=== PATIENT | male | born 1945 | race Caucasian/White ===

== ENCOUNTER 2019-04-13 18:26 | Outpatient (CLI) | payer MEDICARE, SELFPAY ==
[2019-04-13 19:25] LABS: ALT 75 U/L (16-63); AST 32 U/L (15-37); Alkaline Phosphatase 59 U/L (46-116); Anion Gap 12.1 mmol/L (3-11); BUN 17 mg/dL (7-18); Bilirubin, Total 0.7 mg/dL (0.2-1.0); CO2 23.9 mmol/L (21.0-32.0); CREATININE 1.17 mg/dL (0.70-1.30); Calcium 9.2 mg/dL (8.5-10.1); Calculated LDL 160 mg/dL; Chloride 103 mmol/L (98-107); Cholesterol 250 mg/dL (<200); Glucose 91 mg/dL (74-106); HDL Cholesterol 35 mg/dL (40-60); Potassium 4.8 mmol/L (3.5-5.1); Sodium 139 mmol/L (136-145); Total Protein 7.8 g/dL (6.4-8.2); Triglyceride 277 mg/dL (<150)
== END 2019-04-13 18:46 ==
PROVIDERS: PCP Family Medicine; Visit Provider Family Medicine
DX: I10 Essential (primary) hypertension (principal)
CPT/HCPCS: 80053; 80061

== ENCOUNTER 2020-05-25 03:31 | Outpatient (CLI) | payer MEDICARE, SELFPAY ==
[2020-05-26 15:29] LABS: COVID-19 RT-PCR UVMMC Result Negative (Negative)
== END 2020-05-25 03:51 ==
PROVIDERS: PCP Family Medicine; Visit Provider Internal Medicine Cardiovascular Disease
DX: Z11.59 Encounter for screening for other viral diseases (principal); Z01.810 Encounter for preprocedural cardiovascular examination
CPT/HCPCS: U0003

== ENCOUNTER 2020-05-31 00:46 | Outpatient (CLI) | payer MEDICARE, SELFPAY ==
--- NOTE | 2020-05-31 07:00 | DI.NM_ITS ---
APPROVED REPORT Exam: Pharmacologic Patient Location: Out-Patient Room/Bed: Stress Nurse: Nena Lee RN, Dm Smith RN Ordering Provider:LISANDRA ESTRADA, Contact Number: [phone] BMI: 32.99 Baseline Rhythm: Sinus Bradycardia Comment: RBBB, PACs, prolonged OH interval Indications: MAE and agina on exertion, HLD Medical History Medical History: Hypertension, hyperlipidemia, heart murmur Cardiac Medications: aspirin, lisinopril, garlic Allergies: amlodipine, simvastatin, NSAIDs, atorvastatin, rosuvastatin, berlazepril Cardiac Risk Factors: HTN, HLD, family hx, former smoker, obesity Previous Cardiac Procedures: None. Pretest Chest Pain Characteristics: None. Exercise History: sedentary Physical Disabilities: None. Lung Sounds: Clear to auscultation Heart Sounds: Regular Stress Test Details Test: Exercise stress converted to pharmacologic stress due to failure to obtain a diagnostic stress test. Reason for pharmacologic stress test: changed from exercise stress test due to inability to reach t arget heart rate. Nuclear Acquisition: Rest Tc-99m/Stress Tc-99m 1 day Rest Isotope: Tc-99m Sestamibi. Dose: 11.5 Date: 05/31/20 Injection Time: 0930 Stress Isotope: Tc-99m Sestamibi. Dose: 37 Date: 05/31/20 Injection Time: 1130 HR Resting HR Supine: 59 bpm Max Heart Rate (APMHR): 148 bpm Resting HR Standin bpm Target HR (85% APMHR): 125 bpm Max HR Achieved: 125 bpm % of APMHR: 84 Recovery HR: 83 bpm HR response to stress: Accelerated HR response to stress BP Resting BP Supine: 142/80 mmHg Resting BP Standin/82 mmHg Max BP: 152/86 mmHg Recovery BP: 140/86 mmHg BP response to stress: Normal blood pressure response to stress. ECG Resting ECG: Sinus Rhythm, RBBB, borderline prolonged OH interval Ectopy: PACs, frequent PVCs Stress ECG: Sinus Tachycardia, RBBB ST Change: Horizontal ST depression Lead(s): II, aVF, V3, V4, V5, V6 Stage: [address] Deviation: 2 mm Arrhythmia: PVCs, couplet Recovery ECG: Sinus Rhythm, RBBB Recovery ST Change: Horizontal ST depression, Downsloping ST depression Lead(s): II, III, avF, V3, V4, V5, V6 Recovery ST Deviation: 2.5 mm Recovery Arrhythmia: PVCs Clinical Reason for Termination: Chest pain/Anginal equivalent Stress Symptoms: Chest pain, Dyspnea Exercise duration: 5 min43 sec Highest Stage Reached: Stage 2: 2.5 mph at 12% grade. Exercise capacity: 5.46 METs Rubio Treadmill Score: -3.2 Rate Pressure Product: [id number] Stress ECG Conclusion 1. The resting electrocardiogram showed first-degree AV block, right bundle branch block 2. The patient exercised on the Clint protocol for 5 minutes 43 seconds, 5.46 METS. The test was sto pped because of shortness of breath and chest discomfort 3. Normal heart rate and blood pressure response to exercise. The patient achieved 84% of predicted heart rate for age 4. Electrocardiographically there was 2.[address] depression noted in the inferior and anterolateral leads at peak exercise, consistent with myocardial ischemia 5. Sporadic ventricular ectopic beats were noted Rubio Treadmill Score is -3.2 which is Moderate risk. Stress Test Summary STAGE Time (mins) Speed (mph) Grade (%) HR BP SYMPTOMS METS Supine 59 142/80 Standing 68 138/82 1 3 1.7 10 120 146/80 4.6 2 6 2.5 12 sternal tightness, SOB, pain 6/10 7 1 min post Lexiscan injection 101 152/86 3 min post Lexiscan injection 86 144/90 pain 4/10 6 min post Lexiscan injection 84 144/86 pain 4/10 9 min post Lexiscan injection 79 140/86 pain 2/10 12 min post Lexiscan injection 83 pain resolved 0/10 MPI Conclusion Myocardial perfusion is abnormal. There is an anteroapical area of predominant infarction, with some degree of reperfusion of the anterior wall Radiologist Interpretation Radiologist Interpretation by: Lizandro Badillo MD Interpretation Date/Time: 05/31/2020 15:04:22
[2020-05-31] MEDS: Regadenoson 0.4 MG/5 ML SYR IVP (12:02)
== END 2020-05-31 01:06 ==
PROVIDERS: PCP Family Medicine; Visit Provider Family Medicine
DX: I20.8 Other forms of angina pectoris (principal); R06.09 Other forms of dyspnea; E78.5 Hyperlipidemia, unspecified; I10 Essential (primary) hypertension; Z82.49 Family history of ischemic heart disease and other diseases of the circulatory system; Z87.891 Personal history of nicotine dependence; E66.9 Obesity, unspecified
CPT/HCPCS: 78452; 93016; 93018; 93017; J2785

== ENCOUNTER → 2020-06-13 10:39 | Outpatient (BNVA) | payer MEDICARE, SELFPAY | PROVIDERS: PCP Family Medicine; Referring Provider Family Medicine; Visit Provider Internal Medicine Cardiovascular Disease | DX: I25.10 Atherosclerotic heart disease of native coronary artery without angina pectoris (principal); R01.1 Cardiac murmur, unspecified; I10 Essential (primary) hypertension; E78.5 Hyperlipidemia, unspecified | CPT/HCPCS: 99204 ==

== ENCOUNTER 2020-06-28 01:28 | Outpatient (CLI) | payer MEDICARE, SELFPAY ==
--- NOTE | 2020-06-28 07:30 | DI.US_ITS ---
APPROVED REPORT EXAM: Comprehensive 2D, Doppler, and color-flow Echocardiogram Patient Location: Out-Patient Behavioral Psychologist: Emily Rodas RDCS (AE) Indications: CAD, Heart Murmur Other Information Study Quality: Adequate Conclusion Left Ventricle : The left ventricle is normal size. The left ventricular systolic function is normal. The left ventricular ejection fraction is within the normal range. There is normal left ventricular wall thickness. There is normal LV segmental wall motion. The left ventricular diastolic function is normal. LVEF is 50%. Right Ventricle : The right ventricle is normal size. The right ventricular systolic function is norm al. The RVSP is 23.6 mmHg. Atria : The left atrium size is normal. The right atrium size is normal. Aortic Valve : Aortic valve is calcified. Aortic valve is trileaflet. No aortic regurgitation is pres ent. There is mild aortic stenosis. Peak aortic valve gradient is 29.2mmHg. Highest mean aortic valv e gradient is 18.0mmHg. Calculated CUCA by the continuity equation is 1.47cm2. Great Vessels : The aortic root is normal in size. The ascending aorta is moderately dilated. Aortic arch is normal in caliber. IVC is normal in size and collapses >50% with inspiration. Please see remainder of study for further details. Wall motion Left Ventricle The left ventricle is normal size. The left ventricular systolic function is normal. The left ventric ular ejection fraction is within the normal range. There is normal left ventricular wall thickness. T here is normal LV segmental wall motion. The left ventricular diastolic function is normal. There is no ventricular septal defect visualized. LVEF is 50%. Right Ventricle The right ventricle is normal size. The right ventricular systolic function is normal. The RVSP is 23 .6 mmHg. Atria The left atrium size is normal. The right atrium size is normal. The interatrial septum is intact wit h no evidence for an atrial septal defect. Aortic Valve Aortic valve is calcified. Aortic valve is trileaflet. There is mild aortic stenosis. Peak aortic becky ve gradient is 29.2mmHg. Highest mean aortic valve gradient is 18.0mmHg. Calculated CUCA by the contin uity equation is 1.47cm2. No aortic regurgitation is present. Mitral Valve The mitral valve is normal in structure. No evidence of mitral valve stenosis. Trace mitral regurgita tion. Tricuspid Valve The tricuspid valve is normal in structure. There is no tricuspid valve stenosis. Trace tricuspid reg urgitation. Pulmonic Valve The pulmonary valve is normal in structure. There is no pulmonic valvular stenosis. Trace pulmonic re gurgitation. Great Vessels The aortic root is normal in size. The ascending aorta is moderately dilated. Aortic arch is normal i n caliber. IVC is normal in size and collapses >50% with inspiration. Pericardium There is no pericardial effusion. 2D Dimensions IVSD d PLAX 1.09 cm M: 0.6-1.2 LV Vol A2C d MOD 117.8 mL LVPW d PLAX 1.08 cm M: 0.6 - 1.2 LV Vol A4C d MOD 122.8 mL LVID d PLAX 4.78 cm M: 4.2 - 5.8 LA vol/ BSA A2C s A-L 24.9 mL/m2 LVDs 3.55 cm M: 2.5 - 4.0 LA vol/ BSA A4C s A-L 22.6 mL/m2 Ao Root d 2.94 cm M: 3.1 - 3.7 LA Vol/ BSA Biplane s A-L 24.7 mL/m2 RA Area A4C 14.77 cm2 LA Area A4C s MOD 18.81 cm2 RA Vol/ BSA A4C s A-L 15.4 mL/m2 LA Area A2C s MOD 18.98 cm2 Ao Asc Diam d 3.91 cm M: 2.6 - 3.4 LV EF A4C MOD 50.6 % LV EF Teichholz 49.3 % LV EF A2C MOD 51.5 % LVEF (El's) 52.88 % M: 52 - 72 LV EF Biplane MOD 52.9 % LV Volume 90.00 mL M: 62 - 150 SV 66.32 mL LV Volume Index 39.30 mL/m2 M: 34 - 74 SV Index 28.86 mL/m2 LV Vol Biplane MOD 125.4 mL FS 24.95 % M-Mode TAPSE 1.62 cm (M/F) >1.7 LV Diastology MV E' medial 0.055 (>0.07 m/s) E/A Ratio 0.9 LV E/e MED 11.25 (<14) MV E Vmax 0.62 (0.4-1.3 m/s) MV E' lateral 0.105 (>0.1 m/s) MV A Vmax 0.70 (0.4-1.3 m/s) LV E/e LAT 5.90 (<14) MV E/A Ratio 0.86 MV E/E' medial 11.26 MV E/E' lateral 5.94 Aortic Valve LVOT Area 3.76 cm2 AoV Area Vmax 1.47 cm2 LVOT Vmax 1.06 m/s AoV Area/ BSA (Vmax) 0.64 cm2/m2 LVOT Mean Casey. 0.65 m/s CUCA Mean Casey. 1.18 cm2 LVOT Peak Grad 4.5 mmHg CUCA Mean Casey. Index 0.51 cm2/m2 LVOT Mean Grad 2.0 mmHg LVOT VTI 0.235 m LVOT Diam s 2.15 cm AoV Vmax 2.70 m/s Velocity Ratio 0.39 AoV Mean Casey. 2.05 m/s AoV Peak Grad 29.2 mmHg LVOT SV 88.28 mL AoV Mean Grad 18.0 mmHg AoV VTI 0.596 m AoV Area VTI 1.48 cm2 AoV Area/ BSA (VTI) 0.64 cm/m2 Mitral Valve MV DT 249 (160-240 msec) MV PHT 72 msec MV Area PHT 3.05 cm2 MV VTI 0.266 m MV Area VTI 3.32 (4.0-6.0 cm2) Pulmonary Valve PV Vmax 0.86 (0.5-1.5 m/s) RVOT Peak Gr. 1.12 mmHg PV Peak Grad 3.0 mmHg RVOT Mean Gr. 0.55 mmHg PV Mean Grad 1.5 mmHg RVOT VTI 0.112 m PV VTI 0.181 m RVOT Vmax 0.53 m/s Tricuspid Valve TR Peak Grad 20.5 mmHg TR Vmax 2.27 m/s RA Pressure 3.00 mmHg RVSP (TR) 23.6 mmHg
== END 2020-06-28 01:29 ==
LOC: DI 01:28
PROVIDERS: PCP Family Medicine; Visit Provider Internal Medicine Cardiovascular Disease
DX: R01.1 Cardiac murmur, unspecified (principal); I77.810 Thoracic aortic ectasia
CPT/HCPCS: 93306

== ENCOUNTER → 2020-08-03 12:18 | Outpatient (BNVA) | payer MEDICARE, SELFPAY | PROVIDERS: PCP Family Medicine; Referring Provider Family Medicine; Visit Provider Internal Medicine Cardiovascular Disease | DX: Z95.1 Presence of aortocoronary bypass graft (principal); I25.10 Atherosclerotic heart disease of native coronary artery without angina pectoris; I10 Essential (primary) hypertension; E78.5 Hyperlipidemia, unspecified | CPT/HCPCS: 99214; 99215 ==

== ENCOUNTER → 2020-09-14 12:32 | Outpatient (BNVA) | payer MEDICARE, SELFPAY | PROVIDERS: PCP Family Medicine; Referring Provider Family Medicine; Visit Provider Internal Medicine Cardiovascular Disease | DX: I25.10 Atherosclerotic heart disease of native coronary artery without angina pectoris (principal); I10 Essential (primary) hypertension; E78.5 Hyperlipidemia, unspecified; I35.0 Nonrheumatic aortic (valve) stenosis; Z98.890 Other specified postprocedural states | CPT/HCPCS: 99213 ==

== ENCOUNTER 2020-10-12 09:00 | Outpatient (RCR) | payer MEDICARE, SELFPAY | END 2020-10-15 23:59 | disposition home or self-care (01) | LOC: CR 09:00 | PROVIDERS: PCP Family Medicine; Visit Provider Family Medicine | DX: Z51.89 Encounter for other specified aftercare (principal); I25.10 Atherosclerotic heart disease of native coronary artery without angina pectoris; Z95.1 Presence of aortocoronary bypass graft | CPT/HCPCS: S9472 ==

== ENCOUNTER 2020-11-14 09:00 | Outpatient (RCR) | payer MEDICARE, SELFPAY | END 2020-11-14 23:59 | disposition home or self-care (01) | LOC: CR 09:00 | PROVIDERS: PCP Family Medicine; Visit Provider Family Medicine | DX: Z51.89 Encounter for other specified aftercare (principal); I25.10 Atherosclerotic heart disease of native coronary artery without angina pectoris; Z95.1 Presence of aortocoronary bypass graft | CPT/HCPCS: S9472 ==

== ENCOUNTER 2020-11-16 09:00 | Outpatient (RCR) | payer MEDICARE, SELFPAY | END 2020-12-15 23:59 | disposition home or self-care (01) | LOC: CR 09:00 | PROVIDERS: PCP Family Medicine; Visit Provider Family Medicine | DX: I25.10 Atherosclerotic heart disease of native coronary artery without angina pectoris (principal); Z95.1 Presence of aortocoronary bypass graft; Z51.89 Encounter for other specified aftercare | CPT/HCPCS: S9472 ==

== ENCOUNTER → 2020-12-28 09:51 | Outpatient (BNVA) | payer MEDICARE, SELFPAY | PROVIDERS: PCP Family Medicine; Referring Provider Family Medicine; Visit Provider Internal Medicine Cardiovascular Disease | DX: I35.0 Nonrheumatic aortic (valve) stenosis (principal); I25.10 Atherosclerotic heart disease of native coronary artery without angina pectoris; I10 Essential (primary) hypertension; Z95.1 Presence of aortocoronary bypass graft | CPT/HCPCS: 99213 ==

== ENCOUNTER → 2021-06-25 10:22 | Outpatient (BNVA) | payer MEDICARE, SELFPAY | PROVIDERS: PCP Family Medicine; Referring Provider Family Medicine; Visit Provider Internal Medicine Cardiovascular Disease | DX: I35.0 Nonrheumatic aortic (valve) stenosis (principal); I25.10 Atherosclerotic heart disease of native coronary artery without angina pectoris; I10 Essential (primary) hypertension | CPT/HCPCS: 99214; 99213 ==

== ENCOUNTER 2021-07-29 13:07 | Outpatient (CLI) | payer MEDICARE, SELFPAY ==
[2021-07-29 10:43] LABS: ALT 34 U/L (16-63); AST 24 U/L (15-37); Albumin 3.6 g/dL (3.4-5.0); Alkaline Phosphatase 68 U/L (46-116); BUN 19 mg/dL (7-18); Bilirubin, Total 0.5 mg/dL (0.2-1.0); CREATININE 1.1 mg/dL (0.70-1.30); Calculated LDL 110 mg/dL (<100); Chloride 105 mmol/L (98-107); Cholesterol 197 mg/dL (<200); Glucose 98 mg/dL (74-106); HDL Cholesterol 35 mg/dL (40-60); Potassium 5.1 mmol/L (3.5-5.1); Sodium 138 mmol/L (136-145); Total Protein 7.2 g/dL (6.4-8.2); Triglyceride 264 mg/dL (<150)
== END 2021-07-29 13:08 | disposition home or self-care (01) ==
LOC: LBO 13:17
PROVIDERS: PCP Family Medicine; Visit Provider Family Medicine
DX: I25.10 Atherosclerotic heart disease of native coronary artery without angina pectoris (principal)
CPT/HCPCS: 36415; 80053; 80061

== ENCOUNTER 2021-08-05 10:58 | Day surgery (SDC) | payer MEDICARE, SELFPAY ==
[2021-08-05] MEDS: Tropicam./Phenyleph. (1/2.5%) 5 ML BTL OD ×3 (11:56→12:06)
[2021-08-05 11:57] VITALS: BP 135/86; PULSE 82; RESP 16; TEMP 36.9; O2SAT 97
--- NOTE | 2021-08-05 12:33 | W.ANESPRE ---
General Info Date of Service Date Performed: 08/05/21 Height: 6 ft Weight: 109.6 kg Body Mass Index (BMI): 32.8 Surgical Procedure: Operation Date: 08/05/21 14:40 Proposed Procedure Side Surgeon p Cataract Extraction with IOL Implant Right Sage Mcgregor MD Meds Allergies and Home Medications Allergies Allergy/AdvReac Type Severity Reaction Status Date / Time ibuprofen Allergy Intermediate SKIN RASH Verified 08/05/21 11:43 NSAIDS (Non-Steroidal Allergy Unknown unknown Verified 08/05/21 11:43 Anti-Inflamma atorvastatin AdvReac Intermediate MUSCLE Verified 08/05/21 11:43 ACHES rosuvastatin calcium AdvReac Intermediate MUSCLE Verified 08/05/21 11:43 [From Crestor] ACHING amlodipine AdvReac Mild dry mouth, Verified 08/05/21 11:43 cramps on combo benazepril AdvReac Mild dry mouth, Verified 08/05/21 11:43 cramps simvastatin AdvReac Unknown ARM/MUSCLE Verified 08/05/21 11:43 PAIN Home Medication Medication Instructions Recorded Vitamin B Complex 1 ea PO DAILY 08/16/12 aspirin 81 mg tablet,delayed 81 mg PO DAILY tab 08/16/12 release acetaminophen 500 mg tablet 1,000 mg PO DAILY 04/30/16 (Acetaminophen Extra Strength) nitroglycerin 0.4 mg sublingual 0.4 mg SUBLINGUAL Q5M PRN #30 tab 06/01/20 tablet multivitamin-ferrous 1 tab PO DAILY tab-cap 08/06/20 fumarate-folic acid 18 mg-400 mcg tablet (Centrum Complete) ezetimibe 10 mg tablet 10 mg PO DAILY #90 tab 07/11/21 hydroxyzine HCl 25 mg tablet 25 mg PO TID PRN #100 tab-cap 07/11/21 metoprolol succinate 50 mg 50 mg PO DAILY #90 tab 07/30/21 tablet,extended release 24 hr triamcinolone acetonide 0.5 % 1 applic TOPICAL BID PRN #15 g 07/30/21 topical cream Current Visit Medications: Current Medications Generic Name Dose Route Start Last Admin Trade Name Freq PRN Reason Stop Dose Admin Acetaminophen 1,000 mg 08/05/21 06:00 Acetaminophen 500 Mg Tab PO Q4H PRN PRN Miscellaneous Medication 0 ml 08/05/21 06:00 Prednisolone 1%, Moxifloxacin 0.5%, Nepafenac 0.1% 5ml Btl OD DIRECTED MARINA Miscellaneous Medication 0 ml 08/05/21 06:00 08/05/21 12:06 Tropicam./Phenyleph. (1/2.5%) 5 Ml Btl OD 1 drp DIRECTED MARINA Administration Tetracaine HCl 0 ml 08/05/21 06:00 Tetracaine 0.5% 4 Ml Btl OD DIRECTED MARINA PFSH Active Problems Active Problems: Problem Status Onset Code BMI 34.0-34.9,adult 07/22/11 Z68.34 Heart murmur 07/22/11 R01.1 Hyperlipidemia 07/22/11 E78.5 Hypertension 01/23/14 I10 Joint pain of lower limb 06/03/16 M25.50 Obesity, unspecified 07/22/11 E66.9 Peripheral vascular disease 07/22/11 I73.9 Urticaria 07/22/11 L50.9 Skin sensation disturbance 07/22/11 R20.9 History of tobacco use disorder 07/22/11 Z87.891 Coronary artery disease I25.10 Aortic stenosis I35.0 Epiretinal membrane (ERM) of both eyes H35.373 Aortic dilatation I77.819 Medical History Medical History Heart murmur HLD (hyperlipidemia) HTN (hypertension) Surgical History Surgical History H/O eye surgery (~03/2019) LASER FOR L RETINAL TEAR H/O vitrectomy (~05/2019) Hernia of scrotum (09/17/09) repair 09/17/09 LEFT History of surgery on upper extremity (06/22/1954) R index finger surgery S/P CABG x 4 (~2011) 07/23/20-Dr. Ledesma,[facility] [place] F/U up with Dr. Magana q6 months, last visit 06/25/21 S/P right inguinal hernia repair (06/23/04) S/P vasectomy (05/17/89) Tobacco Smoking/Tobacco Use Status: Former Tobacco Use Alcohol Alcohol Intake: current Alcohol intake frequency: a few times a week Alcohol type: beer Details: Not drinking until after f/u with doctor. Substance Use Substance use: Never Substance use type: does not use Vital Signs and Lab Results Vital Signs Most Recent Vital Signs in EMR: Most Recent Vital Signs Temp Pulse Resp BP Pulse Ox 36.9 C 82 16 135/86 97 08/05/21 11:57 08/05/21 11:57 08/05/21 11:57 08/05/21 11:57 08/05/21 11:57 Lab Results Blood Type / Crossmatch: No Data to Display Complete Blood Count: No Data to Display Complete Metabolic Panel: Sodium Level 138 mmol/L (136-145) 07/29/21 09:13 07/29/21 Potassium Level 5.1 mmol/L (3.5-5.1) 07/29/21 09:13 07/29/21 Chloride Level 105 mmol/L (98-107) 07/29/21 09:13 07/29/21 Carbon Dioxide Level 26.0 mmol/L (21.0-32.0) 07/29/21 09:13 07/29/21 Blood Urea Nitrogen 19 mg/dL (7-18) H 07/29/21 09:13 07/29/21 Creatinine 1.1 mg/dL (0.70-1.30) 07/29/21 09:13 07/29/21 Estimated GFR/1.73 m2 >= 60.00 (mL/min/1.73m2) 07/29/21 09:13 07/29/21 Calcium Level 9.0 mg/dL (8.5-10.1) 07/29/21 09:13 07/29/21 Albumin 3.6 g/dL (3.4-5.0) 07/29/21 09:13 07/29/21 Glucose Level 98 mg/dL (74-106) 07/29/21 09:13 07/29/21 Liver Function Panel: Alanine Aminotransferase (ALT/SGPT) 34 U/L (16-63) 07/29/21 09:13 07/29/21 Aspartate Amino Transf (AST/SGOT) 24 U/L (15-37) 07/29/21 09:13 07/29/21 Coagulation Panel: No Data to Display Cardiac Panel: No Data to Display Arterial Blood Gas: No Data to Display Venous Blood Gas: No Data to Display Pancreas Panel: No Data to Display Thyroid Panel: No Data to Display Infectious Disease: No Data to Display Blood Cultures: No Data to Display Toxicology Panel: No Data to Display Anesthesia Assessment and Plan Anesthesia History Personal History: No History of Anesthesia Complications Family History: No Family History of Anesthesia Complications Exercise Tolerance Exercise Tolerance: Metabolic Equivalents>4 Pertinent Negatives Pertinent Negatives: No Symptoms of GERD, No Major Cardiovascular Symptoms or Complaints (CABG x 4 07/23/20), No Major Pulmonary Symptoms or Complaints and No History of CVA/TIA Cardiac & Pulmonary Exam Cardiac Exam: Normal S1/S2 Heart Sounds Pulmonary Exam: Clear Bilateral Breath Sounds Implantable Cardiac Device Does patient have a Pacemaker or an ICD?: No Airway Exam Known Difficult Airway: No Mallampati Class: 2 Mouth Opening: Normal (> 3cm) Thyromental Distance: Greater than 3 cm Neck Range of Motion: Full ROM Neck Circumference: Normal Teeth Condition: Normal Dentition ASA Classification ASA Score: ASA 2 Emergency Case?: No NPO Status NPO Status: NPO Clears >2 hours, Solids >8 hours Anesthesia Plan Resuscitation Status: Full Code Anesthesia Technique: MAC Anesthesia Airway Planned: Natural Airway Monitors Used: Standard Monitors
[2021-08-05 12:34] VITALS: BMI 32.8
[2021-08-05] MEDS: Povidone-Iodine Ophth 30 ML BTL (12:46)
[2021-08-05] MEDS: Tetracaine 0.5% 4 ML BTL OD (12:46)
[2021-08-05] MEDS: Lidocaine 2% Jelly 6 ML SYR (12:46)
[2021-08-05] MEDS: Balanced Salt Soln.-PLUS 500 ML BAG (12:55)
[2021-08-05] MEDS: Duovisc Viscoelastic System EACH 1 EACH (12:57)
[2021-08-05 13:15] VITALS: BP 124/83; PULSE 70; RESP 16; TEMP 37; O2SAT 95
--- NOTE | 2021-08-05 13:16 | W.ANESPOSTOP ---
Postoperative Evaluation Date, Time and Location Date Performed: 08/05/21 Time Performed: 13:17 Patient Location: Day Surgery Unit Vital Signs Most Recent Imported Vital Signs: Most Recent Vital Signs Temp Pulse Resp BP Pulse Ox 36.9 C 82 16 135/86 97 08/05/21 11:57 08/05/21 11:57 08/05/21 11:57 08/05/21 11:57 08/05/21 11:57 Most Recent Manually Entered Vital Signs: Adult Blood Pressure: 124/83 Heart Rate: 67 Respirations: 11 Oxygen Saturation (%): 97 Temperature (C): 36.3 C Pain Score (0-10 Scale): 0 Pain Score Most Recent Pain Score: Most Recent Pain Score Pain Level 0 08/05/21 11:57 Assessment Mental Status: Awake (Alert & Oriented to Patient Baseline) Airway and Respiratory Function: Patent airway with normal (patient baseline) respiratory exam Cardiovascular Function: Hemodynamically Stable Hydration Status: Adequately Hydrated Nausea & Vomiting: No Nausea or Vomiting Pain: Pt. Denies Any Pain Peripheral Nerve Block: Patient did not receive a nerve block
[2021-08-05 13:18] VITALS: BP 124/83; PULSE 67; RESP 11; TEMPC 36.3; O2SAT 97
--- NOTE | 2021-08-05 13:18 | W.PM.DSUDISC ---
Discharge Plan Disposition Patient Disposition: HOME Condition: Good Discharge Details Attending Provider: Sage Mcgregor Primary Care Provider: Mayank Mohamud Home Meds and New Rx's Prescriptions: No Action triamcinolone acetonide 0.5 % cream 1 applic topical BID PRN (Reason: pruritis) Qty: 15 0RF metoprolol succinate 50 mg tablet extended release 24 hr 50 mg PO DAILY Qty: 90 3RF Rx Instructions: Increased s/p [facility] [place] d/c following CABGx4, decreased 08/14/20 [facility] [place] note cgc aspirin 81 MG tablet,delayed release (DR/EC) 81 mg PO DAILY 0RF Rx Instructions: PREVENTION VITAMIN B COMPLEX 1 EACH tablet 1 ea PO DAILY 0RF acetaminophen [Acetaminophen Extra Strength] 500 MG tablet 1,000 mg PO DAILY 0RF nitroglycerin 0.4 mg tablet, sublingual 0.4 mg sublingual Q5M PRN (Reason: chest pain) Qty: 30 6RF Rx Instructions: do not exceed 3 doses per episode Centrum Complete 18-400 mg-mcg tablet 1 tab PO DAILY 0RF Rx Instructions: with Vitamin A - per pt and [facility] [place] record vitamin A dose of 10,000IU ezetimibe 10 mg tablet 10 mg PO DAILY Qty: 90 3RF Rx Instructions: 07/30/20 per [facility] [place] d/c s/p CABGX4 hydroxyzine HCl 25 mg tablet 25 mg PO TID PRN (Reason: itching) Qty: 100 3RF Rx Instructions: as needed for itching Discharge Instructions Stand Alone Forms: Post-op Topical Cataract, Tanmay Gaona (DSU) Discharge Orders Discharge Orders: Discharge Order (Routine); Ordered 08/05/21 Ordered By: Sage Mcgregor DS: Diagnosis Discharge Diagnosis (1) Cortical cataract of right eye: Status: Resolved (2) Nuclear sclerotic cataract of right eye: Status: Resolved (3) Posterior subcapsular age-related cataract, right eye: Status: Resolved
--- NOTE | 2021-08-05 13:20 | ROE_ITS ---
Date of service: 08/05/21 Time of Service: 13:20 Operative Note Operative Note DATE OF PROCEDURE: 08/05/21 PRE-OP DIAGNOSIS: Nuclear/cortical/posterior subcapsular cataract, right eye Status post pars plana vitrectomy, right eye POST-OP DIAGNOSIS: same PROCEDURE: Cataract extraction using phacoemulsification with intraocular lens implant, right eye SURGEON: Sage Mcgregor ANESTHESIA TYPE: Local By Surgeon and MAC Refer to Anesthesia Record ESTIMATED BLOOD LOSS: 0 PATHOLOGY: none sent COMPLICATIONS: None Patient was transported to: same day Patient's condition: stable Implants: [employer]ed/ROLA Tecnis [id number] Indications: Progressive visual loss due to cataract, right eye Procedure Description: CATARACT SURGERY OPERATIVE REPORT PREOPERATIVE DIAGNOSIS: 1. Nuclear/cortical/posterior subcapsular cataract, right eye 2. Status post pars plana vitrectomy, right eye POSTOPERATIVE DIAGNOSIS: Same OPERATION: 1. Cataract extraction using phacoemulsification with posterior chamber intraocular lens implant, right eye. IOL: IOL Bilingual Student Tutor/Model: [employer]are[employer] / ROLA Tecnis [id number] IOL Power: + 22.5 diopters IOL Serial Number: [id number] Optic Diameter: 6.0mm Haptic/Overall Diameter: 13.0mm PHACO INFO: Mathew [employer]ion Vision System with OZil and Active Fluidics Cumulative Dispersed Energy (CDE): 16.19 seconds SURGEON: Sage Mcgregor MD, TOY ANESTHESIA: Monitored Anesthesia Care (MAC), with local sub-tenon's anesthetic infiltration COMPLICATIONS: None SPECIMENS: None INDICATIONS FOR PROCEDURE: The patient is a 76-year-old gentleman who is previously undergone pars plana vitrectomy and membrane peeling of the right eye he has now developed a significant nuclear/cortical/posterior subcapsular cataract of the right eye. The option of cataract surgery was offered to the patient and he wished to proceed. PROCEDURE: The correct surgical eye was identified and marked as the right eye and the pupil was dilated in the preoperative area using mydriatics and cycloplegics. The dilated pupil size was 8.0 mm. He elected to proceed without oral sedation. The patient was brought to the operating room where cardiopulmonary monitoring was instituted and surgical time-out was performed, confirming the correct operative eye and IOL power. Topical anesthesia was administered and ophthalmic povidone-iodine 5% was instilled into the conjunctival fornices. Lidocaine gel was applied to the cornea and the kitty-ocular area was prepped with Betadine 10% solution and draped in the usual sterile fashion for intraocular surgery, including an aperture drape. A Tegaderm transparent film dressing was cut in half and used to cover the lashes and lid margins. Care was taken to sequester the lashes and lid margins under the Tegaderm dressing. A lid speculum was placed between the lids of the operative eye and the Mathew LuxOR Revalia operating microscope was maneuvered into position. Ayan scissors were then used to make a conjunctival buttonhole approximately 6mm posterior to the limbus in the inferonasal quadrant. Blunt dissection was carried out to expose bare sclera, and a blunt-tipped sub-tenon?s anesthesia cannula was introduced and passed posteriorly along the globe where non- preserved plain lidocaine was injected into posterior sub-Tenon?s space. A sideport knife was used to make a paracentesis port inferotemporally. Intraocular phenylephrine/lidocaine was injected into the anterior chamber. The anterior chamber was filled with viscoelastic. A 2.4mm keratome knife was used to create a half-thickness groove at the limbus and then to construct a three- plane near-clear corneal tunnel extending 2.0mm into clear cornea superiortemporally. A flap was raised on the anterior capsule and capsulorhexis forceps were used to complete a continuous curvilinear capsulorhexis of 5.5 mm. Only mild zonular laxity was noted. Balanced salt solution was then used to perform cortical cleaving hydrodissection and nuclear hydrodelineation until the lens could be freely rotated within the capsular bag. The lens nucleus was then disassembled and removed within the capsular bag and iris plane using phacoemulsification. Residual cortical material was removed using the I/A handpiece. The posterior capsule was carefully polished to remove as much residual lens epithelial cells as safely possible. The capsular bag was then inflated and the anterior chamber deepened with viscoelastic. The lens implant described above was inserted into the capsular bag using the RLOA [place] Injector. A Kuglen hook was used to dial the IOL into position. Residual viscoelastic was then removed first from posterior to the IOL, then from the anterior chamber using the I/A handpiece. The lens implant was noted to center nicely within the capsular bag. The incisions were stromally hydrated, and the anterior chamber was reformed using BSS. Then 0.5cc of moxifloxacin 1.0mg/ml were injected into the capsular bag and anterior chamber. The incisions were checked with a Weck spear and found to be secure. Several drops of ophthalmic povidone-iodine 5% were then applied to the eye followed by two drops of Imprimis combination prednisolone/moxifloxacin/nepafenac solution. The drapes were removed and a clear plastic protective eye shield was placed over the eye. The patient was then returned to Same Day Surgery in stable condition.
== END 2021-08-05 13:35 | disposition home or self-care (01) ==
PROVIDERS: PCP Family Medicine; Visit Provider Ophthalmology
PROC: (CPT 66984; principal; 2021-08-05 14:30)
DX: H25.041 Posterior subcapsular polar age-related cataract, right eye (principal); I25.10 Atherosclerotic heart disease of native coronary artery without angina pectoris; I10 Essential (primary) hypertension; E78.5 Hyperlipidemia, unspecified; I73.9 Peripheral vascular disease, unspecified
CPT/HCPCS: 66984; V2632

== ENCOUNTER 2021-08-19 11:00 | Day surgery (SDC) | payer MEDICARE, SELFPAY ==
--- NOTE | 2021-08-19 11:43 | ANES.PREOP_ITS ---
General Info Date of Service Date Performed: 08/19/21 Height: 6 ft Weight: 109.6 kg Body Mass Index (BMI): 32.8 Surgical Procedure: Operation Date: 08/19/21 12:55 Proposed Procedure Side Surgeon p Cataract Extraction with IOL Implant Left Sage Mcgregor MD Meds Allergies and Home Medications Allergies Allergy/AdvReac Type Severity Reaction Status Date / Time ibuprofen Allergy Intermediate SKIN RASH Verified 08/19/21 11:44 NSAIDS (Non-Steroidal Allergy Unknown unknown Verified 08/19/21 11:44 Anti-Inflamma atorvastatin AdvReac Intermediate MUSCLE Verified 08/19/21 11:44 ACHES rosuvastatin calcium AdvReac Intermediate MUSCLE Verified 08/19/21 11:44 [From Crestor] ACHING amlodipine AdvReac Mild dry mouth, Verified 08/19/21 11:44 cramps on combo benazepril AdvReac Mild dry mouth, Verified 08/19/21 11:44 cramps simvastatin AdvReac Unknown ARM/MUSCLE Verified 08/19/21 11:44 PAIN Home Medication Medication Instructions Recorded Vitamin B Complex 1 ea PO DAILY 08/16/12 aspirin 81 mg tablet,delayed 81 mg PO DAILY tab 08/16/12 release acetaminophen 500 mg tablet 1,000 mg PO DAILY 04/30/16 (Acetaminophen Extra Strength) nitroglycerin 0.4 mg sublingual 0.4 mg SUBLINGUAL Q5M PRN #30 tab 06/01/20 tablet multivitamin-ferrous 1 tab PO DAILY tab-cap 08/06/20 fumarate-folic acid 18 mg-400 mcg tablet (Centrum Complete) ezetimibe 10 mg tablet 10 mg PO DAILY #90 tab 07/11/21 hydroxyzine HCl 25 mg tablet 25 mg PO TID PRN #100 tab-cap 07/11/21 metoprolol succinate 50 mg 50 mg PO DAILY #90 tab 07/30/21 tablet,extended release 24 hr triamcinolone acetonide 0.5 % 1 applic TOPICAL BID PRN #15 g 07/30/21 topical cream Current Visit Medications: Current Medications Generic Name Dose Route Start Last Admin Trade Name Freq PRN Reason Stop Dose Admin Acetaminophen 1,000 mg 08/19/21 06:00 Acetaminophen 500 Mg Tab PO Q4H PRN PRN Miscellaneous Medication 0 ml 08/19/21 06:00 Prednisolone 1%, Moxifloxacin 0.5%, Nepafenac 0.1% 5ml Btl OS DIRECTED MARINA Miscellaneous Medication 0 ml 08/19/21 06:00 Tropicam./Phenyleph. (1/2.5%) 5 Ml Btl OS DIRECTED MARINA Tetracaine HCl 0 ml 08/19/21 06:00 Tetracaine 0.5% 4 Ml Btl OS DIRECTED [facility] PFSH Active Problems Active Problems: Problem Status Onset Code Cortical cataract of left eye H26.9 Nuclear sclerotic cataract of left eye H25.12 Posterior subcapsular age-related cataract, right eye H25.041 Nuclear sclerotic cataract of right eye H25.11 Cortical cataract of right eye H26.9 BMI 34.0-34.9,adult 07/22/11 Z68.34 Heart murmur 07/22/11 R01.1 Hyperlipidemia 07/22/11 E78.5 Hypertension 01/23/14 I10 Joint pain of lower limb 06/03/16 M25.50 Obesity, unspecified 07/22/11 E66.9 Peripheral vascular disease 07/22/11 I73.9 Urticaria 07/22/11 L50.9 Skin sensation disturbance 07/22/11 R20.9 History of tobacco use disorder 07/22/11 Z87.891 Coronary artery disease I25.10 Aortic stenosis I35.0 Epiretinal membrane (ERM) of both eyes H35.373 Aortic dilatation I77.819 Medical History Medical History (Updated 08/18/21 @ 10:31 by Sage Mcgregor MD) Heart murmur HLD (hyperlipidemia) HTN (hypertension) Surgical History Surgical History H/O eye surgery (~03/2019) LASER FOR L RETINAL TEAR H/O vitrectomy (~05/2019) Hernia of scrotum (09/17/09) repair 09/17/09 LEFT History of surgery on upper extremity (06/22/1954) R index finger surgery S/P CABG x 4 (~2011) 07/23/20[place] [place] with Dr. Magana q6 months, last visit 06/25/21 S/P right inguinal hernia repair (06/23/04) S/P vasectomy (05/17/89) Tobacco Smoking/Tobacco Use Status: Former Tobacco Use Alcohol Alcohol Intake: current Alcohol intake frequency: a few times a week Alcohol type: beer Details: Not drinking until after f/u with doctor. Substance Use Substance use: Never Substance use type: does not use Vital Signs and Lab Results Lab Results Blood Type / Crossmatch: No Data to Display Complete Blood Count: No Data to Display Complete Metabolic Panel: Sodium Level 138 mmol/L (136-145) 07/29/21 09:13 07/29/21 Potassium Level 5.1 mmol/L (3.5-5.1) 07/29/21 09:13 07/29/21 Chloride Level 105 mmol/L (98-107) 07/29/21 09:13 07/29/21 Carbon Dioxide Level 26.0 mmol/L (21.0-32.0) 07/29/21 09:13 07/29/21 Blood Urea Nitrogen 19 mg/dL (7-18) H 07/29/21 09:13 07/29/21 Creatinine 1.1 mg/dL (0.70-1.30) 07/29/21 09:13 07/29/21 Estimated GFR/1.73 m2 >= 60.00 (mL/min/1.73m2) 07/29/21 09:13 07/29/21 Calcium Level 9.0 mg/dL (8.5-10.1) 07/29/21 09:13 07/29/21 Albumin 3.6 g/dL (3.4-5.0) 07/29/21 09:13 07/29/21 Glucose Level 98 mg/dL (74-106) 07/29/21 09:13 07/29/21 Liver Function Panel: Alanine Aminotransferase (ALT/SGPT) 34 U/L (16-63) 07/29/21 09:13 07/29/21 Aspartate Amino Transf (AST/SGOT) 24 U/L (15-37) 07/29/21 09:13 07/29/21 Coagulation Panel: No Data to Display Cardiac Panel: No Data to Display Arterial Blood Gas: No Data to Display Venous Blood Gas: No Data to Display Pancreas Panel: No Data to Display Thyroid Panel: No Data to Display Infectious Disease: No Data to Display Blood Cultures: No Data to Display Toxicology Panel: No Data to Display Anesthesia Assessment and Plan Anesthesia History Personal History: No History of Anesthesia Complications Family History: No Family History of Anesthesia Complications Exercise Tolerance Exercise Tolerance: Metabolic Equivalents>4 Pertinent Negatives Pertinent Negatives: No Symptoms of GERD, No Major Pulmonary Symptoms or Complaints and No History of CVA/TIA Cardiac & Pulmonary Exam Cardiac Exam: Normal S1/S2 Heart Sounds Pulmonary Exam: Clear Bilateral Breath Sounds Implantable Cardiac Device Does patient have a Pacemaker or an ICD?: No Airway Exam Known Difficult Airway: No Mallampati Class: 2 Mouth Opening: Normal (> 3cm) Thyromental Distance: Greater than 3 cm Neck Range of Motion: Full ROM Neck Circumference: Normal Teeth Condition: Normal Dentition ASA Classification ASA Score: ASA 3 Emergency Case?: No NPO Status NPO Status: NPO Clears >2 hours, Solids >8 hours Anesthesia Plan Resuscitation Status: Full Code Anesthesia Technique: MAC Anesthesia Airway Planned: Natural Airway Monitors Used: Standard Monitors
[2021-08-19 11:44] VITALS: BMI 32.8
[2021-08-19] MEDS: Tropicam./Phenyleph. (1/2.5%) 5 ML BTL OS ×3 (11:59→12:10)
[2021-08-19 12:00] VITALS: BP 126/75; PULSE 78; RESP 16; TEMP 36.4; O2SAT 96
[2021-08-19] MEDS: Tetracaine 0.5% 4 ML BTL OS (13:00)
[2021-08-19] MEDS: Duovisc Viscoelastic System EACH 1 EACH (13:02)
[2021-08-19] MEDS: Balanced Salt Soln.-PLUS 500 ML BAG (13:02)
[2021-08-19] MEDS: Lidocaine 2% Jelly 6 ML SYR (13:03)
[2021-08-19] MEDS: Povidone-Iodine Ophth 30 ML BTL (13:03)
[2021-08-19 13:18] VITALS: BP 130/74; PULSE 69; RESP 16; TEMP 36.1; O2SAT 97
--- NOTE | 2021-08-19 13:18 | W.PM.DSUDISC ---
Discharge Plan Disposition Patient Disposition: HOME Condition: Good Discharge Details Attending Provider: Sage Mcgregor Primary Care Provider: Mayank Mohamud Home Meds and New Rx's Prescriptions: No Action triamcinolone acetonide 0.5 % cream 1 applic topical BID PRN (Reason: pruritis) Qty: 15 0RF metoprolol succinate 50 mg tablet extended release 24 hr 50 mg PO DAILY Qty: 90 3RF Rx Instructions: [place] [facility] CABG[place], decreased 08/14/[place] [facility] [place] [facility] aspirin 81 MG tablet,delayed release (DR/EC) 81 mg PO DAILY 0RF Rx Instructions: PREVENTION VITAMIN B COMPLEX 1 EACH tablet 1 ea PO DAILY 0RF acetaminophen [Acetaminophen Extra Strength] 500 MG tablet 1,000 mg PO DAILY 0RF nitroglycerin 0.4 mg tablet, sublingual 0.4 mg sublingual Q5M PRN (Reason: chest pain) Qty: 30 6RF Rx Instructions: do not exceed 3 doses per episode Centrum Complete 18-400 mg-mcg tablet 1 tab PO DAILY 0RF Rx Instructions: with Vitamin A - per pt and [facility] [place] vitamin A dose of 10,000IU ezetimibe 10 mg tablet 10 mg PO DAILY Qty: 90 3RF Rx Instructions: 07/30/20 [place] [facility] [place] CABGX4 hydroxyzine HCl 25 mg tablet 25 mg PO TID PRN (Reason: itching) Qty: 100 3RF Rx Instructions: as needed for itching Discharge Instructions Stand Alone Forms: Post-op Topical Cataract, Tanmay Gaona (DSU) Discharge Orders Discharge Orders: Discharge Order (Routine); Ordered 08/19/21 Ordered By: Sage Mcgregor DS: Diagnosis Discharge Diagnosis (1) Nuclear sclerotic cataract of left eye: Status: Resolved (2) Cortical cataract of left eye: Status: Resolved
--- NOTE | 2021-08-19 13:24 | ROE_ITS ---
Date of service: 08/19/21 Time of Service: 13:24 Operative Note Operative Note DATE OF PROCEDURE: 08/19/21 PRE-OP DIAGNOSIS: Nuclear/cortical cataract, left eye POST-OP DIAGNOSIS: same PROCEDURE: Cataract extraction using phacoemulsification with intraocular lens implant, left eye SURGEON: Sage Mcgregor ANESTHESIA TYPE: Local By Surgeon and MAC Refer to Anesthesia Record PATHOLOGY: none sent COMPLICATIONS: None Patient was transported to: same day Patient's condition: stable Implants: [employer] / [employer] Tecnis [id number] Indications: Progressive decreased vision due to cataract, left eye Procedure Description: CATARACT SURGERY OPERATIVE REPORT PREOPERATIVE DIAGNOSIS: 1. Nuclear/cortical cataract, left eye POSTOPERATIVE DIAGNOSIS: Same OPERATION: 1. Cataract extraction using phacoemulsification with posterior chamber intraocular lens implant, left eye. IOL: IOL Director Of Land/Model: [employer] / [employer]LA Tecnis [id number] IOL Power: + 21.5 diopters IOL Serial Number: [id number] Optic Diameter: 6.0 mm Haptic/Overall Diameter: 13.0 mm PHACO INFO: [employer] Vision System with OZil and Active Fluidics Cumulative Dispersed Energy (CDE): 11.03 seconds SURGEON: Sage Mcgregor MD, TOY ANESTHESIA: Monitored A [facility] (MAC), with local sub-tenon's anesthetic infiltration COMPLICATIONS: None SPECIMENS: None INDICATIONS FOR PROCEDURE: The patient is a 76-year-old gentleman with history of diminished visual acuity in both eyes. He has previously undergone vitrectomy and membrane peeling in the right eye and subsequent cataract surgery. He now presents for cataract vianney sam in the left eye to improve a symptomatic nuclear and cortical cataract there. PROCEDURE: The correct surgical eye was identified and marked as the left eye and the pupil was dilated in the preoperative area using mydriatics and cycloplegics. The dilated pupil size was 7.0 mm. He elected to proceed without oral sedation.. The patient was brought to the operating room where cardiopulmonary monitoring was instituted and surgical time-out was performed, confirming the correct operative eye and IOL power. Topical anesthesia was administered and ophthalmic povidone-iodine 5% was instilled into the conjunctival fornices. Lidocaine gel was applied to the cornea and the kitty-ocular area was prepped with Betadine 10% solution and draped in the usual sterile fashion for intraocular surgery, including an aperture drape. A Tegaderm transparent film dressing was cut in half and used to cover the lashes and lid margins. Care was taken to sequester the lashes and lid margins under the Tegaderm dressing. A lid speculum was placed between the lids of the operative eye and the Mathew LuxOR Revalia operating microscope was maneuvered into position. Ayan scissors were then used to make a conjunctival buttonhole approximately 6mm posterior to the limbus in the inferonasal quadrant. Blunt dissection was carried out to expose bare sclera, and a blunt-tipped sub-tenon?s anesthesia cannula was introduced and passed posteriorly along the globe where non- preserved plain lidocaine was injected into posterior sub-Tenon?s space. A sideport knife was used to make a paracentesis port superiorly/superiortemporally. Intraocular phenylephrine/lidocaine was injected int the anterior chamber.. The anterior chamber was filled with viscoelastic. A 2.4mm keratome knife was used to create a half-thickness groove at the limbus and then to construct a three-plane near-clear corneal tunnel extending 2.0mm into clear cornea at the 3:00 position. A flap was raised on the anterior capsule and capsulorhexis forceps were used to complete a continuous curvilinear capsulorhexis of 5.0 mm. Balanced salt solution was then used to perform cortical cleaving hydrodissection and nuclear hydrodelineation until the lens could be freely rotated within the capsular bag. The lens nucleus was then disassembled and removed within the capsular bag and iris plane using phacoemulsification. Residual cortical material was removed using the 45-degree angled silicone I/A tip with 0.3mm port. The posterior capsule was carefully polished to remove as much residual lens epithelial cells as safely possible. The capsular bag was then inflated and the anterior chamber deepened with viscoelastic. The lens implant described above was inserted into the capsular bag using the ROLA Alexandru tinum Injector. A Kuglen hook was used to dial the IOL into position. Residual viscoelastic was then removed first from posterior to the IOL, then from the anterior chamber using the I/A handpiece. The lens implant was noted to center nicely within the capsular bag. The incisions were stromally hydrated, and the anterior chamber was reformed using BSS. Then 0.5cc of moxifloxacin 1.0mg/ml were injected into the capsular bag and anterior chamber. The incisions were checked with a Weck spear and found to be secure. Several drops of ophthalmic povidone-iodine 5% were then applied to the eye followed by two drops of Imprimis combination prednisolone/moxifloxacin/nepafenac solution. The drapes were removed and a clear plastic protective eye shield was placed over the eye. The patient was then returned to Same Day Surgery in stable condition.
--- NOTE | 2021-08-19 13:56 | W.ANESPOSTOP ---
Postoperative Evaluation Date, Time and Location Date Performed: 08/19/21 Time Performed: 13:18 Patient Location: Day Surgery Unit Vital Signs Most Recent Imported Vital Signs: Most Recent Vital Signs Temp Pulse Resp BP Pulse Ox 36.1 C L 69 16 130/74 97 08/19/21 13:18 08/19/21 13:18 08/19/21 13:18 08/19/21 13:18 08/19/21 13:18 Pain Score Most Recent Pain Score: Most Recent Pain Score Pain Level 0 08/19/21 13:18 Assessment Mental Status: Awake (Alert & Oriented to Patient Baseline) Airway and Respiratory Function: Patent airway with normal (patient baseline) respiratory exam Cardiovascular Function: Hemodynamically Stable Hydration Status: Adequately Hydrated Nausea & Vomiting: No Nausea or Vomiting Pain: Pt. Denies Any Pain Peripheral Nerve Block: Other (Local by Dr. Mcgregor)
== END 2021-08-19 13:45 | disposition home or self-care (01) ==
PROVIDERS: PCP Family Medicine; Visit Provider Ophthalmology
PROC: (CPT 66984; principal; 2021-08-19 12:45)
DX: H25.12 Age-related nuclear cataract, left eye (principal); I10 Essential (primary) hypertension; E78.5 Hyperlipidemia, unspecified
CPT/HCPCS: 66984; V2632

== ENCOUNTER 2021-09-20 01:27 | Outpatient (CLI) | payer MEDICARE, SELFPAY ==
--- NOTE | 2021-09-20 06:31 | DI.US_ITS ---
Exam(s) US AAA SCREENING EXAM: US AAA SCREENING CLINICAL HISTORY: Slight dilation in 2013, checking for progression,f/u aaa,i77.819 COMPARISON: US US ECHOCARDIOGRAM from 06/28/2020 FINDINGS: A fusiform infrarenal abdominal aortic aneurysm which exhibits maximum external diameter of 3.9 cm. Mural thrombus noted the level the aneurysm. Partially visualized right common iliac artery is slightly dilated with diameter 1.4 cm. Left common iliac artery is 1.2 cm. IMPRESSION: There is a fusiform infrarenal abdominal aortic aneurysm with maximum external diameter 3.9 cm. Ther e is mural thrombus present with in aneurysm. DATA REPOSITORY:
== END 2021-09-20 01:47 ==
PROVIDERS: PCP Family Medicine; Visit Provider Family Medicine
DX: I71.4 Abdominal aortic aneurysm, without rupture; I74.19 Embolism and thrombosis of other parts of aorta
CPT/HCPCS: 76706

== ENCOUNTER → 2021-12-24 10:34 | Outpatient (BNVA) | payer MEDICARE, SELFPAY | PROVIDERS: PCP Family Medicine; Visit Provider Internal Medicine Cardiovascular Disease | DX: I35.0 Nonrheumatic aortic (valve) stenosis (principal); I10 Essential (primary) hypertension; Z95.1 Presence of aortocoronary bypass graft; I25.10 Atherosclerotic heart disease of native coronary artery without angina pectoris | CPT/HCPCS: 99214; 99213 ==

== ENCOUNTER → 2022-07-04 09:07 | Outpatient (BNVA) | payer MEDICARE, SELFPAY | PROVIDERS: PCP Family Medicine; Referring Provider Family Medicine; Visit Provider Internal Medicine Cardiovascular Disease | DX: I25.810 Atherosclerosis of coronary artery bypass graft(s) without angina pectoris (principal); I35.0 Nonrheumatic aortic (valve) stenosis; I10 Essential (primary) hypertension; Z95.1 Presence of aortocoronary bypass graft | CPT/HCPCS: 99214 ==

== ENCOUNTER 2022-09-24 00:55 | Outpatient (CLI) | payer MEDICARE, SELFPAY ==
--- NOTE | 2022-09-24 06:30 | DI.US_ITS ---
Exam(s) US AAA DIAGNOSTIC EXAM: US AAA DIAGNOSTIC CLINICAL HISTORY: Annual surveillance of aaa,i71.4 COMPARISON: US US AAA SCREENING from 09/20/2021 FINDINGS: Abdominal Aorta: Proximal: 2.7 cm Mid: 2.9 cm Distal: Fusiform distal abdominal aortic aneurysm again noted with mural thrombus. 4.0 c m diameter, not significantly changed from prior. Iliacs: Right: 1.4 cm Left: 1.6 cm IMPRESSION: Stable 4 cm distal abdominal aortic aneurysm with mural thrombus. DATA REPOSITORY:
== END 2022-09-24 01:15 ==
LOC: DI 00:55
PROVIDERS: PCP Family Medicine; Visit Provider Family Medicine
DX: I71.9 Aortic aneurysm of unspecified site, without rupture (principal)
CPT/HCPCS: 76775

== ENCOUNTER → 2022-12-23 02:20 | Outpatient (CLI) | payer MEDICARE, SELFPAY ==
--- NOTE | 2022-12-23 07:30 | DI.US_ITS ---
APPROVED REPORT EXAM: Comprehensive 2D, Doppler, and color-flow Echocardiogram Patient Location: Out-Patient [place] [employer] Tester: Emily Rodas RDCS (AE) Indications: Aortic stenosis, CAD, CABG Other Information Study Quality: Adequate Conclusion Normal left ventricular wall thickness and chamber size. Ejection fraction is 58%. Wall motion is n ormal Normal right ventricular size and systolic function Left atrium is mildly dilated. Right atrial size is normal Aortic valve is calcified and probably trileaflet. There is mild aortic stenosis. Peak gradient is 34, mean 17 mmHg. Calculated aortic valve area is 1.4 cm??. There is no aortic regurgitation. Mild mitral annular calcification. Trace to mild mitral regurgitation Normal tricuspid valve with mild to moderate regurgitation. Estimated right ventricular systolic pre ssure is 31 mmHg Dilated ascending aorta measuring 3.85 cm Wall motion Left Ventricle The left ventricle is normal size. The left ventricular systolic function is normal. The left ventric ular ejection fraction is within the normal range. There is normal left ventricular wall thickness. T here is normal LV segmental wall motion. There is no ventricular septal defect visualized. LVEF is 58 %. Right Ventricle The right ventricle is normal size. The right ventricular systolic function is normal. Atria The left atrium size is mildly dilated The right atrium size is normal. The interatrial septum is int act with no evidence for an atrial septal defect. Aortic Valve Aortic valve is calcified. Aortic valve is probably trileaflet Mild aortic stenosis. Peak aortic becky ve gradient is 34.67_mmHg. Highest mean aortic valve gradient is 17.48mmHg. Calculated CUCA by the con tinuity equation is 1.4cm2. No aortic regurgitation is present. Mitral Valve Mild mitral annular calcification. No evidence of mitral valve stenosis. Trace to mild mitral regurgi tation. Tricuspid Valve The tricuspid valve is normal in structure. There is no tricuspid valve stenosis. Mild to moderate tr icuspid regurgitation. The RVSP is 31.2 mmHg. Pulmonic Valve The pulmonary valve is normal in structure. There is no pulmonic valvular stenosis. Trace to mild pul tyra regurgitation. Great Vessels The aortic root is normal in size. The ascending aorta is mildly dilated. IVC is normal in size and c ollapses >50% with inspiration. Pericardium There is no pericardial effusion. 2D Dimensions IVSD d PLAX 0.90 cm M: 0.6-1.2 LVPW d PLAX 0.89 cm M: 0.6 - 1.2 LVID d PLAX 4.86 cm M: 4.2 - 5.8 LVDs 3.25 cm M: 2.5 - 4.0 Ao Root d 3.18 cm M: 3.1 - 3.7 Ao Asc Diam d 3.85 cm M: 2.6 - 3.4 LV EF Teichholz 61.3 % FS 32.90 % LV Diastology MV E' medial 0.080 (>0.07 m/s) MV E Vmax 0.75 (0.4-1.3 m/s) MV E' lateral 0.080 (>0.1 m/s) Aortic Valve LVOT Vmax 1.03 m/s LVOT Peak Grad 4.2 mmHg LVOT Mean Grad 2.5 mmHg LVOT Diam s 2.05 cm AoV Vmax 2.81 m/s Velocity Ratio 0.37 AoV Peak Grad 31.7 mmHg LVOT SV 95.36 mL AoV Mean Grad 17.5 mmHg AoV Area VTI 1.39 cm2 Mitral Valve MV Vmax TIPS 0.68 m/s MV Mean Grad 0.7 (<2mmHg) MV Area PHT 3.39 cm2 MV VTI 0.245 m Pulmonary Valve PV Mean Grad 2.0 mmHg RVOT Peak Gr. 1.80 mmHg RVOT Mean Gr. 0.90 mmHg RVOT VTI 0.166 m RVOT Vmax 0.67 m/s Tricuspid Valve TR Peak Grad 28.2 mmHg TR Vmax 2.66 m/s RA Pressure 3.00 mmHg RVSP (TR) 31.2 mmHg
== END ==
PROVIDERS: PCP Family Medicine; Visit Provider Internal Medicine Cardiovascular Disease
DX: I25.10 Atherosclerotic heart disease of native coronary artery without angina pectoris (principal); I35.0 Nonrheumatic aortic (valve) stenosis
CPT/HCPCS: 93306

== ENCOUNTER → 2023-01-02 09:40 | Outpatient (BNVA) | payer MEDICARE, SELFPAY | PROVIDERS: PCP Family Medicine; Visit Provider Internal Medicine Cardiovascular Disease | DX: I35.0 Nonrheumatic aortic (valve) stenosis (principal); I25.10 Atherosclerotic heart disease of native coronary artery without angina pectoris; Z95.1 Presence of aortocoronary bypass graft | CPT/HCPCS: 99214 ==

== ENCOUNTER 2024-01-01 09:03 | Outpatient (CLI) | payer MEDICARE, SELFPAY ==
--- NOTE | 2024-01-01 09:00 | RT.EKG_ITS ---
APPROVED REPORT Exam: Resting ECG Reason for Exam: cardiac evaluation Patient Location: O HR:62 bpm ECG Measurements Heart Rate 62 AXIS ID 228 P 62 QRSd 167 QRS -51 QT 456 T 33 QTc 463 Conclusion Sinus rhythm...normal P axis, V-rate 50- 99 Prolonged ID interval...ID >220, V-rate 50- 90 Right bundle branch block...QRSd>120, terminal axis(90,270)
== END 2024-01-01 09:04 | disposition home or self-care (01) ==
LOC: DI.CARD 09:03
PROVIDERS: PCP Family Medicine; Visit Provider Internal Medicine Cardiovascular Disease
DX: I35.0 Nonrheumatic aortic (valve) stenosis; I25.10 Atherosclerotic heart disease of native coronary artery without angina pectoris; E78.5 Hyperlipidemia, unspecified
CPT/HCPCS: 93010

== ENCOUNTER → 2024-01-01 10:30 | Outpatient (BNVA) | payer MEDICARE, SELFPAY | PROVIDERS: PCP Family Medicine; Referring Provider Family Medicine; Visit Provider Internal Medicine Cardiovascular Disease | DX: I45.10 Unspecified right bundle-branch block (principal); I35.0 Nonrheumatic aortic (valve) stenosis; Z95.1 Presence of aortocoronary bypass graft | CPT/HCPCS: 93005; 99213 ==

== ENCOUNTER 2024-02-03 21:14 | Outpatient (CLI) | payer MEDICARE, SELFPAY ==
--- OUTSIDE RECORDS SUMMARY | 2024-02-03 21:15 | XMS_ITS | Clinical Summary ---
Author Organization [facility] [place] [address] Care Team Providers Care Hospital Plan Administrator Name Role Phone Mayank Mohamud DO Primary Care Provider [phone] Allergies Active Allergy Reactions Criticality Noted Date Comments Ibuprofen Other (See Comments) High 04/01/2019 Trouble swallowing and rash Xwqfhst-Fyo-Qyv Reductase Inhibitors 2020 Transparent Dressings 07/11/2020 Skin irritation Medications Medication Sig Dispensed Refills Start Date End Date Status vitamin A (AQUASOL) 10,000 unit Capsule Take 10,000 Units by mouth daily. Active B Complex-Vitamin C-Folic Acid (NEPHROCAP) 1 mg Capsule Take 1 capsule by mouth daily. Active hydrOXYzine (ATARAX) 25 mg Tablet Take 25 mg by mouth 2 times daily as needed for Itching. Active aspirin EC 81 mg Tablet, Delayed Release (E.C.) Take 81 mg by mouth daily. Active acetaminophen (Tylenol) 500 mg Tablet Take 2 tablets by mouth every 6 hours as needed for Pain. 30 tablet 1 07/28/2020 Active metoprolol succinate XL (Toprol-XL) 50 mg Tablet Sustained Release 24 hr Take 1 tablet by mouth 2 times daily. 60 tablet 12 07/28/2020 Active Additional Information Patient not taking.Reported on 12/21/2020 AMIOdarone (Cordarone; Pacerone) 200 mg Tablet Take 1 tablet by mouth 2 times daily. 60 tablet 07/28/2020 Active Additional Information Patient not taking.Reported on 10/24/2020 ezetimibe (Zetia) 10 mg Tablet Take 1 tablet by mouth daily. 30 tablet 12 07/29/2020 Active isosorbide mononitrate CR (Imdur) 30 mg Tablet Sustained Release 24 hr Take 1 tablet by mouth every morning. 30 tablet 12 07/29/2020 Active Active Problems Problem Noted Date Diagnosed Date CAD (coronary artery disease) 07/15/2020 Combined forms of age-related cataract of both e yes 06/25/2020 Overview (06/25/2020): Added automatically from request for surgery [id number] Screening for cardiovascular condition Overview (06/15/2020): Added automatically from request for surgery [id number] Coronary artery disease 06/15/2020 Overview (06/15/2020): Added automatically from request for surgery [id number] Family History Medical History Relation Comments Cataracts Brother Diabetes Brother Hypertension Brother Heart Disease Father Cancer Mother Cataracts Mother Heart Disease Mother Hypertension Mother Glaucoma Neg Hx Macular Degeneration Neg Hx Retinal Detachment Neg Hx Relation Status Comments Brother Father Mother Social History Tobacco Use Types Packs/Day Years Used Date Smoking Tobacco: Former Cigarettes 1989 Smokeless Tobacco: Never Alcohol Use Standard Drinks/Week Comments Yes 6 (1 standard drink = 0.6 oz pur e alcohol) social Sex and Gender Information Value Date Recorded Sex Assigned at Not on file Gender Identity Not on file Sexual Orientation Not on file Last Filed Vital Signs Vital Sign Reading Time Taken Comments Blood Pressure 116/69 08/21/2020 10:51 AM EDT Pulse 55 08/21/2020 10:51 AM EDT Temperature 36.5 ??C (97.7 ??F) 07/28/2020 12:[address] Respiratory Rate 18 07/28/2020 12:00 PM EST Oxygen Saturation 98% 08/21/2020 10:51 AM EDT Inhaled Oxygen Concentration - - Weight 102.5 kg (226 lb) 08/21/2020 10:51 AM EDT Height 182.9 cm (6') 08/21/2020 10:51 AM EDT Body Mass Index 30.65 08/21/2020 10:51 AM EDT Plan of Treatment Health Maintenance Due Date Last Done Comments Hepatitis C Screening 07/22/1965 Tdap adult 07/22/1966 Tetanus vaccine 07/22/1966 Zoster vaccine (1 of 2) 07/22/1997 Advance Directive 07/22/2002 Pneumoccocal Vaccine: 65+ (1 of 1 - PCV) 07/22/2012 Covid-19 Vaccine (1 - 2022- season) 2024 Influenza (Flu) vaccine (1 o f 1 - Influenza standard series) 01/17/2024 Medical Devices Implanted Type Area Sales [employer] Associate Device Identifier Shelf Expiration Date Model / Serial / Lot Cable Sternal Tapered Blunt Needle Cutting Edge Ss [place] ([id number]) - [id number] Implanted:Qty : 1 on 2020 by Joshua Ledesma MD at [facility] IMPLANTS Midline: Sternum [employer] - [employer] 03/30/2025 [id number] / N/A / [id number] Advance Directives * Attempt Cardiopulmonary Resuscitation - Inpatient (Latest Code Status on File) Date Activated Date Inactivated Comments 2020 11:50 AM 07/28/2020 3:17 PM Question Answer Comments Code Status decision made by: Patient * Full Code Date Activated Date Inactivated Comments 2020 7:10 AM 2020 11:50 AM Question Answer Comments Does patient have capacity to make decision: Yes * Attempt Cardiopulmonary Resuscitation - Inpatient Date Activated Date Inactivated Comments 07/09/2020 12:44 PM 07/09/2020 7:09 PM Question Answer Comments Code Status decision made by: Patient Care Teams Hospital Plan Administrator Relationship Specialty Start Date End Date Mayank Mohamud DO [address] [place] [address] PCP - General Family Medicine 07/23/20
--- OUTSIDE RECORDS SUMMARY | 2024-02-03 21:15 | XMS_ITS | Encounter Summary ---
Author Organization [facility] Address [facility] [place] [address] Care Team Providers Care Felt Machine Mechanic Name Role Phone Mayank Mohamud DO Primary Care Provider [phone] Reason for Visit * Reason Comments Epiretinal Membrane 1 year f/u for Hx of ERM with PPV-MP 06/13/2019 Encounter Details Date Type Department Care Team (Late st Contact Info) Description 12/21/2020 8:30 AM EDT Office Visit Ophthalmology at [facility] [place] [address] Yinka Rosales MD [facility] [place] [address] Epiretinal membrane, right (s/p PPV-MP 06/13/19); Epiretinal membrane, right Social History Tobacco Use Types Packs/Day Years Used Date Smoking Tobacco: Former Cigarettes 965 - 1989 Smokeless Tobacco: Never Alcohol Use Standard Drinks/Week Comments Yes 6 (1 standard drink = 0.6 oz pur e alcohol) social Sex and Gender Information Value Date Recorded Sex Assigned at Not on file Gender Identity Not on file Sexual Orientation Not on file documented as of this encounter Progress Notes * Yinka Rosales MD - 12/21/2020 8:30 AM EDT ASSESSMENT/PLAN: 1. Epiretinal membrane, right (s/p PPV-MP 06/13/19) 2. Epiretinal membrane, right Visual Acuity Visual Acuity (Snellen - Linear) Right Left Dist sc 20/80 +2 20/50 +2 Dist ph sc NI 20/25 +1 Near cc 20/60-2 20/25+2 1. 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 2. Retinal Tear OS Today 12/21/2020 No new tears upon exam. 3. Cataracts, both eyes -will have cataract surgery in [place] in the future Follow up Retina PRN I, Cierra Bhakta, have performed the documentation for this encounter in the presence of, and acting as a scribe for Yinka Rosales MD. I performed the services which were documented by the scribe, and I agree with the accuracy of the documentation in this encounter. Yinka Rosales MD, PhD Extended Ophthalmoscopy Indication: 1. Epiretinal membrane, right (s/p PPV-MP 06/13/19) 2. Epiretinal membrane, right Technique: A) Indirect ophthalmoscopy with scleral depression B) Slit lamp exam with 90D/78D lens Findings: Main Ophthalmology Exam External Exam Right Left External Normal Normal Slit Lamp Exam Right Left Lids/Lashes Normal Normal Conjunctiva/Sclera White and quiet White and quiet Cornea Clear Clear Anterior Chamber Deep and quiet Deep and quiet Iris dilated dilated Lens 3 NS 2+ NS Fundus Exam Right Left Vitreous avitric PVD Disc Normal Normal C/D Ratio 0.5 0.4 Macula mild contour irregularity, no ERM, minimal scar Normal Vessels Normal Normal Periphery Normal inf scars documented in this encounter Plan of Treatment Not on file documented as of this encounter Procedures Procedure Name Priority Date/Time Associated Diagnosis Comments OCT RETINA - OU - BOTH EYES Routine 12/21/2020 9:37 AM EDT Epiretinal membrane, right documented in this encounter Results * OCT Retina - OU - Both Eyes (12/21/2020 9:37 AM EDT) Anatomical Region Laterality Modality Other Narrative 12/21/2020 9:37 AM EDT Right Eye Quality was good. Scan locations included subfoveal. Progression has improved. Findings include abnormal foveal contour, lamellar hole. Left Eye Quality was good. Scan locations included subfoveal. Progression has no prior data. Findings include normal observations. Yinka Rosales MD OPHTHALMOLOGY SERVICES ORDERABLES documented in this encounter Visit Diagnoses Diagnosis Epiretinal membrane, right (s/p PPV-MP 06/13/19) documented in this encounter Care Teams Felt Machine Mechanic Relationship Specialty Start Date End Date Mayank Mohamud DO [address] [place] [address] [place] [address] PCP - General Family Medicine 07/23/20 documented as of this encounter
--- OUTSIDE RECORDS SUMMARY | 2024-02-03 21:15 | XMS_ITS | Encounter Summary ---
Author Organization Formerly [facility] Address [facility] [place] [address] Care Team Providers Care Pediatric Dietician Name Role Phone Mayank Mohamud DO Primary Care Provider [phone] Reason for Referral * Consultation (Routine) - Specialty Diagnoses / Procedures Referred By Contact Referred To Contact Cardiac Rehabilitation Diagnoses S/P CABG x [address] [facility] CARDIOTHORAC[place] [address] Cardiac Rehab, [address] [place] [address] Referral ID Status Reason Start Date Expiration Date V isits Requested Visits Authorized [id number] Consult, Test & Treat 07/28/2020 01/24/2021 36 36 Reason for Visit * Auth/Cert Specialty Diagnoses / Procedures Referred By Contac t Referred To Contact Diagnoses CAD (coronary artery disease) cad . Procedures PRO CABG, ARTERIAL, SINGLE PRO ENDOSCOPY W/VIDEO-ASST VEIN HARVEST, CABG PRO CABG, ARTERY-VEIN, FOUR @CABG, USING ARTERIAL GRAFT;SINGLE ARTERIAL GRAFT (WRVU 33.75) ENDOSCOPIC HARVEST VEIN(S) FOR CABG (WRVU 0.31) @CABG; 4 VENOUS GRAFTS & ARTERIAL GRAFT (WRVU 12.59) Referral ID Status Reason Start Date Expiration Date Visits Re quested Visits Authorized [id number] 1 1 Encounter Details Date Type Department Care Team (Latest Contact Info) Description 2020 6:00 AM EST - 07/28/2020 1:17 PM EST Hospital Encounter Intermediate [place] [address] Joshua Ledesma MD S/P CABG x 4 Discharge Disposition: Home Social History Tobacco Use Types Packs/Day Years Used Date Smoking Tobacco: Former Cigarettes 1989 Smokeless Tobacco: Never Alcohol Use Standard Drinks/Week Comments Yes 6 (1 standard drink = 0.6 oz pur e alcohol) social Sex and Gender Information Value Date Recorded Sex Assigned at Not on file Gender Identity Not on file Sexual Orientation Not on file documented as of this encounter Last Filed Vital Signs Vital Sign Reading Time Taken Comments Blood Pressure 96/67 07/28/2020 12:00 PM EST Pulse 61 07/28/2020 12:00 PM EST Temperature 36.5 ??C (97.7 ??F) 07/28/2020 1 2:00 PM EST Respiratory Rate 18 07/28/2020 12:0 0 PM EST Oxygen Saturation 96% 07/28/2020 12: 00 PM EST Inhaled Oxygen Concentration - - Weight 100.4 kg (221 lb 5.5 oz) 07/28/2020 4:56 AM EST Height 182.9 cm (6') 2020 6:48 AM EST Body Mass Index 30.02 2020 6:48 AM EST documented in this encounter Discharge Summaries * Azra Montgomery APRN - 07/28/2020 10:02 AM EST Inpatient - Discharge Summary Patient Name: Lizandro Heath Patient Age: 75 y.o. Birthdate: 1945 Language: Japanese Race: White Ethnicity: Not nor Admit Date: 2020 Discharge Date: 07/28/2020 Attending Physician: Joshua Ledesma MD Follow-up Recommendations for Providers: ??? Please continue routine management of cardiovascular risk factors including blood pressure, lipids, glucose, etc. ??? Please note any changes to medications. ??? Patient to follow up with PCP, Mayank Mohamud DO, in 1-2 weeks - please call to confirm and/or schedule your appointment. ??? You have an appointment with your Cardiac Surgeon, Dr. Joshua Ledesma, in ~4 weeks (on 08/21/2020) with chest x-ray, and EKG before your appointment. ??? Patient to follow up with Dr Ledesma in 2 wks with EKG. Inpatient Provider Contact Information: [facility] Section of Cardiac Surgery [facility] [place] [address] FAX [phone] Discharge Diagnoses (Hospital Problems) Primary Diagnoses: CAD S/P CABGx4 (07/23/20) Secondary Diagnoses: Active Hospital Problems Diagnosis ??? CAD (coronary artery disease) Resolved Hospital Problems No resolved problems to display. Other Diagnoses (Chronic Problems): Active Non-Hospital Problems Diagnosis ??? Combined forms of age-related cataract of both eyes ??? Screening for cardiovascular condition ??? Coronary artery disease Discharged to: Patient discharged to home Functional and Cognitive Status: Deconditioned, baseline Discharge Conditions/Prognosis: Stable Past Medical History: Diagnosis Date ??? Cataract ??? Claudication bilat leg aching after walking about 1/2 mile, has sensation of not knowing where his feet are ??? Coronary artery disease 06/15/2020 ??? Heart valve disease murmur since age 14had echo done in [facility], 06/2020 ??? High blood pressure controlled with medication ??? Hypertension ??? Vertigo Past Surgical History: Procedure Laterality Date ??? PRO CABG, ARTERIAL, SINGLE N/A 2020 @CABG, USING ARTERIAL GRAFT;SINGLE ARTERIAL GRAFT (WRVU 33.75) performed by Joshua Ledesma MD at [facility] MAIN OR ??? PRO CABG, ARTERY-VEIN, THREE N/A 2020 @CABG; 3 VENOUS GRAFTS & ARTERIAL GRAFT (WRVU 10.49) performed by Joshua Ledesma MD at [facility] MAIN OR ??? PRO ENDOSCOPY W/VIDEO-ASST VEIN HARVEST, CABG Right 2020 ENDOSCOPIC HARVEST VEIN(S) FOR CABG (WRVU 0.31) performed by Joshua Ledesma MD at [facility] MAIN OR ??? PRO VITRECTOMY PARS PLANA REMOVE PRERETINAL MEMBRANE Right 06/13/2019 VITRECTOMY, W/ MEMBRANE STRIPPING (WRVU 16.33) performed by Yinka Rosales MD at [facility] MAIN OR ??? RETINOPATHY SURGERY Left 04/01/2019 Laser for retinal tear - DM ??? VITRECTOMY, W/ MEMBRANE STRIPPING Right 06/13/2019 PPV MP per DM Prior To Admission Medications Medications Prior to Admission Medication Sig Dispense Refill Last Dose ??? docosahexaenoic acid/epa (FISH OIL ORAL) Take 1,000 mg by mouth daily. 07/20/2020 at Unknown time ??? UNKNOWN TO PATIENT noe has 6-8 oz in his coffee daily 07/20/2020 at Unknown time ??? xx-wq-vwzdyl #[id number] (Urinozinc Prostate Formula Pls) 100 mg Tablet Take by mouth. 07/20/2020 at Unknown time ??? metoprolol succinate XL (Toprol-XL) 25 mg Tablet Sustained Release 24 hr 07/20/2020 at Unknown time ??? nitroGLYcerin (Nitrostat) 0.4 mg Tablet, Sublingual Past Week at Unknown time ??? aspirin EC 81 mg Tablet, Delayed Release (E.C.) Take 81 mg by mouth daily. 2020 at Unknown time ??? acetaminophen (Tylenol) 325 mg Tablet Take 650 mg by mouth daily. 07/20/2020 at Unknown time ??? vitamin A (AQUASOL) 10,000 unit Capsule Take 10,000 Units by mouth daily. 07/20/2020 at Unknown time ??? B Complex-Vitamin C-Folic Acid (NEPHROCAP) 1 mg Capsule Take 1 capsule by mouth daily. 07/20/2020t Unknown time ??? hydrOXYzine (ATARAX) 25 mg Tablet Take 25 mg by mouth 2 times daily as needed for Itching. 07/20/2020 at Unknown time ??? lisinopril (PRINIVIL;ZESTRIL) 10 mg Tablet Take 10 mg by mouth daily. 07/20/2020 at Unknown time ??? chlorhexidine (HIBICLENS) 4 % Liquid Apply topically daily as needed. Shower from head to toe with Chlorhexidine the night before surgery . 120 mL 0 Updated Allergies/ADRs: Allergies Allergen Reactions ??? Ibuprofen Other (See Comments) Trouble swallowing and rash ??? Hfoelmq-Qhn-Jok Reductase Inhibitors ??? Tegaderm [Transparent Dressings] Skin irritation History of Presentation: Lizandro Heath is a 75 y.o. year old male with symptoms of villatoro and angina that have been progressive. Major Procedures/Operations: 07/23/20: CABGx4 (REDDING to LAD, SVG to diag and om, svg to rca.) Hospital Course: CAD s/p CABGx4 Lizandro Heath was admitted to [facility] on 2020 via the Same Day Program. He was brought to the operating room where Dr. Joshua Ledesma performed coronary arterybypass graftingx4. He tolerated the procedure and was brought to the Cardiovascular Intensive Care Unit for recovery. He initially required the pharmacologic support of intravenous nitroglycerin and levophed. He was extubated from the ventilator on the day of surgery. All drips were weaned to off. Routine postoperative and home medications were started and a diet was advanced. Aspirin 81mg daily was started. Statin therapy was contraindicated due to intolerance and he was started on zetia instead. He was started on beta blockade and this was optimized. Diureticswere started and he responded appropriately. Imdur was started and should be continued for 3 months. He was transferred to the Intermediate Cardiac Care Unit for continued rehabilitation. All tubes, lines, and epicardial pacing wires were removed without incident. He voided normally after his Crockett was removed. Post-operative atrial fibrillation He developed post-operative atrial fibrillation and was loaded with amiodarone for rhythm control. He will continue on amiodarone for 1 month until follow up with cardiac surgery. He was enrolled in the PACeS trial for anticoagulation for new-onset post-op atrial fibrillation after surgery and was randomized to ASA only, see below for details. He was in sr at the time of discharge. He was seen by Physical Therapy and Cardiac Rehabilitation. Sternal precaution education was provided. His discharge plan at this time is to home. The remainder of the his hospital course was uneventful and by postoperative day #5 he had met all criteria for discharge. Pain was controlled on oral medications. He had walked 5 minutes and gone up and down stairs. He was tolerating a regular diet and had a bowel movement. Anticoagulation for New-Onset Post-Operative Atrial Fibrillation After CABG (PACES) PI: Aleks Dunbar MD Lizandro Heath has consented to participate in the NIH-sponsored PACeS study. This study randomizes patients 1:1 to receive oral anticoagulation with background antiplatelet therapy or antiplatelet therapy alone following new- onset post-op A-fib. Lizandro Heath has been randomized to NO ORAL ANTICOAGULATION. It is important that patients remain on their assigned anticoagulation/antiplatelet strategy for 90 days. Please contact the Heart and Vascular Research team at [phone] if you have any questions about the trial or wish to discuss the anticoagulation/antiplatelet management. Please visit www.clinicaltrials.gov and use the identifier [id number] to learn more about this study. Vital Signs at Discharge: Last set of vitals: BP 117/72 (BP Location (NBP): Left arm, Patient Position: Lying) Pulse 61 Temp 36.9 ??C (98.4 ??F) (Oral) Resp 20 Ht 182.9 cm (6') Wt 100.4 kg (221 lb 5.5 oz) SpO2 95% BMI 30.02 kg/m?? Patient Vitals for the past 168 hrs: Weight 07/28/20 0456 100.4 kg (221 lb 5.5 oz) 07/27/20 0345 101.1 kg (222 lb 14.2 oz) 07/26/20 0500 102.4 kg (225 lb 12 oz) 07/25/20 0100 104 kg (229 lb 4.5 oz) 07/24/20 0554 103 kg (227 lb 1.2 oz) 07/23/20 0648 98.7 kg (217 lb 9.6 oz) Current weight: 101.1 Admit/Preop weight: 98.7kg Pertinent physical exam findings prior to discharge: General: Sitting in chair. NAD. Pleasant. Neuro: Awake and alert. CN II-XII grossly intact. Moves all extremities without focal deficit. Lungs: CTA, no wheezes, crackles, rhonchi. Heart: RRR, S1S2, 3/6 murmur, SR Abdomen: Soft, NTND, +bowel sounds. Ext: warm, trace edema. Incisions: CDI Important Studies and Lab Data: Lab Results Component Value Date WBC 8.0 07/26/2020 RBC 3.14 (L) 07/26/2020 HGB 10.0 (L) 07/26/2020 HCT 29.7 (L) 07/26/2020 PLATELET 169 07/26/2020 Recent Labs 07/23/20 1054 INR 1.2 Lab Results Component Value Date NA 136 07/26/2020 K 3.7 07/28/2020 CL 102 07/26/2020 CO2 26 07/26/2020 BUN 18 07/26/2020 CREATININE 0.89 07/26/2020 Pending Studies and Lab Data: none Immunizations Given this Hospitalization: There is no immunization history on file for this patient. Smoking Status at Discharge: Social History Tobacco Use Smoking Status Former Smoker ??? Packs/day: 1.00 ??? Years: 25.00 ??? Pack years: 25.00 ??? Types: Cigarettes ??? Quit date: 1989 ??? Years since quittin.2 Smokeless Tobacco Never Used STS Data Medications: Pre-operative beta tree? Given Discharge beta tree? Given Discharge lipid therapy? Given (Statin intolerant; discharged on Zetia) Discharge anti-platelet therapy? Given Discharge Medications: Your Medications New Medications Dose Details AMIOdarone 200 mg Tab Commonly known as: Cordarone; Pacerone Take 1 tablet by mouth 2 times daily. 200 mg Quantity: 60 tablet Refills: 0 ezetimibe 10 mg Tab Commonly known as: Zetia Take 1 tablet by mouth daily. Start taking on: July 29, 2020 10 mg Quantity: 30 tablet Refills: 12 isosorbide mononitrate CR 30 mg Tablet sr Commonly known as: Imdur Take 1 tablet by mouth every morning. Start taking on: July 29, 2020 30 mg Quantity: 30 tablet Refills: 12 Continued medications with new dosing Dose Details acetaminophen 500 mg Tab Commonly known as: Tylenol Take 2 tablets by mouth every 6 hours as needed for Pain. What changed: ?? medication strength ?? how much to take ?? when to take this ?? reasons to take this 1,000 mg Quantity: 30 tablet Refills: 1 metoprolol succinate XL 50 mg Tablet sr Commonly known as: Toprol-XL Take 1 tablet by mouth 2 times daily. What changed: ?? medication strength ?? how much to take ?? how to take this ?? when to take this 50 mg Quantity: 60 tablet Refills: 12 Continued medications, unchanged Dose Details aspirin EC 81 mg Tbec Take 81 mg by mouth daily. 81 mg Refills: 0 hydrOXYzine 25 mg Tab Commonly known as: Atarax Take 25 mg by mouth 2 times daily as needed for Itching. 25 mg Refills: 0 vitamin A 10,000 unit Cap Commonly known as: Aquasol Take 10,000 Units by mouth daily. 10,000 Units Refills: 0 Vitamin B Complex-Vitamin C-Folic Acid 1 mg Cap Commonly known as: Nephrocap Take 1 capsule by mouth daily. 1 capsule Refills: 0 STOPPED Medications chlorhexidine 4 % Liqd Commonly known as: HIBICLENS FISH OIL ORAL lisinopriL 10 mg Tab Commonly known as: Prinivil;Zestril nitroGLYcerin 0.4 mg Subl Commonly known as: Nitrostat UNKNOWN TO PATIENT Urinozinc Prostate Formula Pls 100 mg Tab Generic drug: ra-na-fecdsm #[id number] Instructions Given to Patient at Discharge: General Instructions None Cardiac Surgery Discharge Instructions: Call your doctor if: You have a fever of greater than 101 degrees, shaking chills, if you develop redness or drainage from your incision sites, or if you have questions. Please call your surgeon's office if you have any discharge or drainage from your chest incision. Your surgeon, Dr. Joshua Ledesma and/or the Cardiac Surgery Physician Cash Applications Specialist Team may be reached at . Weight: Weigh yourself daily. Please call the office if you notice increasing weight, increasing fluid retention (edema), and/or SOB. Sternal (breast bone) precautions: No lifting greater than 7-10 pounds; no pushing or pulling with upper extremities; no excessive chest stretching for the first 4 weeks. Further instructions will begiven to you at your follow-up appointment. Activity level: Walk three times a day. You should continue to increase your walks by 1-2 minutes each day. It is expected that you will be walking 20-30 minutes twice a day within 3-4 weeks after discharge to home. Rest between activities and after meals. Use common sense, don't exhaust yourself. Biking: You may use a stationary bicycle whenever you are comfortable enough to permit this. Tighten the resistance slightly. Increase the amount of time on the bicycle as you would do for your walks, a minute or two each day. No biking outside until after your return appointment with Dr. Joshua Sanchez. You may use a [place] or treadmill but avoid any pulling motion with the arms. Home activities: You may do light housework, e.g. dusting, setting the table, washing dishes, preparing a meal. Light carpentry and gardening are allowed. Avoid trying to open tight jars and stuck windows. No vacuuming, mopping, raking, shoveling, digging or hoeing until after your return visit with the surgeon. Sexual activity: You may engage in sexual activity when you feel ready. Use a position that protects your sternum (breastbone). Do not have your partner lie on your chest. Stairs: There are no restrictions on stair climbing. Use common sense. Don't exhaust yourself. Activities outside the home: After the first week home you may go out to dinner, visit friends, go to a movie, go to lutheran, etc. Heavy activities: No hunting, skiing, jogging, snow shoveling, snowmobiling, lawn mowing, swimming,golf or tennis until after your return appointment with the surgeon. Do not ride motorcycles, ATV'stractors or horses. Avoid the use of a rifle with kickback against the shoulder for six months. Sleep: Try to establish normal sleep patterns. Long naps during the day may make it hard for you tosleep at night. Use the pain medication at bedtime for the first week at home. If you have nightmares, contact us. Some medications make this worse and these can be changed. Smoking: It is very important that you not smoke after surgery. Smoking cessation education was provided as appropriate. If you need further assistance with this please call and you will be referred to a smoking cessation specialist. Medications: Take only those medications listed on your discharge information. Keep your pain undercontrol so you can be active, do your coughing and breathing exercises and sleep. Contact us if thepain medication isn't working for you. Do not take any herbal preparations until after you return to see the surgeon. Special Physician Instructions: DO NOT USE ANY IBUPROFEN (ADVIL, MOTRIN, ETC) OR OTHER NSAIDS (NONSTEROIDAL ANTI-INFLAMMATORY DRUGS) FOR A TOTAL OF 10 DAYS AFTER SURGERY. PLEASE CONTACT THE CARDIOTHORACIC SURGERY OFFICE IF YOU HAVE QUESTIONS ABOUT WHICH DRUGS YOU SHOULD NOT USE. . Diet: You should follow a regular diet until your appetite returns to normal. At that point in timeyou should resume a low fat, low cholesterol, [place] Heart [employer] Diet. Driving: No driving until cleared by your surgeon. Avoid long trips if possible. If you must go on a long trip, stop the car and walk every hour. Shower/Bath: You may shower daily. No baths, soaking, or swimming until cleared by your surgeon. Wound care: Wash your incisions daily with soap and rinse well, pat dry. Assess for any signs of infection such as increased redness, pain, warmth or drainage. Please call your surgeon's office if you have any discharge or drainage from your chest incision. If there is a lot of swelling, apply cortney wraps during the day and remove at bedtime. Elevate your legs when you are sitting. REMOVE CHEST TUBE SUTURES ON OR AFTER 08/02/2020 Home oxygen therapy: N/A Follow up appointments: ??? Patient to follow up with PCP, Mayank Mohamud DO, in 1-2 weeks - please call to confirm and/or schedule your appointment. ??? You have an appointment with your Cardiac Surgeon, Dr. Joshua Ledesma, in ~4 weeks (on 08/21/2020) with chest x-ray, and EKG before your appointment. Cardiac Rehabilitation: Lizandro Heath was seen regarding participation in the outpatient Phase [address] [facility]. The patient agrees to a referral to this program. 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 A referral will be sent at discharge and the patient should be contacted by the Program within 1- 2 weeks from discharge. Future Appointments and Orders Future Appointments and Orders Future Appointments Provider Department Dept Phone 08/21/2020 10:30 AM [facility] ROOM 2 XRay at [facility] [place] Arrive at: [facility] [phone] [facility] ([facility]). 08/21/2020 11:20 AM Joshua Ledesma MD Cardiac Surgery at [facility] [place] Arrive at: [facility] 4A [phone] 12/18/2020 8:15 AM Yinka Rosales MD; [facility]; [facility] Ophthalmology at [facility] [place] Arrive at: [facility] 4B [phone] Future Orders Complete By Expires EKG 12 Lead [77883 CPT(R)] 08/24/2020 10/24/2020 Process Instructions: Scheduling Instructions: POST OP VISIT EKG Questions: Which location will this be performed?: [place] Is a rhythm strip needed?: No XR Chest PA & Lateral (Generic) [[id number] Custom] 08/24/2020 10/24/2020 Process Instructions: Scheduling Instructions: Comments: Questions: Where will study be performed?: [facility] Radiology Portable exam?: No Reason for exam and clinical history: 1 month f/u s/p CABG Clinical information / minor questions: Stat read required?: Date of injury if applicable: Requested Time: Referral to Cardiac Rehab [[id number] Custom] As directed Process Instructions: If no progress note charted, please enter Clinical details in comments. Scheduling Instructions: Questions: My question or request is: s/p CABG. Cardiac rehab at [facility]. Referral to Home Health - at DISCHARGE [[id number] CPT(R)] As directed Process Instructions: Scheduling Instructions: Comments: DOCUMENTATION FOR VNA SERVICES (INCLUDING THOSE PATIENTS WITH MEDICARE COVERAGE REQUIRING HOME VNA SERVICES AND/OR HOSPICE SERVICES) PATIENT'S LOCATION: Lizandro Heath [address] [facility] [address] (home) No relevant phone numbers on file. [employer]'s Name: patient and MICHAEL Feliciano In discussion with the attending physician, it is certified that this patient is under their care and that they, or a Nurse Practitioner, or Physician Cash Applications Specialist who is working directly with them, hada face to face encounter that meets the physician face to face encounter requirements with this patient on 07/28/2020 The encounter with the patient was in whole, or in part, for the following medical condition, whichis the primary reason for home health care services: post op CABG In discussion with the provider, it is certified that, based on their findings, the following services are medically necessary for home health services. To provide the following care/treatments with the clinical findings supporting the need for services as follows: HOME HEALTH AGENCY: [facility] PHONE: [phone] FAX: [phone] RN orders: Cardiopulmonary assessment, incisional assessment, assess vital signs, assessment of rehab progress, medication management and effectiveness, home safety evaluation. PT ORDERS: Continue rehab for endurance, gait stability and strength with mobility and transfers. Home safety evaluation. Home exercise program if appropriate. Start of Care Date:24 to 48 hours after discharge SPECIAL INSTRUCTIONS: For any follow up questions, needs, or issues please call the Cardiac SurgeryOffice at [phone] FOR MEDICARE ONLY: (please delete this section if not Medicare) In discussion with the attending physician, it is certified that the clinical findings support thatthis patient is homebound i.e. absences from home require considerable and taxing effort due to: Restricted mobility and poor activity tolerance due to recent cardiac surgery. Patient requires assistance of another person to leave the home. Home Health agencies which cover the area of patient's residence have been reviewed, either verbally or in writing, and patient/family have chosen the agency as noted. Questions: Agency name and contact information: [facility] Patient location post discharge: home What services are requested: Registered Nurse Physical Therapy Start date: Responsible MD post discharge contact info: PCP Walker standard [[id number] Custom] As directed Process Instructions: Scheduling Instructions: Comments: Lizandro Heath [address] [facility] [phone] (home) No relevant phone numbers on file. Diagnosis:post op CABG with Unsteady gait Significant weakness, ataxia or gait abnormality Patient's: Hgt: 6 Wgt: 222 lbs VENDOR: [facility] Located @ [facility] [place] Ordering: Front wheel walker Deliver to pt's hospital room #: 457A Questions: Vendor Name/Contact information: [facility] Arrangements for VNA/home care: As above. VN RN OR PCP TO PLEASE REMOVE CHEST TUBE SUTURES ON OR AFTER 08/02/2020 Signed: AZRA MONTGOMERY APRN [facility] Section of Cardiac Surgery [facility] [place] [address] FAX [phone] Date: 07/28/2020 CC: DO Jerri Barone John E, MD [facility] [place] [address] documented in this encounter Discharge Instructions * Patient Instructions* Azra Montgomery, SALVAGE DIVER - 07/28/2020 10:05 AM EST Cardiac Surgery Discharge Instructions: ?? Call your doctor if: You have a fever of greater than 101 degrees, shaking chills, if you develop redness or drainage from your incision sites, or if you have questions. Please call your surgeon's office if you have any discharge or drainage from your chest incision. Your surgeon, Dr. Joshua Ledesma and/or the Cardiac Surgery Physician Cash Applications Specialist Team may be reached at . ?? Weight: Weigh yourself daily. Please call the office if you notice increasing weight, increasing fluid retention (edema), and/or SOB. ?? Sternal (breast bone) precautions: No lifting greater than 7-10 pounds; no pushing or pulling with upper extremities; no excessive chest stretching for the first 4 weeks. Further instructions will begiven to you at your follow-up appointment. ?? Activity level: Walk three times a day. You should continue to increase your walks by 1-2 minutes each day. It is expected that you will be walking 20-30 minutes twice a day within 3-4 weeks after discharge to home. Rest between activities and after meals. Use common sense, don't exhaust yourself. ?? Biking: You may use a stationary bicycle whenever you are comfortable enough to permit this. Tighten the resistance slightly. Increase the amount of time on the bicycle as you would do for your walks, a minute or two each day. No biking outside until after your return appointment with Dr. Joshua Sanchez. You may use a [place] or treadmill but avoid any pulling motion with the arms. ?? Home activities: You may do light housework, e.g. dusting, setting the table, washing dishes, preparing a meal. Light carpentry and gardening are allowed. Avoid trying to open tight jars and stuck windows. No vacuuming, mopping, raking, shoveling, digging or hoeing until after your return visit with the surgeon. ?? Sexual activity: You may engage in sexual activity when you feel ready. Use a position that protects your sternum (breastbone). Do not have your partner lie on your chest. ?? Stairs: There are no restrictions on stair climbing. Use common sense. Don't exhaust yourself. ?? Activities outside the home: After the first week home you may go out to dinner, visit friends, go to a movie, go to lutheran, etc. ?? Heavy activities: No hunting, skiing, jogging, snow shoveling, snowmobiling, lawn mowing, swimming,golf or tennis until after your return appointment with the surgeon. Do not ride motorcycles, [employer]tractors or horses. Avoid the use of a rifle with kickback against the shoulder for six months. ?? Sleep: Try to establish normal sleep patterns. Long naps during the day may make it hard for you tosleep at night. Use the pain medication at bedtime for the first week at home. If you have nightmares, contact us. Some medications make this worse and these can be changed. ?? Smoking: It is very important that you not smoke after surgery. Smoking cessation education was provided as appropriate. If you need further assistance with this please call and you will be referred to a smoking cessation specialist. ?? Medications: Take only those medications listed on your discharge information. Keep your pain undercontrol so you can be active, do your coughing and breathing exercises and sleep. Contact us if thepain medication isn't working for you. Do not take any herbal preparations until after you return to see the surgeon. ?? Special Physician Instructions: DO NOT USE ANY IBUPROFEN (ADVIL, MOTRIN, ETC) OR OTHER NSAIDS (NONSTEROIDAL ANTI-INFLAMMATORY DRUGS) FOR A TOTAL OF 10 DAYS AFTER SURGERY. PLEASE CONTACT THE CARDIOTHORACIC SURGERY OFFICE IF YOU HAVE QUESTIONS ABOUT WHICH DRUGS YOU SHOULD NOT USE. . Diet: You should follow a regular diet until your appetite returns to normal. At that point in timeyou should resume a low fat, low cholesterol, [place] Heart [employer] Diet. ?? Driving: No driving until cleared by your surgeon. Avoid long trips if possible. If you must go on a long trip, stop the car and walk every hour. ?? Shower/Bath: You may shower daily. No baths, soaking, or swimming until cleared by your surgeon. ?? Wound care: Wash your incisions daily with soap and rinse well, pat dry. Assess for any signs of infection such as increased redness, pain, warmth or drainage. Please call your surgeon's office if you have any discharge or drainage from your chest incision. If there is a lot of swelling, apply cortney wraps during the day and remove at bedtime. Elevate your legs when you are sitting. ?? REMOVE CHEST TUBE SUTURES ON OR AFTER 08/02/2020 ?? Home oxygen therapy: N/A ?? Follow up appointments: ?? Patient to follow up with PCP, Mayank Mohamud DO, in 1-2 weeks - please call to confirm and/orschedule your appointment. ?? You have an appointment with your Cardiac Surgeon, Dr. Joshua Ledesma, in ~4 weeks (on 08/21/2020) with chest x-ray, and EKG before your appointment. ?? Cardiac Rehabilitation: Lizandro Heath??was seen regarding participation in the outpatient Phase [address]iac [address] [facility]. The patient agrees to a referral to this program.? 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 ?? A??referral will be sent at discharge and the patient should be contacted by the Program within 1- 2 weeks from discharge. ?? documented in this encounter Medications at Time of Discharge Medication Sig Dispensed Refills Start Date End Date acetaminophen (Tylenol) 500 mg Tablet Take 2 tablets by mouth every 6 hours as needed for Pain. 30 tablet 1 07/28/2020 metoprolol succinate XL (Toprol-XL) 50 mg Tablet Sustained Release 24 hr Take 1 tablet by mouth 2 times daily. 60 tablet 12 07/28/2020 AMIOdarone (Cordarone; Pacerone) 200 mg Tablet Take 1 tablet by mouth 2 times daily. 60 tablet 07/28/2020 ezetimibe (Zetia) 10 mg Tablet Take 1 tablet by mouth daily. 30 tablet 12 07/29/2020 isosorbide mononitrate CR (Imdur) 30 mg Tablet Sustained Release 24 hr Take 1 tablet by mouth every morning. 30 tablet 12 07/29/2020 aspirin EC 81 mg Tablet, Delayed Release (E.C.) Take 81 mg by mouth daily. vitamin A (AQUASOL) 10,000 unit Capsule Take 10,000 Units by mouth daily. B Complex-Vitamin C-Folic Acid (NEPHROCAP) 1 mg Capsule Take 1 capsule by mouth daily. hydrOXYzine (ATARAX) 25 mg Tablet Take 25 mg by mouth 2 times daily as needed for Itching. documented as of this encounter Progress Notes * Katrin Gutierrez RD - 07/28/2020 10:46 AM EST Nutrition Note Visited pt to disc heart healthy diet. Pt demonstrated a high readiness to change and was engaged in the discussion. Pt has baseline diet high in red meat and sodium, so a large portion of the education revolved around exploring acceptable alternatives and reading food labels. Disc hidden sources of sodium and alternative seasoning options. Encouraged plenty of fresh fruit and veg and urged him to avoid processed and pre-packaged foods as best as possible. Pt asked great questions and brainstormed ways to make these diet changes actionable. All questions answered appropriately. Provided patient with the following education materials: Recipes from the Heart Guidelines for a Heart Healthy Lifestyle 2 Gram Na Diet Thank you, Katrin Gutierrez MS RD Pager [phone] * Denisha Carias RN - 07/28/2020 10:06 AM EST IV and tele d/c. AVS printed and reviewed with pt. Pt brought to main entrance to meet ride. * Osmin Rodríguez RN - 07/28/2020 2:54 AM EST OUTCOME EVALUATION NOTE: OUTCOME SUMMARY: Pt A&Ox4. See flowsheet for VS and I/O. Patient denies pain or SOB. See tele report. Call thao within reach. Will continue to monitor. PLAN MOVING FORWARD: Discharge to home INDIVIDUALIZED FALL PREVENTION INTERVENTIONS: Patient-specific fall risk factors per assessment: [current deficits]: Tele, IV Assistance [level of assistance required for transfers and ambulation]: SBA Supervision [direct monitoring required during toileting and ADLs]: Ind Surveillance [continuous indirect monitoring]: Tele, hourly rounding Patient-specific fall prevention interventions for sensory deficits provided, if applicable: [X] N/A CPG GOAL OUTCOME EVALUATION: Ongoing assessment * Azra MontgomeryANA LILIA - 07/27/2020 12:20 PM EST Cardiac Surgery Progress Note Lizandor Heath is a 75 y.o. male with CAD who is 4 Days Post-Op CABGx4. PMH of HTN, HLD, former smoker, cataracts, RBBB, anxiety. 24h Events: In and out of afib S: no complaints. kristofer diet. No nausea/vomiting. Denies shortness of breath, abdominal pain, numbness/tingling, weakness. +flatus, + bm O: Temp: [36.3 ??C (97.3 ??F)-37 ??C (98.6 ??F)] Heart Rate: [66-125] Resp: [16-18] BP: (97-131)/(57-86) SpO2: [94 %-100 %] Heart Rate from SpO2: [73 bpm-98 bpm] 07/26 0701 - 07/27 0700 In: 700 [P.O.:700] Out: 1000 [Urine:1000] Admit weight: 98.7 kg Current weight: Weight: 101.1 kg (222 lb 14.2 oz) Physical Exam: General: Sitting in chair. NAD. Pleasant. Neuro: Awake and alert. CN II-XII grossly intact. Moves all extremities without focal deficit. Lungs: CTA, no wheezes, crackles, rhonchi. Heart: RRR, S1S2, 3/6 murmur, SR Abdomen: Soft, NTND, +bowel sounds. Ext: warm, trace edema. Incisions: CDI Tubes/Lines/Drains: PIV Assessment/Plan: 75 y.o. male 4 Days Post-Op CABGx4. Pathway. Post op afib Continues to have bouts of afib, lasting about 2 hours. Will change metoprolol to xl 50 bid Continue po amio Continue lasix PT Likely home tomorrow ASA only per PACeS trial zetia for statin intolerance Neuro: Tylenol, Oxy prn CV: imdur 30, toprol-xl 50 bid, amio 200 po bid, statin intolerance, zetia Pulm: wean NC as tolerated, pulm toilet GI: reg diet, protonix, RBOs : voiding Maria Del Carmen: k prn, lasix 20 iv bid Heme: ASA 81 ID: periop abx complete, HOWARD Endo: nondiabetic Dispo: ICCU Full code Discussed with attending surgeon on rounds this morning. AZRA MONTGOMERY, ANA LILIA 07/27/2020 Between the hours of 1800 - 0600 and on the weekends please page [phone]. * Marilou Bates RN - 07/27/2020 10:55 AM EST CARE MANAGEMENT FINAL DISCHARGE NOTE Chart reviewed, care reviewed with primary team and at interdisciplinary rounds. Patient is medically ready for discharge 07/28/20. Needs for Transition of Care Plan for discharge is: Patient/Family Anticipated Services at Transition: home health care Agency Referrals: [facility] 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 Living Arrangements: house. Home Environment: split level home, 7 stairs up, 7 stairs down. Bed/bath, living room all on the upper level.. Current Functional Ability: Current Functional Status: Assistive Equipment(stand by assist with FWW) Current DME: Equipment Currently Used at Home: raised toilet seat, other (see comments)(Lift chair) DME Needed at DC: Equipment Needed After Discharge: walker, standard Patient is insured through: Primary Insurance: MEDICARE Payor: MEDICARE / Plan: MEDICARE PART A & B / Product Type: *No Product type* / Secondary Insurance: AET[employer] MEDICARE SUPPLEMENT Prescription Coverage: yes Preferred Pharmacy: [facility] [address] [facility] [address] This plan was formulated with input from patient, daughter Lou and team. All are in agreement with plan. Due to current public health concerns, I have verbally reviewed Medicare Discharge Rights with patient. Patient verbalizes understanding of right to appeal this discharge if feeling not medically ready. Offered a copy of this letter. Marilou Bates RN, MSN, rehabilitation services manager Office of Care Management Pager: [phone] Work * Dionne Cerrato PTA - 07/27/2020 9:18 AM EST Physical Therapy Note Treatment Number PT: 2 Patient profile: Lizandro Heath??is a 75 y.o.??male??with CAD??who is 1 Day Post-Op??CABGx4. PMH of??HTN, HLD, former smoker, cataracts, RBBB, anxiety. Interval History: Per last cardiac surgery note on 07/26/2020 afib to SR yesterday afternoon DELORES overnight Social History: Pt lives with his s.o. in a split level home with 10 stairs to enter with rail. Pt was indep AUDIT INTERN. 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 Pt reports his dtr and son are coming to stay upon d/c for a few days. Precautions/Special Considerations: STERNAL PRECAUTIONS (No pushing, pulling or lifting >8-10lbs); at risk to fall; Mobility and Positioning Recommendations: ?? Ambulate 3-4x/daily with nursing with rolling walker and 1 assist ?? OOB in chair for all meals Subjective: I won't be sleeping in a bed, I'll be sleeping in my recliner chair at home Objective: Patient seen for physical therapy and demonstrated the following: Pain: Pt had no c/o pain throughout session Vital Signs: At Rest With Activity SpO2 (RA) 97% 96% BP (MAP) mmHg mmHg HR 118bpm 140bpm Pt went to afib right before session, asymptomatic Cognition/Vision: Pt was alert and cooperative w/ therapy Bed Mobility: Supine to Sit: N/A, pt deferred bed mobility this sessionn, states he will be sleeping in recliner chair at home Sit to Supine: N/A Transfers: Sit to Stand: supervised, pt did not require VCs for sternal precautions, anticipate no problems athome using rolling walker Stand to Sit: supervised, good eccentric control, no use of hands, compliant w/ sternal precautionsusing rolling walker Gait: Distance: 150 ft, stair training after 100 ft Device used: rolling walker Level of assist: supervised Gait mechanics: min trunk sway, decreased gait speed, good foot clearance and step length, pt slightly SOB after ambulation, required standing rest break prior to stair training Stairs: FOS performed w/ step-to gait pattern ascending and descending w/ close supervision and 1 railing. Pt compliant w/ sternal precautions, required rest break after ascending, no LOB noted Balance: Sitting Static: Good Sitting Dynamic: Good Standing Static: Good w/ FWW Standing Dynamic / Gait: Good w/ FWW Education: Pt educated on importance of continued mobilization OOB, sternal precautions, transfer training, gait training, stair training Pt left in bedside recliner chair, with all needs met and with call thao in reach RN aware following visit. Assessment: Lizandro Cruz Ivana was seen today for physical therapy treatment session for continuation of POC. Pt has cleared PT for the remainder of his hospital stay. Pt able to verbalize all sternal precautions and was compliant through all tasks during session. Pt transitioned into Afib prior tosession, experienced no symptoms. No LOB noted when ambulating or performing stairs. Pt has recliner chair at home to sleep in, and will be attending cardiac rehab, had no concerns for mobility at home. Anticipate pt will be safe to d/c w/ assist from family. Discharge Recommendations: Based on the current findings, Anticipated Discharge Disposition (PT): home with assist when medically ready for hospital discharge. Consult Recommendations: No other consults recommended at this time. Equipment needs: Rolling walker Physical Therapy Goals: Goals to be achieved by 07/28/20 ?? 1. Pt will perform supine to sit transfers with supervision to/from flat bed, log roll technique with assist of family. MET w/ FWW 2. Pt will perform sit><stand transfers with supervision with least restrictive device MET w/FWW 3. Pt will perform bed to chair transfers with supervision with least restrictive device MET w/ FWW 4. Pt will ambulate at least 160' with supervision with least restrictive device. 150 ft, anticipate no problems w/ FWW 5. Pt will perform 10 stairs with rail, LRAD and supervision?? Met w/ FWW Plan: Therapy Frequency (PT): Monitor for therapy interventions as outlined in initial evaluation. Patient agrees with plan as stated. Time IN / OUT: 8505-0615 Total Minutes, Physical Therapy: 19(TEF 1) Dionne Cerrato AUDIT INTERN Pager: [phone] Physical Therapy Inpatient Rehabilitation Department * Aide Doherty - 07/27/2020 3:54 AM EST OUTCOME EVALUATION NOTE: OUTCOME SUMMARY: Pt A+Ox4. Pt converted to Afib @ 0320, pt asymptomatic, PA notified. Pt converted back to SR @0500.No reports of pain or SOB. See flowsheet for VS and I/O. Call thao within reach. PLAN MOVING FORWARD: monitor telemetry, monitor I/O, discharge planning as appropriate INDIVIDUALIZED FALL PREVENTION INTERVENTIONS: Patient-specific fall risk factors per assessment: [current deficits]: telemetry, IV Assistance [level of assistance required for transfers and ambulation]: SBA Supervision [direct monitoring required during toileting and ADLs]: SBA Surveillance [continuous indirect monitoring]: telemetry, call thao in reach, hourly rounding Patient-specific fall prevention interventions for sensory deficits provided, if applicable: N/A CPG GOAL OUTCOME EVALUATION: ongoing assessment * Azra Montgomery APRN - 07/26/2020 10:17 AM EST Cardiac Surgery Progress Note Lizandro Heath is a 75 y.o. male with CAD who is 3 Days Post-Op CABGx4. PMH of HTN, HLD, former smoker, cataracts, RBBB, anxiety. 24h Events: afib to SR yesterday afternoon DELORES overnight S: no complaints. kristofer diet. No nausea/vomiting. Denies shortness of breath, abdominal pain, numbness/tingling, weakness. +flatus, no bm yet O: Temp: [36.5 ??C (97.7 ??F)-37 ??C (98.6 ??F)] Heart Rate: -- Resp: [14-20] BP: (95-120)/(55-69) SpO2: [93 %-98 %] Heart Rate from SpO2: [71 bpm-102 bpm] 07/25 0701 - 07/26 0700 In: 475 [P.O.:475] Out: 3155 [Urine:3155] Admit weight: 98.7 kg Current weight: Weight: 102.4 kg (225 lb 12 oz) Physical Exam: General: Sitting in chair. NAD. Pleasant. Neuro: Awake and alert. CN II-XII grossly intact. Moves all extremities without focal deficit. Lungs: CTA, no wheezes, crackles, rhonchi. Heart: RRR, S1S2, 3/6 murmur, SR Abdomen: Soft, NTND, +bowel sounds. Ext: warm, trace edema. Incisions: CDI Tubes/Lines/Drains: TPW, PIV Assessment/Plan: 75 y.o. male 3 Days Post-Op CABGx4. Pathway. Post op afib Amio gtt to po Metop tid ASA only per PACeS trial D/c pw zetia for statin intolerance Lasix 20 iv bid Neuro: Tylenol, Oxy prn CV: imdur 30, lopressor 12.5 tid, amio 200 po bid, statin intolerance, zetia Pulm: wean NC as tolerated, pulm toilet GI: reg diet, protonix, RBOs : d/c Crockett Maria Del Carmen: k prn, lasix 20 iv bid Heme: ASA 81 ID: periop abx complete, HOWARD Endo: nondiabetic Dispo: ICCU Full code Discussed with attending surgeon on rounds this morning. AZRA MONTGOMERY, ANA LILIA 07/26/2020 Between the hours of 1800 - 0600 and on the weekends please page [phone]. * Azra Montgomery, SALVAGE DIVER - 07/25/2020 9:20 AM EST Cardiac Surgery Progress Note Lizandro Heath is a 75 y.o. male with CAD who is 2 Days Post-Op CABGx4. PMH of HTN, HLD, former smoker, cataracts, RBBB, anxiety. 24h Events: tx to floor afib 0300, amio gtt started S: Chest is sore but not too bad. Tolerating sips and chips. No nausea/vomiting. Denies shortness of breath, abdominal pain, numbness/tingling, weakness. +flatus O: Temp: [36.4 ??C (97.5 ??F)-37.4 ??C (99.3 ??F)] Heart Rate: [74-127] Resp: [16-22] BP: (90-145)/(60-93) SpO2: [95 %-98 %] Heart Rate from SpO2: [74 bpm-127 bpm] 07/24 0701 - 07/25 0700 In: 1451 [P.O.:1330; I.V.:121] Out: 855 [Urine:775] Admit weight: 98.7 kg Current weight: Weight: 104 kg (229 lb 4.5 oz) Physical Exam: General: Sitting in chair. NAD. Pleasant. Neuro: Awake and alert. CN II-XII grossly intact. Moves all extremities without focal deficit. Lungs: CTA, no wheezes, crackles, rhonchi. Heart: RRR, S1S2, 3+rub afib Abdomen: Soft, NTND, +bowel sounds. Ext: warm, trace edema. Incisions: sternotomy dressing CDI, saphenectomy site CORTNEY wrapped Tubes/Lines/Drains: TPW, Crockett, PIV Assessment/Plan: 75 y.o. male 2 Days Post-Op CABGx4. Pathway. Post op afib Amio gtt Increase metop as able Stop plavix. Will assess for afib study D/c hermilo gresham for statin intolerance Lasix 20 iv bid Neuro: Tylenol, Oxy prn CV: imdur 30, lopressor 12.5 tid, amio gtt statin intolerance, zetia Pulm: wean NC as tolerated, pulm toilet GI: reg diet, protonix, RBOs : d/c Crockett Maria Del Carmen: k prn, lasix 20 iv bid Heme: ASA 81, Plavix 75 ID: periop abx complete, HOWARD Endo: nondiabetic Dispo: ICCU Full code Discussed with attending surgeon on rounds this morning. AZRA MONTGOMERY, SALVAGE DIVER 07/25/2020 Between the hours of 1800 - 0600 and on the weekends please page [phone]. * Lorrie Shook, PT - 07/24/2020 12:45 PM EST Physical Therapy Evaluation Patient profile: Lizandro Heath is a 75 y.o. male with CAD who is 1 Day Post-Op CABGx4. PMH of HTN, HLD, former smoker, cataracts, RBBB, anxiety. ?? 24h Events: From OR on levo and nitro Extubated 1530 Levo weaned off, nitro remained on at 30 Ventress removed, last CI 2.4 PAP 20/8 CVP 4 Patient with the following active problems: Past Medical History: Diagnosis Date ??? Cataract ??? Claudication bilat leg aching after walking about 1/2 mile, has sensation of not knowing where his feet are ??? Coronary artery disease 06/15/2020 ??? Heart valve disease murmur since age 14had echo done [facility], 06/2020 ??? High blood pressure controlled with medication ??? Hypertension ??? Vertigo Past Surgical History: Procedure Laterality Date ??? PRO CABG, ARTERIAL, SINGLE N/A 2020 @CABG, USING ARTERIAL GRAFT;SINGLE ARTERIAL GRAFT (WRVU 33.75) performed by Joshua Ledesma MD at [facility] MAIN OR ??? PRO CABG, ARTERY-VEIN, THREE N/A 2020 @CABG; 3 VENOUS GRAFTS & ARTERIAL GRAFT (WRVU 10.49) performed by Joshua Ledesma MD at [facility] MAIN OR ??? PRO ENDOSCOPY W/VIDEO-ASST VEIN HARVEST, CABG Right 2020 ENDOSCOPIC HARVEST VEIN(S) FOR CABG (WRVU 0.31) performed by Joshua Ledesma MD at [facility] MAIN OR ??? PRO VITRECTOMY PARS PLANA REMOVE PRERETINAL MEMBRANE Right 06/13/2019 VITRECTOMY, W/ MEMBRANE STRIPPING (WRVU 16.33) performed by Yinka Rosales MD at [facility] MAIN OR ??? RETINOPATHY SURGERY Left 04/01/2019 Laser for retinal tear - DM ??? VITRECTOMY, W/ MEMBRANE STRIPPING Right 06/13/2019 PPV MP per DM Social History: Pt lives with his s.o. in a split level home with 10 stairs to enter with rail. Pt was indep AUDIT INTERN. 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 Pt reports his dtr and son are coming to stay upon d/c for a few days. Precautions/Special Considerations: STERNAL PRECAUTIONS (No pushing, pulling or lifting >8-10lbs); at risk to fall; Pacing wires; 2L O2 Mobility and Positioning Recommendations: ?? Ambulate 3-4x/daily with nursing with rolling walker and 1 assist ?? OOB in chair for all meals Subjective: ???I could not walk this far without stopping before surgery.?? Objective: Pt seen in the CV[facility] for initial evaluation, post operative protocol exs and precaution teaching w/ transfers and gait. Pt in chair at start of session; in chair on [address] at end of sessionwith call thao in reach. Walked out of unit to new room in ICCU. Vital Signs: At Rest With Activity SpO2 (2L) 94 % 90's but poor read at times as gripping walker BP (MAP) 98/56 mmHg stable 90's/50's HR 100 bpm 110 bpm Incentive Spirometer: 1000 mL with cues Pain: 2/10 reported by patient at rest; 2/10 with mobility Mental Status: A & O x 4 Skin: Sternal incision CDI. Musculoskeletal: ROM: WFL Strength: B LE's 4/5 Bed Mobility: Supine ->Sit: not assessed Sit-> Supine: not assessed Transfers: Sit to Stand: min assist x 1 to rolling walker; cues for hand placement and sternal precautions. Stand to Sit: cg assist x 1; cues Gait: Ambulated 350+ feet from [facility] to room 457 with rolling walker; 1 CG assist and w/c follow. 2LO2. Standing rest breaks x 3. Decreased step height. Balance: Cg assist with rolling walker; fair balance Stairs: not assessed Education/Exercise Instruction: Pt issued an exercise list and instructed in the ex's for home including: ankle pumps, shoulder ff to prevent shoulder contractures, IS with deep breathing and cough technique. Pt was instructed in precautions and will require reinforcement with sternal precautions Assessment: Pt is now POD # 1 s/p above CT surgery with sternotomy presenting with expected post operative pain, impaired skin integrity, impaired breathing mechanics, impaired cough, impaired activity tolerance resulting in decreased functional balance, impaired transfers and gait. Pt requires cues for sternal precautions, pacing and breathing techniques with all mobility at this time. Pt ambulated 350+ feet today with rolling walker. Increased WOB but with standing rest breaks and cues for PLB pt able to ambulate to new room on . Anticipate pt will make gains with mobility and be safefor home d/c with assist once medically ready. Plan: 1-3 more sessions for continued transfer training, gait, stairs and pt education. Discharge Recommendations: Home with s.o. and children Equipment needs for home at d/c: TBD; pt owns lift recliner and raised toilet seat; do not anticipate needs. Goals to be achieved by 07/28/20 1. Pt will perform supine to sit transfers with supervision to/from flat bed, log roll technique with assist of family. 2. Pt will perform sit><stand transfers with supervision with least restrictive device 3. Pt will perform bed to chair transfers with supervision with least restrictive device 4. Pt will ambulate at least 160' with supervision with least restrictive device. 5. Pt will perform 10 stairs with rail, LRAD and supervision. Patient status, treatment, and mobility recommendations have been discussed with nursing, Care management and Medical team. Thank you for this consult. 2017 PT Evaluation Code Rationale: ?? Diagnosis & Pertinent Co-Morbidities, personal factors, and present illness affecting Plan of Care: (see above); Additional personal factors or co- morbidities that impact plan: ?? Total # of Factors: 0 1-2 3+ x ?? Examination of body system impairments, functional limitations and behaviors, and/or participation restrictions. Addressing 1-2 elements Addressing 3 + elements Addressing 4 + elements x ?? Clinical presentation: See assessment above. Stable/Uncomplicated Evolving/Fluctuating Symptoms Unstable/Unpredictable x ?? Clinical decision making of moderate complexity based on pt's functional performance as outlinedin this evaluation. LORRIE SHOOK, PT Pager: [phone] Physical Therapy Inpatient Rehabilitation Department Time IN / OUT: 3881-4744 Total time: 24 mins (eval) Y * Marilou Bates RN - 07/24/2020 12:27 PM EST The patient has been provided a list of Home Health Agencies/DME vendors which serve their preferred geographic area. A letter describing our affiliations was reviewed with them and they were educated about their right to choose where referrals are placed. Provided patient with [facility] Star Quality Rating for Home care hand out. Patient requests referral to [facility]. PHONE: [phone] FAX: [phone] Expected date of discharge: 07/27/20. Referral routed to the Director Shopper Marketing for matching with agency/vendor and to provide any required information. Marilou Bates RN, MSN Cylinder Machine Operator - Cardiology Office of Care Management Pager: [phone] Work Y * Jorje Mcintosh PA - 07/24/2020 9:28 AM EST Cardiac Surgery Progress Note Lizandro Heath is a 75 y.o. male with CAD who is 1 Day Post-Op CABGx4. PMH of HTN, HLD, former smoker, cataracts, RBBB, anxiety. 24h Events: From OR on levo and nitro Extubated 1530 Levo weaned off, nitro remained on at 30 Ventress removed, last CI 2.4 PAP 20/8 CVP 4 S: Chest is sore but not too bad. Tolerating sips and chips. No nausea/vomiting. Denies shortness of breath, abdominal pain, numbness/tingling, weakness. O: Temp: [35.2 ??C (95.4 ??F)-36.7 ??C (98.1 ??F)] Heart Rate: [68-91] Resp: [12-27] BP: (129)/(87) SpO2: [91 %-100 %] Heart Rate from SpO2: [70 bpm-92 bpm] Drips: Nitro at 30 / 0701 - 07/24 0700 In: 5797.5 [I.V.:4513.5] Out: 3959 [Urine:2265] Med CTs 400cc / 90cc last 4h, SS, no air leak Net pos 1.8L Admit weight: 98.7 kg Current weight: Weight: 103 kg (227 lb 1.2 oz) Physical Exam: General: Sitting in chair. NAD. Pleasant. Neuro: Awake and alert. CN II-XII grossly intact. Moves all extremities without focal deficit. Lungs: CTA, no wheezes, crackles, rhonchi. Heart: RRR, S1S2, 3/6 systolic murmur. SR w/ chronic RBBB on tele. Abdomen: Soft, NTND, +bowel sounds. Ext: warm, trace edema. Incisions: sternotomy dressing CDI, saphenectomy site CORTNEY wrapped Tubes/Lines/Drains: RIJ, A-line, Mediastinal CTs, TPW, Crockett, PIV Assessment/Plan: 75 y.o. male 1 Day Post-Op CABGx4. Pathway. Start imdur and shut off nitro. Imdur for 3 months Start plavix D/C CTs Start lopressor 12.5 bid No lasix given last CVP of 4 Start zetia for statin intolerance Transfer Neuro: Tylenol, Oxy prn CV: imdur 30, lopressor 12.5 bid, statin intolerance, zetia Pulm: wean NC as tolerated, pulm toilet GI: Sips and chips until passing gas, protonix, RBOs : maintain Crockett Maria Del Carmen: k prn, no lasix Heme: ASA 81, Plavix 75 ID: periop abx complete, HOWARD Endo: nondiabetic, SSI, goal BS 140-180 Dispo: CVCC, Full code, Transfer Discussed with attending surgeon on rounds this morning. LATRICIA BARBOZA 07/24/2020 Between the hours of 1800 - 0600 and on the weekends please page [phone]. * Jose Davison RT - 2020 11:55 AM EST AMV Protocol: No ARDS Protocol: No CTICU Protocol: Yes Vent Settings: Ventilator Mode: VC Pressure Control above PEEP: PEEP Set: 5 Resp Rate Set: 15 FiO2: 100 % Ventilator Measurements: Resp: 14 Vt Exhaled: 483 PIP: 23 MAP: 7.8 Plateau Press: 19 Ve: 6 PEEP: SpO2: 99 % EtCO2: 46 mmHg Airway: 8.0 @ 22 cm at the Teeth. Skin Integrity: WDL Breath Sounds: Diminished Secretions: Scant, Thin, White Assessment / Events: Received patient from OR, placed in SIMV at 8cc/kg Patient followed CT protocol pathway, passed an SBT with an ABG WDL. See chart for vitals. 1540: Extubated to NC, tolerating well. Patient remained stable on NC/RA throughout the end of the day. Plan: Continue to support patient with supplemental O2 as needed. RT Carmen documented in this encounter H&P Notes * Joshua Ledesma MD - 2020 7:09 AM EST No interval change, pt ready for surgery. Source Note - Joshua Ledesma MD - 2020 7:07 AM EST Cardiothoracic Surgery Consultation Lizandro Heath is seen at the request of Dr. Guthrie for the evaluation of CAD. HPI: Lizandro Heath is a 75 y.o. year old male with symptoms of villatoro and angina that have been progressive. Problem List: Patient Active Problem List Diagnosis ??? CAD (coronary artery disease) ??? Combined forms of age-related cataract of both eyes Added automatically from request for surgery [id number] ??? Screening for cardiovascular condition Added automatically from request for surgery [id number] ??? Coronary artery disease Added automatically from request for surgery [id number] Past Medical History: Past Medical History: Diagnosis Date ??? Cataract ??? Claudication bilat leg aching after walking about 1/2 mile, has sensation of not knowing where his feet are ??? Coronary artery disease 06/15/2020 ??? Heart valve disease murmur since age 14had echo done in [facility], 06/2020 ??? High blood pressure controlled with medication ??? Hypertension ??? Vertigo Past Surgical History: Past Surgical History: Procedure Laterality Date ??? PRO VITRECTOMY PARS PLANA REMOVE PRERETINAL MEMBRANE Right 06/13/2019 VITRECTOMY, W/ MEMBRANE STRIPPING (WRVU 16.33) performed by Yinka Rosales MD at [facility] MAIN OR ??? RETINOPATHY SURGERY Left 04/01/2019 Laser for retinal tear - DM ??? VITRECTOMY, W/ MEMBRANE STRIPPING Right 06/13/2019 PPV MP per DM Family History: Family History Problem Relation Age of Onset ??? Heart Disease Mother ??? Hypertension Mother ??? Cancer Mother ??? Cataracts Mother ??? Heart Disease Father ??? Diabetes Brother ??? Hypertension Brother ??? Cataracts Brother ??? Glaucoma Neg Hx ??? Macular Degeneration Neg Hx ??? Retinal Detachment Neg Hx Social History: Social History Socioeconomic History ??? Marital status: Spouse name: Not on file ??? Number of children: Not on file ??? Years of education: Not on file ??? Highest education level: Not on file Occupational History ??? Not on file Tobacco Use ??? Smoking status: Former Smoker Packs/day: 1.00 Years: 25.00 Pack years: 25.00 Types: Cigarettes Quit date: 1989 Years since quittin.2 ??? Smokeless tobacco: Never Used Substance and Sexual Activity ??? Alcohol use: Yes Alcohol/week: 6.0 standard drinks Types: 4 Cans of beer, 2 Standard drinks or equivalent per week Comment: social ??? Drug use: Never ??? Sexual activity: Not on file Other Topics Concern ??? Not on file Social History Narrative ??? Not on file Social Determinants of Health Financial Resource Strain: ??? Difficulty of Paying Living Expenses: Not on file Food Insecurity: ??? Worried About Running Out of Food in the Last Year: Not on file ??? Ran Out of Food in the Last Year: Not on file Transportation Needs: ??? Lack of Transportation (Medical): Not on file ??? Lack of Transportation (Non-Medical): Not on file Physical Activity: ??? Days of Exercise per Week: Not on file ??? Minutes of Exercise per Session: Not on file Review of Systems: Constitutional - no weakness, fatigue, fevers HEENT - no visual changes; no hearing changes; no recent URI sx Neck - no new pain, limitation of motion Cardiovascular - angina Pulmonary - yes dyspnea, no cough, bronchitis, pneumonias GI - no abdominal pain, constipation, diarrhea - no frequency, nocturia, dysuria Musculoskeletal - no muscle pain, new limitation of motion Extremities - no edema Neuro - no confusion, weakness, syncope, paresthesias Hematologic - no bruising, excessive bleeding Allergies: Allergies Allergen Reactions ??? Ibuprofen Other (See Comments) Trouble swallowing and rash ??? Tegaderm [Transparent Dressings] Skin irritation Meds: Outpatient Medications Marked as Taking for the 07/23/20 encounter (Hospital Encounter) Medication Sig Dispense Refill ??? docosahexaenoic acid/epa (FISH OIL ORAL) Take 1,000 mg by mouth daily. ??? UNKNOWN TO PATIENT noe has 6-8 oz in his coffee daily ??? go-ya-yourwz #[id number] (Urinozinc Prostate Formula Pls) 100 mg Tablet Take by mouth. ??? metoprolol succinate XL (Toprol-XL) 25 mg Tablet Sustained Release 24 hr ??? nitroGLYcerin (Nitrostat) 0.4 mg Tablet, Sublingual ??? aspirin EC 81 mg Tablet, Delayed Release (E.C.) Take 81 mg by mouth daily. ??? acetaminophen (Tylenol) 325 mg Tablet Take 650 mg by mouth daily. ??? vitamin A (AQUASOL) 10,000 unit Capsule Take 10,000 Units by mouth daily. ??? B Complex-Vitamin C-Folic Acid (NEPHROCAP) 1 mg Capsule Take 1 capsule by mouth daily. ??? hydrOXYzine (ATARAX) 25 mg Tablet Take 25 mg by mouth 2 times daily as needed for Itching. ??? lisinopril (PRINIVIL;ZESTRIL) 10 mg Tablet Take 10 mg by mouth daily. Physical Exam: Patient Vitals for the past 24 hrs: Temp Pulse Resp BP SpO2 O2 Device 07/23/20 0647 37 ??C (98.6 ??F) 71 16 128/77 97 % RA 07/23/20 0648 -- -- -- 130/83 -- -- @LASTENCWT@ Constitutional:Well appearing in no acute distress. Skin: Warm, well perfused. HEENT: within normal limits. NC/AT EOMI Neck: supple, no JVD, no bruit. Heart: regular rate and rhythm, without murmurs. Lungs: clear bilaterally. Abdomen: soft, nontender, active bowel sounds, no masses noted. Extremities: full range of motion; no clubbing, cyanosis, or edema. Neuro exam: Alert and oriented x 3. Strength grossly normal. Diagnositcs: No results for input(s): WBC, NA, K, CL, CO2, GLUCOSE in the last 72 hours. Invalid input(s): HBG, HCT, PLATELETS, , BUN, CREATININE, TROP CATH: severe 3vd I have seen the images myself Assessment and Plan: Lizandro Heath is a 75 yo male who is a reasonable candidate for cabg surgery. We had a long discussion regarding the risks and benefits of surgery. The risks include but are notlimited to stroke, damage to any organ (heart, lung, liver, kidneys, brain, etc.), infection, need for blood transfusion with the concomitant risks of AIDS and hepatitis, renal failure resulting in dialysis, prolonged respiratory failure requiring mechanical ventilation, graft failure, and the possibility of . He seems to understand and wishes to proceed. * Joshua Ledesma MD - 2020 7:07 AM EST Cardiothoracic Surgery Consultation Lizandro Heath is seen at the request of Dr. Guthrie for the evaluation of CAD. HPI: Lizandro Heath is a 75 y.o. year old male with symptoms of villatoro and angina that have been progressive. Problem List: Patient Active Problem List Diagnosis ??? CAD (coronary artery disease) ??? Combined forms of age-related cataract of both eyes Added automatically from request for surgery [id number] ??? Screening for cardiovascular condition Added automatically from request for surgery [id number] ??? Coronary artery disease Added automatically from request for surgery [id number] Past Medical History: Past Medical History: Diagnosis Date ??? Cataract ??? Claudication bilat leg aching after walking about 1/2 mile, has sensation of not knowing where his feet are ??? Coronary artery disease 06/15/2020 ??? Heart valve disease murmur since age 14had echo done in [facility], 06/2020 ??? High blood pressure controlled with medication ??? Hypertension ??? Vertigo Past Surgical History: Past Surgical History: Procedure Laterality Date ??? PRO VITRECTOMY PARS PLANA REMOVE PRERETINAL MEMBRANE Right 06/13/2019 VITRECTOMY, W/ MEMBRANE STRIPPING (WRVU 16.33) performed by Yinka Rosales MD at [facility] MAIN OR ??? RETINOPATHY SURGERY Left 04/01/2019 Laser for retinal tear - DM ??? VITRECTOMY, W/ MEMBRANE STRIPPING Right 06/13/2019 PPV MP per DM Family History: Family History Problem Relation Age of Onset ??? Heart Disease Mother ??? Hypertension Mother ??? Cancer Mother ??? Cataracts Mother ??? Heart Disease Father ??? Diabetes Brother ??? Hypertension Brother ??? Cataracts Brother ??? Glaucoma Neg Hx ??? Macular Degeneration Neg Hx ??? Retinal Detachment Neg Hx Social History: Social History Socioeconomic History ??? Marital status: Spouse name: Not on file ??? Number of children: Not on file ??? Years of education: Not on file ??? Highest education level: Not on file Occupational History ??? Not on file Tobacco Use ??? Smoking status: Former Smoker Packs/day: 1.00 Years: 25.00 Pack years: 25.00 Types: Cigarettes Quit date: 1989 Years since quittin.2 ??? Smokeless tobacco: Never Used Substance and Sexual Activity ??? Alcohol use: Yes Alcohol/week: 6.0 standard drinks Types: 4 Cans of beer, 2 Standard drinks or equivalent per week Comment: social ??? Drug use: Never ??? Sexual activity: Not on file Other Topics Concern ??? Not on file Social History Narrative ??? Not on file Social Determinants of Health Financial Resource Strain: ??? Difficulty of Paying Living Expenses: Not on file Food Insecurity: ??? Worried About Running Out of Food in the Last Year: Not on file ??? Ran Out of Food in the Last Year: Not on file Transportation Needs: ??? Lack of Transportation (Medical): Not on file ??? Lack of Transportation (Non-Medical): Not on file Physical Activity: ??? Days of Exercise per Week: Not on file ??? Minutes of Exercise per Session: Not on file Review of Systems: Constitutional - no weakness, fatigue, fevers HEENT - no visual changes; no hearing changes; no recent URI sx Neck - no new pain, limitation of motion Cardiovascular - angina Pulmonary - yes dyspnea, no cough, bronchitis, pneumonias GI - no abdominal pain, constipation, diarrhea - no frequency, nocturia, dysuria Musculoskeletal - no muscle pain, new limitation of motion Extremities - no edema Neuro - no confusion, weakness, syncope, paresthesias Hematologic - no bruising, excessive bleeding Allergies: Allergies Allergen Reactions ??? Ibuprofen Other (See Comments) Trouble swallowing and rash ??? Tegaderm [Transparent Dressings] Skin irritation Meds: Outpatient Medications Marked as Taking for the 07/23/20 encounter (Hospital Encounter) Medication Sig Dispense Refill ??? docosahexaenoic acid/epa (FISH OIL ORAL) Take 1,000 mg by mouth daily. ??? UNKNOWN TO PATIENT noe has 6-8 oz in his coffee daily ??? ts-as-[id number] #[id number] (Urinozinc Prostate Formula Pls) 100 mg Tablet Take by mouth. ??? metoprolol succinate XL (Toprol-XL) 25 mg Tablet Sustained Release 24 hr ??? nitroGLYcerin (Nitrostat) 0.4 mg Tablet, Sublingual ??? aspirin EC 81 mg Tablet, Delayed Release (E.C.) Take 81 mg by mouth daily. ??? acetaminophen (Tylenol) 325 mg Tablet Take 650 mg by mouth daily. ??? vitamin A (AQUASOL) 10,000 unit Capsule Take 10,000 Units by mouth daily. ??? B Complex-Vitamin C-Folic Acid (NEPHROCAP) 1 mg Capsule Take 1 capsule by mouth daily. ??? hydrOXYzine (ATARAX) 25 mg Tablet Take 25 mg by mouth 2 times daily as needed for Itching. ??? lisinopril (PRINIVIL;ZESTRIL) 10 mg Tablet Take 10 mg by mouth daily. Physical Exam: Patient Vitals for the past 24 hrs: Temp Pulse Resp BP SpO2 O2 Device 07/23/20 0647 37 ??C (98.6 ??F) 71 16 128/77 97 % RA 07/23/20 0648 -- -- -- 130/83 -- -- @LASTENCWT@ Constitutional:Well appearing in no acute distress. Skin: Warm, well perfused. HEENT: within normal limits. NC/AT EOMI Neck: supple, no JVD, no bruit. Heart: regular rate and rhythm, without murmurs. Lungs: clear bilaterally. Abdomen: soft, nontender, active bowel sounds, no masses noted. Extremities: full range of motion; no clubbing, cyanosis, or edema. Neuro exam: Alert and oriented x 3. Strength grossly normal. Diagnositcs: No results for input(s): WBC, NA, K, CL, CO2, GLUCOSE in the last 72 hours. Invalid input(s): HBG, HCT, PLATELETS, , BUN, CREATININE, TROP CATH: severe 3vd I have seen the images myself Assessment and Plan: Lizandro Heath is a 75 yo male who is a reasonable candidate for cabg surgery. We had a long discussion regarding the risks and benefits of surgery. The risks include but are notlimited to stroke, damage to any organ (heart, lung, liver, kidneys, brain, etc.), infection, need for blood transfusion with the concomitant risks of AIDS and hepatitis, renal failure resulting in dialysis, prolonged respiratory failure requiring mechanical ventilation, graft failure, and the possibility of . He seems to understand and wishes to proceed. documented in this encounter Nursing Notes * Natalee Sagastume RN - 2020 7:18 AM EST Safety strap applied to patient on transfer to OR. Defibrillator pads applied to patient prior to induction. 4mg Nitroglycerin diluted in 20ml NS and delivered to surgical field to be used PRN by MD aCllie. 1mg Epinephrine diluted in 100ml NS delivered to surgical field to be used on surgical site in RLE. Patient gave permission for Charito to be updated throughout the procedure. documented in this encounter Miscellaneous Notes * Plan of Care - Denisha Carias RN - 07/27/2020 5:13 PM EST OUTCOME EVALUATION NOTE: OUTCOME SUMMARY: Pt had an uneventful shift. A&Ox4. No reports of CP or SOB. Denies pain. Ambulated independently in hallway. Pt converted to afib at 0840 but self converted to SR at 1200. Team aware - see scanned docs. Midsternal CDI. Call thao within reach PLAN MOVING FORWARD: Continue to actively monitor. Discharge planning as appropriate INDIVIDUALIZED FALL PREVENTION INTERVENTIONS: Patient-specific fall risk factors per assessment: [current deficits]: Tele wires, unfamiliar environment Assistance [level of assistance required for transfers and ambulation]: SBA Supervision [direct monitoring required during toileting and ADLs]: Eyes on Surveillance [continuous indirect monitoring]: Tele, purposeful hourly rounding, call thao within reach Patient-specific fall prevention interventions for sensory deficits provided, if applicable: Lighting adjusted for specific tasks/activities, non-skid socks, bed in lowest/locked position CPG GOAL OUTCOME EVALUATION: Ongoing * Plan of Care - Denisha Carias RN - 07/26/2020 4:56 PM EST OUTCOME EVALUATION NOTE: OUTCOME SUMMARY: Pt had an uneventful shift. A&Ox4. No reports of CP or SOB. Denies pain. Ambulated in hallway with RN. SR on tele until he converted to afib at 1300. Team aware. Amiodarone bolus given, pt back in SR rates in the 70s - see scanned docs. Midsternal CDI. Call thao within reach PLAN MOVING FORWARD: Continue to actively monitor. CT pathway INDIVIDUALIZED FALL PREVENTION INTERVENTIONS: Patient-specific fall risk factors per assessment: [current deficits]: Tele wires, unfamiliar environment Assistance [level of assistance required for transfers and ambulation]: SBA Supervision [direct monitoring required during toileting and ADLs]: Eyes on Surveillance [continuous indirect monitoring]: Tele, purposeful hourly rounding, call thao within reach Patient-specific fall prevention interventions for sensory deficits provided, if applicable: Lighting adjusted for specific tasks/activities, non-skid socks, bed in lowest/locked position CPG GOAL OUTCOME EVALUATION: Ongoing * Consult Note - Danelle Verma RN - 07/26/2020 10:18 AM EST [facility] [place] [facility] Lizandro Nancy Santos Ivana was seen today regarding participation in the outpatient Phase [address] [facility]. The patient agrees to a referral to this program. 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 A referral will be sent at discharge and the patient should be contacted by the Program within 1- 2 weeks from discharge. * Initial Assessments - Marilou Bates RN - 2020 12:53 PM EST Office of Care Management Initial Assessment Marilou Bates RN reviewed record and discussed patient with Care Team. Source of Information: Team, bedside nurse, medical record, and Source: (Chart review: patient intubated, left message for patient's daughter) -CM received callback from daughter Charito at 1:10PM Reason for Hospitalization: Stated Reason for Admission: heart surgery Last COVID test date and time: SARS-CoV-2 RNA Date Value Ref Range Status 07/20/2020 Not Detected Not Detected Final Past medical History: Past Medical History: Diagnosis Date ??? Cataract ??? Claudication bilat leg aching after walking about 1/2 mile, has sensation of not knowing where his feet are ??? Coronary artery disease 06/15/2020 ??? Heart valve disease murmur since age 14had echo done in [facility], 06/2020 ??? High blood pressure controlled with medication ??? Hypertension ??? Vertigo Hospitalizations Within the Past 30 Days: Hospitalizations in past 30 days: 1 Anticipated Length Of Stay (If known): 4-5 days Current Decision-Making Capacity: Decision Maker: Self Advance Care Planning: Attempt Cardiopulmonary Resuscitation - Inpatient <no information> -Advanced Directive: No, need to discuss If AD's have not been completed daughter/son would be surrogate decision maker per [place] surrogate decision making law. (Only good for 90 days) Any patient receiving care at [facility] must abide by [place] law. The hierarchy for surrogate decision making is: (a) Patient???s spouse, or civil union partner or common law spouse unless there is a divorce proceeding, separation agreement, or restraining order limiting that person???s relationship with the patient. (b) Any adult son or daughter of the patient. (c) Either parent of the patient. (d) Any adult brother or sister of the patient. (e) Any adult grandchild of the patient. (f) Any grandparent of the patient. (g) Any adult aunt, uncle, niece, or nephew of the patient. (h) A close friend of the patient. (i) The agent with financial power of insurance defense attorney or a conservator appointed in accordance with RSA 464-A. (j) The guardian of the patient???s estate. 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 Living Arrangements: house. Home Environment: Unable to assess at this time. Current DME: daughter states they have made sure he has a lift chair, raised toilet seat and showerchair for post surgery. DME Needed at DC: None Home Address Listed as: [facility] [address] [address] Social & Family Supports: Extended Emergency Contact Information Primary Emergency Contact: charito heath Mobile Relation: Child Secondary Emergency Contact: Michael Heath Relation: Child Community Resources being provided currently: Outpatient/Agency/Support Group Needs: (none) Behavioral Health History: None noted Substance Use/Abuse: chart review Social History Tobacco Use Smoking Status Former Smoker ??? Packs/day: 1.00 ??? Years: 25.00 ??? Pack years: 25.00 ??? Types: Cigarettes ??? Quit date: 1989 ??? Years since quittin.2 Social History Substance and Sexual Activity Alcohol Use Yes ??? Alcohol/week: 6.0 standard drinks ??? Types: 4 Cans of beer, 2 Standard drinks or equivalent per week Comment: social Social History Substance and Sexual Activity Drug Use Never Other Pertinent/Service Specific Information: No Health/Prescription Coverage: Primary Insurance: MEDICARE Payor: MEDICARE / Plan: MEDICARE PART A & B / Product Type: *No Product type* / Secondary Insurance: [employer] MEDICARE SUPPLEMENT Prescription Coverage: yes Preferred Pharmacy: No Pharmacies Listed Primary Care Provider: Mayank Mohamud DO [phone] Patient/Caregiver Goals of Treatment: Discharge home Potential Needs for Transition of Care: Patient/Family Anticipated Services at Transition: home health care Agency Referrals: None. Will need to provide Choice to patient Transportation: Transportation Anticipated: family or friend will provide Anticipated Barriers to Discharge/Special Considerations: None noted or presented to CM at this time. Assessment: Patient is admitted to cardiac surgery service for a CABG. Plan: No housing, transportation, insurance, resources concerns identified at this time. Supports in place to achieve a safe post-hospital transition. No identified barriers to accessing necessary care and/or follow-up after discharge. A member of the Care Management team will continue to monitor progress, follow for continuity of care and assist with transition of care planning. Marilou Bates RN, MSN, rehabilitation services manager Office of Care Management Pager: [phone] Work * Op Note - Joshua Ledesma MD - 2020 8:14 AM EST 07/24/2020 Lizandro Heath 1945 [id number] Preoperative Diagnosis: Coronary artery disease Stable Angina Postoperative Diagnosis: Coronary artery diseaseStable Angina Procedure: CABG times 4: REDDING to LAD, SVG to diag and om, svg to rca. Endoscopic vein harvest Surgeon: Joshua Ledesma M.D. Cash Applications Specialist: phil gray Anesthesia: General endotracheal anesthesia Drains: Two mediastinal tubes Pacing Wires: Two A-wires, two V-wires. EBL: 200 mL Findings: distal small om intramyocardial Procedure: The patient was taken to the Operating Room and had a radial A-line placed. All the proper lines and monitors were placed by Anesthesia. The patient was then prepped and draped in the normal sterile fashion. The right leg was used to harvest the greater saphenous vein using an endoscopic technique. A vertical incision was made on the medial aspect of the knee. The Hemopro2 system was used to dissect out the vein anterior and posteriorly. All the side branches were cauterized. The vein was ligated distally and proximally. It was removed through the incision at the knee. The vein was flushed with heparinized saline in a reverse direction. All the side branches were clipped. The vein was untwisted andstriped with a sterile pen. The leg had a TIMA drain placed in it. It was irrigated out with antibiotic solution and closed immediately. The chest was opened along the midline. Cautery was used on the sternal edges and bone wax was lightly applied to the divided marrow of the sternum. The left juanjo-sternum was elevated. The pleura were taken down, and the mammary artery was dissected free clipping all side branches. Heparin was given. Several minutes later the distal end of the mammary was clipped and tied on the chest wall, and the bleeding end had a bulldog placed across it. It was prepared for bypass by spatulating it open, injecting it with verapamil, and rolling it up into a nitroglycerin-soaked sponge. The ADRIANNE had excellent flow. The Rultract was removed. Two antibiotic-soaked towels were used to bumper the sternum. The sternal retractor was used to open the sternum. The overlying pericardium was opened in an inverse-T fashion and hung to the edge of the sternal retractor. Full-dose heparin was given. The aorta was cannulated. The right atrium had the venous cannula placed through the IVC. A retrograde was placed through the right atrium into the coronary sinus. The antegrade was place mid ascending aorta which also doubled as the root vent. With the ACT above 450, we went on bypass. The targets were inspected. The aorta was crossclamped and the heart was arrested with cold blood cardioplegia antegrade and retrograde. We drifted to 32 degrees Celsius. The bypasses were as follows: The pda target was identified and opened and in an end to side fashion the SVG was anastomosed witha running 7.0 prolene. Cardiopelegia was given down the graft and there were no leaks. The heart was filled and the graft was measured for length and trimmed. A punch was made in the aorta and a proximal anastomosis was created with a 6-0. A washer was used to identify the proximal. The same procedures was completed for om and diag and cardioplegia was given between all bypasses. The adrianne was taken out of the left chest and a slit was created in the L side of the pericardium making sure to identify the L phrenic nerve. The adrianne was anastomosed to the LAD with a running 8-0 prolene. The bulldog was removed to test the graft then replaced. At this point, hotshots were given. The heart began beating in a sinus rhythm. The crossclamp was removed. The grafts were inspected. The heart was allowed to re-perfuse. The retrograde was removed and oversewn; so was the antegrade. An angled chest tube was placed behind the heart. Both chests were suctioned out, and the lungs were re-inflated. After a period of rewarming and allowing the heart to re-perfuse, we from bypass. The venous cannula was removed and the pursestring was tieddown and oversewn. Protamine was given. The aortic cannula was removed. Both pursestrings were tieddown and oversewn. We had no further bleeding. A straight chest tube was placed in front of the heart. Vanco paste was applied to the sternum. Interrupted steel cables were used to close the chest, several layers of Vicryl, and a 4-0 Monocryl were used to close the overlying soft tissue. Glue and clean dry sterile dressings were applied. The patient was transported to the [facility] on [place]. All counts were correct. * OR Attestation - Johsua Ledesma MD - 2020 4:13 AM EST Attestation: Case Date: 2020 I performed this procedure without the involvement of a resident. Joshua Ledesma MD 07/24/2020 * Brief Op Note - Joshua Ledesma MD - 2020 4:12 AM EST Brief Operative Note Patient Name: Lizandro Heath : [id number] MR#: [id number] Case Date: 2020 Surgeon: Surgeon(s) and Role: * Joshua Ledesma MD - Primary * Belle Elise PA - Physician Cash Applications Specialist * Cyndi Corona PA - Physician Cash Applications Specialist Preoperative diagnosis: cad Postoperative diagnosis: CAD Procedure(s) (LRB): @CABG, USING ARTERIAL GRAFT;SINGLE ARTERIAL GRAFT (WRVU 33.75) (N/A) ENDOSCOPIC HARVEST VEIN(S) FOR CABG (WRVU 0.31) (Right) @CABG; 3 VENOUS GRAFTS & ARTERIAL GRAFT (WRVU 10.49) (N/A) Anesthesia: General Findings: small distal om target intramyocardial, good conduit, nl function Complications: none Estimated Blood Loss: 1284 mL Specimens removed during surgery: None Fluids: Intraprocedure Crystalloid Total Intake Lactated Ringers 400.00 mL Sodium Chloride 0.9% 1600.00 mL Cell Saver Volume 1284 mL Total Intake 3284 mL Output Urine Output 625 mL Blood Loss 1284 mL Total Output 1909 mL Net Net Volume 1375 mL PRBCs: none (See Anesthesia Record/Report for Other Blood Products) Urine Output: 625 mL Drains: 2 med tubes Disposition: taken directly to the ICU, intubated and in a critical condition. Condition: doing well without problems (Please see the Surgical Encounter Summary for any Implant and Specimen details pertinent to this patient.) Infection Bundle used? No documented in this encounter Plan of Treatment Scheduled Orders Name Type Priority Associated Diagnoses Orde r Schedule EKG 12 Lead ECG Routine S/P CABG x 4 One Time for 1 Occurrences starting 07/26/2020 until 07/26/2020 Scheduled Referrals Name Type Priority Associated Diagnoses Orde r Schedule Referral to Cardiac Rehab Outpatient Referral Routine S/P CABG x 4 Ordered: 07/28/2020 documented as of this encounter Procedures Procedure Name Priority Date/Time Associated Diagnosis Comments HC VENIPUNCTURE Routine 07/28/2020 6:06 AM EST HC VENIPUNCTURE Routine 07/27/2020 3:31 AM EST XR CHEST PA AND LATERAL Routine 07/27/19 6:26 AM EST HEMOGRAM Routine 07/26/2020 3:54 AM EST DIFFERENTIAL, AUTOMATED Routine 07/27/19 3:54 AM EST HC CBC,PLT & AUTO DIFF Routine 3:54 AM EST HC VENIPUNCTURE Routine 07/26/2020 3:54 AM EST HC POTASSIUM Routine 07/25/2020 3:56 AM EST POCT GLUCOSE Routine 07/24/2020 5:06 PM EST POCT GLUCOSE Routine 07/24/2020 8:31 AM EST HEMOGRAM Routine 07/24/2020 4:27 AM EST DIFFERENTIAL, AUTOMATED Routine 07/25/19 4:27 AM EST HC CBC,PLT & AUTO DIFF Routine 4:27 AM EST HC TROPONIN T Routine 07/24/2020 4:27 AM EST BASIC METABOLIC PANEL Routine 07/24/2020 4:27 AM EST POCT GLUCOSE Routine 07/24/2020 4:08 AM EST POCT GLUCOSE Routine 2020 11:59 PM EST POCT GLUCOSE Routine 2020 7:57 PM EST POCT GLUCOSE Routine 2020 4:53 PM EST EXTUBATE Routine 2020 3:32 PM EST BLOOD GAS ARTERIAL POC Routine 3:26 PM EST HC HEMOGLOBIN, BLOOD Routine 2020 3:26 PM EST HC POTASSIUM Routine 2020 3:26 PM EST POCT GLUCOSE Routine 2020 3:25 PM EST COOX, POC Routine 2020 2:17 PM EST POCT GLUCOSE Routine 2020 12:51 PM EST BLOOD GAS ARTERIAL POC Routine 12:20 PM EST XR CHEST ONE VIEW STAT 2020 12: 17 PM EST EKG 12-LEAD STAT 2020 12:01 PM EST S/P CABG x 4 BLOOD GAS ARTERIAL POC Routine 10:56 AM EST HC HEMOGRAM STAT 2020 10:54 AM EST HC PARTIAL THROMBOPLASTIN TIME STAT 2020 10:54 AM EST HC THROMBIN TIME STAT 2020 10:5 4 AM EST HC PROTHROMBIN TIME STAT 2020 1 0:54 AM EST HC FIBRINOGEN TITER STAT 2020 1 0:54 AM EST @CABG;3 VENOUS GRAFTS & ARTERIAL GRAFT Routine 2020 10:15 AM EST BLOOD GAS ARTERIAL POC Routine 10:04 AM EST HC FIBRINOGEN TITER STAT 2020 1 0:00 AM EST HC PLATELET COUNT STAT 2020 10: 00 AM EST HC HEMOGLOBIN, BLOOD STAT 2020 10:00 AM EST HC HEMATOCRIT, BLOOD STAT 2020 10:00 AM EST BLOOD GAS ARTERIAL POC Routine 9:30 AM EST BLOOD GAS VENOUS POC Routine 2020 9:10 AM EST BLOOD GAS ARTERIAL POC Routine 9:08 AM EST BLOOD GAS ARTERIAL POC Routine 8:05 AM EST Cabg, Artery-Vein, Three ([id number]) 2020 7:18 AM EST CAD Endoscopy W/Video-Asst Vein [place], Cabg ([id number]) 2020 7:18 AM EST CAD Cabg, Arterial, Single ([id number]) 2020 7:18 AM EST CAD PREPARE RBC STAT 2020 6:10 AM EST ENDOSCOPIC HARVEST VEIN(S) FOR CABG Routine 2020 6:02 AM EST @CABG,USING ARTERIAL GRAFT;SINGLE ARTERIAL GRAFT Routine 2020 6:02 AM EST documented in this encounter Results * XR Chest PA & Lateral (Generic) (08/21/2020 11:23 AM EDT) Anatomical Region Laterality Modality Chest N/A Digital Radiogra phy Impressions 08/21/2020 11:44 AM EDT Retained postsurgical change. Better aeration in the left lung base on the current examination. No acute cardiopulmonary abnormality. Thank you for letting us participate in the care of this patient. ??If you are a health care provider and have any questions regarding this report, please contact the number below. ??For patients who have questions please contact the health neurocritical care physician that requested your imaging first. ? Electronically signed by: Leonides Barlow MD, [facility] ([phone]), at 08/21/2020 11:44 AM Narrative 08/21/2020 11:44 AM EDT EXAMINATION: XR CHEST PA AND LATERAL (GENERIC) CLINICAL HISTORY: 1 month f/u s/p CABG TECHNIQUE: PA and lateral views of the chest COMPARISON: Chest x-ray 07/26/2020 FINDINGS: Status post median sternotomy with intact cerclage wires. Multiple mediastinal clips noted. No interval change in the cardiomediastinal silhouette, siobhan, or central pulmonary vascular markings. Better aeration in the left lung base with improved visualization of the left hemidiaphragm. The right lung remains clear. No pleural effusion. No pneumothorax. No interval osseous finding. Procedure Note Leonides Barlow MD - 08/21/2020 EXAMINATION: XR CHEST PA AND LATERAL (GENERIC) CLINICAL HISTORY: 1 month f/u s/p CABG TECHNIQUE: PA and lateral views of the chest COMPARISON: Chest x-ray 07/26/2020 FINDINGS: Status post median sternotomy with intact cerclage wires. Multiplemediastinal clips noted. No interval change in the cardiomediastinal silhouette, siobhan, or central pulmonary vascular markings. Better aeration in the left lung base withimproved visualization of the left hemidiaphragm. The right lung remains clear.No pleural effusion. No pneumothorax. No interval osseous finding. IMPRESSION Retained postsurgical change. Better aeration in the left lung base onthe current examination. No acute cardiopulmonary abnormality. Thank you for letting us participate in the care of this patient. If youare a health care provider and have any questions regarding this report,please contact the number below. For patients who have questions please contactthe health neurocritical care physician that requested your imaging first. Electronically signed by: Leonides Barlow MD, [facility]([phone]), at 08/21/2020 11:44 AM Joshua Ledesma MD IMG DX ORDERABLES * EKG 12 Lead (08/14/2020 11:38 AM EDT) Ventricular rate 57 BPM MUSE SYSTEM Atrial Rate 57 BPM MUSE SYSTEM P-R Interval 228 ms MUSE SYSTEM QRS Duration 156 ms MUSE SYSTEM Q-T Interval 454 ms MUSE SYSTEM QTC Calculated (Bezet) 441 ms MUSE SYSTEM Calculated P [place] 45 degrees MUSE SYSTEM Calculated R [place] -44 degrees MUSE SYSTEM Calculated T [place] 25 degrees MUSE SYSTEM INTERPRETATION Sinus bradycardia with 1st degree A-V block Left axis deviation Right bundle branch block Abnormal ECG When compared with ECG of 23-JUL-2020 12:01, No significant change was found Confirmed by MD Waldo, Wellington Vergara ([id number]) on 08/14/2020 3:28:14 PM MUSE SYSTEM 08/14/2020 11:3 8 AM EDT 08/14/2020 3:28 PM EDT Joshua Ledesma MD ECG ORDERABLES MUSE SYSTEM * Potassium (07/28/2020 6:06 AM EST) Potassium 3.7 3.5 - 5.0 mmol/L [facility] Comment: Please note: ??Patients with WBC >100,000 may have falsely elevated Potassium levels. ??For accurate Potassium quantification in these patients send serum separator tube (gold top) for subsequent determinations. ??Contact the Clinical Chemistry Laboratory if there are any questions. Blood specimen (specimen) 07/28/2020 6:06 AM EST 07/28/2020 6:28 AM EST Narrative Resulting Agency Comment Spec In Lab Joshua Ledesma MD CHEMISTRY ORDERABLE S Performing Organization Address [facility] de Phone Number [facility] [place] [address] * Potassium (07/27/2020 3:31 AM EST) Potassium 3.5 3.5 - 5.0 mmol/L [facility] Comment: Please note: ??Patients with WBC >100,000 may have falsely elevated Potassium levels. ??For accurate Potassium quantification in these patients send serum separator tube (gold top) for subsequent determinations. ??Contact the Clinical Chemistry Laboratory if there are any questions. Blood specimen (specimen) 07/27/2020 3:31 AM EST 07/27/2020 4:06 AM EST Narrative Resulting Agency Comment Spec In Lab Joshua Ledesma MD CHEMISTRY ORDERABLE S Performing Organization Address [facility] de Phone Number [facility] [place] [address] * XR Chest PA & Lateral (Generic) (07/26/2020 6:26 AM EST) Anatomical Region Laterality Modality Chest N/A Digital Radiogra phy Impressions 07/26/2020 8:38 AM EST Expected postoperative findings Thank you for letting us participate in the care of this patient. For questions regarding this report, please contact the number below. ? Narrative 07/26/2020 8:38 AM EST EXAMINATION: XR CHEST PA AND LATERAL (GENERIC) CLINICAL HISTORY: pod3 cabgx4 TECHNIQUE: PA and lateral views of the chest COMPARISON: 2020 FINDINGS: With the exception of external pacing wires, all lines and tubes been removed. The lungs are better aerated although mild bibasilar atelectasis, LEFT worse than RIGHT remains. Small bilateral pleural effusions. Postsurgical changes within the mediastinum. No pneumothorax or pulmonary edema. Trace anterior pneumomediastinum remains Procedure Note Blanche Chin MD - 07/26/2020 EXAMINATION: XR CHEST PA AND LATERAL (GENERIC) CLINICAL HISTORY: pod3 cabgx4 TECHNIQUE: PA and lateral views of the chest COMPARISON: 2020 FINDINGS: With the exception of external pacing wires, all lines and tubes beenremoved. The lungs are better aerated although mild bibasilar atelectasis, LEFTworse than RIGHT remains. Small bilateral pleural effusions. Postsurgicalchanges within the mediastinum. No pneumothorax or pulmonary edema. Traceanterior pneumomediastinum remains IMPRESSION Expected postoperative findings Thank you for letting us participate in the care of this patient. Forquestions regarding this report, please contact the number below. Electronically signed by: Blanche Chin MD, [facility]([phone]), at 07/26/2020 8:38 AM Joshua Ledesma MD IMG DX ORDERABLES * (ABNORMAL) Differential, Automated (07/26/2020 3:54 AM EST) Neutrophil % 73.0 % [facility] Neutrophil Absolute 5.85 1.70 - 6.10 x10(3)/mc L [facility] Lymph % 12.1 % [facility] Lymphocytes Abs 1.0 0.9 - 3.2 x10(3)/mc L [facility] Monocyte % 12.5 % [facility] Monocyte Abs 1.0(H) 0.3 - 0.9 x10(3)/mc L [facility] Eos % 1.5 % [facility] Eosinophils Abs 0.1 0.0 - 0.4 x10(3)/[facility] Basophil % 0.2 % [facility] Baso Absolute 0.0 0.0 - 0.1 x10(3)/[facility] Immature Gran % 0.70 % [facility] Comment: Immature granulocytes(IG's)percentage and absolute count will include metamyelocytes, myelocytes, and promyelocytes. Blood smears from CBCs yielding IG's will be scanned manually for concordance. If this scan disagrees with the automated IG or if promyelocytes are noted, a manual differential will be performed. Immature Gran Absolute 0.06(H) 0.00 - 0.04 x10(3)/[facility] Blood specimen (specimen) 07/26/2020 3:54 AM EST 07/26/2020 4:04 AM EST Narrative Resulting Agency Comment Spec In Lab J[facility] ORDERABLE S Performing Organization Address City/State/[facility] Co de Phone Number [facility] [place] [address] * (ABNORMAL) Hemogram (07/26/2020 3:54 AM EST) White Blood Cell 8.0 4.0 - 9.5 x10(3)/[facility] Red Blood Cell 3.14(L) 4.58 - 5.54 x10(6)/[facility] Hemoglobin 10.0(L) 13.7 - 16.5 gm/dL [facility] Hematocrit 29.7(L) 40.5 - 48.5 % [facility] Mean Cell Volume 94.6(H) 82.9 - 93.1 fL [facility] Mean Cell Hemoglobin 31.8 27.5 - 32.1 pg [facility] Mean Cell Hemoglobin Concentration 33.7 32.0 - 35.7 gm/dL [facility] Platelet 169 145 - 357 x10(3)/mc L [facility] RDW Standard Deviation 47.3(H) 36.0 - 45.0 fL [facility] RDW coefficient of variation 13.7 11.4 - 13.8 % [facility] Mean Platelet Volume 9.3 7.6 - 12.9 fL [facility] NRBC% auto 0.0 % [facility] NRBC Absolute 0.000 0.000 - 0.000 x10(3)/mc L [facility] Blood specimen (specimen) 07/26/2020 3:54 AM EST 07/26/2020 4:04 AM EST Narrative Resulting Agency Comment Spec In Lab Jorje [facility]EMATOLOG[facility] ORDERABLE S Performing Organization Address City/State/[facility] Co de Phone Number [facility] [place] [address] * (ABNORMAL) Basic Metabolic Panel (non-fasting) (07/26/2020 3:54 AM EST) Glucose 103 65 - 199 mg/dL [facility] Comment:Diabetes: >=200 mg/d L plus symptoms Blood Urea Nitrogen 18 10 - 20 mg/dL [facility] Creatinine 0.89 0.80 - 1.50 mg/dL [facility] Sodium 136 135 - 145 mmol/L [facility] Potassium 3.3(L) 3.5 - 5.0 mmol/L [facility] Comment: Please note: ??Patients with WBC >100,000 may have falsely elevated Potassium levels. ??For accurate Potassium quantification in these patients send serum separator tube (gold top) for subsequent determinations. ??Contact the Clinical Chemistry Laboratory if there are any questions. Chloride 102 98 - 107 mmol/L [facility] Carbon Dioxide 26 22 - 31 mmol/L [facility] Anion Gap 8 5 - 15 mmol/L [facility] Calcium 8.5 8.5 - 10.5 mg/dL [facility] Comment:result rechecked-KS Est Glomerular Filtration Rate 85 >=60 mL/min/1. 73 m?? [facility] Comment: This patient? s estimated glomerular filtration rate (eGFR) is between 85 mL/min/1.73 m2 (patients with less muscle mass per kg body weight) and 98 mL/min/1.73 m2 (patients with more muscle mass per kg body weight) as determined by the CKD-EPI equation. Assessment of eGFR is not appropriate when creatinine concentrations are rapidly changing. For clinical decisions where creatinine clearance will affect therapy, a 24-hour urine creatinine clearance may be advised. Assignment of CKD stage 1 - 5 for patients with an eGFR near the transition point between stages may be based on clinical assessment of muscle mass and symptoms in addition to eGFR. Blood specimen (specimen) 07/26/2020 3:54 AM EST 07/26/2020 4:04 AM EST Narrative Resulting Agency Comment Spec In Lab Joshua Ledesma MD CHEMISTRY ORDERABLE S [facility] [place] [address] * Potassium (07/25/2020 3:56 AM EST) [facility] Potassium 4.3 3.5 - 5.0 mmol/L [facility] Comment: Please note: ??Patients with WBC >100,000 may have falsely elevated Potassium levels. ??For accurate Potassium quantification in these patients send serum separator tube (gold top) for subsequent determinations. ??Contact the Clinical Chemistry Laboratory if there are any questions. Blood specimen (specimen) 07/25/2020 3:56 AM EST 07/25/2020 4:03 AM EST Narrative Resulting Agency Comment Spec In Lab Joshua Ledesma MD CHEMISTRY ORDERABLE S [facility] [place] [address] * POCT Glucose (07/24/2020 5:06 PM EST) Glucose, POC 96 65 - 199 mg/dL [facility] [facility] Comment: Supplemental ranges: <140 mg/dL before meals <180 mg/dL all other times of the day Blood specimen (specimen) 07/24/2020 5:06 PM EST 07/24/2020 5:06 PM EST Joshua Ledesma MD POINT OF CARE TEST ORDERABLES Performing Organization Address [place]/[facility] Co de Phone Number [facility] [place] [address] * POCT Glucose (07/24/2020 8:31 AM EST) Pathologist [facility] Glucose, POC 121 65 - 199 mg/dL [facility] Comment: Supplemental ranges: <140 mg/dL before meals <180 mg/dL all other times of the day Blood specimen (specimen) 07/24/2020 8:31 AM EST 07/24/2020 8:31 AM EST Joshua Ledesma MD POINT OF CARE TEST ORDERABLES Performing Organization Address [facility] Co de Phone Number [facility] [place] [address] * (ABNORMAL) Differential, Automated (07/24/2020 4:27 AM EST) [facility] Neutrophil % 76.0 % [facility] Neutrophil Absolute 7.00(H) 1.70 - 6.10 x10(3)/mc L [facility] Lymph % 8.8 % [facility] Lymphocytes Abs 0.8(L) 0.9 - 3.2 x10(3)/mc L [facility] Monocyte % 14.6 % [facility] Monocyte Abs 1.4(H) 0.3 - 0.9 x10(3)/mc L [facility] Eos % 0.0 % [facility] Eosinophils Abs 0.0 0.0 - 0.4 x10(3)/ L [facility] Basophil % 0.1 % [facility] Baso Absolute 0.0 0.0 - 0.1 x10(3)/[facility] Immature Gran % 0.50 % [facility] Comment: Immature granulocytes(IG's)percentage and absolute count will include metamyelocytes, myelocytes, and promyelocytes. Blood smears from CBCs yielding IG's will be scanned manually for concordance. If this scan disagrees with the automated IG or if promyelocytes are noted, a manual differential will be performed. Immature Gran Absolute 0.05(H) 0.00 - 0.04 x10(3)/[facility] Blood specimen (specimen) 07/24/2020 4:27 AM EST 07/24/2020 4:37 AM EST Narrative Resulting Agency Comment Spec In Lab Cyndi ROME HEMATOLOGY RAÚL BUSCH [facility] [place] [address] * (ABNORMAL) Hemogram (07/24/2020 4:27 AM EST) White Blood Cell 9.2 4.0 - 9.5 x10(3)/[facility] Red Blood Cell 3.33(L) 4.58 - 5.54 x10(6)/[facility] Hemoglobin 10.5(L) 13.7 - 16.5 gm/dL [facility] Hematocrit 30.8(L) 40.5 - 48.5 % [facility] Mean Cell Volume 92.5 82.9 - 93.1 fL [facility] Mean Cell Hemoglobin 31.5 27.5 - 32.1 pg [facility] Mean Cell Hemoglobin Concentration 34.1 32.0 - 35.7 gm/dL [facility] Platelet 173 145 - 357 x10(3)/mc L [facility] RDW Standard Deviation 45.6(H) 36.0 - 45.0 fL [facility] RDW coefficient of variation 13.4 11.4 - 13.8 % [facility] Mean Platelet Volume 9.4 7.6 - 12.9 fL [facility] NRBC% auto 0.0 % [facility] NRBC Absolute 0.000 0.000 - 0.000 x10(3)/mc L [facility] Blood specimen (specimen) 07/24/2020 4:27 AM EST 07/24/2020 4:37 AM EST Narrative Resulting Agency Comment Spec In Lab Cyndi ROME HEMATOLOGY RAÚL BUSCH [facility] [place] [address] * (ABNORMAL) Basic Metabolic Panel (non-fasting) (07/24/2020 4:27 AM EST) Glucose 130 65 - 199 mg/dL [facility] Comment:Diabetes: >=200 mg/d L plus symptoms Blood Urea Nitrogen 15 10 - 20 mg/dL [facility] Creatinine 0.74(L) 0.80 - 1.50 mg/dL [facility] Sodium 136 135 - 145 mmol/L [facility] Potassium 4.5 3.5 - 5.0 mmol/L [facility] Comment: Please note: ??Patients with WBC >100,000 may have falsely elevated Potassium levels. ??For accurate Potassium quantification in these patients send serum separator tube (gold top) for subsequent determinations. ??Contact the Clinical Chemistry Laboratory if there are any questions. Chloride 108(H) 98 - 107 mmol/L [facility] Carbon Dioxide 20(L) 22 - 31 mmol/L [facility] Anion Gap 8 5 - 15 mmol/L [facility] Calcium 7.7(L) 8.5 - 10.5 mg/dL [facility] Est Glomerular Filtration Rate 92 >=60 mL/min/1. 73 m?? [facility] Comment: This patient? s estimated glomerular filtration rate (eGFR) is between 92 mL/min/1.73 m2 (patients with less muscle mass per kg body weight) and 106 mL/min/1.73 m2 (patients with more muscle mass per kg body weight) as determined by the CKD-EPI equation. Assessment of eGFR is not appropriate when creatinine concentrations are rapidly changing. For clinical decisions where creatinine clearance will affect therapy, a 24-hour urine creatinine clearance may be advised. Assignment of CKD stage 1 - 5 for patients with an eGFR near the transition point between stages may be based on clinical assessment of muscle mass and symptoms in addition to eGFR. Blood specimen (specimen) 07/24/2020 4:27 AM EST 07/24/2020 4:37 AM EST Narrative Resulting Agency Comment Spec In Lab Joshua Ledesma MD CHEMISTRY ORDERABLE S [facility] [place] [address] * (ABNORMAL) Troponin (07/24/2020 4:27 AM EST) Troponin-T 0.50(H) 0.00 - 0.00 ng/mL [facility] Comment: The 99th percentile for Troponin T is less than 0.01 ng/mL, any detectable cTnT concentration using this assay should be considered elevated. According to the third universal definition of myocardial infarction the following criteria with a clinical presentation consistent with acute myocardial ischemia meets the diagnosis for a myocardial infarction (AL). Detection of a rise and/or fall of cTnT, with at least one value greater than the 99th percentile (> or = 0.01) and with at least one of the following ?? Symptoms of ischemia ?? New or presumed new significant KT-uhxwcki-A wave (ST-T) changes or new left bundle branch block (LBBB) ?? Development of pathologic Q waves in the ECG ?? Imaging evidence of new loss of viable myocardium or new regional wall motion abnormality ?? Identification of an intracoronary thrombus by angiography or autopsy Samples for cTnT testing should be obtained serially upon first assessment and again 3 to 6 hours later. If the clinical suspicion is high and previous samples have been negative an additional sample may be indicated. Reference: Third [place] Definition of Myocardial Infarction. Journal of the [employer] 2012;60:1581-98 Blood specimen (specimen) 07/24/2020 4:27 AM EST 07/24/2020 4:37 AM EST Narrative Resulting Agency Comment Spec In Lab Joshua Ledesma MD CHEMISTRY ORDERABLE S Performing Organization Address [facility]/ZIP Co de Phone Number [facility] [place] [address] * POCT Glucose (07/24/2020 4:08 AM EST) Glucose, POC 127 65 - 199 mg/dL [facility] Comment: Supplemental ranges: <140 mg/dL before meals <180 mg/dL all other times of the day Blood specimen (specimen) 07/24/2020 4:08 AM EST 07/24/2020 4:08 AM EST Joshua Ledesma MD POINT OF CARE TEST ORDERABLES Performing Organization Address [facility] Co de Phone Number [facility] [place] [address] * POCT Glucose (2020 11:59 PM EST) Glucose, POC 121 65 - 199 mg/dL [facility] Comment: Supplemental ranges: <140 mg/dL before meals <180 mg/dL all other times of the day Blood specimen (specimen) 2020 11:59 PM EST 2020 11:59 PM EST Joshua Ledesma MD POINT OF CARE TEST ORDERABLES Performing Organization Address [facility] Co de Phone Number [facility] [place] [address] * POCT Glucose (2020 7:57 PM EST) Glucose, POC 171 65 - 199 mg/dL [facility] Comment: Supplemental ranges: <140 mg/dL before meals <180 mg/dL all other times of the day Blood specimen (specimen) 2020 7:57 PM EST 2020 7:57 PM EST Joshua Ledesma MD POINT OF CARE TEST ORDERABLES Performing Organization Address [facility] Co de Phone Number [facility] [place] [address] * POCT Glucose (2020 4:53 PM EST) Glucose, POC 128 65 - 199 mg/dL [facility] Comment: Supplemental ranges: <140 mg/dL before meals <180 mg/dL all other times of the day Blood specimen (specimen) 2020 4:53 PM EST 2020 4:53 PM EST Joshua Ledesma MD POINT OF CARE TEST ORDERABLES Performing Organization Address [facility] de Phone Number [facility] [place] [address] * (ABNORMAL) BLOOD GAS 2 ARTERIAL (2020 3:26 PM EST) pH, Arterial 7.36 7.35 - 7.45 [facility] PCO2, Arterial 35 35 - 45 mmHg [facility] PO2, Arterial 111(H) 85 - 104 mmHg [facility] Bicarbonate, Arterial 19.4(L) 20.0 - 26.0 mmol/L [facility] Base Excess, Arterial -6.1(L) -3.0 - 3.0 mmol/L [facility] Hgb Blood Gas 12.6(L) 13.7 - 16.5 gm/dL [facility] Oxyhemoglobin, Arterial 96.4 94.0 - 97.0 % [facility] Carboxyhemoglob in, Arterial 0.3 % [facility] Comment: Nonsmokers: 0.5-1.5% COHB Smokers: Variable, but usually less than 10% Toxic: 20-30% COHB Lethal: Greater than 60% COHB Methemoglobin, Arterial 0.7 <=1.5 % [facility] Na Whole Blood 132(L) 135 - 145 mmol/L [facility] K Whole Blood 4.8 3.5 - 5.0 mmol/L [facility] Comment: Please note: Patients with WBC >100,000 may have falsely elevated Potassium levels. Contact the Clinical Chemistry Laboratory if there are any questions. ICa Whole Blood 1.10(L) 1.15 - 1.33 mmol/L [facility] Comment: Note: ??Total bilirubin higher than 20 mg/dL may lead to falsely low ionized calcium. CL Whole Blood 108(H) 98 - 107 mmol/L [facility] Gluc Whole Bld 156 65 - 199 mg/dL [facility] Comment:Diabetes: >=200 mg/d L plus symptoms. Lactate WB 1.9 0.5 - 2.2 mmol/L [facility] FIO2 Art 40 % [facility] PF Ratio Art [address] [facility] Blood specimen (specimen) 2020 3:26 PM EST 2020 3:26 PM EST Joshua Ledesma MD POINT OF CARE TEST ORDERABLES [facility] [place] [address] * (ABNORMAL) Hemoglobin (2020 3:26 PM EST) Hemoglobin 11.4(L) 13.7 - 16.5 gm/dL [facility] Blood specimen (specimen) 2020 3:26 PM EST 2020 3:47 PM EST Narrative Resulting Agency Comment Spec In Lab Joshua Ledesma MD HEMATOLOGY ORDERABL ES Performing Organization Address [facility] Co de Phone Number [facility] [place] [address] * (ABNORMAL) Potassium (2020 3:26 PM EST) Potassium 5.1(H) 3.5 - 5.0 mmol/L [facility] Comment: Please note: ??Patients with WBC >100,000 may have falsely elevated Potassium levels. ??For accurate Potassium quantification in these patients send serum separator tube (gold top) for subsequent determinations. ??Contact the Clinical Chemistry Laboratory if there are any questions. Blood specimen (specimen) 2020 3:26 PM EST 2020 3:47 PM EST Narrative Resulting Agency Comment Spec In Lab Joshua Ledesma MD CHEMISTRY ORDERABLE S Performing Organization Address [facility] Co de Phone Number [facility] [place] [address] * POCT Glucose (2020 3:25 PM EST) [facility] Glucose, POC 154 65 - 199 mg/dL [facility] Comment: Supplemental ranges: <140 mg/dL before meals <180 mg/dL all other times of the day Blood specimen (specimen) 2020 3:25 PM EST 2020 3:25 PM EST Joshua Ledesma MD POINT OF CARE TEST ORDERABLES Performing Organization Address [facility] Co de Phone Number [facility] [place] [address] * (ABNORMAL) Coox2 (2020 2:17 PM EST) pO2, Coox 33 mmHg [facility] Hgb Blood Gas 11.7(L) 13.7 - 16.5 gm/dL [facility] Oxyhemoglobin, Coox 63.5 % [facility] Carboxyhemoglo bin, Coox 0.3 % [facility] Comment: Nonsmokers: 0.5-1.5% COHB Smokers: Variable, but usually less than 10% Toxic: 20-30% COHB Lethal: Greater than 60% COHB Methemoglobin, Coox 0.8 <=1.5 % [facility] Source Coox Mixed Venous [facility] Blood specimen (specimen) 2020 2:17 PM EST 2020 2:17 PM EST Joshua Ledesma MD POINT OF CARE TEST ORDERABLES [facility] [place] [address] * POCT Glucose (2020 12:51 PM EST) Glucose, POC 138 65 - 199 mg/dL [facility] Comment: Supplemental ranges: <140 mg/dL before meals <180 mg/dL all other times of the day Blood specimen (specimen) 2020 12:51 PM EST 2020 12:51 PM EST Joshua Ledesma MD POINT OF CARE TEST ORDERABLES Performing Organization Address [place]/[facility] Co de Phone Number [facility] [place] [address] * (ABNORMAL) BLOOD GAS 2 ARTERIAL (2020 12:20 PM EST) pH, Arterial 7.35 7.35 - 7.45 [facility] PCO2, Arterial 36 35 - 45 mmHg [facility] PO2, Arterial 464(H) 85 - 104 mmHg [facility] Bicarbonate, Arterial 19.3(L) 20.0 - 26.0 mmol/L [facility] Base Excess, Arterial -6.4(L) -3.0 - 3.0 mmol/L [facility] Hgb Blood Gas 12.2(L) 13.7 - 16.5 gm/dL [facility] Oxyhemoglobin, Arterial 97.7(H) 94.0 - 97.0 % [facility] Carboxyhemoglob in, Arterial 0.3 % [facility] Comment: Nonsmokers: 0.5-1.5% COHB Smokers: Variable, but usually less than 10% Toxic: 20-30% COHB Lethal: Greater than 60% COHB Methemoglobin, Arterial 0.6 <=1.5 % [facility] Na Whole Blood 134(L) 135 - 145 mmol/L [facility] K Whole Blood 4.2 3.5 - 5.0 mmol/L [facility] Comment: Please note: Patients with WBC >100,000 may have falsely elevated Potassium levels. Contact the Clinical Chemistry Laboratory if there are any questions. ICa Whole Blood 1.06(L) 1.15 - 1.33 mmol/L [facility] Comment: Note: ??Total bilirubin higher than 20 mg/dL may lead to falsely low ionized calcium. CL Whole Blood 110(H) 98 - 107 mmol/L [facility] Gluc Whole Bld 146 65 - 199 mg/dL [facility] Comment:Diabetes: >=200 mg/d L plus symptoms. Lactate WB 2.1 0.5 - 2.2 mmol/L [facility] FIO2 Art 100 % [facility] PF Ratio Art [address] [facility] Blood specimen (specimen) 2020 12:20 PM EST 2020 12:20 PM EST Joshua Ledesma MD POINT OF CARE TEST ORDERABLES [facility] [place] [address] * XR Chest One View (2020 12:17 PM EST) Anatomical Region Laterality Modality Chest N/A Digital Radiogra phy Impressions 2020 12:41 PM EST 1. ??Expected postsurgical changes including mild left basilar atelectasis and trace effusion. 2. ??Support devices appropriately positioned, as above. Thank you for letting us participate in the care of this patient. For questions regarding this report, please contact the number below. ? Electronically signed by: MESSI MCGOWAN MD, [facility] ([phone]), at 2020 12:41 PM Narrative 2020 12:41 PM EST EXAMINATION: XR CHEST ONE VIEW CLINICAL HISTORY: S/P CABGx4 TECHNIQUE: 1 view of the chest , portable AP semiupright COMPARISON: Chest radiograph 07/11/2020 FINDINGS: An endotracheal tube is present with tip 6 cm above the kelle. An enteric tube terminates in the left upper quadrant, likely within the gastric fundus. A right IJ PA catheter is present with tip in the right pulmonary artery at the level of the siobhan. Mediastinal drains, median sternotomy wires, and mediastinal surgical clips are present. Low lung volumes bilaterally with resultant bronchovascular crowding. Mild left basilar atelectasis and possible trace effusion. No pneumothorax. The cardiomediastinal silhouette and siobhan are within normal limits. Procedure Note Messi Mcgowan MD - 2020 EXAMINATION: XR CHEST ONE VIEW CLINICAL HISTORY: S/P CABGx4 TECHNIQUE: 1 view of the chest , portable AP semiupright COMPARISON: Chest radiograph 07/11/2020 FINDINGS: An endotracheal tube is present with tip 6 cm above the kelle. An enterictube terminates in the left upper quadrant, likely within the gastric fundus. Aright IJ PA catheter is present with tip in the right pulmonary artery at thelevel of the siobhan. Mediastinal drains, median sternotomy wires, and mediastinalsurgical clips are present. Low lung volumes bilaterally with resultant bronchovascular crowding. Mildleft basilar atelectasis and possible trace effusion. No pneumothorax. The cardiomediastinal silhouette and siobhan are within normal limits. IMPRESSION 1. Expected postsurgical changes including mild left basilar atelectasisand trace effusion. 2. Support devices appropriately positioned, as above. Thank you for letting us participate in the care of this patient. Forquestions regarding this report, please contact the number below. Electronically signed by: MESSI MCGOWAN MD, [facility]([phone]), at 2020 12:41 PM Joshua Ledesma MD IMG DX ORDERABLES * EKG 12 Lead (2020 12:01 PM EST) Ventricular rate 77 BPM MUSE SYSTEM Atrial Rate 77 BPM MUSE SYSTEM P-R Interval 204 ms MUSE SYSTEM QRS Duration 150 ms MUSE SYSTEM Q-T Interval 442 ms MUSE SYSTEM QTC Calculated (Bezet) 500 ms MUSE SYSTEM Calculated P [place] 47 degrees MUSE SYSTEM Calculated R [place] -35 degrees MUSE SYSTEM Calculated T [place] 83 degrees MUSE SYSTEM INTERPRETATION Normal sinus rhythm Left axis deviation Right bundle branch block isolated Q wave in III Abnormal ECG When compared with ECG of 09-JUL-2020 10:45, T wave inversion now evident in Lateral leads Confirmed by Chayo Clement ([id number]) on 2020 2:12:19 PM MUSE SYSTEM 2020 12:0 1 PM EST 2020 2:12 PM EST Joshua Ledesma MD ECG ORDERABLES MUSE SYSTEM * (ABNORMAL) BLOOD GAS 2 ARTERIAL (2020 10:56 AM EST) pH, Arterial 7.28(Criti mag) 7.35 - 7.45 [facility] PCO2, Arterial 40 35 - 45 mmHg [facility] PO2, Arterial 121(H) 85 - 104 mmHg [facility] Bicarbonate, Arterial 18.5(L) 20.0 - 26.0 mmol/L [facility] Base Excess, Arterial -8.2(L) -3.0 - 3.0 mmol/L [facility] Hgb Blood Gas 9.5(L) 13.7 - 16.5 gm/dL [facility] Oxyhemoglobin, Arterial 97.0 94.0 - 97.0 % [facility] Carboxyhemoglob in, Arterial 0.3 % [facility] Comment: Nonsmokers: 0.5-1.5% COHB Smokers: Variable, but usually less than 10% Toxic: 20-30% COHB Lethal: Greater than 60% COHB Methemoglobin, Arterial 0.3 <=1.5 % [facility] Na Whole Blood 132(L) 135 - 145 mmol/L [facility] K Whole Blood 4.0 3.5 - 5.0 mmol/L [facility] Comment: Please note: Patients with WBC >100,000 may have falsely elevated Potassium levels. Contact the Clinical Chemistry Laboratory if there are any questions. ICa Whole Blood 1.01(L) 1.15 - 1.33 mmol/L [facility] Comment: Note: ??Total bilirubin higher than 20 mg/dL may lead to falsely low ionized calcium. CL Whole Blood 111(H) 98 - 107 mmol/L [facility] Gluc Whole Bld 168 65 - 199 mg/dL [facility] Comment:Diabetes: >=200 mg/d L plus symptoms. Lactate WB 2.1 0.5 - 2.2 mmol/L [facility] Blood specimen (specimen) 2020 10:56 AM EST 2020 10:56 AM EST Joshua Ledesma MD POINT OF CARE TEST ORDERABLES [facility] [place] [address] * (ABNORMAL) Thrombin time (2020 10:54 AM EST) Thrombin Time 21(H) 10 - 17 sec [facility] Comment: OR Result called by ?? BROWLJ OR Results read back by: ? Leonides Janes at 2020 11:24:11 A prolongation in the thrombin time (>20 seconds) may be indicative of hypofibrinogenemia or dysfibrinogenemia. The thrombin time will be prolonged, often markedly so, by the presence of heparin or direct thrombin inhibitors (argatroban, bivalirudin, dabigatran) in the specimen. Blood specimen (specimen) 2020 10:54 AM EST 2020 11:05 AM EST Narrative Resulting Agency Comment Spec In Lab Joshua Ledesma MD HEMATOLOGY ORDERABL ES Performing Organization Address [facility] de Phone Number [facility] [place] [address] * (ABNORMAL) Fibrinogen (2020 10:54 AM EST) Fibrinogen 190(L) 200 - 393 mg/dL [facility] Comment: OR Result called by ?? BROWLJ OR Results read back by: ? Leonides Herediajodi at 2020 11:24:11 A fibrinogen level >100 mg/dL is adequate for hemostasis in most patients without underlying bleeding disorders. Blood specimen (specimen) 2020 10:54 AM EST 2020 11:05 AM EST Narrative Resulting Agency Comment Spec In Lab Joshua Ledesma MD HEMATOLOGY ORDERABL ES Performing Organization Address [facility] Co de Phone Number [facility] [place] [address] * APTT (2020 10:54 AM EST) Partial Thromboplastin Time 28 25 - 37 sec [facility] Comment: OR Result called by ?? BROWLJ OR Results read back by: ? Leonides Herediajodi at 2020 11:24:11 The PTT is NOT appropriate for heparin monitoring. Use the Anti-Xa level for heparin monitoring (HEP UFH) or LMWH monitoring (HEP LMW). A PTT less than 37 seconds generally indicates adequate hemostasis. Blood specimen (specimen) 2020 10:54 AM EST 2020 11:05 AM EST Narrative Resulting Agency Comment Spec In Lab Joshua Ledesma MD HEMATOLOGY ORDERABL ES Performing Organization Address [facility] de Phone Number [facility] [place] [address] * (ABNORMAL) Prothrombin Time (2020 10:54 AM EST) Pathologist [facility] Prothrombin Time 14.2(H) 9.4 - 12.5 sec [facility] Comment: OR Result called by ?? BROWLJ OR Results read back by: ? Leonides Marrero at 2020 11:24:11 International Normalization Ratio 1.2 [facility] Comment: OR Result called by ?? BROWLJ OR Results read back by: ? Leonides Marrero at 2020 11:24:11 An INR <2.0 indicates adequate procoagulant activity for hemostasis in most patients without underlying bleeding disorders, though the INR may not adequately reflect hemostatic capacity in patients with liver disease and synthetic impairment. The recommended target INR range for therapeutic anticoagulation is 2.0 ? 3.0 for most applications, though lower and higher ranges may be appropriate depending on clinical circumstances. Blood specimen (specimen) 2020 10:54 AM EST 2020 11:05 AM EST Narrative Resulting Agency Comment Spec In Lab Joshua Ledesma MD HEMATOLOGY ORDERABL ES Performing Organization Address [facility] Co de Phone Number [facility] [place] [address] * (ABNORMAL) Hemogram (2020 10:54 AM EST) White Blood Cell 14.4(H) 4.0 - 9.5 x10(3)/mc L [facility] Red Blood Cell 3.10(L) 4.58 - 5.54 x10(6)/mc L [facility] Hemoglobin 9.8(L) 13.7 - 16.5 gm/dL [facility] Hematocrit 29.8(L) 40.5 - 48.5 % [facility] Comment: This result has been called to TERE CHAIDEZ by DELFINA STEPHEN on 07 23 2020 at 1114, and has been read back. Mean Cell Volume 96.1(H) 82.9 - 93.1 fL [facility] Mean Cell Hemoglobin 31.6 27.5 - 32.1 pg [facility] Mean Cell Hemoglobin Concentration 32.9 32.0 - 35.7 gm/dL [facility] Platelet 207 145 - 357 x10(3)/mc L [facility] RDW Standard Deviation 46.5(H) 36.0 - 45.0 fL [facility] RDW coefficient of variation 13.2 11.4 - 13.8 % [facility] Mean Platelet Volume 9.2 7.6 - 12.9 fL [facility] NRBC% auto 0.0 % [facility] NRBC Absolute 0.000 0.000 - 0.000 x10(3)/mc L [facility] Blood specimen (specimen) 2020 10:54 AM EST 2020 11:05 AM EST Narrative Resulting Agency Comment Spec In Lab Johsua Ledesma MD HEMATOLOGY ORDERABL ES [facility] [place] [address] * (ABNORMAL) BLOOD GAS 2 ARTERIAL (2020 10:04 AM EST) Pathologist [facility] pH, Arterial 7.36 7.35 - 7.45 [facility] PCO2, Arterial 41 35 - 45 mmHg [facility] PO2, Arterial 478(H) 85 - 104 mmHg [facility] Bicarbonate, Arterial 22.9 20.0 - 26.0 mmol/L [facility] Base Excess, Arterial -2.6 -3.0 - 3.0 mmol/L [facility] Hgb Blood Gas 10.1(L) 13.7 - 16.5 gm/dL [facility] Oxyhemoglobin, Arterial 99.0(H) 94.0 - 97.0 % [facility] Carboxyhemoglob in, Arterial 0.3 % [facility] Comment: Nonsmokers: 0.5-1.5% COHB Smokers: Variable, but usually less than 10% Toxic: 20-30% COHB Lethal: Greater than 60% COHB Methemoglobin, Arterial 0.3 <=1.5 % [facility] Na Whole Blood 127(L) 135 - 145 mmol/L [facility] K Whole Blood 6.3(Critic al) 3.5 - 5.0 mmol/L [facility] Comment: Please note: Patients with WBC >100,000 may have falsely elevated Potassium levels. Contact the Clinical Chemistry Laboratory if there are any questions. ICa Whole Blood 0.93(L) 1.15 - 1.33 mmol/L [facility] Comment: Note: ??Total bilirubin higher than 20 mg/dL may lead to falsely low ionized calcium. CL Whole Blood 102 98 - 107 mmol/L [facility] Gluc Whole Bld 226(H) 65 - 199 mg/dL [facility] Comment:Diabetes: >=200 mg/d L plus symptoms. Lactate WB 2.3(H) 0.5 - 2.2 mmol/L [facility] Blood specimen (specimen) 2020 10:04 AM EST 2020 10:04 AM EST Joshua Ledesma MD POINT OF CARE TEST ORDERABLES [facility] [place] [address] * Platelet count (2020 10:00 AM EST) Platelet 243 145 - 357 x10(3)/mc L [facility] Immature Plt % 1.5 0.0 - 7.4 % [facility] Comment: Limitation of the Immature Platelet Fraction (IPF)-May be less reliable when the platelet count is less than 99f343/uL due to statistical imprecision. The IPF value provides an assessment of the Bone Marrow production status. ??It is useful in differentiating Thrombocytopenia caused by platelet destruction/consumption versus decreased production. It also helps to determine the imminent release of platelets and can be therefore a helpful parameter in Chemotherapy and Bone marrow transplant patients. ELEVATED IPF value: ?? When the bone marrow is in a state of over production such as when increased destruction and consumption are the underlying issue. ?? When the marrow is recovering post chemotherapy or bone marrow transplant. LOW to NORMAL IPF value: ?? When the bone marrow in not responding and is in a decreased state of production. References: [facility] [employer] [employer] The Clinical Value of the Immature Platelet Fraction (IPF) in Cell Recovery Document Number 10-1143 10/2010 [facility] [employer] The Role of the Immature Platelet Fraction (IPF) in the Differential Diagnosis of Thrombocytopenia, Document [id number] V05 P014 Blood specimen (specimen) 2020 10:00 AM EST 2020 10:07 AM EST Narrative Resulting Agency Comment Spec In Lab Joshua Ledesma MD HEMATOLOGY ORDERABL ES [facility] [place] [address] * (ABNORMAL) Hemoglobin (2020 10:00 AM EST) Hemoglobin 9.5(L) 13.7 - 16.5 gm/dL [facility] Blood specimen (specimen) 2020 10:00 AM EST 2020 10:07 AM EST Narrative Resulting Agency Comment Spec In Lab Joshua Ledesma MD HEMATOLOGY ORDERABL ES Performing Organization Address [facility] Co de Phone Number [facility] [place] [address] * (ABNORMAL) Fibrinogen (2020 10:00 AM EST) Fibrinogen 184(L) 200 - 393 mg/dL [facility] Comment: OR Result called by ?? BROWLJ OR Results read back by: ? Natalee Sagastume at 2020 10:26:38 A fibrinogen level >100 mg/dL is adequate for hemostasis in most patients without underlying bleeding disorders. Blood specimen (specimen) 2020 10:00 AM EST 2020 10:07 AM EST Narrative Resulting Agency Comment Spec In Lab Joshua Ledesma MD HEMATOLOGY ORDERABL ES Performing Organization Address [facility] de Phone Number [facility] [place] [address] * (ABNORMAL) Hematocrit (2020 10:00 AM EST) Hematocrit 28.7(L) 40.5 - 48.5 % [facility] Comment: This result has been called to NATALEE SAGASTUME by DELFINA STEPHEN on 07 23 2020 at 1012, and has been read back. Blood specimen (specimen) 2020 10:00 AM EST 2020 10:07 AM EST Narrative Resulting Agency Comment Spec In Lab Joshua Ledesma MD HEMATOLOGY ORDERABL ES Performing Organization Address [facility] Co de Phone Number [facility] [place] [address] * (ABNORMAL) BLOOD GAS 2 ARTERIAL (2020 9:30 AM EST) pH, Arterial 7.32(L) 7.35 - 7.45 [facility] PCO2, Arterial 46(H) 35 - 45 mmHg [facility] PO2, Arterial 472(H) 85 - 104 mmHg [facility] Bicarbonate, Arterial 23.3 20.0 - 26.0 mmol/L [facility] Base Excess, Arterial -2.7 -3.0 - 3.0 mmol/L [facility] Hgb Blood Gas 9.9(L) 13.7 - 16.5 gm/dL [facility] Oxyhemoglobin, Arterial 98.9(H) 94.0 - 97.0 % [facility] Carboxyhemoglob in, Arterial 0.3 % [facility] Comment: Nonsmokers: 0.5-1.5% COHB Smokers: Variable, but usually less than 10% Toxic: 20-30% COHB Lethal: Greater than 60% COHB Methemoglobin, Arterial 0.3 <=1.5 % [facility] Na Whole Blood 128(L) 135 - 145 mmol/L [facility] K Whole Blood 6.2(Critic al) 3.5 - 5.0 mmol/L [facility] Comment: Please note: Patients with WBC >100,000 may have falsely elevated Potassium levels. Contact the Clinical Chemistry Laboratory if there are any questions. ICa Whole Blood 0.97(L) 1.15 - 1.33 mmol/L [facility] Comment: Note: ??Total bilirubin higher than 20 mg/dL may lead to falsely low ionized calcium. CL Whole Blood 101 98 - 107 mmol/L [facility] Gluc Whole Bld 173 65 - 199 mg/dL [facility] Comment:Diabetes: >=200 mg/d L plus symptoms. Lactate WB 2.1 0.5 - 2.2 mmol/L [facility] Blood specimen (specimen) 2020 9:30 AM EST 2020 9:30 AM EST Joshua Ledesma MD POINT OF CARE TEST ORDERABLES [facility] [place] [address] * (ABNORMAL) BLOOD GAS 2 VENOUS (2020 9:10 AM EST) pH, Venous 7.22(Criti mag) 7.32 - 7.42 [facility] PCO2, Venous 53(H) 41 - 51 mmHg [facility] PO2, Venous 62(H) 25 - 40 mmHg [facility] Bicarbonate, Venous 21.1 mmol/L [facility] Base Excess, Venous -6.5 mmol/L [facility] Hgb Blood Gas 10.1(L) 13.7 - 16.5 gm/dL [facility] Oxyhemoglobin, Venous 87.3 % [facility] Carboxyhemoglob in, Venous 0.3 % [facility] Comment: Nonsmokers: 0.5-1.5% COHB Smokers: Variable, but usually less than 10% Toxic: 20-30% COHB Lethal: Greater than 60% COHB Methemoglobin, Venous 0.3 <=1.5 % [facility] Na Whole Blood 130(L) 135 - 145 mmol/L [facility] K Whole Blood 5.6(H) 3.5 - 5.0 mmol/L [facility] Comment: Please note: Patients with WBC >100,000 may have falsely elevated Potassium levels. Contact the Clinical Chemistry Laboratory if there are any questions. ICa Whole Blood 0.91(Criti mag) 1.15 - 1.33 mmol/L [facility] Comment: Note: ??Total bilirubin higher than 20 mg/dL may lead to falsely low ionized calcium. CL Whole Blood 102 98 - 107 mmol/L [facility] Gluc Whole Bld 163 65 - 199 mg/dL [facility] Comment:Diabetes: >=200 mg/d L plus symptoms Lactate WB 1.6 0.5 - 2.2 mmol/L [facility] Blood Gas Source Venous [facility] Blood specimen (specimen) 2020 9:10 AM EST 2020 9:10 AM EST Joshua Ledesma MD POINT OF CARE TEST ORDERABLES [facility] [place] [address] * (ABNORMAL) BLOOD GAS 2 ARTERIAL (2020 9:08 AM EST) pH, Arterial 7.27(Criti mag) 7.35 - 7.45 [facility] PCO2, Arterial 44 35 - 45 mmHg [facility] PO2, Arterial 431(H) 85 - 104 mmHg [facility] Bicarbonate, Arterial 19.6(L) 20.0 - 26.0 mmol/L [facility] Base Excess, Arterial -7.3(L) -3.0 - 3.0 mmol/L [facility] Hgb Blood Gas 10.3(L) 13.7 - 16.5 gm/dL [facility] Oxyhemoglobin, Arterial 98.9(H) 94.0 - 97.0 % [facility] Carboxyhemoglob in, Arterial 0.3 % [facility] Comment: Nonsmokers: 0.5-1.5% COHB Smokers: Variable, but usually less than 10% Toxic: 20-30% COHB Lethal: Greater than 60% COHB Methemoglobin, Arterial 0.3 <=1.5 % [facility] Na Whole Blood 130(L) 135 - 145 mmol/L [facility] K Whole Blood 5.6(H) 3.5 - 5.0 mmol/L [facility] Comment: Please note: Patients with WBC >100,000 may have falsely elevated Potassium levels. Contact the Clinical Chemistry Laboratory if there are any questions. ICa Whole Blood 0.90(Criti mag) 1.15 - 1.33 mmol/L [facility] Comment: Note: ??Total bilirubin higher than 20 mg/dL may lead to falsely low ionized calcium. CL Whole Blood 102 98 - 107 mmol/L [facility] Gluc Whole Bld 170 65 - 199 mg/dL [facility] Comment:Diabetes: >=200 mg/d L plus symptoms. Lactate WB 1.6 0.5 - 2.2 mmol/L [facility] Blood specimen (specimen) 2020 9:08 AM EST 2020 9:08 AM EST Joshua Ledesma MD POINT OF CARE TEST ORDERABLES Performing Organization Address City/State/[facility] Co de Phone Number [facility] [place] [address] * (ABNORMAL) BLOOD GAS 2 ARTERIAL (2020 8:05 AM EST) pH, Arterial 7.38 7.35 - 7.45 [facility] PCO2, Arterial 31(L) 35 - 45 mmHg [facility] PO2, Arterial 264(H) 85 - 104 mmHg [facility] Bicarbonate, Arterial 17.9(L) 20.0 - 26.0 mmol/L [facility] Base Excess, Arterial -7.2(L) -3.0 - 3.0 mmol/L [facility] Hgb Blood Gas 13.5(L) 13.7 - 16.5 gm/dL [facility] Oxyhemoglobin, Arterial 98.8(H) 94.0 - 97.0 % [facility] Carboxyhemoglob in, Arterial 0.4 % [facility] Comment: Nonsmokers: 0.5-1.5% COHB Smokers: Variable, but usually less than 10% Toxic: 20-30% COHB Lethal: Greater than 60% COHB Methemoglobin, Arterial 0.3 <=1.5 % [facility] Na Whole Blood 135 135 - 145 mmol/L [facility] K Whole Blood 4.1 3.5 - 5.0 mmol/L [facility] Comment: Please note: Patients with WBC >100,000 may have falsely elevated Potassium levels. Contact the Clinical Chemistry Laboratory if there are any questions. ICa Whole Blood 1.16 1.15 - 1.33 mmol/L [facility] Comment: Note: ??Total bilirubin higher than 20 mg/dL may lead to falsely low ionized calcium. CL Whole Blood 106 98 - 107 mmol/L [facility] Gluc Whole Bld 89 65 - 199 mg/dL [facility] Comment:Diabetes: >=200 mg/d L plus symptoms. Lactate WB 1.8 0.5 - 2.2 mmol/L [facility] Blood specimen (specimen) 2020 8:05 AM EST 2020 8:05 AM EST Joshua Ledesma MD POINT OF CARE TEST ORDERABLES Performing Organization Address [facility] Co de Phone Number [facility] [place] [address] * Prepare RBC (2020 6:10 AM EST) Dispensed? Yes [facility] Blood specimen (specimen) 2020 6:10 AM EST 2020 6:09 AM EST Joshua Ledesma MD BLOOD BANK PRODUCT ORDERABLES Performing Organization Address [facility]/ZIP Co de Phone Number [facility] [place] [address] documented in this encounter Visit Diagnoses Diagnosis S/P CABG x 4 Postsurgical aortocoronary bypass status CAD (coronary artery disease) Coronary atherosclerosis of unspecified type of vessel, [place] or graft S/P CABG x 4 Postsurgical aortocoronary bypass status documented in this encounter Admitting Diagnoses Diagnosis CAD (coronary artery disease) Coronary atherosclerosis of unspecified type of vessel, [place] or graft documented in this encounter Administered Medications Inactive Administered Medications - up to 3 most recent administrations Medication Order MAR Action Action Date Dose Rate Site acetaminophen (Ofirmev) (1000 mg/100 mL) infusion 1,000 mg 1,000 mg, Intravenous, at 400 mL/hr, Administer over 15 Minutes, EVERY 6 HOURS SCHEDULED, 4 doses, First dose on Thu07/23/20 at 1245, Last dose on Thu07/24/20 at 0600, Maximum dose of acetaminophen is 4000 mg from all sources in 24 hours. When ordered for pain, acetaminophen should be given even when other ordered pain medications are indicated., Routine, Is ketorolac (Toradol) IV contraindicated? Yes, Can this patient tolerate oral medications or suppositories? No Given 07/24/2020 5:54 AM EST 1,000 mg 400 mL/hr Given 2020 11:41 PM EST 1,000 mg 400 mL/hr Given 2020 5:03 PM EST 1,000 mg 400 mL/hr acetaminophen (Tylenol) tablet 1,000 mg 1,000 mg, Oral, ONCE, 1 dose, On Thu07/23/20 at 0715, Administer with SIP of H2O only., Day of Surgery (Day of Procedure), Routine Given 2020 6:58 AM EST 1,000 mg acetaminophen (Tylenol) tablet 1,000 mg 1,000 mg, Oral, EVERY 6 HOURS SCHEDULED, First dose on Thu07/24/20 at 1200, Until Discontinued, For pain when taking by mouth. Maximum dose of acetaminophen is 4000 mg from all sources in 24 hours. When ordered for pain, acetaminophen should be given even when other ordered pain medications are indicated., Routine Given 07/28/2020 11:41 AM EST 1,000 m g Given 07/28/2020 5:03 AM EST 1,000 mg Given 07/27/2020 11:32 PM EST 1,000 mg albumin (human) 5% 250 mL intravenous solution 12.5 g, Intravenous, EVERY 15 MIN PRN, 2 doses, Starting on Thu07/23/20 at 1153, Until Thu07/23/20 at 1255, see adiministration instuctions, PRN as needed for volume replacement to maintain cardiac index greater than or equal to 2.0 L/min/M2, Recovery (Recovery-Hospital Unit), STAT New Bag 2020 12:55 PM EST 12.5 g New Bag 2020 12:16 PM EST 12.5 g AMIOdarone (Cordarone) (1.8 mg/mL) in dextrose 5% 200 mL infusion 1 mg/min (33.3333 mL/hr, rounded to 33.3 mL/hr), Intravenous, CONTINUOUS, Starting on Thu07/25/20 at 0345, Until Gali 07/26/20 at 0900, 1 mg/min for 6 hrs, then 0.5 mg/min for 18 hrs. After first 24 hours, order maintenance dose 0.5 mg/min. Use in-line filter. Warning Vesicant/Irritant Medication New Bag 07/25/2020 4:20 PM EST 0.5 mg/mi n 16.7 mL/hr Rate/Dose Change 07/25/2020 9:00 AM EST 0.5 mg/min 16.7 mL /hr New Bag 07/25/2020 7:02 AM EST 1 mg/min 33.3 mL/hr AMIOdarone (Cordarone) 360 mg/200 mL (1.8 mg/mL) infusion 1 dose, Starting on Thu07/25/20 at 0300, Until Thu07/25/20 at 0308, Jett Joseph: cabinet override AMIOdarone (CORDARONE) bolus from bag 150 mg 150 mg, Intravenous, Administer over 10 Minutes, ONCE, 1 dose, On Thu07/25/20 at 0345, Warning Vesicant/Irritant Medication , Routine Bolus from Bag 07/25/2020 3:08 AM EST 150 mg AMIOdarone (Cordarone; Pacerone) tablet 200 mg 200 mg, Oral, 2 TIMES DAILY, First dose on Gali 07/26/20 at 0900, Until Discontinued, Routine Given 07/27/2020 8:27 AM EST 200 mg Given 07/26/2020 9:09 PM EST 200 mg Given 07/26/2020 8:14 AM EST 200 mg AMIOdarone (Cordarone; Pacerone) tablet 200 mg 200 mg, Oral, 2 TIMES DAILY, First dose (after last modification) on 07/28/20 at 0900, Until Discontinued, Routine Given 07/28/2020 9:09 AM EST 200 mg AMIOdarone (Cordarone; Pacerone) tablet 400 mg 400 mg, Oral, ONCE, 1 dose, On Thu07/27/20 at 1630, Routine Given 07/27/2020 4:39 PM EST 400 mg AMIOdarone (Cordarone; Pacerone) tablet 400 mg 400 mg, Oral, ONCE, 1 dose, On Thu07/27/20 at 2100, Routine Given 07/27/2020 8:13 PM EST 400 mg AMIOdarone (NEXTERONE) bolus infusion 150 mg 150 mg, Intravenous, at 600 mL/hr, Administer over 10 Minutes, ONCE, 1 dose, On Gali 07/26/20 at 1400, Warning Vesicant/Irritant Medication , Routine Bolus from Bag 07/26/2020 1:59 PM EST 150 mg 600 mL/hr aspirin chewable tablet 81 mg 81 mg, Oral, DAILY, First dose on Thu07/23/20 at 1245, Until Discontinued, Routine Given 07/28/2020 9:09 AM EST 81 mg Given 07/27/2020 8:27 AM EST 81 mg Given 07/26/2020 8:13 AM EST 81 mg chlorhexidine (PERIDEX) 0.12 % oral solution 15 mL 15 mL, Oral, EVERY 12 HOURS SCHEDULED (2 times per day), First dose on Thu07/23/20 at 1245, Until Discontinued, [place] teeth, Routine Given 07/24/2020 8:28 AM EST 15 mLs Given 2020 9:00 PM EST 15 mLs Given 2020 12:34 PM EST 15 mLs clopidogreL (Plavix) tablet 75 mg 75 mg, Oral, DAILY, First dose on Thu07/24/20 at 0945, Until Discontinued, Routine Given 07/25/2020 8:35 AM EST 75 mg Given 07/24/2020 9:13 AM EST 75 mg ezetimibe (Zetia) tablet 10 mg 10 mg, Oral, DAILY, First dose on Thu07/25/20 at 0900, Until Discontinued, Routine Given 07/28/2020 9:09 AM EST 10 mg Given 07/27/2020 8:27 AM EST 10 mg Given 07/26/2020 8:14 AM EST 10 mg fentaNYL (PF) (50 mcg/mL) infusion syringe 50 mL 0-100 mcg/hr (0-2 mL/hr), Intravenous, CONTINUOUS, Starting on Thu07/23/20 at 1245, Until Thu07/24/20 at 0908, Titrate to patient comfort, pain scale 1-3. Start at 25 mcg/hr, adjust by 25 mcg/hr every 15 minutes. Dose not to exceed 100 mcg/hour., Routine Rate/Dose Verify 07/24/2020 2:00 AM EST 50 mcg/hr 1 mL/hr Rate/Dose Verify 2020 11:58 PM EST 50 mcg/hr 1 mL/h r Rate/Dose Verify 2020 10:00 PM EST 50 mcg/hr 1 mL/h r furosemide (Lasix) (10 mg/mL) injection 20 mg 20 mg, Intravenous, 2 TIMES DAILY, First dose on Thu07/25/20 at 0945, Until Discontinued Given 07/28/2020 9:11 AM EST 2 0 mg Given 07/27/2020 4:39 PM EST 20 mg Given 07/27/2020 8:26 AM EST 20 mg hydrOXYzine (Atarax) tablet 25 mg 25 mg, Oral, 3 TIMES DAILY PRN, Starting on Thu07/25/20 at 1757, Until Thu07/28/20 at 1517, Itching, Routine Given 07/25/2020 6:21 PM EST 25 mg isosorbide mononitrate CR (Imdur) tablet 30 mg 30 mg, Oral, EVERY MORNING, First dose on Thu07/24/20 at 0945, Until Discontinued, DO NOT CRUSH OR OPEN, Routine Given 07/28/2020 5:03 AM EST 30 mg Given 07/27/2020 5:28 AM EST 30 mg Given 07/26/2020 5:23 AM EST 30 mg lactated ringers infusion 1,000 mL, at 100 mL/hr, Intravenous, CONTINUOUS, Starting on Thu07/23/20 at 0715, Until Thu07/23/20 at 1152, Day of Surgery (Day of Procedure) New Bag 2020 6:59 AM EST 1,000 mLs 100 mL/hr magnesium hydroxide (Milk of Magnesia) (240 mg/mL) oral liquid 10 mL 10 mL, Oral, DAILY, First dose on Thu07/25/20 at 0900, Until Discontinued, Post-op day 2. Do not use with renal insufficiency., Routine Given 07/28/2020 9:08 AM EST 10 mLs Given 07/27/2020 8:27 AM EST 10 mLs Given 07/26/2020 8:13 AM EST 10 mLs metoprolol succinate XL (Toprol-XL) tablet 50 mg 50 mg, Oral, 2 TIMES DAILY, First dose on Thu07/27/20 at 0945, Until Discontinued, DO NOT CRUSH OR OPEN, Routine Given 07/27/2020 8:13 PM EST 50 mg Given 07/27/2020 9:36 AM EST 50 mg metoprolol succinate XL (Toprol-XL) tablet 50 mg 50 mg, Oral, 2 TIMES DAILY, First dose (after last modification) on Thu07/28/20 at 1000, Until Discontinued, DO NOT CRUSH OR OPEN, Routine Given 07/28/2020 9:17 AM EST 50 mg metoprolol tartrate (Lopressor) tablet 12.5 mg 12.5 mg, Oral, EVERY 12 HOURS SCHEDULED (2 times per day), First dose on Thu07/24/20 at 0900, Until Discontinued, Hold for HR<60, SBP<90., Routine Given 07/24/2020 8:57 PM EST 12.5 mg Given 07/24/2020 8:28 AM EST 12.5 mg metoprolol tartrate (Lopressor) tablet 12.5 mg 12.5 mg, Oral, EVERY 8 HOURS SCHEDULED, First dose (after last modification) on Thu07/25/20 at 0300, Until Discontinued, Hold for HR<60, SBP<90., Routine Given 07/26/2020 5:23 AM EST 12.5 mg Given 07/25/2020 8:50 PM EST 12.5 mg Given 07/25/2020 1:46 PM EST 12.5 mg metoprolol tartrate (Lopressor) tablet 25 mg 25 mg, Oral, EVERY 8 HOURS SCHEDULED, First dose (after last modification) on Thu07/26/20 at 1400, Until Discontinued, Hold for HR<60, SBP<90., Routine Given 07/27/2020 3:41 AM EST 25 mg Given 07/26/2020 9:09 PM EST 25 mg Given 07/26/2020 1:58 PM EST 25 mg nitroGLYcerin (200 mcg/mL) in dextrose 5% 250 mL infusion 30-200 mcg/min (9-60 mL/hr), Intravenous, CONTINUOUS, Starting on Thu07/23/20 at 1245, Until Thu07/24/20 at 0908, For hypertension. Titrate to keep systolic blood pressure less than 120 mmHg. Initiate at 25 mcg/min. Adjust by 25 mcg/min every 5 minutes. Dose not to exceed 200 mcg/minute., Routine Rate/Dose Change 07/24/2020 5:56 AM EST 30 mcg/min 9 mL/hr Rate/Dose Change 07/24/2020 4:17 AM EST 40 mcg/min 12 mL/h r Rate/Dose Verify 07/24/2020 4:00 AM EST 30 mcg/min 9 mL/hr NORepinephrine (Levophed) (16 mcg/mL) in sodium chloride 0.9% 250 mL infusion 0-30 mcg/min (0-112.5 mL/hr), Intravenous, CONTINUOUS, Starting on Thu07/23/20 at 1245, Until Thu07/24/20 at 0908, Titrate to keep systolic blood pressure greater than 90 mmHg. Start at 2 mcg/minute and adjust by 2 mcg/min every 3 minutes. Dose not to exceed 30 mcg/minute. Begin if PHENYLephrine and/or vasopressin ineffective. Call pager # [phone] if initiated., Routine Rate/Dose Verify 2020 2:00 PM EST 2 mcg/min 7.5 mL/hr Rate/Dose Change 2020 1:00 PM EST 2 mcg/min 7.5 mL/ hr Continued Bag 2020 12:38 PM EST 3 mcg/min 11.3 mL/h r oxyCODONE (Roxicodone) tablet 5-10 mg 5-10 mg, Oral, EVERY 4 HOURS PRN, Starting on Thu07/23/20 at 1152, Until Thu07/28/20 at 1517, Pain, - When tolerating oral medications. - Initial dose 5 mg. - If pain control not adequate in 60 minutes, give additional 5 mg., Routine Given 07/24/2020 4:33 PM EST 5 mg Given 07/24/2020 8:28 AM EST 5 mg Given 07/24/2020 3:49 AM EST 10 mg pantoprazole (Protonix) injection 40 mg 40 mg, Intravenous, DAILY, First dose on Thu07/23/20 at 1245, Until Discontinued, Reconstitute with 10 mL of normal saline to a concentration of 4 mg/mL and infuse slowly over 2 minutes. , Routine Given 2020 12:34 PM EST 40 mg pantoprazole EC (Protonix) tablet 40 mg 40 mg, Oral, DAILY, First dose on Thu07/23/20 at 1245, Until Discontinued, DO NOT CRUSH OR OPEN If unable to take PO, may give IV Given 07/28/2020 9:09 AM EST 40 mg Given 07/27/2020 8:27 AM EST 40 mg Given 07/26/2020 8:14 AM EST 40 mg potassium chloride ER (K-Dur/Klor-Con) tablet 20 mEq 20 mEq, Oral, ONCE, 1 dose, On Thu07/28/20 at 0900, Routine Given 07/28/2020 9:08 AM EST 20 mEq potassium chloride ER (K-Dur/Klor-Con) tablet 40 mEq 40 mEq, Oral, 2 TIMES DAILY, 2 doses, First dose on Gali 07/26/20 at 0800, Last dose on Thu07/26/20 at 1100, Routine Given 07/26/2020 11:28 AM EST 40 mEq Given 07/26/2020 8:13 AM EST 40 mEq potassium chloride ER (K-Dur/Klor-Con) tablet 40 mEq 40 mEq, Oral, ONCE, 1 dose, On Thu07/27/20 at 0800, Routine Given 07/27/2020 8:27 AM EST 40 mEq propofoL (Diprivan) infusion 0-50 mcg/kg/min ? 98.7 kg (0-29.61 mL/hr, rounded to 0-29.6 mL/hr), Intravenous, CONTINUOUS, Starting on Thu07/23/20 at 1245, Until Thu07/23/20 at 1532, Titrate to sedation level of RASS Goal (-) 1. Start at 10 mcg/kg/min, adjust rate by 5 mcg/kg/min every 3 minutes. Dose not to exceed 50 mcg/kg/minute. Discontinue upon extubation., Routine Rate/Dose Change 2020 1:36 PM EST 40 mcg/kg/min 23.7 mL/hr New Bag 2020 1:24 PM EST 50 mcg/kg/min 29.6 mL/hr Rate/Dose Verify 2020 1:00 PM EST 49.983 mcg/kg/min 29.6 mL/hr senna-docusate (Pericolace) 8.6-50 mg per tablet 2 tablet 2 tablet, Oral, DAILY, First dose on Thu07/24/20 at 2100, Until Discontinued, Post-op day 1, Routine Given 07/27/2020 8:14 PM EST 2 tablets Given 07/26/2020 9:09 PM EST 2 tablets Given 07/24/2020 8:57 PM EST 2 tablets sodium chloride 0.9 % (flush) flush 5 mL 5 mL, Intravenous, EVERY 8 HOURS, First dose on Thu07/24/20 at 1000, Until Discontinued, Routine Given 07/28/2020 9:11 AM EST 5 mLs Given 07/27/2020 6:00 PM EST 5 mLs Given 07/26/2020 5:31 PM EST 5 mLs sodium chloride 0.9% infusion 0-500 mL/hr, Intravenous, CONTINUOUS, Starting on Thu07/23/20 at 1245, Until Thu07/24/20 at 0908, Bolus 250 mL every 5 minutes as needed for volume replacement to maintain cardiac index greater than or equal to 2.0 L/min/M2. Maximum volume 2 L. Call warehouse hand for additional fluid orders: pager #[phone]. Rate/Dose Verify 07/24/2020 5:56 AM EST 1 mL/hr 1 mL/hr Rate/Dose Verify 2020 6:00 PM EST 1 mL/hr 1 mL/hr Rate/Dose Verify 2020 5:00 PM EST 1 mL/hr 1 mL/hr sodium chloride 0.9% infusion 10-30 mL/hr, Intravenous, DAILY PRN, Starting on Thu07/23/20 at 1152, Until Thu07/24/20 at 0908, Side port TKO rate, per [facility] nursing protocol. Rate/Dose Verify 07/24/2020 5:56 AM EST 30 mL/hr 30 mL/hr Rate/Dose Verify 2020 8:00 PM EST 30 mL/hr 30 mL/h r Rate/Dose Verify 2020 6:00 PM EST 30 mL/hr 30 mL/h r sodium chloride 0.9% infusion 10-30 mL/hr, Intravenous, DAILY PRN, Starting on Thu07/23/20 at 1152, Until Thu07/24/20 at 0908, Side port TKO rate, per [facility] nrusing protocol. Rate/Dose Verify 07/24/2020 5:56 AM EST 30 mL/hr 30 mL/hr Rate/Dose Verify 07/24/2020 4:00 AM EST 30 mL/hr 30 mL/h r Rate/Dose Verify 07/24/2020 2:00 AM EST 30 mL/hr 30 mL/h r documented in this encounter Active and Recently Administered Medications Times are shown in EST. Scheduled Medication Order 07/26/2020 07/27/2020 07/28/2020 acetaminophen (Tylenol) tablet 1,000 mg(Linked Group 1) 1,000 mg, Oral, EVERY 6 HOURS SCHEDULED, First dose on Thu07/24/20 at 1200, Until Discontinued, For pain when taking by mouth. Maximum dose of acetaminophen is 4000 mg from all sources in 24 hours. When ordered for pain, acetaminophen should be given even when other ordered pain medications are indicated., Routine 0000 (Not Given - Provider: Sarah Villagran RN - Reason: Patient/family refused)0523 (Given - Provider: Sarah Villagran RN)1128 (Given - Provider: Denisha Carias RN)1726 (Given - Provider: Denisha Carias RN)2318 (Given - Provider: Aide Doherty) 0528 (Given - Provider: Aide Doherty)1111 (Given - Provider: Denisha Carias RN)1742 (Given - Provider: Denisha Carias RN)2332 (Given - Provider: Osmin Rodríguez, CODY) 0503 (Given - Provider: Osmin Rodríguez RN)1141 (Given - Provider: Denisha Carias RN) AMIOdarone (Cordarone; Pacerone) tablet 200 mg (CANCELED) 200 mg, Oral, 2 TIMES DAILY, First dose on Thu07/26/20 at 0900, Until Discontinued, Routine 0814 (Given - Provider: Denisha Carias RN)210 (Given - Provider: Aide Doherty) 08 (Given - Provider: Denisha Carias RN) AMIOdarone (Cordarone; Pacerone) tablet 200 mg 200 mg, Oral, 2 TIMES DAILY, First dose (after last modification) on 07/28/20 at 0900, Until Discontinued, Routine 09 (Given - Provider: Denisha Carias RN) AMIOdarone (Cordarone; Pacerone) tablet 400 mg (COMPLETED) 400 mg, Oral, ONCE, 1 dose, On Thu07/27/20 at 1630, Routine 163 (Given - Provider: Denisha Carias RN) AMIOdarone (Cordarone; Pacerone) tablet 400 mg (COMPLETED) 400 mg, Oral, ONCE, 1 dose, On Thu07/27/20 at 2100, Routine 2013 (Given - Provider: Osmin Rodríguez RN) AMIOdarone (NEXTERONE) bolus infusion 150 mg (COMPLETED) 150 mg, Intravenous, at 600 mL/hr, Administer over 10 Minutes, ONCE, 1 dose, On Gali 07/26/20 at 1400, Warning Vesicant/Irritant Medication , Routine 1359 (Bolus from Bag - Provider: Denisha Carias RN) aspirin chewable tablet 81 mg(Linked Group 2) 81 mg, Oral, DAILY, First dose on 07/23/20 at 1245, Until Discontinued, Routine 0813 (Given - Provider: Denisha Carias RN) 08 (Given - Provider: Denisha Carias RN) 09 (Given - Provider: Denisha Carias RN) ezetimibe (Zetia) tablet 10 mg 10 mg, Oral, DAILY, First dose on Thu07/25/20 at 0900, Until Discontinued, Routine 0814 (Given - Provider: Denisha Carias RN) 08 (Given - Provider: Denisha Carias RN) 09 (Given - Provider: Denisha Carias RN) furosemide (Lasix) (10 mg/mL) injection 20 mg 20 mg, Intravenous, 2 TIMES DAILY, First dose on 07/25/20 at 0945, Until Discontinued 08 (Given - Provider: Denisha Carias RN)1727 (Given - Provider: Denisha Carias RN) 0826 (Given - Provider: Denisha Carias RN)1639 (Given - Provider: Denisha Carias RN) 0911 (Given - Provider: Denisha Carias RN) isosorbide mononitrate CR (Imdur) tablet 30 mg 30 mg, Oral, EVERY MORNING, First dose on Thu07/24/20 at 0945, Until Discontinued, DO NOT CRUSH OR OPEN, Routine 05 (Given - Provider: Sarah Villagran RN) 05 (Given - Provider: Aide Doherty) 050 (Given - Provider: Osmin Rodríguez, CODY) magnesium hydroxide (Milk of Magnesia) (240 mg/mL) oral liquid 10 mL 10 mL, Oral, DAILY, First dose on Thu07/25/20 at 0900, Until Discontinued, Post-op day 2. Do not use with renal insufficiency., Routine 08 (Given - Provider: Denisha Carias RN) 08 (Given - Provider: Denisha Carias RN) 09 (Given - Provider: Denisha Carias RN) metoprolol succinate XL (Toprol-XL) tablet 50 mg (CANCELED) 50 mg, Oral, 2 TIMES DAILY, First dose on Thu07/27/20 at 0945, Until Discontinued, DO NOT CRUSH OR OPEN, Routine 09 (Given - Provider: Denisha Carias RN)2012 (Given - Provider: Osmin Rodríguez, CODY) metoprolol succinate XL (Toprol-XL) tablet 50 mg 50 mg, Oral, 2 TIMES DAILY, First dose (after last modification) on Thu07/28/20 at 1000, Until Discontinued, DO NOT CRUSH OR OPEN, Routine 09 (Given - Provider: Denisha Carias RN) metoprolol tartrate (Lopressor) tablet 12.5 mg (CANCELED) 12.5 mg, Oral, EVERY 8 HOURS SCHEDULED, First dose (after last modification) on Thu07/25/20 at 0300, Until Discontinued, Hold for HR<60, SBP<90., Routine 05 (Given - Provider: Sarah Villagran RN) metoprolol tartrate (Lopressor) tablet 25 mg (CANCELED) 25 mg, Oral, EVERY 8 HOURS SCHEDULED, First dose (after last modification) on Thu07/26/20 at 1400, Until Discontinued, Hold for HR<60, SBP<90., Routine 1358 (Given - Provider: Denisha Carias RN)210 (Given - Provider: Aide Doherty) 0341 (Given - Provider: Aide Doherty - Comment: LATRICIA burgess)0600 (Not Given - Provider: Aide Doherty - Reason: See comment - Comment: given earlier per CT team) pantoprazole EC (Protonix) tablet 40 mg(Linked Group 3) 40 mg, Oral, DAILY, First dose on Thu07/23/20 at 1245, Until Discontinued, DO NOT CRUSH OR OPEN If unable to take PO, may give IV 0814 (Given - Provider: Denisha Carias RN) 0827 (Given - Provider: Denisha Carias RN) 0909 (Given - Provider: Denisha Carias RN) potassium chloride ER (K-Dur/Klor-Con) tablet 20 mEq (COMPLETED) 20 mEq, Oral, ONCE, 1 dose, On Thu07/28/20 at 0900, Routine 0908 (Given - Provider: Denisha Carias RN) potassium chloride ER (K-Dur/Klor-Con) tablet 40 mEq (COMPLETED) 40 mEq, Oral, 2 TIMES DAILY, 2 doses, First dose on Thu07/26/20 at 0800, Last dose on Thu07/26/20 at 1100, Routine 0813 (Given - Provider: Denisha Carias RN)1128 (Given - Provider: Denisha Carias RN) potassium chloride ER (K-Dur/Klor-Con) tablet 40 mEq (COMPLETED) 40 mEq, Oral, ONCE, 1 dose, On Thu07/27/20 at 0800, Routine 0827 (Given - Provider: Denisha Carias RN) senna-docusate (Pericolace) 8.6-50 mg per tablet 2 tablet 2 tablet, Oral, DAILY, First dose on Thu07/24/20 at 2100, Until Discontinued, Post-op day 1, Routine 2108 (Given - Provider: Aide Doherty) 2013 (Given - Provider: Osmin Rodríguez RN) sodium chloride 0.9 % (flush) flush 5 mL 5 mL, Intravenous, EVERY 8 HOURS, First dose on Thu07/24/20 at 1000, Until Discontinued, Routine 0200 (Not Given - Provider: Sarah Villagran RN - Reason: See comment)1000 (Given - Provider: Denisha Carias RN)1731 (Given - Provider: Denisha Carias, RN) 0200 (Not Given - Provider: Aide Doherty - Reason: Patient/family refused)1000 (Not Given - Provider: Denisha Carias RN - Reason: Patient/family refused)1800 (Given - Provider: Denisha Carias RN) 0200 (Not Given - Provider: Osmin Rodríguez RN - Reason: Patient/family refused)0911 (Given - Provider: Denisha Carias RN) PRN Medication Order 07/26/2020 07/27/2020 07/28/2020 bisacodyL (Dulcolax) suppository 10 mg 10 mg, Rectal, DAILY PRN, Starting on Gali 07/26/20 at 0000, Until 07/28/20 at 1517, Constipation, Starting post-op day 3., Routine hydrOXYzine (Atarax) tablet 25 mg 25 mg, Oral, 3 TIMES DAILY PRN, Starting on 07/25/20 at 1757, Until 07/28/20 at 1517, Itching, Routine ondansetron (pf) (Zofran) (2 mg/mL) injection 4 mg 4 mg, Intravenous, EVERY 8 HOURS PRN, Starting on 07/23/20 at 1152, Until 07/28/20 at 1517, Nausea oxyCODONE (Roxicodone) tablet 5-10 mg 5-10 mg, Oral, EVERY 4 HOURS PRN, Starting on Thu07/23/20 at 1152, Until 07/28/20 at 1517, Pain, - When tolerating oral medications. - Initial dose 5 mg. - If pain control not adequate in 60 minutes, give additional 5 mg., Routine Linked Groups Order Group 1: acetaminophen (Ofirmev) (1000 mg/100 mL) infusion 1,000 mg (COMPLETED) 1,000 mg, Intravenous, at 400 mL/hr, Administer over 15 Minutes, EVERY 6 HOURS SCHEDULED, 4 doses, First dose on Thu07/23/20 at 1245, Last dose on Thu07/24/20 at 0600, Maximum dose of acetaminophen is 4000 mg from all sources in 24 hours. When ordered for pain, acetaminophen should be given even when other ordered pain medications are indicated., Routine, Is ketorolac (Toradol) IV contraindicated? Yes, Can this patient tolerate oral medications or suppositories? No Followed by acetaminophen (Tylenol) tablet 1,000 mgJump to med 1,000 mg, Oral, EVERY 6 HOURS SCHEDULED, First dose on Thu07/24/20 at 1200, Until Discontinued, For pain when taking by mouth. Maximum dose of acetaminophen is 4000 mg from all sources in 24 hours. When ordered for pain, acetaminophen should be given even when other ordered pain medications are indicated., Routine Group 2: aspirin chewable tablet 81 mgJump to med 81 mg, Oral, DAILY, First dose on Thu07/23/20 at 1245, Until Discontinued, Routine Or aspirin suppository 300 mg (CANCELED) 300 mg, Rectal, DAILY, First dose on Thu07/23/20 at 1245, Until Discontinued, Start on Post-Op Day 0, please give within 6 hours upon arrival to Unit. Give AL if unable to take PO, Routine Group 3: pantoprazole EC (Protonix) tablet 40 mgJump to med 40 mg, Oral, DAILY, First dose on Thu07/23/20 at 1245, Until Discontinued, DO NOT CRUSH OR OPEN If unable to take PO, may give IV Or pantoprazole (Protonix) injection 40 mg (CANCELED) 40 mg, Intravenous, DAILY, First dose on Thu07/23/20 at 1245, Until Discontinued, Reconstitute with 10 mL of normal saline to a concentration of 4 mg/mL and infuse slowly over 2 minutes. , Routine documented in this encounter Care Teams Pediatric Dietician Relationship Specialty Start Date End Date Mayank Mohamud [place] [address] PCP - General Family Medicine 07/23/20 documented as of this encounter
--- OUTSIDE RECORDS SUMMARY | 2024-02-03 21:15 | XMS_ITS | Encounter Summary ---
Author Organization [facility] [place] [address] Care Team Providers Care Accounting Clerks Supervisor Name Role Phone Mayank Mohamud DO Primary Care Provider Encounter Details Date Type Department Care Team (Late st Contact Info) Description 08/14/2020 11:40 AM EDT Office [place] [phone] Joshua Ledesma MD S/P CABG x 4 Social History Tobacco Use Types Packs/Day Years [...] Sign Reading Time Taken Comments Blood Pressure 120/68 08/14/2020 11:31 AM EDT Pulse 59 08/14/2020 11:31 AM EDT Temperature - - Respiratory Rate - - Oxygen Saturation 98% 08/14/2020 11:31 AM EDT Inhaled Oxygen Concentration - - Weight 103 kg (227 lb) 08/14/2020 11:31 AM EDT Height 182.9 cm (6') 08/14/2020 11:31 AM EDT Body Mass Index 30.79 08/14/2020 11:31 AM EDT documented in this encounter Progress Notes * Kareem Stock PA - 08/14/2020 11:40 AM EDT Cardiac Surgery Clinic Note: ID: [id number] Cardiac Surgery Attending: Dr. Ledesma S: s/p cabg x 4. Had afib post-op. Placed on amio and metop. Discharged from hospital in sinus rhythm. Has been doing ok. Reports feeling fatigued after taking AM meds. On occasion has had a BP in the high 80's/40's associated with some lightheadedness but resolves. Pain is good. [place] PO diet. Ambulating daily. Breathing ok. Denies n/v, fever, chills, SOB, CP, abd pain. EKG: Shows sinus rhythm 57. Current medications: Outpatient Medications Marked as Taking for the 08/14/20 encounter (Office Visit) with Joshua Ledesma MD Medication Sig Dispense Refill ??? acetaminophen (Tylenol) 500 mg Tablet Take 2 tablets by mouth every 6 hours as needed for Pain.30 tablet 1 ??? metoprolol succinate XL (Toprol-XL) 50 mg Tablet Sustained Release 24 hr Take 1 tablet by mouth2 times daily. 60 tablet 12 ??? AMIOdarone (Cordarone; Pacerone) 200 mg Tablet Take 1 tablet by mouth 2 times daily. 60 tablet 0 ??? ezetimibe (Zetia) 10 mg Tablet Take 1 tablet by mouth daily. 30 tablet 12 ??? isosorbide mononitrate CR (Imdur) 30 mg Tablet Sustained Release 24 hr Take 1 tablet by mouth every morning. 30 tablet 12 ??? aspirin EC 81 mg Tablet, Delayed Release (E.C.) Take 81 mg by mouth daily. ??? vitamin A (AQUASOL) 10,000 unit Capsule Take 10,000 Units by mouth daily. ??? B Complex-Vitamin C-Folic Acid (NEPHROCAP) 1 mg Capsule Take 1 capsule by mouth daily. ??? hydrOXYzine (ATARAX) 25 mg Tablet Take 25 mg by mouth 2 times daily as needed for Itching. O: Vitals: 08/14/20 1131 BP: 120/68 Pulse: 59 SpO2: 98% Weight: 103 kg (227 lb) Height: 182.9 cm (6') Physical exam: General:A&Ox3. NAD. Lungs: CTABL. Diminished bases. Heart: RRR. S1 and S2 heard. Abdomen: +BS. NT ND Ext: warm, pink, well perfused Incisions: C/D/I Assessment/Plan: S/p cabg x 4. Doing well. Not in afib. Will decrease metop XL from 50 bid to 50 daily. Medications changes: -Decrease Metop xl to 50 daily. - Will come back next week for ekg and cxr appointment. DW Attending Surgeon. Signed: LATRICIA PRASAD [facility] Section of Cardiac Surgery 08/14/2020 documented in this encounter Plan of Treatment Not on file documented as of this encounter Procedures Procedure Name Priority Date/Time Associated Diagnosis Comments EKG 12-LEAD Routine 08/14/2020 11:38 AM EDT S/P CABG x 4 documented in this encounter Results * EKG 12 Lead (08/14/2020 11:38 AM EDT) Ventricular rate 57 BPM MUSE SYSTEM Atrial Rate 57 BPM MUSE SYSTEM P-R Interval 228 ms MUSE SYSTEM QRS Duration 156 ms MUSE SYSTEM Q-T Interval 454 ms MUSE SYSTEM QTC Calculated (Bezet) 441 ms MUSE SYSTEM Calculated P [place] 45 degrees MUSE SYSTEM Calculated R [place] -44 degrees MUSE SYSTEM Calculated T [place] 25 degrees MUSE SYSTEM INTERPRETATION Sinus bradycardia with 1st degree A-V block Left axis deviation Right bundle branch block Abnormal ECG When compared with ECG of 23-JUL-2020 12:01, No significant change was found Confirmed by MD Waldo, Wellington Vergara ([id number]) on 08/14/2020 3:28:14 PM MUSE SYSTEM 08/14/2020 11:3 8 AM EDT 08/14/2020 3:28 PM EDT Joshua Ledesma MD ECG ORDERABLES MUSE SYSTEM documented in this encounter Visit Diagnoses Diagnosis S/P CABG x 4 Postsurgical aortocoronary bypass status documented in this encounter Care Teams Accounting Clerks Supervisor Relationship Specialty Start Date End Date Mayank Mohamud DO [address] [place] [address] PCP - General Family Medicine 07/23/20 documented as of this encounter
--- OUTSIDE RECORDS SUMMARY | 2024-02-03 21:15 | XMS_ITS | Encounter Summary ---
Author Organization [facility] [place] [address] Care Team Providers Care Event Attendant Name Role Phone Mayank Mohamud DO Primary Care Provider [phone] Encounter Details Date Type Department Care Team (Late st Contact Info) Description 10/24/2020 Telephone Cardiology at [address] [phone] Anirudh Pederson Social History Tobacco Use Types Packs/Day Years Used Date Smoking Tobacco: Former Cigarettes 1989 Smokeless Tobacco: Never Alcohol Use Standard Drinks/Week Comments Yes 6 (1 standard drink = 0.6 oz pur e alcohol) social Sex and Gender Information Value Date Recorded Sex Assigned at Not on file Gender Identity Not on file Sexual Orientation Not on file documented as of this encounter Miscellaneous Notes * Telephone Encounter - Anirudh Pederson - 10/24/2020 12:55 PM EDT I had the pleasure of speaking with Lizandro Heath on the phone today. The purpose of the visitis in follow up at the 90 day time-point for participation in the [facility] clinical trial. The subject verbalized they would like to continue participation in the trial. All assessments for the 90 day time-point visit were completed per protocol, other than the 90 day EKG. The patient is attending cardiac rehab at [facility], and telemetry records will be requested from here. Ongoing adverse events and interim medical record review performed Lizandro Heath denies having experienced the following: ?? Stroke ?? TIA ?? OR ?? Thromboembolism ?? ER Visits/Hospitalization ?? COVID-19 diagnosis Lizandro Heath also denies having experienced any other protocol defined events. Interim reviewof medical records was performed. Opportunity for questions was offered and all questions were answered to the satisfaction of the subject. Lizandro Reyesedinson verbalizes understanding of next protocol defined follow up visit at 180 day time-point. Current Outpatient Medications: ??? acetaminophen (Tylenol) 500 mg Tablet, Take 2 tablets by mouth every 6 hours as needed for Pain., Disp: 30 tablet, Rfl: 1 ??? metoprolol succinate XL (Toprol-XL) 50 mg Tablet Sustained Release 24 hr, Take 1 tablet by mouth 2 times daily. (Patient taking differently: Take 50 mg by mouth daily.), Disp: 60 tablet, Rfl: 12 ??? AMIOdarone (Cordarone; Pacerone) 200 mg Tablet, Take 1 tablet by mouth 2 times daily. (Patient not taking: Reported on 10/24/2020), Disp: 60 tablet, Rfl: 0 ??? ezetimibe (Zetia) 10 mg Tablet, Take 1 tablet by mouth daily., Disp: 30 tablet, Rfl: 12 ??? isosorbide mononitrate CR (Imdur) 30 mg Tablet Sustained Release 24 hr, Take 1 tablet by mouth every morning., Disp: 30 tablet, Rfl: 12 ??? aspirin EC 81 mg Tablet, Delayed Release (E.C.), Take 81 mg by mouth daily., Disp: , Rfl: ??? vitamin A (AQUASOL) 10,000 unit Capsule, Take 10,000 Units by mouth daily., Disp: , Rfl: ??? B Complex-Vitamin C-Folic Acid (NEPHROCAP) 1 mg Capsule, Take 1 capsule by mouth daily., Disp: , Rfl: ??? hydrOXYzine (ATARAX) 25 mg Tablet, Take 25 mg by mouth 2 times daily as needed for Itching., Disp: , Rfl: documented in this encounter Plan of Treatment Not on file documented as of this encounter Visit Diagnoses Not on filedocumented in this encounter Care Teams Event Attendant Relationship Specialty Start Date End Date Mayank Mohamud DO [address] [place] [address] PCP - General Family Medicine 07/23/20 documented as of this encounter
--- OUTSIDE RECORDS SUMMARY | 2024-02-03 21:15 | XMS_ITS | Encounter Summary ---
Author Organization Formerly [facility] [place] [address] Care Team Providers Care Supervisor Stone Name Role Phone Mayank Mohamud DO Primary Care Provider [phone] Encounter Details Date Type Department Care Team (Late st Contact Info) Description 09/25/2020 Telephone Cardiology at [address] [phone] Anirudh Pederson Social History Tobacco Use Types [...] * Telephone Encounter - Anirudh Pederson - 09/25/2020 11:21 AM EDT I had the pleasure of speaking with Lizandro Heath on the phone today. The purpose of the visitis in follow up at the 60 DAY time-point for participation in the [facility] PACeS clinical trial. The subject verbalized they would like to continue participation in the trial. All assessments for the 60 DAY time-point visit were completed per protocol. Ongoing adverse events and interim medical record review performed Lizandro Heath denies having experienced the following: ?? Stroke ?? TIA ?? [place] ?? Thromboembolism ?? ER Visits/Hospitalization ?? COVID-19 diagnosis Lizandro Heath also denies having experienced any other protocol defined events. Interim reviewof medical records was performed. Patient states he finished taking the amiodarone and is no longertaking amiodarone. The patient states he has been following up with his remelt pan tank operator Dr. Magana. He states that he is starting cardiac rehab soon at [facility] in [facility]. Opportunity for questions was offered and all questions were answered to the satisfaction of the subject. Lizandro Heath verbalizes understanding of next protocol defined follow up visit at 90 Day time-point. Current Outpatient Medications: ??? acetaminophen (Tylenol) [...] Take 1 tablet by mouth 2 times daily., Disp: 60tablet, Rfl: 0 ??? ezetimibe (Zetia) 10 mg [...] on filedocumented in this encounter Care Teams Supervisor Stone Relationship Specialty Start Date End Date Mayank Mohamud DO [address] [place] [address] PCP - General Family Medicine 07/23/20 documented as of this encounter
--- OUTSIDE RECORDS SUMMARY | 2024-02-03 21:15 | XMS_ITS | Encounter Summary ---
Author Organization [facility] [place] [address] Care Team Providers Care Staff Research Scientist Name Role Phone Mayank Mohamud DO Primary Care Provider [phone] Encounter Details Date Type Department Care Team (Late st Contact Info) Description 07/25/2020 Notes Only Cardiology at [address] [phone] Anirudh Pdeerson Social History Tobacco Use Types Packs/Day Years [...] as of this encounter Progress Notes * Anirudh Pederson - 07/25/2020 8:20 AM EST Anticoagulation for New-Onset Post-Operative Atrial Fibrillation after CABG Nail Galvanizer: Aleks Dunbar MD, MS I had the pleasure of meeting with subject Lizandro Nancy Santos Ivana to review the PACeS Trial. Following the determination this potential participant did not have any obvious evidence of clinical exclusionto the PACeS Trial, the subject was provided with a written informed consent Version Date 09-28-2018, IRB Approved 02/10/2020. Patient was given adequate time for review of the consent. The purpose, procedures, risks, potential benefits of the study, as well as alternatives to participation were reviewed and questions were answered. The subject denies participation in concurrent interventional drug or device trials. The marketing services coordinator answered the subject's questions about their participation in the trial. The subject verbalized understanding that participation in research is voluntary. Thesubject signed the informed consent agreeing to participate, providing all inclusion criteria are satisfied and no exclusion criteria are met. The subject was provided with a copy of the signed informed consent document. No study related activities were performed prior to completion of the consent process. Opportunity for questions was provided and all questions were answered to the satisfaction of the subject. Contact information for Cardiovascular Clinical Medicine Research was provided. The subject return verbalizes understanding of the protocol defined follow up requirements including telephone visits at Day 30, 60, and 180 and an in-person clinic visit at Day 90. Subjects are considered enrolled at the time of consent. documented in this encounter Plan of Treatment Not on file documented as of this encounter Visit Diagnoses Not on filedocumented in this encounter Care Teams Staff Research Scientist Relationship Specialty Start Date End Date Mayank Mohamud DO [address] [place] [address] PCP - General Family Medicine 07/23/20 documented as of this encounter
--- OUTSIDE RECORDS SUMMARY | 2024-02-03 21:15 | XMS_ITS | Encounter Summary ---
Author Organization [facility] [place] [address] Care Team Providers Care Paper Mill Manager Name Role Phone Mayank Mohamud DO Primary Care Provider [phone] Encounter Details Date Type Department Care Team (Late st Contact Info) Description 01/24/2021 Telephone Cardiology at [address] [phone] Iesha Arrieta Social History Tobacco Use Types Packs/Day Years Used Date Smoking Tobacco: Former Cigarettes 1 11 06 965 1989 Smokeless Tobacco: Never Alcohol Use Standard Drinks/Week Comments Yes 6 (1 standard drink = 0.6 oz pur e alcohol) social Sex and Gender Information Value Date Recorded Sex Assigned at Not on file Gender Identity Not on file Sexual Orientation Not on file documented as of this encounter Miscellaneous Notes * Telephone Encounter - Iesha Arrieta - 01/24/2021 2:30 PM EDT I had the pleasure of speaking with Lizandro Heath on the phone today. The purpose of the visitis in follow up at the 180 Day time-point for participation in the [facility] PACeS clinical trial. The subject verbalized they would like to continue participation in the trial. All assessments for the 180 Day time-point visit were completed per protocol. Ongoing adverse events and interim medical record review performed. Lizandro Heath denies having experienced the following: ?? Stroke ?? TIA ?? [place] ?? Thromboembolism ?? ER Visits/Hospitalization Lizandro Heath also denies having experienced any other protocol defined events. Interim reviewof medical records was performed. Opportunity for questions was offered and all questions were answered to the satisfaction of the subject. Lizandro Heath verbalizes understanding that this was the final study phone call. I thanked the subject for participation and provided contact information should they have any questions. Current Outpatient Medications: ??? acetaminophen (Tylenol) 500 mg Tablet, Take 2 tablets by mouth every 6 hours as needed for Pain., Disp: 30 tablet, Rfl: 1 ??? metoprolol succinate XL (Toprol-XL) 50 mg Tablet Sustained Release 24 hr, Take 1 tablet by mouth 2 times daily. (Patient not taking: Reported on 12/21/2020), Disp: 60 tablet, Rfl: 12 ??? AMIOdarone [...] on filedocumented in this encounter Care Teams Paper Mill Manager Relationship Specialty Start Date End Date Mayank Mohamud DO [address] [place] [address] PCP - General Family Medicine 07/23/20 documented as of this encounter
--- OUTSIDE RECORDS SUMMARY | 2024-02-03 21:15 | XMS_ITS | Encounter Summary ---
Author Organization [facility] [place] [address] Care Team Providers Care Field Crop Harvest Worker Name Role Phone Mayank Mohamud DO Primary Care Provider [phone] Encounter Details Date Type Department Care Team (Late st Contact Info) Description 07/25/2020 Notes Only Cardiology at [address] [phone] Anirudh Pederson Social History Tobacco Use Types [...] Progress Notes * Anirudh Pederson - 07/25/2020 8:26 AM EST I had the pleasure of meeting with Lizandro Heath. The subject has been consented for participation in the [facility]. Prior to randomization, all screening/baseline data and information was collected and completed per protocol. Following review of all inclusion and exclusion criteria by the lead janitor, the subject was randomized. Treatment assignment: NO ORAL ANTICOAGULATION Treatment assignment confirmed by: STEVENSON PHILLIPS MD Subject's treatment assignment was followed according to protocol. Treatment assignment was communicated to the care team through eD and repeat back. No current facility-administered medications for this visit. No current outpatient medications on file. Facility-Administered Medications Ordered in Other Visits: ??? metoprolol tartrate (Lopressor) tablet 12.5 mg, 12.5 mg, Oral, Q8H MARINA, Ambrocio Velasquez PA, 12.5 mg at 07/25/20 0309 ??? AMIOdarone (Cordarone) (1.8 mg/mL) in dextrose 5% 200 mL infusion, 1 mg/min, Intravenous, Continuous, Ambrocio Velasquez PA, Last Rate: 33.3 mL/hr at 07/25/20 0702, 1 mg/min at 07/25/20 0702 ??? isosorbide mononitrate CR (Imdur) tablet 30 mg, 30 mg, Oral, QAM, Jorje Mcintosh PA, 30 mg at 07/25/20 0615 ??? clopidogreL (Plavix) tablet 75 mg, 75 mg, Oral, Daily, Jorje Mcintosh PA, 75 mg at 07/24/20 0913 ??? sodium chloride 0.9 % (flush) flush 5 mL, 5 mL, Intravenous, Q8H, Jorje Mcintosh PA, 5 mL at 07/25/20 0309 ??? ezetimibe (Zetia) tablet 10 mg, 10 mg, Oral, Daily, Jorje Mcintosh PA ??? ondansetron (pf) (Zofran) (2 mg/mL) injection 4 mg, 4 mg, Intravenous, Q8H PRN, Jorje Mcintosh PA ??? pantoprazole EC (Protonix) tablet 40 mg, 40 mg, Oral, Daily, 40 mg at 07/24/20 0828 OR [DISCONTINUED] pantoprazole (Protonix) injection 40 mg, 40 mg, Intravenous, Daily, Cyndi Corona PA, 40 mg at 07/23/20 1234 ??? senna-docusate (Pericolace) 8.6-50 mg per tablet 2 tablet, 2 tablet, Oral, Daily, Jorje Mcintosh PA, 2 tablet at 07/24/202056 ??? magnesium hydroxide (Milk of Magnesia) (240 mg/mL) oral liquid 10 mL, 10 mL, Oral, Daily, Jorje Mcintosh PA ??? [START ON 07/26/2020] bisacodyL (Dulcolax) suppository 10 mg, 10 mg, Rectal, Daily PRN, Jorje Mcintosh PA ??? [COMPLETED] acetaminophen (Ofirmev) (1000 mg/100 mL) infusion 1,000 mg, 1,000 mg, Intravenous, Q6H MARINA, 1,000 mg at 07/24/20 0554 FOLLOWED BY acetaminophen (Tylenol) tablet 1,000 mg, 1,000 mg, Oral, Q6H MARINA, Jorje Mcintosh PA, 1,000 mg at 07/25/20 0615 ??? aspirin chewable tablet 81 mg, 81 mg, Oral, Daily, 81 mg at 07/24/20 0828 OR [DISCONTINUED]aspirin suppository 300 mg, 300 mg, Rectal, Daily, Cyndi Corona PA ??? oxyCODONE (Roxicodone) tablet 5-10 mg, 5-10 mg, Oral, Q4H PRN, Jorje Mcintosh PA, 5 mg at 07/24/20 1633 documented in this encounter Plan of Treatment Not on file documented as of this encounter Visit Diagnoses Not on filedocumented in this encounter Care Teams Field Crop Harvest Worker Relationship Specialty Start Date End Date Mayank Mohamud DO [address] [place] [address] PCP - General Family Medicine 07/23/20 documented as of this encounter
--- OUTSIDE RECORDS SUMMARY | 2024-02-03 21:15 | XMS_ITS | Encounter Summary ---
Author Organization [facility] Address [facility] [place] [address] Care Team Providers Care Road Sign Installer Name Role Phone Mayank Mohamud DO Primary Care Provider [phone] Encounter Details Date Type Department Care Team (Latest Contact Info) Description 08/21/2020 10:15 AM EDT - 08/21/2020 11:59 PM EDT Hospital Encounter XRay at [address] [place] [phone] Joshua Ledesma MD S/P CABG x 4 Discharge Disposition: Home Social History Tobacco Use Types Packs/Day Years Used Date Smoking Tobacco: Former Cigarettes 5 - 1989 Smokeless Tobacco: Never Alcohol Use Standard Drinks/Week Comments Yes 6 (1 standard drink = 0.6 oz pur e alcohol) social Sex and Gender Information Value Date Recorded Sex Assigned at Not on file Gender Identity Not on file Sexual Orientation Not on file documented as of this encounter Medications at Time of Discharge [...] for Itching. documented as of this encounter Plan of Treatment Not on file documented as of this encounter Procedures Procedure Name Priority Date/Time Associated Diagnosis Comments XR CHEST PA AND LATERAL Routine 08/21/2020 11:23 AM EDT S/P CABG x 4 documented in this encounter Results * XR [...] who have questions please contact the health career specialist that requested your imaging first. ? Electronically signed by: Leonides Barlow MD, [facility] ([phone]), at 08/21/2020 11:44 AM Narrative 08/21/2020 11:44 [...] patients who have questions please contactthe health career specialist that requested your imaging first. Electronically signed by: Leonides Barlow MD, [facility]([phone]), at 08/21/2020 11:44 AM Joshua Ledesma MD IMG DX ORDERABLES documented in this encounter Visit Diagnoses Diagnosis S/P CABG x 4 Postsurgical aortocoronary bypass status documented in this encounter Care Teams Road Sign Installer Relationship Specialty Start Date End Date Mayank Mohamud DO [address] [place] [address] PCP - General Family Medicine 07/23/20 documented as of this encounter
--- OUTSIDE RECORDS SUMMARY | 2024-02-03 21:15 | XMS_ITS | Encounter Summary ---
Author Organization [facility] [place] [address] Care Team Providers Care Teacher Learning Disabled Name Role Phone Mayank Mohamud DO Primary Care Provider [phone] Encounter Details Date Type Department Care Team (Late st Contact Info) Description 08/20/2020 Notes Only Cardiology at [address] [phone] Anirudh Pederson Social History Tobacco Use Types Packs/Day Years Used Date Smoking Tobacco: Former Cigarettes 5 1989 Smokeless Tobacco: Never Alcohol Use Standard Drinks/Week Comments Yes 6 (1 standard drink = 0.6 oz pur e alcohol) social Sex and Gender Information Value Date Recorded Sex Assigned at Not on file Gender Identity Not on file Sexual Orientation Not on file documented as of this encounter Progress Notes * Anirudh Pederson - 08/20/2020 4:06 PM EDT I had the pleasure of speaking with Lizandro Heath on the phone today. The purpose of the visitis in follow up at the 30 DAY time-point for participation in the [facility] PACeS clinical trial. The subject verbalized they would like to continue participation in the trial. All assessments for the 30 DAY time-point visit were completed per protocol. Ongoing adverse events and interim medical record review performed Lizandro Heath denies having experienced the following: ?? Stroke ?? TIA ?? [place] ?? Thromboembolism ?? ER Visits/Hospitalization ?? COVID-19 diagnosis Lizandro Heath also denies having experienced any other protocol defined events. Interim reviewof medical records was performed. Opportunity for questions was offered and all questions were answered to the satisfaction of the subject. Lizandro Heath verbalizes understanding of next protocol defined follow up visit at 60 Day time-point. Current Outpatient Medications: ??? acetaminophen (Tylenol) 500 mg Tablet, Take 2 tablets by mouth every 6 hours as needed for Pain., Disp: 30 tablet, Rfl: 1 ??? metoprolol succinate XL (Toprol-XL) 50 mg Tablet Sustained Release 24 hr, Take 1 tablet by mouth 2 times daily., Disp: 60 tablet, Rfl: 12 ??? AMIOdarone [...] on filedocumented in this encounter Care Teams Teacher Learning Disabled Relationship Specialty Start Date End Date Mayank Mohamud DO [facility] [address] [address] PCP - General Family Medicine 07/23/20 documented as of this encounter
--- OUTSIDE RECORDS SUMMARY | 2024-02-03 21:15 | XMS_ITS | Encounter Summary ---
Author Organization [facility] [place] [address] Care Team Providers Care Wired Music Operator Name Role Phone Mayank Mohamud DO Primary Care Provider [phone] Encounter Details Date Type Department Care Team (Late st Contact Info) Description 08/21/2020 11:20 AM EDT Office [place] [phone] Joshua Ledesma MD S/P CABG x 4 Social History Tobacco Use Types Packs/Day Years Used Date Smoking Tobacco: Former Cigarettes 06 11 1 965 - 1989 Smokeless Tobacco: Never Alcohol [...] Pulse 55 08/21/2020 10:51 AM EDT Temperature - - Respiratory Rate - - Oxygen Saturation 98% 08/21/2020 10:51 AM EDT Inhaled Oxygen Concentration - - Weight 102.5 kg (226 lb) 08/21/2020 10:51 AM EDT Height 182.9 cm (6') 08/21/2020 10:51 AM EDT Body Mass Index 30.65 08/21/2020 10:51 AM EDT documented in this encounter Progress Notes * Joshua Ledesma MD - 08/21/2020 11:20 AM EDT Post-OP Note: Mayank Mohamud DO [address] [place] [address] Mayank Mohamud Mr. Heath returns to clinic following his CABG surgery. Since discharge, he has been doing well. Pain is under reasonable control. He is eating well, urinating, and moving his bowels without problems. He has had no fevers, chills, or other problems with the wounds. He has been reasonably active. Problem List Patient Active Problem List Diagnosis ??? CAD (coronary artery disease) ??? Combined forms of age-related cataract of both eyes Added automatically from request for surgery [id number] ??? Screening for cardiovascular condition Added automatically from request for surgery [id number] ??? Coronary artery disease Added automatically from request for surgery [id number] Past Medical History Past Medical History: Diagnosis Date ??? Cataract ??? Claudication bilat leg aching after walking about 1/2 mile, has sensation of not knowing where his feet are ??? Coronary artery disease 06/15/2020 ??? Heart valve disease murmur since age 14had echo done in [facility], 06/2020 ??? High blood pressure controlled with medication ??? Hypertension ??? Vertigo Past Surgical History Past Surgical History: Procedure Laterality Date ??? PRO CABG, ARTERIAL, SINGLE N/A 2020 @CABG, USING ARTERIAL GRAFT;SINGLE ARTERIAL GRAFT (WRVU 33.75) performed by Joshua Ledesma MD at [facility] MAIN OR ??? PRO CABG, ARTERY-VEIN, THREE N/A 2020 @CABG; 3 VENOUS GRAFTS & ARTERIAL GRAFT (WRVU 10.49) performed by Joshua Ledesma MD at [facility] MAIN OR ??? PRO ENDOSCOPY W/VIDEO-ASST VEIN HARVEST, CABG Right 2020 ENDOSCOPIC HARVEST VEIN(S) FOR CABG (WRVU 0.31) performed by Joshua Ledesma MD at [facility] MAIN OR ??? PRO VITRECTOMY PARS PLANA REMOVE PRERETINAL MEMBRANE Right 06/13/2019 VITRECTOMY, W/ MEMBRANE STRIPPING (WRVU 16.33) performed by Yinka Rosales MD at [facility] MAIN OR ??? RETINOPATHY SURGERY Left 04/01/2019 Laser for retinal tear - DM ??? VITRECTOMY, W/ MEMBRANE STRIPPING Right 06/13/2019 PPV MP per DM Outpatient Medications Marked as Taking for the 08/21/20 encounter (Office Visit) with Joshua Ledesma MD Medication Sig Dispense Refill ??? acetaminophen (Tylenol) 500 mg Tablet Take 2 tablets by mouth every 6 hours as needed for Pain.30 tablet 1 ??? metoprolol succinate XL (Toprol-XL) 50 mg Tablet Sustained Release 24 hr Take 1 tablet by mouth2 times daily. (Patient taking differently: Take 50 mg by mouth daily.) 60 tablet 12 ??? AMIOdarone (Cordarone; Pacerone) [...] 2 times daily as needed for Itching. No data found. 102.5 kg (226 lb) Weight: 102.5 kg (226 lb) On physical exam, he looks well. Incisions are healing well without erythema or signs of infection. Lungs are clear bilaterally. Heart is RR&R. ECG shows no acute changes. CXR shows clear lung avina and sternal cables are in place. Echo was not performed. Assessment and Plan: Overall he is doing very well following his surgery. I told him that he may continue to increase his activity as tolerated. I told him I would be happy to see him again should any further problems arise. Sincerely, Joshua Ledesma MD documented in this encounter Plan of Treatment Not on file documented as of this encounter Visit Diagnoses Diagnosis S/P CABG x 4 Postsurgical aortocoronary bypass status documented in this encounter Care Teams Wired Music Operator Relationship Specialty Start Date End Date Mayank Mohamud DO [address] [place] [address] PCP - General Family Medicine 07/23/20 documented as of this encounter
--- OUTSIDE RECORDS SUMMARY | 2024-02-03 21:16 | XMS_ITS | Encounter Summary ---
Author Organization [facility] Address [facility] [place] [address] Care Team Providers Care Loan Manager Name Role Phone Unavailable Primary Care Provider Unavailabl e Reason for Visit * Reason Comments Eye Problem Partial Thickness Ho le OD. Macular Pucker OD, Cataracts OU, PVD OU. Prizm * Consultation (Routine) - Closed Specialty Diagnoses / Procedures Referred By Contac t Referred To Contact Ophthalmology Diagnoses partial thickness hold od,macular pucker od bva 20/40 & 20/20 os Ibrahima Medrano, OD [address] [place] [address] [facility] [place] [address] Referral ID Status Reason Start Date Expiration Date V isits Requested Visits Authorized [id number] Closed Consult, Test & Treat 03/25/2019 03/24/2020 1 1 Encounter Details Date Type Department Care Team (Late st Contact Info) Description 04/01/2019 7:30 AM EST Office Visit Ophthalmology at [facility] [place] [address] [facility] [place] [address] Epiretinal membrane, right (Primary Dx); Retinal tear of left eye Social History Tobacco Use Types Packs/Day Years Used Date Smoking Tobacco: Former Cigarettes Smokeless Tobacco: Former Alcohol Use Standard Drinks/Week Comments Yes 0 (1 standard drink = 0.6 oz pur e alcohol) social Sex and Gender Information Value Date Recorded Sex Assigned at Not on file Gender Identity Not on file Sexual Orientation Not on file documented as of this encounter Progress Notes * Yinka Rosales MD - 04/01/2019 7:30 AM EST ASSESSMENT/PLAN: 1. Epiretinal membrane, right 2. Retinal tear of left eye Visual Acuity Visual Acuity (Snellen - Linear) Right Left Dist cc 20/40 20/25 Dist ph cc NI 20/20 Near cc 20/30 20/20 Correction: Glasses 1. ERM with lamellar hole OD Dr. Medrano thank you for the kind referral. Today's fundoscopic exam and multimodal imaging shows epiretinal membrane in the right eye. Discussed the treatment options that include 1) observation and 2) PPV-MP. Emphasized that the primary goal of the surgery is to decrease the metamorphopsia while the visual acuity also improves by afew lines. Discussed that even though the vision improves in most of the patients, in about 20% of t he patients it can stay the same or can even get worse. AAO video shown/ASRS fact sheet given The ocular risks of surgery include need for additional surgery, cataract formation, retinal detachment, endophthalmitis, retinal artery occlusion, suprachoroidal hemorrhage, lens dislocation, loss of vision, loss of eye. Also discussed the systemic risks of anesthesia that will be discussed with the anesthesiologist 2. Retinal Tear OS Upon exam, patient presents with a horseshoe tear in the left eye. Discussed the risks/benefits/atlernatives of observation and prophylactic laser photocoagulation and patient wishes to proceed with prophylactic laser retinopexy The pertinent AAO video shown/ASRS fact sheet given Discussed the risk of surgery including need for additional surgery, cataract formation, retinal detachment, suprachoroidal hemorrhage, lens dislocation, loss of vision 3. Cataracts, both eyes Follow up [facility]CK I, Bartolo Hurt, have performed the documentation for this encounter in the presence of, and acting as a scribe for Yinka Rosales MD. I performed the services which were documented by the scribe, and I agree with the accuracy of the documentation in this encounter. Yinka Rosales MD, PhD Extended Ophthalmoscopy Indication: 1. Epiretinal membrane, right 2. Retinal tear of left eye Technique: A) Indirect ophthalmoscopy with scleral depression B) Slit lamp exam with 90D/78D lens Findings: Main Ophthalmology Exam External Exam Right Left External Normal Normal Slit Lamp Exam Right Left Lids/Lashes Normal Normal Conjunctiva/Sclera White and quiet White and quiet Cornea Clear Clear Anterior Chamber Deep and quiet Deep and quiet Iris Round and reactive Round and reactive Lens 2+ NS 2+ NS Fundus Exam Right Left Vitreous PVD PVD Disc Normal Normal C/D Ratio 0.5 0.4 Macula ERM Normal Vessels Normal Normal Periphery Normal RT 6:00 documented in this encounter Plan of Treatment Not on file documented as of this encounter Procedures Procedure Name Priority Date/Time Associated Diagnosis Comments VITRECTOMY, W/ MEMBRANE STRIPPING Routine 04/01/2019 9:11 AM EST Epiretinal membrane, right OCT RETINA - OU - BOTH EYES Routine 04/01/2019 8:57 AM EST Epiretinal membrane, right documented in this encounter Results * OCT Retina - OU - Both Eyes (04/01/2019 8:57 AM EST) Anatomical Region Laterality Modality Other Narrative 04/01/2019 8:57 AM EST Right Eye Quality was good. Scan locations included subfoveal. Progression has no prior data. Findings include abnormal foveal contour, epiretinal membrane, lamellar hole. Left Eye Quality was good. Scan locations included subfoveal. Progression has no prior data. Findings include normal observations. Yinka Rosales MD OPHTHALMOLOGY SERVICES ORDERABLES documented in this encounter Visit Diagnoses Diagnosis Epiretinal membrane, right- Primary Retinal tear of left eye documented in this encounter
--- OUTSIDE RECORDS SUMMARY | 2024-02-03 21:16 | XMS_ITS | Encounter Summary ---
Author Organization [facility] Address [facility] [place] [address] Care Team Providers Care Consumer Safety Inspector Name Role Phone None Primary Care Provider Unavailabl e Reason for Visit * Reason Comments Post Op Encounter Details Date Type Department Care Team (Late st Contact Info) Description 06/22/2019 7:45 AM EST Office Visit Ophthalmology at [facility] [place] [address] Yinka Rosales MD [facility] [address] Epiretinal membrane, right (s/p PPV-MP 06/13/19) Social History Tobacco Use Types Packs/Day Years Used Date Smoking Tobacco: Former Cigarettes Smokeless Tobacco: Former Alcohol Use Standard Drinks/Week Comments Yes 0 (1 standard drink = 0.6 oz pur e alcohol) social Sex and Gender Information Value Date Recorded Sex Assigned at Not on file Gender Identity Not on file Sexual Orientation Not on file documented as of this encounter Patient Instructions * Patient Instructions* Yinka Rosales MD - 06/22/2019 7:45 AM EST Images from the original note were not included. Drop Name: Cap Color: Dose: 1 Drop Eye: Prednisolone Acetate 1% [place] or White 2 times per day Until bottle empties (shake bottle before using) Operated eye Vigamox (Moxifloxacin) [place] STOP Operated eye Ointment Small tube 2-3x daily as needed Operated eye Make sure to wait 3-5 minutes between eye drops. POSITIONING: No special positioning WARNING SYMPTOMS People frequently feel mild-moderate discomfort that improves within a few days. Eyelid edema and redness are also common. However, if you feel new pain, light sensitivity and vision loss please call the [facility] telephone center ([phone]) immediately and speak to the acid mixer software installation engineer. PAIN May use over the counter pain medications as needed (Tylenol 1000mg- up to 3 times daily) alternating with ibuprofen (600mg up to 3 times per day) EYE SHIELD: Not needed OTHERS Make sure you wash your hands prior to touching your eye (i.e. Prior to applying your eyedrops) Avoid lifting very heavy weights for 1 month (i.e. Not more than 20 lbs) FLIGHTS: No restrictions documented in this encounter Progress Notes * Yinka Rosales MD - 06/22/2019 7:45 AM EST ASSESSMENT/PLAN: Visual Acuity Visual Acuity (Snellen - Linear) Right Left Dist cc 20/60 -2 20/30 +1 Dist ph cc NI 20/25 -2 Near cc 20/100 20/20 Correction: Glasses Tonometry Tonometry (Applanation, 8:04 AM) Right Left Pressure 23 26 Tonometry #2 (I Care, 8:06 AM) Right Left Pressure 19 16 Tonometry Comments Pt straining at slit lamp for T1 1. Epiretinal membrane, right (s/p PPV-MP 06/13/19) 1. ERM OD s/p PPV-MP on 06/13/2019 POW1. Doing well. The IOP is good, the retina attached and there are no signs of infection. Eye drops: PF BID till the bottle empties. Stop Vigamox Follow up in 2 months HCK for DFE, OCT OU I, Bartolo Hurt, have performed the documentation for this encounter in the presence of, and acting as a scribe for Yinka Rosales MD. I performed the services which were documented by the scribe, and I agree with the accuracy of the documentation in this encounter. Yinka Rosales MD, PhD documented in this encounter Plan of Treatment Not on file documented as of this encounter Visit Diagnoses Diagnosis Epiretinal membrane, right (s/p PPV-MP 06/13/19) documented in this encounter Care Teams Consumer Safety Inspector Relationship Specialty Start Date End Date None None PCP - General 06/13/19 07/22/20 documented as of this encounter
--- OUTSIDE RECORDS SUMMARY | 2024-02-03 21:16 | XMS_ITS | Encounter Summary ---
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, unspecified vessel or lesion type Social History Tobacco Use Types Packs/Day Years [...] Sign Reading Time Taken Comments Blood Pressure 129/80 07/11/2020 12:38 PM EST Pulse 67 07/11/2020 12:38 PM EST Temperature - - Respiratory Rate - - Oxygen Saturation 97% 07/11/2020 12:38 PM EST Inhaled Oxygen Concentration - - Weight 103.9 kg (229 lb) 07/11/2020 12:38 PM EST Height 182.9 cm (6') 07/11/2020 12:38 PM EST Body Mass Index 31.06 07/11/2020 12:38 PM EST documented in this encounter Progress Notes * Joshua Ledesma MD - 07/11/2020 1:00 PM EST Cardiothoracic Surgery Consultation Lizandro Heath is [...] eyes Added automatically from request for surgery [id number] ??? Screening for cardiovascular condition Added automatically from request for surgery [id number] ??? Coronary artery disease Added automatically from request for surgery [id number] Past Medical History: Past Medical History Past Surgical History: Past Surgical History Family History: Family History Social History: Social History Review of Systems: Constitutional - no weakness, [...] ??? Tegaderm [Transparent Dressings] Skin irritation Meds: Medications Taking Physical Exam: Patient Vitals for the past [...] wishes to proceed. 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, unspecified vessel or lesion type ABO/RH TYPING Routine 07/11/2020 2:40 PM EST 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, unspecified vessel or lesion type HC CBC,PLT & AUTO DIFF Routine 07/11/2020 2:40 PM EST 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 Thank you for letting us participate in the care of this patient. For questions regarding this report, please contact the number below. ? Electronically signed by: Martha Casanova MD, [facility] ([phone]), at 07/11/2020 2:58 PM Narrative 07/11/2020 2:58 PM EST CHEST, 2 VIEWS INDICATION: 74-year-old male with hypertension, coronary artery disease tobacco abuse. pre op ??cardiac cath. COMPARISON: No available chest imaging at this institution. FINDINGS: Cardiac silhouette: Within normal limits. Mild atherosclerotic calcification of the aortic arch. Mediastinal and hilar silhouettes: Within normal limits. The lungs are clear . ??No effusions or pneumothorax. Soft tissues: Unremarkable. Osseous structures: Unremarkable. Mild degenerative changes are noted in the lower thoracic spine. Alignment maintained. Procedure Note Martha Casanova MD - 07/11/2020 CHEST, 2 VIEWS INDICATION: 74-year-old male with hypertension, coronary artery diseasetobacco abuse. pre op cardiac cath. COMPARISON: No available chest imaging at this institution. FINDINGS: Cardiac silhouette: Within normal limits. Mild atherosclerotic calcification of the aortic arch. Mediastinal and hilar silhouettes: Within normal limits. The lungs are clear . No effusions or pneumothorax. Soft tissues: Unremarkable. Osseous structures: Unremarkable. Mild degenerative changes are noted inthe lower thoracic spine. Alignment maintained. IMPRESSION No acute findings. Thank you for letting us participate in the care of this patient. Forquestions regarding this report, please contact the number below. Electronically signed by: Martha Casanova MD, [facility]([phone]), at 07/11/2020 2:58 PM Joshua Ledesma MD IMG DX ORDERABLES * ABORH Recheck Status (07/11/2020 2:40 PM EST) ABORH Recheck Order Order Placed [facility] ABORH Type Recheck Complete [facility] Blood specimen (specimen) 07/11/2020 2:40 PM EST 07/11/2020 2:56 PM EST Narrative Resulting Agency Comment Spec In Lab Joshua Ledesma MD BLOOD BANK LAB RAÚL JAUREGUIANDREW Performing Organization Address [facility]/ZIP Co de Phone Number [facility] [place] [address] * Antibody screen (07/11/2020 2:40 PM EST) Ab Screen Interp Negative [facility] Expires at [id number] on: 07/26/2020 [facility] Comment: Corrected from 08/25/20 0:00:00 EDT [Unknown] on 07/13/20 16:54:35 EST by Jacey Reilly Blood specimen (specimen) 07/11/2020 2:40 PM EST 07/11/2020 2:56 PM EST Narrative Resulting Agency Comment Spec In Lab Joshua Ledesma MD BLOOD BANK LAB ORDEric JAUREGUIANDREW Performing Organization Address [facility] Co de Phone Number [facility] [address] * Differential, Automated (07/11/2020 2:40 PM EST) Neutrophil % 58.6 % [facility] Neutrophil Absolute 3.77 1.70 - 6.10 x10(3)/mcL [facility] Lymph % 24.3 % [facility] Lymphocytes Abs 1.6 0.9 - 3.2 x10(3)/[facility] Monocyte % 9.6 % [facility] Monocyte Abs 0.6 0.3 - 0.9 x10(3)/[facility] Eos % 6.7 % [facility] Eosinophils Abs 0.4 0.0 - 0.4 x10(3)/[facility] Basophil % 0.6 % [facility] Baso Absolute 0.0 0.0 - 0.1 x10(3)/[facility] Immature Gran % 0.20 % [facility] Comment: Immature granulocytes(IG's)percentage and absolute count will include metamyelocytes, myelocytes, and promyelocytes. Blood smears from CBCs yielding IG's will be scanned manually for concordance. If this scan disagrees with the automated IG or if promyelocytes are noted, a manual differential will be performed. Immature Gran Absolute 0.01 0.00 - 0.04 x10(3)/[facility] Blood specimen (specimen) 07/11/2020 2:40 PM EST 07/11/2020 2:58 PM EST Narrative Resulting Agency Comment Spec In Lab Joshua Ledesma MD HEMATOLOGY ORDERABL ES Performing Organization Address City/[facility] Co de Phone Number [facility] [address] * ABO/Rh Typing (07/11/2020 2:40 PM EST) ABORH Type A Pos [facility] Blood specimen (specimen) 07/11/2020 2:40 PM EST 07/11/2020 2:56 PM EST Narrative Resulting Agency Comment Spec In Lab Joshua Ledesma MD BLOOD BANK LAB ORDE RABLES Performing Organization Address City/[facility] Co de Phone Number [facility] [place] [address] * (ABNORMAL) Hemogram (07/11/2020 2:40 PM EST) [facility] White Blood Cell 6.4 4.0 - 9.5 x10(3)/mc L [facility] Red Blood Cell 4.40(L) 4.58 - 5.54 x10(6)/mc L [facility] Hemoglobin 13.8 13.7 - 16.5 gm/dL [facility] Hematocrit 42.5 40.5 - 48.5 % [facility] Mean Cell Volume 96.6(H) 82.9 - 93.1 fL [facility] Mean Cell Hemoglobin 31.4 27.5 - 32.1 pg [facility] Mean Cell Hemoglobin Concentration 32.5 32.0 - 35.7 gm/dL [facility] Platelet 333 145 - 357 x10(3)/ L [facility] RDW Standard Deviation 46.7(H) 36.0 - 45.0 [facility] RDW coefficient of variation 13.1 11.4 - 13.8 % [facility] Mean Platelet Volume 9.2 7.6 - 12.9 [facility] NRBC% auto 0.0 % [facility] NRBC Absolute 0.000 0.000 - 0.000 x10(3)/ L [facility] Blood specimen (specimen) 07/11/2020 2:40 PM EST 07/11/2020 2:58 PM EST Narrative Resulting Agency Comment Spec In Lab Joshua Ledesma MD HEMATOLOGY ORDERABL ES [facility] [place] [address] * Basic Metabolic Panel (non-fasting) (07/11/2020 2:40 PM EST) Glucose 85 65 - 199 mg/dL [facility] Comment:Diabetes: >=200 mg/d L plus symptoms Blood Urea Nitrogen 10 10 - 20 mg/dL [facility] Creatinine 0.98 0.80 - 1.50 mg/dL [facility] Sodium 139 135 - 145 mmol/L [facility] Potassium 4.6 3.5 - 5.0 mmol/L [facility] Comment: Please note: ??Patients with WBC >100,000 may have falsely elevated Potassium levels. ??For accurate Potassium quantification in these patients send serum separator tube (gold top) for subsequent determinations. ??Contact the Clinical Chemistry Laboratory if there are any questions. Chloride 105 98 - 107 mmol/L [facility] Carbon Dioxide 23 22 - 31 mmol/L [facility] Anion Gap 11 5 - 15 mmol/L [facility] Calcium 9.3 8.5 - 10.5 mg/dL [facility] Est Glomerular Filtration Rate 77 >=60 mL/min/1. 73 m?? [facility] Comment: This patient? s estimated glomerular filtration rate (eGFR) is between 77 mL/min/1.73 m2 (patients with less muscle mass per kg body weight) and 89 mL/min/1.73 m2 (patients with more muscle mass per kg body weight) as determined by the CKD-EPI equation. Assessment of eGFR is not appropriate when creatinine concentrations are rapidly changing. For clinical decisions where creatinine clearance will affect therapy, a 24-hour urine creatinine clearance may be advised. Assignment of CKD stage 1 ? 5 for patients with an eGFR near the transition point between stages may be based on clinical assessment of muscle mass and symptoms in addition to eGFR. 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
--- OUTSIDE RECORDS SUMMARY | 2024-02-03 21:16 | XMS_ITS | Encounter Summary ---
Author Organization [facility] Address [address] [place] [address] Care Team Providers Care Barber Name Role Phone Unknown, Provider Primary Care Provider [phone] Encounter Details Date Type Department Care Team (Late st Contact Info) Description 09/06/2008 Orders Only [address] [address] Weston Donohue MD [address] [place] [address] Social History Tobacco Use Types Packs/Day Years Used Date Smoking Tobacco: Never Assessed Sex and Gender Information Value Date Recorded Sex Assigned at Not on file Gender Identity Not on file Sexual Orientation Not on file documented as of this encounter Plan of Treatment Not on file documented as of this encounter Procedures Procedure Name Priority Date/Time Associated Diagnosis Comments SURGICAL PATHOLOGY Routine 09/06/2008 0:00 EDT documented in this encounter Results * SURGICAL PATHOLOGY (09/06/2008 0:00 EDT) Pathology Report: SURGICAL PATHOLOGY REPORT ? Reports generated via electronic interface contain original data; ? however they are lacking the format of the original report. ? Caution should be taken when reading/interpreti ng unformatted reports. ? Name: ? COLBY, RANDOLPH Cruz ? Accession #: ? [id number] ? : ? 1945 (Age: 63) ??M ? Collect Date: ? 09/06/2008 ? Location: ? [facility] ? Receive Date: ? 09/06/2008 ? Provider: WESTON DONOHUE MD ? Copy to: LISANDRA RODRIGEZ MD ? Final Pathologic Diagnosis: ? A. ?Ileocecal valve, polyp, biopsy: ? 1. ?Surface hyperplastic changes. ??See comment. ? B. ?Rectum, 10 cm, polyp, biopsies: ? 1. ?Hyperplastic polyp. ? Comment: ? Deeper sections have been examined. ??(C. Mcilree)/ljn ? Document reviewed and electronically signed by: ? Maggy Paz MD ? Report ??Date: 09/11/2008 13:41 ? By the signature above, the attending physician certifies that he/she has ? personally conducted a gross and/or microscopic examination of the described ? specimens and rendered or confirmed the above diagnosis. ? Specimen(s) Received: ? A. ? polyp ileocecal valve ? B. ? Rectal polyp 10 cm ? Clinical History: ? F/H colon polyps ? Gross Description: ? Received in Hollande's solution labelled Randolph Heath and ? polyp ? ileocecal valve. ??The specimen consists of a single 0.3 x 0.2 x 0.1 cm pink-davis irregular soft tissue. ??Submitted in toto as (A). ? Received in Hollande's solution labelled Hanks, Randolph and rectal polyp 10 ?? cm. ??The specimen consists of two pink-davis irregular soft tissues, 0.2 x 0.1 x 0.1 cm and 0.3 x 0.2 x 0.2 cm. ??Submitted in toto as (B). ??(Stuart Briones)/song ? End of Report ? KIRK JOVEL 09/06/2008 09/06/2008 9:0 8 EDT Weston Donohue MD PATHOLOGY ORDERABLES Performing Organization Address City/State/[facility] Co de Phone Number [facility] [address] [place] [address] documented in this encounter Visit Diagnoses Not on filedocumented in this encounter Care Teams Barber Relationship Specialty Start Date End Date Unknown, Provider, PCP - General 09/06/08 documented as of this encounter
--- OUTSIDE RECORDS SUMMARY | 2024-02-03 21:16 | XMS_ITS | Encounter Summary ---
Author Organization [facility] Address [facility] [place] [address] Care Team Providers Care Mirror Painter Name Role Phone None Primary Care Provider Unavailabl e Reason for Visit * Reason Comments Post Op Encounter Details Date Type Department Care Team (Late st Contact Info) Description 06/14/2019 7:45 AM EST Office Visit Ophthalmology at [facility] [place], [facility] [place] [address] Yinka Rosales MD [facility] [place] [address] Epiretinal membrane, right (s/p PPV-MP 06/13/19) Social [...] * Patient Instructions* Yinka Rosales MD - 06/14/2019 7:45 AM EST Images from the original note were not included. Drop Name: Cap Color: Dose: 1 Drop Eye: Prednisolone Acetate 1% [place] Number Two or White 4 times per day (shake bottle before using) Operated eye Vigamox (Moxifloxacin) [place]ias 4 times per day Operated eye Ointment Small tube As needed, up to 4 times daily (to relieve foreign body sensation and irritation caused by stitches) Operated eye Atropine Red none none Make sure you wait 3-5 minutes between each drop application. Please use the ointment at least 1 hour prior to and/or after the drops (applying the ointment right before the drops will not allow youreye to absorb the drops) Non operated eye: Please continue taking the same eye drops POSITIONING: No special positioning WARNING SYMPTOMS: - People frequently feel mild-moderate discomfort and foreign body sensation that improves within days. - Eyelid/eyeball swelling and redness are also common for a few weeks. - Small floaters or bubbles that come and go are not usually worrisome. However, if you experience vision loss, new strong pain, light sensitivity and/or tenderness please call the [facility] ([phone]) PAIN: May use over the counter pain medications as needed (Tylenol 1000mg- up to 3 times daily) alternating with ibuprofen (600mg up to 3 times per day) EYE SHIELD: Keep eye shield on the eye overnight. If you catch yourself touching your eye during daytime pleaseuse eyeshield during daytime to protect your eye. OTHERS: Make sure you wash your hands prior to touching your eye (i.e. Prior to applying your eyedrops). Donot rub or squeeze your eye. Avoid lifting heavy weights for 1 month (i.e. Not more than 5 lbs for 1 week and 15Lbs for 1 month) Avoid high impact exercise (e.g. Running, aerobic class, skiing) Avoid straining, retching, vomiting, coughing as much as possible FLIGHTS: No restrictions documented in this encounter Progress Notes * Yinka Rosales MD - 06/14/2019 7:45 AM EST ASSESSMENT/PLAN: Visual Acuity Visual Acuity (Estiven Isolated) Right Left Dist sc 20/400 20/25 Dist ph sc 20/150 20/20 No specs today, used pinhole occluder Tonometry Tonometry (Applanation, 7:58 AM) Right Left Pressure 08 15 1. Epiretinal membrane, right (s/p PPV-MP 06/13/19) s/p vitrectomy, membrane peel POD#1 exam Lizandro Heath is here for POD#1 visit. The retina looks attached on exam, the IOP is normal and there are no signs of endophthalmitis. Post-op instructions reviewed. Instructions (operated eye only): Pred Forte QID Vigamox QID No atropine Follow up as scheduled next week for POW#1 visit I, Bartolo Hurt, have performed the documentation [...] 06/13/19) documented in this encounter Care Teams Mirror Painter Relationship Specialty Start Date End Date None None PCP - General 06/13/19 07/22/20 documented as of this encounter
--- OUTSIDE RECORDS SUMMARY | 2024-02-03 21:16 | XMS_ITS | Encounter Summary ---
Author Organization [facility] Address [address] [place] [address] Care Team Providers Care Vision Impaired Teacher Name Role Phone Unknown, Provider Primary Care Provider Encounter Details Date Type Department Care Team (Late st Contact Info) Description 09/17/[address] [facility] ([facility]) [address] [place], [place] [id number] Weston Donohue MD [address] [place], [place] [address] Social History Tobacco Use Types Packs/Day Years Used Date Smoking Tobacco: Never Assessed Sex and Gender Information Value Date Recorded Sex Assigned at Not on file Gender Identity Not on file Sexual Orientation Not on file documented as of this encounter Plan of Treatment Not on file documented as of this encounter Procedures Procedure Name Priority Date/Time Associated Diagnosis Comments SURGICAL PATHOLOGY Routine 09/17/2009 0:00 EDT documented in this encounter Results * SURGICAL PATHOLOGY (09/17/2009 0:00 EDT) Pathology Report: SURGICAL PATHOLOGY REPORT ? Reports generated via electronic interface contain original data; ? however they are lacking the format of the original report. ? Caution should be taken when reading/interpreti ng unformatted reports. ? Name: ? COLBY, RANDOLPH Cruz ? Accession #: ? [id number] ? : ? 1945 (Age: 64) ??M ? Collect Date: ? 09/17/2009 ? Location: ? [facility] ? Receive Date: ? 09/18/2009 ? Provider: WESTON DONOHUE MD ? Copy to: LISANDRA RODRIGEZ MD ? Final Pathologic Diagnosis: ? Hernia sac, left, indirect inguinal herniorrhaphy: ? - Fibromembranous connective, grossly consistent with hernia sac. ??Gross only. ? Document reviewed and electronically signed by: ? JANNETTE MOUNT MD ? Report ??Date: 09/19/2009 12:38 ? By the signature above, the attending physician certifies that he/she has ? personally conducted a gross and/or microscopic examination of the described ? specimens and rendered or confirmed the above diagnosis. ? Specimen(s) Received: ? Left indirect inguinal hernia sac ? Clinical History: ? [facility] ? Gross Description: ? Received in formalin labelled Randolph Heath and indirect left inguinal hernia sac are two irregular portions of red-purple fibrous and fibromembranous tissues with a small amount of attached yellow adipose tissue which are 9.0 x ?? 3.5 x 0.5 cm and 10.0 x 5.0 x 0.8 cm. ??The fibromembranous tissue is diffusely ?? james and hemorrhagic, but contains no masses. ??The associated adipose tissue is focally hemorrhagic and has a 0.7 x 0.7 x 0.5 cm firm kendrick-white slightly ? calcified nodule. ??No sections are submitted. Gross only. ??(Stuart Briones)/mms ? End of Report ? [facility] 09/17/2009 09/18/2009 8:4 2 EDT Weston Donohue MD PATHOLOGY ORDERABLES Performing Organization Address City/State/[facility] Co de Phone Number [facility] [address] [place] [address] documented in this encounter Visit Diagnoses Not on filedocumented in this encounter Care Teams Vision Impaired Teacher Relationship Specialty Start Date End Date Unknown, Provider, PCP - General 09/06/08 documented as of this encounter
--- OUTSIDE RECORDS SUMMARY | 2024-02-03 21:16 | XMS_ITS | Encounter Summary ---
[place] [address] Care Team Providers Care Germ Drier Name Role Phone None Primary Care Provider Unavailabl e Reason for Visit * Reason Onset Date Comments Results 07/22/2020 covid Encounter Details Date Type Department Care Team (Late st Contact Info) Description 07/22/[address] [place] [address] Lalo Fowler RN Results (covid) Social History Tobacco Use Types Packs/Day Years Used Date Smoking Tobacco: Former Cigarettes 1 25 1 965 - 1989 Smokeless Tobacco: Never Alcohol Use Standard Drinks/Week Comments Yes 6 (1 standard drink = 0.6 oz pur e alcohol) social Sex and Gender Information Value Date Recorded Sex Assigned at Not on file Gender Identity Not on file Sexual Orientation Not on file documented as of this encounter Miscellaneous Notes * Telephone Encounter - Lalo Fowler RN - 07/22/2020 1:28 PM EST Telephone call to pt to inform pt of NEGATIVE Covid-19 test results. Pt verbalizes understanding and will contact healthcare provider if any concerns or requires further care. documented in this encounter Plan of Treatment Not on file documented as of this encounter Visit Diagnoses Not on filedocumented in this encounter Care Teams Germ Drier Relationship Specialty Start Date End Date None None PCP - General 06/13/19 07/22/20 documented as of this encounter
--- OUTSIDE RECORDS SUMMARY | 2024-02-03 21:16 | XMS_ITS | Encounter Summary ---
Author Organization [facility] Address [facility] [place] [address] Care Team Providers Care Pressurization Mechanic Name Role Phone None Primary Care Provider Unavailabl e Encounter Details Date Type Department Care Team (Late st Contact Info) Description 07/09/2020 10:00 AM EST - 07/09/2020 11:00 AM EST [place] [id number] Vianey Brower MD [facility] [place] [address] CARDIAC CATHETERIZATION Social History Tobacco Use Types Packs/Day Years Used Date Smoking Tobacco: Former Cigarettes 1989 Smokeless Tobacco: Never Alcohol Use Standard Drinks/Week Comments Yes 7 (1 standard drink = 0.6 oz pur e alcohol) social Sex and Gender Information Value Date Recorded Sex Assigned at Not on file Gender Identity Not on file Sexual Orientation Not on file documented as of this encounter Last Filed Vital Signs Vital Sign Reading Time Taken Comments Blood Pressure 124/76 07/09/2020 10:46 AM EST Pulse 58 07/09/2020 10:46 AM EST Temperature 36.7 ??C (98.1 ??F) 07/09/2020 10:[address] Respiratory Rate 22 07/09/2020 10:46 AM EST Oxygen Saturation 99% 07/09/2020 10:46 AM EST Inhaled Oxygen Concentration - - Weight 108.4 kg (239 lb) 07/09/2020 10:46 AM EST Height 182.9 cm (6') 07/09/2020 10:46 AM EST Body Mass Index 32.41 07/09/2020 10:46 AM EST documented in this encounter Discharge Instructions * Discharge Instructions* Juni Tabor, RN - 07/09/2020 4:08 PM EST Radial Access for Heart Cath Activity If you are discharged the same day as your procedure, do not drive yourself home. Arrange to have another person drive. You may walk around when you get home, but keep your activity at a minimum until the morning. Try to avoid bending your wrist for the first 12-24 hours after the procedure to allow the artery to fully heal. Do not participate in active sports for 48 hours. Do not lift anything greater than 5 lbs. You may engage in sexual activity after 48 hours. Catheter Insertion Area Care Take the dressing off of the catheter insertion site the morning following the procedure. Leave thesite open to air. If the site is oozing you may cover it with a band aid. You may take a shower if you wish. Look for signs of infection over the next several days. It is uncommon to have any visible blood at the site, any obvious bleeding is abnormal. A bruise around the wrist or small lump under the skin is normal: they generally disappear in 3-5 days. Expect some mild tenderness over the area where the catheter was inserted. You will notice this after the local anesthetic (numbing medicine) wears off. This should improve during the 24-48 hours after the procedure. You may use acetaminophen (tylenol) if needed. Contact your doctor if the discomfort worsens. Problems to Watch for If there is bright red blood flowing from the catheter insertion area: *stop what you are doing *hold pressure steadily on the area for 15 minutes *call for help *if the bleeding does not stop in 15 minutes call 911 for an ambulance. If there is swelling with black and blue color at the catheter insertion site, there may be bleeding inside. Contact the doctor if there is any increase in size. Look at the insertion site for the first few days at home. Signs of infection are: *redness *swelling *yellow, white, green or brown foul smelling drainage. *increased soreness If you think there is an infection, take your temperature. Then call your doctor. The limb on the side where you had your catheterization should look and feel normal in color, sensation, and temperature. If your hand or fingers become cool, pale, blue or change color contact your doctor. If you are having numbness or tingling in your fingers or hand contact your doctor. If you feel faint or dizzy, lie down with your feet elevated. Have someone call the doctor. If you are alert, drink fluids. How to Deal with Chest Pain If you had only the cardiac catheterization, treat any angina or chest discomfort as instructed. Stop what you are doing, and sit or lie down. If prescribed, take nitroglycerin under your tongue. If the angina isn't relieved, take another nitroglycerin in 5 minutes. After another 5 minutes, a third nitroglycerin may be taken. If the angina isn't improved you should call for an ambulance to bring you to the nearest hospital emergency room. If your angina is more frequent or severe than before, contact your doctor. We usually would not expect you to have angina after an angioplasty. If you do get angina, treat itas you did before, but also contact your doctor. Return to Work The doctor will usually have told you when to return to work. If you do not perform heavy physical labor, most people can return to work in a few days. Diet Follow your previous diet unless otherwise instructed. Cardiac Risk Factor If you have coronary artery disease, it is important that you help control it by reducing your cardiac risk factors. If you smoke, we urge you to stop now. If you think this is going to be a problem,let us know so that we may help you. We have dieticians who can help you learn about a low fat, lowcholesterol diet. Cardiac rehabilitation programs can help you set up a regular exercise program. Work with your doctor if you have high blood pressure or sugar diabetes to keep these under control. Medications Take your usual medications medication changes If you are taking medications prescribed by your doctor, do not take any [id number] medicinesor herbal preparations without first discussing this with your doctor or pharmacist. There is the possibility of side effects and interactions when these are combined. Follow Up Care Who to call with questions or problems If there are any questions or problems that you think might be related to your cardiac cath or angioplasty, contact the switch adjuster economic analyst by calling [facility] at . documented in this encounter Medications at Time of Discharge Medication Sig Dispensed Refills Start Date End Date aspirin EC 81 mg Tablet, Delayed Release (E.C.) Take 81 mg by mouth daily. vitamin A (AQUASOL) 10,000 unit Capsule Take 10,000 Units by mouth daily. B Complex-Vitamin C-Folic Acid (NEPHROCAP) 1 mg Capsule Take 1 capsule by mouth daily. hydrOXYzine (ATARAX) 25 mg Tablet Take 25 mg by mouth 2 times daily as needed for Itching. [id number] #[id number] (Urinozinc Prostate Formula Pls) 100 mg Tablet Take by mouth. 07/28/2020 metoprolol succinate XL (Toprol-XL) 25 mg Tablet Sustained Release 24 hr 06/13/202007/16 nitroGLYcerin (Nitrostat) 0.4 mg Tablet, Sublingual 06/01/2020 acetaminophen (Tylenol) 325 mg Tablet Take 650 mg by mouth daily. 07/28/2020 lisinopril (PRINIVIL;ZESTRIL) 10 mg Tablet Take 10 mg by mouth daily. 07/28/2020 documented as of this encounter Progress Notes * Anya Kwan RN - 07/09/2020 10:53 AM EST Images from the original note were not included. Patient Name: Lizandro Heath Patient Age: 74 y.o. Birthdate: 1945 Admit date: 07/09/2020 Attending Physician: Vianey Brower MD Skin: documented in this encounter H&P Notes * Jennifer Loza MD - 07/09/2020 11:39 AM EST Images from the original note were not included. Pre Cardiac Catheterization Note 74 y.o. male with a history of HTN, HLD, prior tobacco use, family hx of CAD who presents for coronary angiogram. He had typical anginal symptoms and underwent nuclear stress test. This showed anteroapical infarction with ischemia. ECG portion of the test was also positive for ischemia, and it was stopped due to typical anginal symptoms. Nuclear exercise test, converted to regadenoson 05/31/2020 No planned upcoming surgeries. No recent or ongoing bleeding events. No black stools. BP 124/76 (BP Location (NBP): Right arm) Pulse 58 Temp 36.7 ??C (98.1 ??F) (Temporal) Resp 22 Ht 182.9 cm (6') Wt 108.4 kg (239 lb) SpO2 99% BMI 32.41 kg/m?? General: NAD, conversational Cardiac: RRR, no murmurs, rubs, or gallops, JVP difficult to assess Lungs: CTA bilaterally, no wheezes, rales, or rhonchi Abdomen: Soft, nontender, nondistended Extremities: 1+ bilateral radial pulses, no edema Skin: No visible rash Neuro: Follows commands appropriately, moving all extremities spontaneously ASA: 3: Patient with severe systemic disease Mallampati: II: tonsillar pillars are blocked by the tongue Last 3 wbc, hgb, hct plt Recent Labs 07/09/20 0904 WBC 8.9 HGB 14.1 HCT 43.5 PLATELET 317 Last 3 Lytes Recent Labs 07/09/20 0904 NA 138 K 4.7 CL 106 CO2 23 BUN 15 CREATININE 1.01 Previous Catheterization: None The indications, expected benefits, and potential risks of heart catheterization were reviewed in detail with the patient. The potential for , heart attack, stroke, kidney failure, hemorrhage, allergic reaction, vascular complications and infection were reviewed in detail. The possibility of stenting and other percutaneous intervention, with associated risk, was reviewed. The possible need for emergent coronary artery bypass surgery was reviewed. Alternatives were discussed and the patient's questions were answered in full. Following this discussion, the patient consented to the procedure and signed a form attesting to this, which is in the chart. Plan: Coronary Angio via R radial No C/I to long-term DAPT. Last took ASA 81mg yesterday AM. Not on a P2Y12. Moderate Sedation OK Jennifer Loza MD 07/09/2020 documented in this encounter Miscellaneous Notes * Brief Op Note - Vianey Brower MD - 07/09/2020 2:24 PM EST Preliminary Cardiac Catheterization Procedure Note: Patient Name: Lizandro Heath : [id number] MR#: [id number] Case Date: 07/09/2020 Combo Welder: Surgeon(s) and Role: * Vianey Browre MD - Primary * Jennifer Loza MD - Fellow Preoperative diagnosis: Screening for cardiovascular condition [Z13.6], Coronary artery disease, angina presence unspecified, unspecified vessel or lesion type, unspecified whether [place] or transplanted heart [I25.10] Postoperative diagnosis: 3 vessel CAD Procedure(s) performed: Coronary angiography, left heart cath Access: 6 SL R radial => TR band A time-out was conducted prior to the start of the procedure to verify the correct patient and procedure, procedure location, and all relevant critical information. Preliminary findings: Tortuous subclavian artery; Ikari guide catheter required to access coronary ostia. R dominant with 3 vessel disease, very high grade lesions in a large ramus and in the major diagonal. Mid LAD and distal RCA lesions also significant. LVEDP 15 with some AoValve calcium noted. Has Hx of mild on echo; 5-10 mmHg gradient at most on pullback across the valve. The patient tolerated the procedures smoothly and was transferred from the cardiac catheterization lab to the next level of care in stable condition. No evident early complications. To be considered for CABG. Full report to follow. VIANEY BROWER MD documented in this encounter Plan of Treatment Not on file documented as of this encounter Procedures Procedure Name Priority Date/Time Associated Diagnosis Comments CARDIAC CATHETERIZATION Routine 07/09/2020 2:20 PM EST Screening for cardiovascular condition Coronary artery disease, angina presence unspecified, unspecified vessel or lesion type, unspecified whether [place] or transplanted heart EKG 12-LEAD Routine 07/09/2020 10:45 AM EST Screening for cardiovascular condition Coronary artery disease, angina presence unspecified, unspecified vessel or lesion type, unspecified whether [place] or transplanted heart HC VENIPUNCTURE STAT 07/09/2020 9:04 AM EST HEMOGRAM STAT 07/09/2020 9:04 AM EST DIFFERENTIAL, AUTOMATED STAT 07/09/2020 9:04 AM EST HC CBC,PLT & AUTO DIFF STAT 9:04 AM EST documented in this encounter Results * CARDIAC CATHETERIZATION (07/09/2020 2:20 PM EST) Anatomical Region Laterality Modality Other Narrative 07/09/2020 3:09 PM EST ?[facility] ? Cardiac Catheterization/Intervention Report ? Patient Name: Lizandro Heath K. ? Procedure Date: 07/09/2020 ? A #: [id number] ? Primary Physician: Jerri, Vianey E ? Case #: [id number] ? File Name: [id number] ? Catheterization Order Number: [id number] ? [facility] ? Final Report [place], [place] ? Patient Name: ? Lizandro Heath ?ID#: ?[id number] ? : ?1945 ? Procedure Date: ? July 09, 2020 ?Case #: ? [id number] ? Room: ? 5 ? Case Physician: ? Vianey Brower M.D. ? Start: ?13:36 ?Fellow: ? Jennifer Loza M.D. ?Admission: ??07/09/2020 ? Referring Physician: ??Antonia Magana M.D. ? Procedures: ?* Coronary Angiography ?* Left Heart Catheterization ? History ?Lizandro Santos Etienne Heath is a 74 year old man. He has hypertension and a ?family history of coronary artery disease. The patient's smoking status ?is Former. He also has hypercholesterolemia. Prior to the initiation of ?this procedure, the patient was designated as ASA Class III. The CSHA ?clinical frailty scale is 5: Mildly Frail. ? Diagnostic Tests: ?Electrocardiography: ? EKG was assessed by ECG. EKG was Abnormal. EKG showed other ? abnormality. ?Stress or Imaging Studies: ? A stress test with SPECT imaging was performed on 05/31/2020 and was ? Positive with High results. ?Medications Prior to Procedure: ? Angiotensin Converting Enzyme Inhibitor, Aspirin and Beta Karen. ? Indications for Diagnostic Cath: ?The priority of the diagnostic procedure was Elective. 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 Chest pain ?symptom assessment was: Typical Angina. ? Technique: ?A 6 SLFr sheath was inserted in the right radial artery utilizing the ?Seldinger technique. Left ventricular pressure was performed with a 6Fr ?IL 4.0 catheter. The left coronary artery was injected utilizing a 6Fr IL ?4.0 catheter. A 6Fr IL 4.0 catheter was used to inject the right coronary ?artery. 5,000 units of heparin were administered. A total of 100cc of ?Omnipaque were opened, 70cc of Omnipaque were administered and 30cc of ?Omnipaque were wasted. Radiation: Fluoro time was 8.8 minutes, dose area ?product was 92,208 mGYcm2 and air kerma was 1,476 mGY. See the case log ?for additional details. ?The patient received the following medications prior to and during the ?procedure: ? Unfractionated Heparin. ? Hemodynamics: ?Left Heart Pressures ? Resting: ? Syst Diast ? EDP ?a ?v ? m ?Ao 110 ?? 61 ?80 ?LV 122 ? 15 ? Coronary Angiography: ?Dominance: Right ?Left Main ? The left main was normal, free of disease. ?Left Anterior Descending ? There was an 80% ulcerated long segmental stenosis of the mid ? segment of the left anterior descending artery (LAD). ??The LAD was ? moderate in size. ??The distal 2 segment of the LAD had a single ? discrete 60% stenosis. ??The distal vessel was small. ? There was a 95% long segmental stenosis of the proximal segment of ? the first diagonal branch (Diagonal 1) of the LAD. ??The Diagonal 1 ? was moderate in size. ??The mid segment of the Diagonal 1 had severe ? diffuse (>=75% stenosis) disease. ?Left Circumflex ? There was mild diffuse (<=25% stenosis) disease of the proximal ? segment of the left circumflex artery (LCX). ??The LCX was small. ?Right Coronary Artery ? There was mild diffuse (<=25% stenosis) disease of the entire vessel ? segment of the right coronary artery (RCA). ??The mid segment of the ? RCA had an eccentric single discrete 50% stenosis. ??There also was a ? 70% single discrete stenosis of the distal segment of the RCA. ?Ramus ? There was a 90% ulcerated single discrete stenosis of the proximal ? segment of the ramus. ??The ramus was large. ? Vascular Access: ?Vascular Access Management: ? Mechanical Compression of the right radial artery access site was ? performed. ? Conclusions: ?* Two vessel coronary artery disease (LAD and RCA) ?* ~10 mmHg gradient on pullback across the aortic valve consistent with ?mild . ? Complications/Events: ?The patient had no complications during these procedures. ? Recommendations: ?Based upon the results of this procedure, it was recommended that ?coronary artery bypass surgery be considered. ?The attending physician was present for the entire procedure. ?Dr. Vianey Brower M.D. was present during the moderate sedation ?intraservice time as documented by the sedation nurse. ??Case time = 00:34. ?Dr. Vianey Brower M.D. performed the coronary angiography and left heart ?catheterization. ? Vianey Brower M.D. ? Electronically Signed by: Vianey Brower M.D. ? Report Finalized: 07/09/2020 ??15:03 ? Procedure Note Vianey Brower MD - 07/09/2020 [facility] Cardiac Catheterization/Intervention Report Patient Name: Lizandro Heath Sr Procedure Date: 07/09/2020 A #: [id number] Primary Physician: Vianey Brower Case #: [id number] File Name: [id number] Catheterization Order Number: [id number] [facility] FinalReport [place], [place] Patient Name: Lizandro Heath ID#:[id number] :1945 Procedure Date: July 09, 2020 Case #: [id number] Room: 5 Case Physician: Vianey Brower M.D. Start: 13:36 Fellow: Jennifer Loza M.D. Admission:07/09/2020 Referring Physician: Antnoia Magana M.D. Procedures: * Coronary Angiography * Left Heart Catheterization History Lizandro Heath is a 74 year old man. He has hypertension and a family history of coronary artery disease. The patient's smokingstatus is Former. He also has hypercholesterolemia. Prior to the initiationof this procedure, the patient was designated as ASA Class III. [facility] fra[facility] scale is 5: Mildly Frail. Diagnostic Tests: Electrocardiography: EKG was assessed by ECG. EKG was Abnormal. EKG showed other abnormality. Stress or Imaging Studies: A stress test with SPECT imaging was performed on 05/31/2020nd was Positive with High results. Medications Prior to Procedure: Angiotensin Converting Enzyme Inhibitor, Aspirin and BetaBlocker. Indications for Diagnostic Cath: The priority of the diagnostic procedure was Elective. 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 Chest pain symptom assessment was: Typical Angina. Technique: A 6 SLFr sheath was inserted in the right radial artery utilizingthe Seldinger technique. Left ventricular pressure was performed with a6Fr IL 4.0 catheter. The left coronary artery was injected utilizing a6Fr IL 4.0 catheter. A 6Fr IL 4.0 catheter was used to inject the rightcoronary artery. 5,000 units of heparin were administered. A total of 100ccof Omnipaque were opened, 70cc of Omnipaque were administered and 30ccof Omnipaque were wasted. Radiation: Fluoro time was 8.8 minutes, dosearea product was 92,208 mGYcm2 and air kerma was 1,476 mGY. See the caselog for additional details. The patient received the following medications prior to and duringthe procedure: Unfractionated Heparin. Hemodynamics: Left Heart Pressures Resting: Syst Diast EDP a v m Ao 110 61 80 LV 122 15 Coronary Angiography: Dominance: Right Left Main The left main was normal, free of disease. Left Anterior Descending There was an 80% ulcerated long segmental stenosis of the mid segment of the left anterior descending artery (LAD). The LADwas moderate in size. The distal 2 segment of the LAD had a single discrete 60% stenosis. The distal vessel was small. There was a 95% long segmental stenosis of the proximal segmentof the first diagonal branch (Diagonal 1) of the LAD. TheDiagonal 1 was moderate in size. The mid segment of the Diagonal 1 hadsevere diffuse (>=75% stenosis) disease. Left Circumflex There was mild diffuse (<=25% stenosis) disease of the proximal segment of the left circumflex artery (LCX). The LCX wassmall. Right Coronary Artery There was mild diffuse (<=25% stenosis) disease of the entirevessel segment of the right coronary artery (RCA). The mid segment ofthe RCA had an eccentric single discrete 50% stenosis. There alsowas a 70% single discrete stenosis of the distal segment of the RCA. Ramus There was a 90% ulcerated single discrete stenosis of theproximal segment of the ramus. The ramus was large. Vascular Access: Vascular Access Management: Mechanical Compression of the right radial artery access sitewas performed. Conclusions: * Two vessel coronary artery disease (LAD and RCA) * ~10 mmHg gradient on pullback across the aortic valve consistentwith mild . Complications/Events: The patient had no complications during these procedures. Recommendations: Based upon the results of this procedure, it was recommended that coronary artery bypass surgery be considered. The attending physician was present for the entire procedure. Dr. Vianey Brower M.D. was present during the moderate sedation intraservice time as documented by the sedation nurse. Case time =00:34. Dr. Vianey Brower M.D. performed the coronary angiography and leftheart catheterization. Vianey Brower M.D. Electronically Signed by: Vianey Brower M.D. Report Finalized: 07/09/2020 15:03 Vianey Brower MD CARDIAC CATH ORDERAB LES * EKG 12 Lead (07/09/2020 10:45 AM EST) Ventricular rate 63 BPM MUSE SYSTEM Atrial Rate 63 BPM MUSE SYSTEM P-R Interval 192 ms MUSE SYSTEM QRS Duration 156 ms MUSE SYSTEM Q-T Interval 450 ms MUSE SYSTEM QTC Calculated (Bezet) 460 ms MUSE SYSTEM Calculated P [place] 31 degrees MUSE SYSTEM Calculated R [place] -20 degrees MUSE SYSTEM Calculated T [place] 34 degrees MUSE SYSTEM INTERPRETATION Normal sinus rhythm with sinus arrhythmia Right bundle branch block Abnormal ECG No previous ECGs available Confirmed by MD GINA, FLETCHER ([id number]) on 07/09/2020 11:55:39 AM MUSE SYSTEM 07/09/2020 10:4 5 AM EST 07/09/2020 11:55 AM EST Vianey Brower MD ECG ORDERABLES MUSE SYSTEM * Differential, Automated (07/09/2020 9:04 AM EST) Neutrophil % 64.7 % [facility] Neutrophil Absolute 5.73 1.70 - 6.10 x10(3)/[facility] Lymph % 20.0 % [facility] Lymphocytes Abs 1.8 0.9 - 3.2 x10(3)/[facility] Monocyte % 9.9 % [facility] Monocyte Abs 0.9 0.3 - 0.9 x10(3)/[facility] Eos % 4.5 % [facility] Eosinophils Abs 0.4 0.0 - 0.4 x10(3)/[facility] Basophil % 0.6 % [facility] Baso Absolute 0.0 0.0 - 0.1 x10(3)/[facility] Immature Gran % 0.30 % [facility] Comment: Immature granulocytes(IG's)percentage and absolute count will include metamyelocytes, myelocytes, and promyelocytes. Blood smears from CBCs yielding IG's will be scanned manually for concordance. If this scan disagrees with the automated IG or if promyelocytes are noted, a manual differential will be performed. Immature Gran Absolute 0.03 0.00 - 0.04 x10(3)/[facility] Blood specimen (specimen) 07/09/2020 9:04 AM EST 07/09/2020 9:21 AM EST Narrative Resulting Agency Comment Spec In Lab [facility] ORDERABLE S [facility] [place] [address] * (ABNORMAL) Hemogram (07/09/2020 9:04 AM EST) White Blood Cell 8.9 4.0 - 9.5 x10(3)/mc L [facility] Red Blood Cell 4.53(L) 4.58 - 5.54 x10(6)/mc L [facility] Hemoglobin 14.1 13.7 - 16.5 gm/dL [facility] Hematocrit 43.5 40.5 - 48.5 % [facility] Mean Cell Volume 96.0(H) 82.9 - 93.1 fL [facility] Mean Cell Hemoglobin 31.1 27.5 - 32.1 pg [facility] Mean Cell Hemoglobin Concentration 32.4 32.0 - 35.7 gm/dL [facility] Platelet 317 145 - 357 x10(3)/mc L [facility] RDW Standard Deviation 46.1(H) 36.0 - 45.0 fL [facility] RDW coefficient of variation 12.9 11.4 - 13.8 % [facility] Mean Platelet Volume 9.1 7.6 - 12.9 [facility] NRBC% auto 0.0 % [facility] NRBC Absolute 0.000 0.000 - 0.000 x10(3)/mc L [facility] Blood specimen (specimen) 07/09/2020 9:04 AM EST 07/09/2020 9:21 AM EST Narrative Resulting Agency Comment Spec In Lab Ibrahima ROME HEMATOLOGY ORDERABLE S Performing Organization Address City/State/[facility] Co de Phone Number [facility] [place] [address] * BMP w/fasting Glucose (07/09/2020 9:04 AM EST) Glucose Fasting 94 65 - 99 mg/dL [facility] Comment: ?Fasting* Glucose Interpretive Criteria Normal ?65-99 mg/dL Impaired Fasting glucose ?100-125 mg/dL Consistent with Diabetes Mellitus ? >or= 126 mg/dL *Fasting is defined as no caloric intake for at least 8 hours In the absence of unequivocal hyperglycemia a plasma glucose value of >or= 126 mg/dL should be repeated on a subsequent day. Diagnosis and Classification of Diabetes Mellitus, Position Statement from the [place] [employer]. ??Diabetes Care, Volume 33, Supplement 1, May 2009 Blood Urea Nitrogen 15 10 - 20 mg/dL [facility] Creatinine 1.01 0.80 - 1.50 mg/dL [facility] Sodium 138 135 - 145 mmol/L [facility] Potassium 4.7 3.5 - 5.0 mmol/L [facility] Comment: Please note: ??Patients with WBC >100,000 may have falsely elevated Potassium levels. ??For accurate Potassium quantification in these patients send serum separator tube (gold top) for subsequent determinations. ??Contact the Clinical Chemistry Laboratory if there are any questions. Chloride 106 98 - 107 mmol/L [facility] Carbon Dioxide 23 22 - 31 mmol/L [facility] Anion Gap 9 5 - 15 mmol/L [facility] Calcium 9.0 8.5 - 10.5 mg/dL [facility] Est Glomerular Filtration Rate 74 >=60 mL/min/1. 73 m?? [facility] Comment: This patient? s estimated glomerular filtration rate (eGFR) is between 74 mL/min/1.73 m2 (patients with less muscle mass per kg body weight) and 86 mL/min/1.73 m2 (patients with more muscle mass [...] in addition to eGFR. Blood specimen (specimen) 07/09/2020 9:04 AM EST 07/09/2020 9:21 AM EST Narrative Resulting Agency Comment Spec In Lab Vianey Brower MD CHEMISTRY ORDERABLES [facility] [place] [address] documented in this encounter Visit Diagnoses Diagnosis Screening for cardiovascular condition Screening for other and unspecified cardiovascular conditions Coronary artery disease, angina presence unspecified, unspecified vessel or lesion type, unspecified whether [place] or transplanted heart Screening for cardiovascular condition Screening for other and unspecified cardiovascular conditions Coronary artery disease Coronary atherosclerosis of unspecified type of vessel, [place] or graft Screening for cardiovascular condition Screening for other and unspecified cardiovascular conditions Coronary artery disease, angina presence unspecified, unspecified vessel or lesion type, unspecified whether [place] or transplanted heart documented in this encounter Admitting Diagnoses Diagnosis Screening for cardiovascular condition Screening for other and unspecified cardiovascular conditions documented in this encounter Administered Medications Inactive Administered Medications - up to 3 most recent administrations Medication Order MAR Action Action Date Dose Rate Site aspirin chewable tablet ONCE PRN, Starting on Thu07/09/20 at 1329, Until Thu07/09/20 at 1413, Cath (Intra-Procedure), Routine Given 07/09/2020 1:29 PM EST 81 mg fentaNYL (pf) (50 mcg/mL) multi-dose injection ONCE PRN, Starting on Thu07/09/20 at 1323, Until Thu07/09/20 at 1710, Intra-Operative (Intra-Procedure), Routine Given 07/09/2020 1:23 PM EST 25 mcg heparin (porcine) (1,000 units/mL) injection ONCE PRN, Starting on Thu07/09/20 at 1402, Until Thu07/09/20 at 1413, Cath (Intra-Procedure), Routine Given 07/09/2020 2:02 PM EST 5,000 Units iohexoL (Omnipaque) (350 mg/mL) injection solution ONCE PRN, Starting on Thu07/09/20 at 1413, Until Thu07/09/20 at 1413, Cath (Intra-Procedure), Routine Given 07/09/2020 2:13 PM EST 70 mLs lidocaine (Xylocaine) 1% (10 mg/mL) injection 3 mg 3 mg (0.3 mL), Subcutaneous, ONCE PRN, 1 dose, Starting on Thu07/09/20 at 1046, Until Thu07/09/20 at 1710, with discomfort with PIV insertion, Cath (Day of Procedure), Routine midazolam (pf) (Versed) (1 mg/mL) multi-dose injection ONCE PRN, Starting on Thu07/09/20 at 1323, Until Thu07/09/20 at 1413, Cath (Intra-Procedure), Routine Given 07/09/2020 1:23 PM EST 1 mg nitroGLYcerin 100 mcg/mL intracoronary dilution ONCE PRN, Starting on Thu07/09/20 at 1335, Until Thu07/09/20 at 1413, Cath (Intra-Procedure), Routine Given 07/09/2020 1:35 PM EST 150 mcg sodium chloride 0.9 % (flush) flush 5 mL 5 mL, Intravenous, EVERY 12 HOURS, First dose on Thu07/09/20 at 1115, Until Discontinued, Cath (Day of Procedure), Routine sodium chloride 0.9 % (flush) flush 5-20 mL 5-20 mL, Intravenous, EVERY 1 MIN PRN, Starting on Thu07/09/20 at 1046, Until Thu07/09/20 at 1710, flush, Flush pertains to all indwelling lines. Flush per protocol found in the job aid using the link provided on this medication record., Cath (Day of Procedure), Routine sodium chloride 0.9% infusion 200 mL/hr, Intravenous, CONTINUOUS, Starting on Thu07/09/20 at 1115, Until Thu07/09/20 at 1710, Cath (Day of Procedure) sodium chloride 0.9% infusion CONTINUOUS PRN, Starting on Thu07/09/20 at 1320, Until Thu07/09/20 at 1413, Cath (Intra-Procedure) New Bag 07/09/2020 1:20 PM EST 1 L verapamiL (Isoptin) (2.5 mg/mL) injection ONCE PRN, Starting on Thu07/09/20 at 1335, Until Thu07/09/20 at 1413, Administer over 2 Minutes, Cath (Intra-Procedure) Given 07/09/2020 1:35 PM EST 2.5 mg documented in this encounter Active and Recently Administered Medications Times are shown in EST. Scheduled Medication Order 07/07/2020 07/08/2020 07/09/2020 sodium chloride 0.9 % (flush) flush 5 mL 5 mL, Intravenous, EVERY 12 HOURS, First dose on Thu07/09/20 at 1115, Until Discontinued, Cath (Day of Procedure), Routine 1115 (Due) Continuous Medication Order 07/07/2020 07/08/2020 07/09/2020 sodium chloride 0.9% infusion 200 mL/hr, Intravenous, CONTINUOUS, Starting on Thu07/09/20 at 1115, Until Thu07/09/20 at 1710, Cath (Day of Procedure) 1115 (Due) PRN Medication Order 07/07/2020 07/08/2020 07/09/2020 aspirin chewable tablet (CANCELED) ONCE PRN, Starting on Thu07/09/20 at 1329, Until Thu07/09/20 at 1413, Cath (Intra-Procedure), Routine 1329 (Given - Provid er: Wellington Mathew) fentaNYL (pf) (50 mcg/mL) multi-dose injection ONCE PRN, Starting on Thu07/09/20 at 1323, Until Thu07/09/20 at 1710, Intra-Operative (Intra-Procedure), Routine 1323 (Given - Provid er: Wellington Mathew) heparin (porcine) (1,000 units/mL) injection (CANCELED) ONCE PRN, Starting on Thu07/09/20 at 1402, Until Thu07/09/20 at 1413, Cath (Intra-Procedure), Routine 140 (Given - Provid er: Wellington Mathew) iohexoL (Omnipaque) (350 mg/mL) injection solution (CANCELED) ONCE PRN, Starting on Thu07/09/20 at 1413, Until Thu07/09/20 at 1413, Cath (Intra-Procedure), Routine 141 (Given - Provid er: Vianey Brower MD) lidocaine (Xylocaine) 1% (10 mg/mL) injection 3 mg 3 mg (0.3 mL), Subcutaneous, ONCE PRN, 1 dose, Starting on Thu07/09/20 at 1046, Until Thu07/09/20 at 1710, with discomfort with PIV insertion, Cath (Day of Procedure), Routine midazolam (pf) (Versed) (1 mg/mL) multi-dose injection (CANCELED) ONCE PRN, Starting on Thu07/09/20 at 1323, Until Thu07/09/20 at 1413, Cath (Intra-Procedure), Routine 132 (Given - Provid er: Wellington Mathew) nitroGLYcerin (Nitrostat) disintegrating tablet 0.4 mg 0.4 mg, Sublingual, EVERY 5 MIN PRN, Starting on Thu07/09/20 at 1423, Until Thu07/09/20 at 1909, Chest pain, May repeat every 5 minutes for a total of three doses. Notify provider if chest pain not relieved with nitroglycerin. Do not administer nitroglycerin if the patient has received or taken phosphodiesterase (PDE-5) inhibitors such as sildenafil, tadalafil or vardenafil within the last 24 to 72 hours., Recovery (Recovery-Hospital Unit), Routine nitroGLYcerin 100 mcg/mL intracoronary dilution (CANCELED) ONCE PRN, Starting on Thu07/09/20 at 1335, Until Thu07/09/20 at 1413, Cath (Intra-Procedure), Routine 1335 (Given - Provid er: Jennifer Loza MD) sodium chloride 0.9 % (flush) flush 5-20 mL 5-20 mL, Intravenous, EVERY 1 MIN PRN, Starting on Thu07/09/20 at 1046, Until Thu07/09/20 at 1710, flush, Flush pertains to all indwelling lines. Flush per protocol found in the job aid using the link provided on this medication record., Cath (Day of Procedure), Routine sodium chloride 0.9% infusion (CANCELED) CONTINUOUS PRN, Starting on Thu07/09/20 at 1320, Until Thu07/09/20 at 1413, Cath (Intra-Procedure) 1320 (New Bag - Prov ider: Vianey Brower MD - Comment: given by same day) verapamiL (Isoptin) (2.5 mg/mL) injection (CANCELED) ONCE PRN, Starting on Thu07/09/20 at 1335, Until Thu07/09/20 at 1413, Administer over 2 Minutes, Cath (Intra-Procedure) 1335 (Given - Provid er: Jennifer Loza MD) documented in this encounter Care Teams Pressurization Mechanic Relationship Specialty Start Date End Date None None PCP - General 06/13/19 07/22/20 documented as of this encounter
--- OUTSIDE RECORDS SUMMARY | 2024-02-03 21:16 | XMS_ITS | Encounter Summary ---
Author Organization [facility] [place] [address] Care Team Providers Care Food Chemist Name Role Phone None Primary Care Provider Unavailabl e Encounter Details Date Type Department Care Team (Late st Contact Info) Description 06/14/2020 Orders Only [place] [id number] [facility] [place] [address] Screening for cardiovascular condition; Coronary artery disease, angina presence unspecified, unspecified vessel or lesion type, unspecified whether [place] or transplanted heart Social History Tobacco Use Types Packs/Day Years [...] as of this encounter Visit Diagnoses Diagnosis Screening for cardiovascular condition Screening for other and unspecified cardiovascular conditions Coronary artery disease, angina presence unspecified, unspecified vessel or lesion type, unspecified whether [place] or transplanted heart documented in this encounter Care Teams Food Chemist Relationship Specialty Start Date End Date None None PCP - General 06/13/19 07/22/20 documented as of this encounter
--- OUTSIDE RECORDS SUMMARY | 2024-02-03 21:16 | XMS_ITS | Encounter Summary ---
Author Organization [facility] Address [address] [place] [id number] Care Team Providers Care Data Analytics Architect Name Role Phone Unknown, Provider Primary Care Provider [phone] Encounter Details Date Type Department Care Team (Late st Contact Info) Description 05/25/2020 Lab Requisition [facility] Pathology & Laboratory Medicine - [address] [address] Outr Resulting Lab, Provider Social History Tobacco Use Types Packs/Day Years Used Date Smoking Tobacco: Never Assessed Sex and Gender Information Value Date Recorded Sex Assigned at Not on file Gender Identity Not on file Sexual Orientation Not on file documented as of this encounter Plan of Treatment Not on file documented as of this encounter Procedures Procedure Name Priority Date/Time Associated Diagnosis Comments ZZCOVID-19 TEST [facility] PCR Today 05/25/2020 8:20 EST COVID-19 TESTING Routine 05/25/2020 8:20 EST documented in this encounter Results * COVID-19 TEST [facility] PCR (05/25/2020 8:20 EST) Swab ENTIRE NASOPHARYNX / Unknown 05/25/2020 8:20 EST 05/25/2020 15:53 EST Provider Outr Resulting Lab MICROBIOLOGY - GENERAL ORDERABLES [facility] [address] [place] [address] * COVID-19 TESTING (05/25/2020 8:20 EST) COVID-19 rt-PCR Result Negative Negative 05/26/2020 15:24 EST [facility] Comment: Negative results do not preclude 2019-nCoV infection and should not be used as the sole basis for treatment or other patient management decisions. Negative results must be combined with clinical observations, patient history, and epidemiological information. This test was developed and its performance characteristics determined by [facility]. It has not been cleared or approved by the US Food and Drug Administration. FDA does not require this test to go through premarket FDA review. This test is used for clinical purposes. It should not be regarded as investigational or for research. This laboratory is certified under the Clinical Laboratory Improvement Amendments (CLIA) as qualified to perform high complexity clinical laboratory testing. This test is based on the [facility] COVID-19 Emergency Use Authorization (EUA) assay, with minor modification as defined by the FDA Performed on the [employer] Flex. Performing Lab [facility] Lab 05/26/2020 15:24 EST [facility] Swab 05/25/2020 8:20 EST 05/25/2020 15:53 EST Provider Outr Resulting Lab MICROBIOLOGY - GENERAL ORDERABLES [facility] [address] [place] [address] documented in this encounter Visit Diagnoses Not on filedocumented in this encounter Care Teams Data Analytics Architect Relationship Specialty Start Date End Date Unknown, Provider, PCP - General 09/06/08 documented as of this encounter
--- OUTSIDE RECORDS SUMMARY | 2024-02-03 21:16 | XMS_ITS | Encounter Summary ---
Author Organization [facility] [place] [address] Care Team Providers Care Form Setter Name Role Phone None Primary Care Provider Unavailabl e Encounter Details Date Type Department Care Team (Late st Contact Info) Description 07/09/2020 Telephone [place] [phone] Jennifer Loza MD [facility] [place] [address] Social History Tobacco Use Types Packs/Day Years [...] as of this encounter Visit Diagnoses Diagnosis Aortic valve stenosis, etiology of cardiac valve disease unspecified documented in this encounter Care Teams Form Setter Relationship Specialty Start Date End Date None None PCP - General 06/13/19 07/22/20 documented as of this encounter
--- OUTSIDE RECORDS SUMMARY | 2024-02-03 21:16 | XMS_ITS | Encounter Summary ---
Author Organization [facility] Address [facility] [place] [address] Care Team Providers Care Apple Picking Supervisor Name Role Phone Mayank Mohamud DO Primary Care Provider [phone] Reason for Visit * Auth/Cert Specialty Diagnoses [...] Expiration Date Visits Re quested Visits Authorized [id number] 1 1 Encounter Details Date Type Department Care Team (Late st Contact Info) Description 2020 7:19 AM EST Anesthesia Event [place] [address] Gertrudis aJy MD [facility] [place] [address] Ibrahima Friedman MD [facility] [place] [address] Anesthesia Record Procedure Summary Procedure Name Responsible Anesthesiologist Anesthesia Start Time Anesthesia Stop Time @CABG, USING ARTERIAL GRAFT;SINGLE ARTERIAL GRAFT (WRVU 33.75) (Chest) Gertrudis Jay MD 07/23/20 0719 07/23/20 1141 Events Date Time Event Comment 2020 0710 0719 AN Verify 0719 Start 0719 An Start Data 0730 An Induction 0733 An Intubation 0804 Anesthesia Ready 0804 KAYY w/ REPORT 0815 Sternotomy 0854 CV Bypass init 0855 An Clamp start 1022 Rewarming 1022 Circular Tank Cooper 1022 An Clamp Remove 1040 CP Bypass Ended 1102 Chest Closed 1130 an stop data 1141 Recovery or ICU Handoff Annalee ent care was transferred to the destination unit staff after review of the patient's medical history, current anesthetic/surgical status and plan, according to the Provider Handoff Checklist. 1141 Stop Meds Name Total Midazolam 3 mg fentaNYL 1,000 mcg IV Lidocaine 60 mg Propofol 180 mg Propofol INF 301.04 mg Vecuronium 20 mg Heparin 30,000 Units Protamine 240 mg Tranexamic Acid 987 mg Tranexamic Acid INF 360.26 mg Insulin Regular Human 3 Units NORepinephrine 16 mcg NORepinephrine 40 mcg cefTRIAXone 2 g NORepinephrine INF 384 mcg Rocuronium 50 mg nitroGLYCERIN INF 2,580 mcg Sodium Chloride 0.9% 1,500 mL Sodium Chloride 0.9% 100 mL Lactated Ringers 400 mL * Agents Name O2 Air N2O Isoflurane (et) * Blood No blood administrations on file. Lines, Drains, and Airways Type Details Placement Removal Incision 06/13/19; 1528; eye; LDA not present upon assessment; 07/26/20; 1149 06/13/19 1528 by Antonia Boateng RN 07/26/20 1149 by Denisha Carias, RN (RETIRED) Peripheral IV Line - Single Lumen 07/23/20; 0656; cephalic vein (lateral side of arm), left; 18 gauge; distraction, intradermal injection, tolerated well; burning w/ amio infusing; removed per policy/procedure, site care per policy/procedure, site symptomatic, catheter/device intact; 07/25/20; 0430 07/23/20 0656 by Viviana Edwards RN 07/25/20 0430 by Lillie Esparza, CODY Arterial Line 07/23/20; 0726; radi al artery; 20 gauge; Elder; Sterile Prep, Sterile Gloves; no longer indicated, catheter intact; 07/24/20; 0945 07/23/20 0726 by Ibrahima Friedman MD 07/24/20 0945 by Lennie Weaver RN ETT Mask Ventilation: Ad junct (2); ETT Type: Cuffed; ETT Size: 8 mm; Indirect: Video; Notes: Asleep, Pre-O2, Stylette; Attempts: 1; Laryngoscopy Grade: 1; ETT Placement Verified By: Auscultation, Capnometry, Visual; Secured at Teeth: 23 cm; Inserted by: Elder; Removal Date: 07/23/20; Removal Time: 15407/23/20 0733 by Ibrahima Friedman MD 07/23/20 1540 by Jose Davison RT (RETIRED) Percutaneous Central Line - Single Lumen 07/23/20; 0740; internal jugular vein, right; introducer; Ultrasound Guidance, Anatomical Landmarks; Yes; 9 Fr; Elder; tolerated well; KAYY; CVC Bundle Performed; no longer indicated, catheter/device intact, removed per policy/procedure, site care per policy/procedure; 07/24/20; 0945 07/23/20 0740 by Ibrahima Friedman MD 07/24/20 0945 by Lennie Weaver, RN (RETIRED) Pulmonary Artery Catheter - Triple Lumen 07/23/20; 0742; Right; internal jugular vein; VIP; 8 Fr; CVC Bundle Performed; Via 9Fr introducer; Elder; 07/23/20; 215507/23/20 0742 by Ibrahima Friedman MD 07/23/20 215 by Genie Langley RN Urethral Catheter 07/23/20; 0749; Surg shahnaz longer than 2 hours, Need for intraoperative urine output monitoring; latex, hydrophilic coated; 14; 1; 5; 10; urethral catheter removed, tubing intact, per protocol/policy; 07/25/20; 1010 07/23/20 0749 by Natalee Giles RN 07/25/20 1010 by Shari Weaver RN Incision 07/23/20; 0814; ster nal; vertical; 01/13/22 (LDA cleanup utility RA#[id number]); 1715 (LDA cleanup utility RA#[id number]) 07/23/20 0814 by Natalee Giles RN 01/13/22 1715 by Pavel Sargent Incision 07/23/20; 0814; Righ t, anterior; knee; laparoscopic puncture; 01/13/22 (LDA cleanup utility RA#[id number]); 1715 (LDA cleanup utility RA#[id number]) 07/23/20 0814 by Natalee Giles RN 01/13/22 1715 by Pavel Sargent Incision 07/23/20; 0825; Righ t, anterior; greater trochanter; laparoscopic puncture; 01/13/22 (LDA cleanup utility RA#[id number]); 1715 (LDA cleanup utility RA#[id number]) 07/23/20 0825 by Natalee Giles RN 01/13/22 1715 by Pavel Sargent Drain/Device Site 07/23/20; 0922; Righ t; anterior; knee; collapsible closed device; LATRICIA Elise; Sterile prep and drape, Sterile technique; 07/23/20; 2254 07/23/20 0922 by Natalee Giles RN 07/23/20 2254 by Genie Langley RN Chest Tube 07/23/20; 1006; Left ; mediastinum; Posterior to heart. 28Fr. PVC Angled. ; 07/24/20; 92907/23/20 1006 by Natalee Giles RN 07/24/20 0930 by Lennie Weaver RN Chest Tube 07/23/20; 1007; Righ t; mediastinum; Anterior to heart. 28Fr. PVC straight. ; 07/24/20; 30 07/23/20 1007 by Natalee Giles RN 07/24/20 0930 by Lennie Weaver RN NG/OG Tube 07/23/20; 1130 (arri caridad to [facility] with LDA); orogastric; center mouth; 55; Taped; 07/23/20; 1538 07/23/20 1130 by Liz Villavicencio RN 07/23/20 1538 by Liz Villavicencio RN documented in this encounter Social History Tobacco Use Types Packs/Day Years Used Date Smoking Tobacco: Former Cigarettes 06 11 1 [id number] Smokeless Tobacco: Never Alcohol Use Standard Drinks/Week Comments Yes 6 (1 standard drink = 0.6 oz pur e alcohol) social Sex and Gender Information Value Date Recorded Sex Assigned at Not on file Gender Identity Not on file Sexual Orientation Not on file documented as of this encounter OR Notes * Anesthesia Postprocedure Evaluation - Ibrahima Friedman MD - 2020 11:58 AM EST Department of Anesthesiology Post-procedure Note Patient: Lizandro Heath Procedure Summary Date: 07/23/20 Room / Location: [facility] OR [address] [place] [address] MAIN OR Anesthesia Start: 718 Anesthesia Stop: 1140 Procedures: @CABG, USING ARTERIAL GRAFT;SINGLE ARTERIAL GRAFT (WRVU 33.75) (N/A Chest) ENDOSCOPIC HARVEST VEIN(S) FOR CABG (WRVU 0.31) (Right Leg) @CABG; 3 VENOUS GRAFTS & ARTERIAL GRAFT (WRVU 10.49) (N/A Chest) Diagnosis: (CAD) Surgeons: Joshua Ledesma MD Responsible Provider: Gertrudis Jay MD Anesthesia Type: general ASA Status: 3 All Anesthesia Providers: Anesthesiologist: Gertrudis Jay MD Trench Shovel Operator: Ibrahima Friedman MD Vitals Value Taken Time BP 87/68 07/23/20 1350 Temp 35.4 ??C (95.7 ??F) 07/23/20 1300 Pulse 70 07/23/20 1355 Resp 14 07/23/20 1355 SpO2 100 % 07/23/20 1355 Pain Level Vitals shown include unvalidated device data. Patient Location: [facility] Level of Consciousness: Sedated (Pharmacologic/Intentional) Pain Management: Satisfactory Analgesia PONV: None Cardiovascular Status: Hemodynamically Stable and Hypotension (received treatment) Respiratory Status: Intubated/Ventilated and Stable Respiratory Status Postoperative Fluid Status: Intravascular EUvolemia Possible Anesthetic Complications: NONE apparent at time of evaluation Final Primary Anesthesia Type: General (The anesthetic type performed was the same as planned.) Comments: Ibrahima Friedman MD * Anesthesia Preprocedure Evaluation - Ibrahima Friedman MD - 07/20/2020 4:48 PM EST Pre-Anesthesia Evaluation for: Lizandro Heath a 74 y.o. male. Procedure(s): @CABG, USING ARTERIAL GRAFT;SINGLE ARTERIAL GRAFT (WRVU 33.75) ENDOSCOPIC HARVEST VEIN(S) FOR CABG (WRVU 0.31) @CABG; 4 VENOUS GRAFTS & ARTERIAL GRAFT (WRVU 12.59) Patient Active Problem List Diagnosis ??? CAD (coronary artery disease) ??? Combined forms of age-related cataract of both eyes Added automatically from request for surgery [id number] ??? Screening for cardiovascular condition Added automatically from request for surgery [id number] ??? Coronary artery disease Added automatically from request for surgery [id number] Past Medical History: Diagnosis Date ??? Cataract ??? Claudication bilat leg aching after walking about 1/2 mile, has sensation of not knowing where his feet are ??? Coronary artery disease 06/15/2020 ??? 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 High blood pressure controlled with medication ??? Hypertension ??? Vertigo Past Surgical History: Procedure Laterality Date ??? PRO VITRECTOMY PARS PLANA REMOVE PRERETINAL MEMBRANE Right 06/13/2019 VITRECTOMY, W/ MEMBRANE STRIPPING (WRVU 16.33) performed by Yinka Rosales MD at [facility] MAIN OR ??? RETINOPATHY SURGERY Left 04/01/2019 Laser for retinal tear - DM ??? VITRECTOMY, W/ MEMBRANE STRIPPING Right 06/13/2019 PPV MP per DM Social History Tobacco Use ??? Smoking status: Former Smoker Packs/day: 1.00 Years: 25.00 Pack years: 25.00 Types: Cigarettes Quit date: 1989 Years since quittin.1 ??? Smokeless tobacco: Never Used Substance Use Topics ??? Alcohol use: Yes Alcohol/week: 6.0 standard drinks Types: 4 Cans of beer, 2 Standard drinks or equivalent per week Comment: social Social History Substance and Sexual Activity Drug Use Never Allergies Allergen Reactions ??? Ibuprofen Other (See Comments) Trouble swallowing and rash ??? Tegaderm [Transparent Dressings] Skin irritation Medications: MAR and/or home medications have been reviewed. Physical Exam: No data found. There is no height or weight on file to calculate BMI. Airway Assessment: Mallampati: IV TM distance: >3 FB Neck ROM: full Cardiovascular Assessment: Rhythm: regular Rate: normal (+) murmur Pulmonary Assessment: pulmonary exam normal Dental Assessment: - normal exam Misc Assessment: Patient is wearing No contact(s). IV access: Peripheral line Anesthesia Plan: ASA 3 general, with a(n) intravenous induction Lizandro Heath is a 74 y.o. male (BMI 31) with a hx significant for HTN, claudication, and CAD presenting for CABG with Dr. Ledesma. NPO adequate. Activity prior to surgery: METS>4 Current Outpatient Medications on File Prior to Encounter: ib-yg-youozy #[id number] (Urinozinc Prostate Formula Pls) 100 mg Tablet, Take by mouth., Disp: , Rfl: metoprolol succinate XL (Toprol-XL) 25 mg Tablet Sustained Release 24 hr, , Disp: , Rfl: nitroGLYcerin (Nitrostat) 0.4 mg Tablet, Sublingual, , Disp: , Rfl: aspirin EC 81 mg Tablet, Delayed Release (E.C.), Take 81 mg by mouth daily., Disp: , Rfl: acetaminophen (Tylenol) 325 mg Tablet, Take 650 mg by mouth daily., Disp: , Rfl: hydrOXYzine (ATARAX) 25 mg Tablet, Take 25 mg by mouth 2 times daily as needed for Itching., Disp: , Rfl: lisinopril (PRINIVIL;ZESTRIL) 10 mg Tablet, Take 10 mg by mouth daily., Disp: , Rfl: Allergies -- Ibuprofen -- Other (See Comments) -- Trouble swallowing and rash -- Tegaderm (Transparent Dressings) -- Skin irritation Anesthesia Hx: Past airway: NA Pt denies past complications from anesthesia and any family hx of complications with anesthesia. Cardiology: Cardiac Cath 07/09/20 - Conclusions: * Two vessel coronary artery disease (LAD and RCA) * ~10 mmHg gradient on pullback across the aortic valve consistent with mild . EKG 07/09/20 - NSR w sinus arrhythmia, RBBB No Echos found Labs: COVID-19 testing: pending 07/20/20 Lab Results Component Value Date HGB 13.8 07/11/2020 PLATELET 333 07/11/2020 K 4.6 07/11/2020 CREATININE 0.98 07/11/2020 ABORH A Pos 07/11/2020 Plan is for GA with ETT, standard ASA monitors, and adequate IV access, + arterial line, CVC, PAC, KAYY Ibrahima Friedman MD 07/20/2020 Region - Intrathoracic Cardiac Informed Consent: Anesthetic plan and risks discussed with patient and daughter/son. Use of blood products discussed with patient who. Plan discussed with attending and resident. PAT Clinic Note documented in this encounter Plan of Treatment Not on file documented as of this encounter Visit Diagnoses Not on filedocumented in this encounter Administered Medications Inactive Administered Medications - up to 3 most recent administrations Medication Order MAR Action Action Date Dose Rate Site cefTRIAXone (Rocephin) injection Intravenous, PRN, Starting on Thu07/23/20 at 0809, Until Thu07/23/20 at 1141, Anesthesia Intra-op, Routine Given 2020 8:09 AM EST 2 g fentaNYL (pf) (50 mcg/mL) multi-dose injection Intravenous, PRN, Starting on Thu07/23/20 at 0727, Until Thu07/23/20 at 1141, Anesthesia Intra-op, Routine Given 2020 8:21 AM EST 100 mcg Given 2020 8:19 AM EST 250 mcg Given 2020 8:16 AM EST 150 mcg heparin (porcine) (1,000 units/mL) injection Intravenous, PRN, Starting on Thu07/23/20 at 0833, Until Thu07/23/20 at 1141, Anesthesia Intra-op, Routine Given 2020 8:33 AM EST 30,000 Un its insulin regular (HumuLIN R,NovoLIN R) (100 unit/mL) injection vial Intravenous, PRN, Starting on Thu07/23/20 at 1016, Until Thu07/23/20 at 1141, Anesthesia Intra-op, Routine Given 2020 10:16 AM EST 3 Units lactated ringers infusion Intravenous, CONTINUOUS PRN, Starting on Thu07/23/20 at 0719, Until Thu07/23/20 at 1141, Anesthesia Intra-op New Bag 2020 7:19 AM EST lidocaine (pf) (Xylocaine) (20 mg/mL) 2% injection syringe Intravenous, PRN, Starting on Thu07/23/20 at 0730, Until Thu07/23/20 at 1141, Anesthesia Intra-op, Routine Given 2020 7:30 AM EST 60 mg midazolam (pf) (Versed) (1 mg/mL) multi-dose injection Intravenous, PRN, Starting on Thu07/23/20 at 0719, Until Thu07/23/20 at 1141, Anesthesia Intra-op, Routine Given 2020 10:09 AM EST 2 mg Given 2020 7:19 AM EST 1 mg nitroGLYcerin (200 mcg/mL) in dextrose 5% 250 mL infusion Intravenous, CONTINUOUS PRN, Starting on Thu07/23/20 at 1012, Until Thu07/23/20 at 1141, Anesthesia Intra-op, Routine Rate/Dose Change 2020 10:21 AM EST 30 mcg/min 9 mL/hr New Bag 2020 10:12 AM EST 20 mcg/min 6 mL/hr NORepinephrine (Levophed) (16 mcg/mL) in sodium chloride 0.9% 250 mL infusion Intravenous, CONTINUOUS PRN, Starting on Thu07/23/20 at 0823, Until Thu07/23/20 at 1141, Anesthesia Intra-op, Routine Rate/Dose Change 2020 10:59 AM EST 3 mcg/min 11.25 mL/hr Rate/Dose Change 2020 10:39 AM EST 8 mcg/min 30 mL/ hr Rate/Dose Change 2020 10:34 AM EST 5 mcg/min 18.75 mL/hr NORepinephrine (Levophed) injection Intravenous, PRN, Starting on Thu07/23/20 at 0732, Until Thu07/23/20 at 1141, Anesthesia Intra-op, Routine Given 2020 10:34 AM EST 8 mcg Given 2020 7:32 AM EST 8 mcg NORepinephrine (Levophed) injection Intravenous, PRN, Starting on Thu07/23/20 at 1024, Until Thu07/23/20 at 1141, Anesthesia Intra-op, Routine Given 2020 10:50 AM EST 16 mcg Given 2020 10:38 AM EST 16 mcg Given 2020 10:24 AM EST 8 mcg propofoL (Diprivan) 10 mg/mL bolus injection (Anesthesia) Intravenous, PRN, Starting on Thu07/23/20 at 0730, Until Thu07/23/20 at 1141, Anesthesia Intra-op Given 2020 8:22 AM EST 30 mg Given 2020 8:19 AM EST 50 mg Given 2020 8:14 AM EST 50 mg propofoL (Diprivan) infusion Intravenous, CONTINUOUS PRN, Starting on Thu07/23/20 at 1024, Until Thu07/23/20 at 1141, Anesthesia Intra-op, Routine Rate/Dose Change 2020 11:04 AM EST 50 mcg/kg/min 29.61 mL/hr New Bag 2020 10:24 AM EST 30 mcg/kg/min 17.766 mL /hr protamine (10 mg/mL) injection Intravenous, PRN, Starting on Thu07/23/20 at 1029, Until Thu07/23/20 at 1141, Anesthesia Intra-op, Routine Given 2020 10:29 AM EST 240 mg rocuronium (Zemuron) (10 mg/mL) multi-dose injection Intravenous, PRN, Starting on Thu07/23/20 at 1003, Until Thu07/23/20 at 1141, Anesthesia Intra-op, Routine Given 2020 10:03 AM EST 50 mg sodium chloride 0.9% infusion Intravenous, CONTINUOUS PRN, Starting on Thu07/23/20 at 0719, Until Thu07/23/20 at 1141, Anesthesia Intra-op New Bag 2020 10:51 AM EST New Bag 2020 7:19 AM EST sodium chloride 0.9% infusion Intravenous, CONTINUOUS PRN, Starting on Thu07/23/20 at 0724, Until Thu07/23/20 at 1141, Anesthesia Intra-op New Bag 2020 7:24 AM EST tranexamic acid (Cyklokapron) (100 mg/mL) infusion Intravenous, Administer over 8 Hours, CONTINUOUS PRN, Starting on Thu07/23/20 at 0752, Until Thu07/23/20 at 1141, Anesthesia Intra-op, Routine New Bag 2020 7:52 AM EST 1 mg/kg/hr 0.987 mL/hr tranexamic acid (Cyklokapron) (100 mg/mL) IV bolus Intravenous, Administer over 8 Hours, PRN, Starting on Thu07/23/20 at 0752, Until Thu07/23/20 at 1141, Anesthesia Intra-op, Routine Given 2020 7:52 AM EST 987 mg vecuronium (Norcuron) injection Intravenous, PRN, Starting on Thu07/23/20 at 0730, Until Thu07/23/20 at 1141, Anesthesia Intra-op, Routine Given 2020 9:05 AM EST 5 mg Given 2020 7:32 AM EST 5 mg Given 2020 7:30 AM EST 10 mg documented in this encounter Care Teams Apple Picking Supervisor Relationship Specialty Start Date End Date Mayank Mohamud DO [address] [place] [address] PCP - General Family Medicine 07/23/20 documented as of this encounter
--- OUTSIDE RECORDS SUMMARY | 2024-02-03 21:16 | XMS_ITS | Encounter Summary ---
Author Organization [facility] Address [facility] [place] [address] Care Team Providers Care Mat Machine Tender Name Role Phone None Primary Care Provider Unavailabl e Encounter Details Date Type Department Care Team (Late st Contact Info) Description 07/11/2020 1:30 PM EST Clinical Support Same Day at [facility] [place] [address] Social History Tobacco Use Types Packs/Day Years Used Date Smoking Tobacco: Former Cigarettes 965 1989 Smokeless Tobacco: Never Alcohol Use Standard Drinks/Week Comments Yes 6 (1 standard drink = 0.6 oz pur e alcohol) social Sex and Gender Information Value Date Recorded Sex Assigned at Not on file Gender Identity Not on file Sexual Orientation Not on file documented as of this encounter Progress Notes * Christine Deleon, RN - 07/11/2020 1:30 PM EST PAT questionnaire reviewed with patient and daughter charito while in Pre Admission testing. Pt has had anesthesia in the past. Pre-operative instruction booklet reviewed with patient. Reviewed importance of pain control and cough and deep breathing exercise during the post-operative period. Instructed patient on use of Hibiclens soap to shower with the night before surgery or the morning of surgery. Pt verbalizes good understanding of all information reviewed. Pt received Cardiac Surgery folder and DVD. Pt to bring booklet and DVD in overnight bag. PLAN Testing: Type and screen, other labs, sent to for CXR Special medication instructions: Continue aspirin Procedure date: Not booked Dr Woodson Pre Surgery Covid screening: Were you diagnosed with COVID 19 or had symptoms consistent with COVID19 within the last 3 months. No documented in this encounter Plan of Treatment Not on file documented as of this encounter Visit Diagnoses Not on filedocumented in this encounter Care Teams Mat Machine Tender Relationship Specialty Start Date End Date None None PCP - General 06/13/19 07/22/20 documented as of this encounter
--- OUTSIDE RECORDS SUMMARY | 2024-02-03 21:16 | XMS_ITS | Encounter Summary ---
Author Organization [facility] Address [facility] [place] [address] Care Team Providers Care Robotic Technician Name Role Phone None Primary Care Provider Unavailabl e Encounter Details Date Type Department Care Team (Late st Contact Info) Description 06/13/2019 3:05 PM EST Anesthesia Event Main Operating Room [facility] [place] [address] Aston De La Torre MD [facility] [place] [address] Nicole Arroyo MD [facility] [place] [address] Anesthesia Record Procedure Summary Procedure Name Responsible Anesthesiologist Anesthesia Start Time Anesthesia Stop Time VITRECTOMY, W/ MEMBRANE STRIPPING (WRVU 16.33) (Right: Eye) Aston De La Torre MD 06/13/19 1505 06/13/19 1607 Events Date Time Event Comment 06/13/2019 1422 1505 Start 1508 AN Verify 1508 An Start Data 1514 Anesthesia Ready 1518 Quick Note Block performed by Dr. Rosales. 1528 Procedure Start 1558 Procedure Stop 1602 an stop data 1604 Recovery or ICU Handoff Annalee ent care was transferred to the destination unit staff after review of the patient's medical history, current anesthetic/surgical status and plan, according to the Provider Handoff Checklist. 1607 Stop Meds Name Total Midazolam 2 mg fentaNYL 50 mcg IV Lidocaine 40 mg Propofol 90 mg Dexmedetomidine 4 mcg Lactated Ringers 500 mL * Agents Name O2 Air N2O O2 Auxiliary Flowmeter 1 * Blood No blood administrations on file. Lines, Drains, and Airways Type Details Placement Removal (RETIRED) Peripheral IV Line - Single Lumen 06/13/19; 1408; metacarpal vein (top of hand), right; hyod-ezi-rorhpq catheter system; 20 gauge; CHIP,RN; tolerated well; no longer indicated; 06/13/19; 1645 06/13/19 1408 by Tanika Mendez RN 06/13/19 1645 by Yen Kenyon RN Incision 06/13/19; 1528; eye; LDA not present upon assessment; 07/26/20; 1149 06/13/19 1528 by Antonia Boateng RN 07/26/20 1149 by Denisha Carias RN documented in this encounter Social History [...] OR Notes * Anesthesia Postprocedure Evaluation - Aston De La Torre MD - 06/13/2019 4:15 PM EST Department of Anesthesiology Post-procedure Note Patient: Lizandro Heath Procedure Summary Date: 06/13/19 Room / Location: [facility] OR [address] [place] [address] MAIN OR Anesthesia Start: 1505 Anesthesia Stop: 1607 Procedure: VITRECTOMY, W/ MEMBRANE STRIPPING (WRVU 16.33) (Right Eye) Diagnosis: Epiretinal membrane, right (epiretinal membrane, left eye) Surgeon: Yinka Rosales MD Responsible Provider: Aston De La Torre MD Anesthesia Type: MAC ASA Status: 2 All Anesthesia Providers: Anesthesiologist: Aston De La Torre MD INTELLIGENCE GROUP SUPERVISOR: Arleen Starks CRNA Vitals Value Taken Time BP Temp Pulse Resp SpO2 Pain Level Patient Location: [facility] Level of Consciousness: Awake and Alert Pain Management: Satisfactory Analgesia PONV: None Cardiovascular Status: At Baseline and Hemodynamically Stable Respiratory Status: At Baseline, Room Air and Stable Respiratory Status Postoperative Fluid Status: Possible Anesthetic Complications: NONE apparent at time of evaluation Final Primary Anesthesia Type: MAC (The anesthetic type performed was the same as planned.) Comments: * Anesthesia Preprocedure Evaluation - Aston De La Torre MD - 06/12/2019 12:52 PM EST Pre-Anesthesia Evaluation for: Lizandro Heath a 73 y.o. male. Procedure(s): VITRECTOMY, W/ MEMBRANE STRIPPING (WRVU 16.33) There are no active problems to display for this patient. Past Medical History: Diagnosis Date ??? Cataract ??? Hypertension Past Surgical History: Procedure Laterality Date ??? RETINOPATHY SURGERY Left 04/01/2019 Laser for retinal tear - DM Social History Tobacco Use ??? Smoking status: Former Smoker Years: 25.00 ??? Smokeless tobacco: Former User Substance Use Topics ??? Alcohol use: Yes Comment: social Social History Substance and Sexual Activity Drug Use Never Allergies Allergen Reactions ??? Ibuprofen Medications: MAR and/or home medications have been reviewed. Physical Exam: There were no vitals filed for this visit. There is no height or weight on file to calculate BMI. Airway Assessment: Mallampati: III TM distance: >3 FB Neck ROM: full Cardiovascular Assessment: Rate: normal Pulmonary Assessment: breath sounds clear to auscultation Dental Assessment: - normal exam Misc Assessment: IV access: Peripheral line Anesthesia Plan: ASA 2 MAC, with a(n) intravenous induction Lizandro Heath is a 73yo male with no weight on file, here for vitrectomy of the RIGHT eye. PMHsignificant for HTN, BMI 33. NPO status: appropriate All pertinent labs and imaging reviewed. Allergies reviewed. Plan MAC. Region - Other Informed Consent: Anesthetic plan and risks discussed with patient. Plan discussed with INTELLIGENCE GROUP SUPERVISOR and attending. PAT Clinic Note documented in this encounter Plan of Treatment Not on file documented as of this encounter Visit Diagnoses Not on filedocumented in this encounter Administered Medications Inactive Administered Medications - up to 3 most recent administrations Medication Order MAR Action Action Date Dose Rate Site dexmedetomidine (PRECEDEX) injection PRN, Starting on Thu06/13/19 at 1545, Until Thu06/13/19 at 1607, Anesthesia Intra-op, Routine Given 06/13/2019 3:45 PM EST 4 mcg fentaNYL 50 mcg/mL multi-dose injection PRN, Starting on Thu06/13/19 at 1553, Until Thu06/13/19 at 1607, Anesthesia Intra-op, Routine Given 06/13/2019 3:54 PM EST 25 mcg Given 06/13/2019 3:53 PM EST 25 mcg lactated ringers infusion CONTINUOUS PRN, Starting on Thu06/13/19 at 1508, Until Thu06/13/19 at 1607, Anesthesia Intra-op New Bag 06/13/2019 3:08 PM EST lidocaine (PF) (XYLOCAINE) 100 mg/5 mL (2 %) injection PRN, Starting on Thu06/13/19 at 1516, Until Thu06/13/19 at 1607, Anesthesia Intra-op, Routine Given 06/13/2019 3:16 PM EST 40 mg midazolam (PF) (VERSED) multi-dose injection PRN, Starting on Thu06/13/19 at 1508, Until Thu06/13/19 at 1607, Anesthesia Intra-op, Routine Given 06/13/2019 3:16 PM EST 1 mg Given 06/13/2019 3:08 PM EST 1 mg propofol (DIPRIVAN) 10 mg/mL bolus injection (Anesthesia) PRN, Starting on Thu06/13/19 at 1516, Until Thu06/13/19 at 1607, Anesthesia Intra-op Given 06/13/2019 3:43 PM EST 20 mg Given 06/13/2019 3:18 PM EST 20 mg Given 06/13/2019 3:17 PM EST 20 mg documented in this encounter Care Teams Robotic Technician Relationship Specialty Start Date End Date None None PCP - General 06/13/19 07/22/20 documented as of this encounter
--- OUTSIDE RECORDS SUMMARY | 2024-02-03 21:16 | XMS_ITS | Encounter Summary ---
Author Organization [facility] Address [facility] [place] [address] Care Team Providers Care Cut Off Machine Helper Name Role Phone None Primary Care Provider Unavailabl e Encounter Details Date Type Department Care Team (Late st Contact Info) Description 06/13/2019 2:49 PM EST - 06/13/2019 4:34 PM EST Surgery Main Operating Room [facility] [place] [id number] Yinka Rosales [place] [facility] [place] [address] VITRECTOMY, W/ MEMBRANE STRIPPING (WRVU 16.33) Social History Tobacco Use Types Packs/Day Years [...] Sign Reading Time Taken Comments Blood Pressure 120/72 06/13/2019 4:30 PM EST Pulse 72 06/13/2019 4:30 PM EST Temperature 37 ??C (98.6 ??F) 06/13/2019 4:12 PM EST Respiratory Rate 16 06/13/2019 4:30 PM EST Oxygen Saturation 98% 06/13/2019 4:30 PM EST Inhaled Oxygen Concentration - - Weight 111.1 kg (245 lb) 06/13/2019 1:59 PM EST Height 182.9 cm (6') 06/13/2019 1:59 PM EST Body Mass Index 33.23 06/13/2019 1:59 PM EST documented in this encounter Discharge Instructions * Patient Instructions* Yinka Rosales MD - 06/13/2019 2:51 PM EST DROPS: Please keep the patch on the operated eye and do NOT use any eye drops on the operated eye the first day after the surgery. You will start them right after your post-op day 1 exam. Please continue using the standard eye drops in the other eye (if you already use any) POSITIONING: No special positioning WARNING SYMPTOMS People frequently feel mild-moderate discomfort that improves within a few days. Eyelid edema and redness are also common for a few weeks. However, if you feel new pain, tenderness, light sensitivity and vision loss please call the [facility] center ([phone]) immediately and speak to the surface boss applications development analyst. PAIN May use over the counter pain medications as needed (Tylenol 1000mg- up to 3 times daily) alternating with ibuprofen (600mg up to 3 times per day) EYE SHIELD: Keep eye shield on the eye overnight. OTHERS Avoid lifting heavy weights for 1 week (i.e. Not more than 5-10 lbs) Avoid high impact activities (e.g. Weight lifting, running) for at least 1 week Avoid straining- valsalva, retching, vomiting, coughing as much as possible FLIGHTS: Do NOT take any flights until you discuss it with your doctor. There's severe risk for the eye if you're in areas of high altitude (flight, very tall mountains etc) documented in this encounter Medications at Time [...] 2 times daily as needed for Itching. acetaminophen (Tylenol) 325 mg Tablet Take 650 mg by mouth daily. 07/28/2020 lisinopril (PRINIVIL;ZESTRIL) 10 mg Tablet Take 10 mg by mouth daily. 07/28/2020 documented as of this encounter H&P Notes * Yinka Rosales MD - 06/13/2019 2:50 PM EST Patient Name: Lizandro Heath Patient Age: 73 y.o. Birthdate: 1945 Admit date: 06/13/2019 Attending Physician: Yinka Rosales MD History and Physical Reviewed. No changes noted. Ok to proceed with eye surgery as planned. documented in this encounter Miscellaneous Notes * Op Note - Yinka Rosales MD - 06/13/2019 2:51 PM EST [facility] Operative Note Patient Name: Lizandro Heath : [id number] MR#: [id number] Case Date: 06/13/2019 Surgeon: Surgeon(s) and Role: * Yinka Rosales MD - Primary Preoperative diagnosis: Epiretinal membrane, left eye Postoperative diagnosis: Epiretinal membrane, left eye Procedure(s) (LRB): VITRECTOMY, W/ MEMBRANE STRIPPING (WRVU 16.33) (Right) Anesthesia: MAC Estimated Blood Loss: * No values recorded between 06/13/2019 12:00 AM and 06/13/2019 2:51 PM * Specimens removed during surgery: None Drains: * No LDAs found * Surgical Closure: Primary Closure - skin incision is completely closed without any wires, erin, drains or other devices Disposition: regional anesthesia administered without incident Condition: doing well without problems (Please see the Surgical Encounter Summary for any Implant and Specimen details pertinent to this patient.) HPI/Surgical Indications: Blurred vision and distortion due to epiretinal membrane, right eye Procedure Description: Lizandro Heath is a 73 y.o. male with blurred vision and metamorphopsia due to severe epiretinal membrane and a decision was made to proceed with vitrectomy to improve the quality of the vision. The patient was brought to the operative suite at the [facility] where a time-out was done to confirm correct eye, correct patient, and correct procedure. The patient was sedated and peribulbar anesthesia was given using 50:50 of 4% lidocaine and 0.75% marcaine. The right eye was prepped and draped in the normal sterile fashion for intraocular surgery and a wire lid speculum was used throughout the case to retract the eyelids. Using the Mathew 25-gauge vitrectomy system, trocars were placed in the inferotemporal, superotemporal and superonasal quadrants approximately 4 mm from the limbus. An infusion cannula was placed in the inferotemporal quadrant and its position was confirmed by direct visualization with the light pipe before it was turned on. Using the vitrector and the light pipe, the eye was entered and close examination of the macula revealed an epiretinal membrane. A 360 core vitrectomy was performed and the vitreous was shaved out to the base as safely as possible. The epiretinal membrane was stained with ICG. A flex loop was used to initiate the membrane peeling and the epiretinal membrane as well as parts of the inner limiting membrane were removed en block using ILM forceps. Additional manipulations for ILM removal were not attempted in order to minimize the risk for inadvertent damage of the retinal nerve fiber layers. Attention was placed to the periphery and scleral depressed exam did not reveal any retinal breaks. Each of the trocars was removed sequentially, the sclerotomies were closed with 8-0 vicryl suture and the eye was left adequately pressurized, air and watertight. Subconjunctival injection of cefazolin (100mg/0.3ml) as well as a peribulbar injection of marcaine 0.75% were given. A drop of vigamox and antibiotic ointment were placed in the eye followed by a patch and shield. The patient was awokenfrom sedation, positioned appropriately and brought to the recovery room in stable condition.They have follow up in the retina clinic in 1 day. Infection Bundle used? No Attestation: Case Date: 06/13/2019 I performed this procedure without the involvement of a resident. Yinka Rosales MD 06/13/2019 documented in this encounter Plan of Treatment Not on file documented as of this encounter Procedures Procedure Name Priority Date/Time Associated Diagnosis Comments Vitrectomy [place]ana Remove Preretinal Membrane (41610) 06/13/2019 3:08 PM EST Epiretinal membrane, right documented in this encounter Visit Diagnoses Diagnosis Epiretinal membrane, right documented in this encounter Administered Medications Inactive Administered Medications - up to 3 most recent administrations Medication Order MAR Action Action Date Dose Rate Site acetaminophen (Tylenol) tablet 1,000 mg 1,000 mg, Oral, ONCE, 1 dose, On Thu06/13/19 at 1415, Administer with SIP of H2O only., Day of Surgery (Day of Procedure), Routine Given 06/13/2019 2:15 PM EST 1,000 mg atropine 1 % ophthalmic solution 1 drop 1 drop, Right Eye, EVERY 5 MIN, 3 doses, First dose on Thu06/13/19 at 1415, Last dose on Thu06/13/19 at 1425, Day of Surgery (Day of Procedure), Routine Given 06/13/2019 2:25 PM EST 1 drop Given 06/13/2019 2:20 PM EST 1 drop Given 06/13/2019 2:15 PM EST 1 drop balanced salt (BSS PLUS) irrigation solution ONCE PRN, Starting on Thu06/13/19 at 1538, Until Thu06/13/19 at 1903, Intra-Operative (Intra-Procedure), Routine Given 06/13/2019 3:38 PM EST 1 Bottle 19- Surgical Site balanced salt (BSS) irrigation solution ONCE PRN, Starting on Thu06/13/19 at 1539, Until Thu06/13/19 at 1903, Intra-Operative (Intra-Procedure), Routine Given 06/13/2019 3:39 PM EST 2 Bottles 19- Surgical Site BUpivacaine (PF) (MARCAINE) 0.75 % (7.5 mg/mL) injection ONCE PRN, Starting on Thu06/13/19 at 1520, Until Thu06/13/19 at 1903, Intra-Operative (Intra-Procedure), Routine Given 06/13/2019 4:00 PM EST 1.5 mLs 19- Surgical Site Given 06/13/2019 3:20 PM EST 2.5 mLs 19 - Surgical Site ceFAZolin (Ancef) injection ONCE PRN, Starting on Thu06/13/19 at 1539, Until Thu06/13/19 at 1903, Intra-Operative (Intra-Procedure), Routine Given 06/13/2019 3:39 PM EST 100 mg 19- Surgical Site indocyanine green (IC-GREEN) injection ONCE PRN, Starting on Thu06/13/19 at 1540, Until Thu06/13/19 at 1903, Intra-Operative (Intra-Procedure), Routine Given 06/13/2019 3:40 PM EST 0.1 mg 19- Surgical Site lactated ringers infusion 1,000 mL, at 100 mL/hr, Intravenous, CONTINUOUS, Starting on Thu06/13/19 at 1415, Until Thu06/13/19 at 1903, Day of Surgery (Day of Procedure) New Bag 06/13/2019 2:15 PM EST 1,000 mLs 100 mL/hr lidocaine (XYLOCAINE) 10 mg/mL (1 %) injection 3 mg 3 mg (0.3 mL), Subcutaneous, ONCE PRN, 1 dose, Starting on Thu06/13/19 at 1351, Until Thu06/13/19 at 1903, for discomfort with PIV insertion, Day of Surgery (Day of Procedure), Routine lidocaine (XYLOCAINE) 20 mg/mL (2 %) injection ONCE PRN, Starting on Thu06/13/19 at 1609, Until Thu06/13/19 at 1903, Intra-Operative (Intra-Procedure), Routine Given 06/13/2019 4:10 PM EST 1.5 mLs 19- Surgical Site Given 06/13/2019 4:09 PM EST 2.5 mLs 19 - Surgical Site moxifloxacin (VIGAMOX) 0.5 % ophthalmic solution 1 drop 1 drop, Right Eye, EVERY 5 MIN, 3 doses, First dose on Thu06/13/19 at 1415, Last dose on Thu06/13/19 at 1425, Day of Surgery (Day of Procedure), Routine Given 06/13/2019 2:25 PM EST 1 drop Given 06/13/2019 2:20 PM EST 1 drop Given 06/13/2019 2:15 PM EST 1 drop moxifloxacin (VIGAMOX) 0.5 % ophthalmic solution ONCE PRN, Starting on Thu06/13/19 at 1541, Until Thu06/13/19 at 1903, Intra-Operative (Intra-Procedure), Routine Given 06/13/2019 3:41 PM EST 1 drop xmgxwkmb-wfffalseh-esunrjlyzkiyd (DEXACINE) 3.5 mg/g-10,000 unit/g-0.1 % ophthalmic ointment ONCE PRN, Starting on Thu06/13/19 at 1541, Until Thu06/13/19 at 1903, Intra-Operative (Intra-Procedure), Routine Given 06/13/2019 3:41 PM EST 0.25 Tubes PHENYLephrine (MYDFRIN) 2.5 % ophthalmic solution 1 drop 1 drop, Right Eye, EVERY 5 MIN, 3 doses, First dose on Thu06/13/19 at 1415, Last dose on Thu06/13/19 at 1425, Day of Surgery (Day of Procedure), Routine Given 06/13/2019 2:25 PM EST 1 drop Given 06/13/2019 2:20 PM EST 1 drop Given 06/13/2019 2:15 PM EST 1 drop povidone-iodine 5 % ophthalmic solution ONCE PRN, Starting on Thu06/13/19 at 1520, Until Thu06/13/19 at 1903, Intra-Operative (Intra-Procedure), Routine Given 06/13/2019 3:20 PM EST 30 mLs prednisoLONE acetate (PRED FORTE) 1 % ophthalmic suspension 1 drop 1 drop, Right Eye, ONCE, 1 dose, On Thu06/13/19 at 1415, Day of Surgery (Day of Procedure), Routine Given 06/13/2019 2:15 PM EST 1 drop sodium chloride 0.9 % (flush) flush 5-20 mL 5-20 mL, Intravenous, EVERY 1 MIN PRN, Starting on Thu06/13/19 at 1351, Until Thu06/13/19 at 1903, flush, Flush pertains to all indwelling lines. Flush per protocol found in the job aid using the link provided on this medication record., Day of Surgery (Day of Procedure), Routine Sodium Hyaluronate Syrg ONCE PRN, Starting on Thu06/13/19 at 1542, Until Thu06/13/19 at 1903, Intra-Operative (Intra-Procedure) Given 06/13/2019 3:42 PM EST 1 each 19- Surgical Site tetracaine (PF) (PONTOCAINE) ophthalmic solution ONCE PRN, Starting on Thu06/13/19 at 1520, Until Thu06/13/19 at 1903, Intra-Operative (Intra-Procedure), Routine Given 06/13/2019 3:20 PM EST 1 drop documented in this encounter Active and Recently Administered Medications Times are shown in EST. Scheduled Medication Order 06/11/2019 06/12/2019 06/13/2019 acetaminophen (Tylenol) tablet 1,000 mg (COMPLETED) 1,000 mg, Oral, ONCE, 1 dose, On Thu06/13/19 at 1415, Administer with SIP of H2O only., Day of Surgery (Day of Procedure), Routine 1415 (Given - Provid er: Tata Elaine RN) atropine 1 % ophthalmic solution 1 drop (COMPLETED) 1 drop, Right Eye, EVERY 5 MIN, 3 doses, First dose on Thu06/13/19 at 1415, Last dose on Thu06/13/19 at 1425, Day of Surgery (Day of Procedure), Routine 1415 (Given - Provid er: Tanika Mendez RN)1420 (Given - Provider: Tanika Mendez RN)1425 (Given - Provider: Tanika Mendez RN) moxifloxacin (VIGAMOX) 0.5 % ophthalmic solution 1 drop (COMPLETED) 1 drop, Right Eye, EVERY 5 MIN, 3 doses, First dose on Thu06/13/19 at 1415, Last dose on Thu06/13/19 at 1425, Day of Surgery (Day of Procedure), Routine 1415 (Given - Provid er: Tanika Mendez RN)1420 (Given - Provider: Tanika Mendez RN)1425 (Given - Provider: Tanika Mendez RN) PHENYLephrine (MYDFRIN) 2.5 % ophthalmic solution 1 drop (COMPLETED) 1 drop, Right Eye, EVERY 5 MIN, 3 doses, First dose on Thu06/13/19 at 1415, Last dose on Thu06/13/19 at 1425, Day of Surgery (Day of Procedure), Routine 1415 (Given - Provid er: Tanika Mendez RN)1420 (Given - Provider: Tanika Mendez RN)1425 (Given - Provider: Tanika Mendez RN) prednisoLONE acetate (PRED FORTE) 1 % ophthalmic suspension 1 drop (COMPLETED) 1 drop, Right Eye, ONCE, 1 dose, On Thu06/13/19 at 1415, Day of Surgery (Day of Procedure), Routine 1415 (Given - Provid er: Tanika Mendez RN) Continuous Medication Order 06/11/2019 06/12/2019 06/13/2019 lactated ringers infusion 1,000 mL, at 100 mL/hr, Intravenous, CONTINUOUS, Starting on Thu06/13/19 at 1415, Until Thu06/13/19 at 1903, Day of Surgery (Day of Procedure) 1415 ([facility] ider: Tanika Mendez RN) PRN Medication Order 06/11/2019 06/12/2019 06/13/2019 acetaminophen (Tylenol) tablet 650 mg 650 mg, Oral, EVERY 4 HOURS PRN, Starting on Thu06/13/19 at 1607, Until Thu06/13/19 at 1903, Pain, for MILD pain (1-3), Do not exceed 4,000 mg in 24 hours, Routine balanced salt (BSS PLUS) irrigation solution (CANCELED) ONCE PRN, Starting on Thu06/13/19 at 1538, Until Thu06/13/19 at 1903, Intra-Operative (Intra-Procedure), Routine 1538 (Given - Provid er: Yinka Rosales MD) balanced salt (BSS) irrigation solution (CANCELED) ONCE PRN, Starting on Thu06/13/19 at 1539, Until Thu06/13/19 at 1903, Intra-Operative (Intra-Procedure), Routine 153 (Given - Provid er: Yinka Rosales MD) BUpivacaine (PF) (MARCAINE) 0.75 % (7.5 mg/mL) injection (CANCELED) ONCE PRN, Starting on Thu06/13/19 at 1520, Until Thu06/13/19 at 1903, Intra-Operative (Intra-Procedure), Routine 1520 (Given - Provid er: Yinka Rosales MD)1600 (Given - Provider: Yinka Rosales MD) ceFAZolin (Ancef) injection (CANCELED) ONCE PRN, Starting on Thu06/13/19 at 1539, Until Thu06/13/19 at 1903, Intra-Operative (Intra-Procedure), Routine 1539 (Given - Provid er: Yinka Rosales MD - Comment: post op subconjunctival block) indocyanine green (IC-GREEN) injection (CANCELED) ONCE PRN, Starting on Thu06/13/19 at 1540, Until Thu06/13/19 at 1903, Intra-Operative (Intra-Procedure), Routine 1540 (Given - Provid er: Yinka Rosales MD - Comment: 25mg icg mixed with 0.5ml sterile water and 24.5ml D5W then 0.1ml given intraocular) lidocaine (XYLOCAINE) 10 mg/mL (1 %) injection 3 mg 3 mg (0.3 mL), Subcutaneous, ONCE PRN, 1 dose, Starting on Thu06/13/19 at 1351, Until Thu06/13/19 at 1903, for discomfort with PIV insertion, Day of Surgery (Day of Procedure), Routine lidocaine (XYLOCAINE) 20 mg/mL (2 %) injection (CANCELED) ONCE PRN, Starting on Thu06/13/19 at 1609, Until Thu06/13/19 at 1903, Intra-Operative (Intra-Procedure), Routine 1609 (Given - Provid er: Yinka Rosales MD - Comment: retrobulbar block)1610 (Given - Provider: Yinka Rosales MD - Comment: subtenon's block) moxifloxacin (VIGAMOX) 0.5 % ophthalmic solution (CANCELED) ONCE PRN, Starting on Thu06/13/19 at 1541, Until Thu06/13/19 at 1903, Intra-Operative (Intra-Procedure), Routine 154 (Given - Provid er: Yinka Rosales MD - Comment: post op) rnyifvwg-gvopmkufx-owrsiwgykcr ne (DEXACINE) 3.5 mg/g-10,000 unit/g-0.1 % ophthalmic ointment (CANCELED) ONCE PRN, Starting on Thu06/13/19 at 1541, Until Thu06/13/19 at 1903, Intra-Operative (Intra-Procedure), Routine 154 (Given - Provid er: Yinka Rosales MD - Comment: post op) povidone-iodine 5 % ophthalmic solution (CANCELED) ONCE PRN, Starting on Thu06/13/19 at 1520, Until Thu06/13/19 at 1903, Intra-Operative (Intra-Procedure), Routine 1520 (Given - Provid er: Leah Littlejohn RN - Comment: prep) sodium chloride 0.9 % (flush) flush 5-20 mL 5-20 mL, Intravenous, EVERY 1 MIN PRN, Starting on Thu06/13/19 at 1351, Until Thu06/13/19 at 1903, flush, Flush pertains to all indwelling lines. Flush per protocol found in the job aid using the link provided on this medication record., Day of Surgery (Day of Procedure), Routine Sodium Hyaluronate Syrg (CANCELED) ONCE PRN, Starting on Thu06/13/19 at 1542, Until Thu06/13/19 at 1903, Intra-Operative (Intra-Procedure) 1542 (Given - Provid er: Yinka Rosales MD) tetracaine (PF) (PONTOCAINE) ophthalmic solution (CANCELED) ONCE PRN, Starting on Thu06/13/19 at 1520, Until Thu06/13/19 at 1903, Intra-Operative (Intra-Procedure), Routine 1520 (Given - Provid er: Leah Littlejohn RN - Comment: before prep) documented in this encounter Care Teams Cut Off Machine Helper Relationship Specialty Start Date End Date None None PCP - General 06/13/19 07/22/20 documented as of this encounter
--- OUTSIDE RECORDS SUMMARY | 2024-02-03 21:16 | XMS_ITS | Encounter Summary ---
Author Organization [facility] [place] [address] Care Team Providers Care Medical Malpractice Paralegal Name Role Phone Mayank Mohamud DO Primary Care Provider [phone] Encounter Details Date Type Department Care Team (Late st Contact Info) Description 07/12/2020 Telephone [facility] [place] [phone] Caity Barragan Social History Tobacco Use Types Packs/Day Years [...] encounter Miscellaneous Notes * Telephone Encounter - Caity Barragan - 07/12/2020 1:56 PM EST 1. ASK: TRAVEL ???Have you travelled outside of [place] ([place], [place], [place], [place], [place] in the past 14 days??? 2. ASK: EXPOSURE Have you been in contact with anyone suspected or confirmed to have COVID-19 in the past 14 days??? 3. ASK: SYMPTOMS Do you have any new or worsening symptoms on this list that are not related to another medical condition? Fever or chills ?? Cough ?? Shortness of breath or difficulty breathing ?? Fatigue ?? Muscle or body aches ?? Headache ?? Loss of taste or smell ?? Sore throat ?? Congestion or runny nose ?? Nausea or vomiting ?? Diarrhea If 'Yes' to any of the questions above Transfer patient to the Covid-19 Hotline Number ([phone]) for further instructions. If 'No' to all of the questions above Is this the first test for Covid 19 No, [facility] Jun neg If no, please list date of previous test, result, and type of test (Molecular, Antigen, Antibody orunknown): Resides in Nursing/senior care or other residential setting No Employee or Household Member of Employee No Healthcare Worker No Telephone call placed/received to schedule Covid 19 testing with patient. Ordering provider: Dr Joshua Ledesma Testing Facility: [facility] Date of Testin/5 Time of Testin:45am Symptoms: no Give directions to testing facility. All passengers in the vehicle MUST wear a mask. Leave dogs/pets at home or have them crated/behind a net. documented in this encounter Plan of Treatment Not on file documented as of this encounter Visit Diagnoses Not on filedocumented in this encounter Care Teams Medical Malpractice Paralegal Relationship Specialty Start Date End Date Mayank Mohamud DO [address] [place] [address] [place] [address] PCP - General Family Medicine 07/23/20 documented as of this encounter
--- OUTSIDE RECORDS SUMMARY | 2024-02-03 21:16 | XMS_ITS | Referral Summary ---
Author Organization [facility] Address [address] [place] [id number] Care Team Providers Care Countersinker Balance Screw Hole Name Role Phone Unknown, Provider Primary Care Provider Social History Tobacco Use Types Packs/Day Years Used Date Smoking Tobacco: Never Assessed Sex and Gender Information Value Date Recorded Sex Assigned at Not on file Gender Identity Not on file Sexual Orientation Not on file Plan of Treatment Not on file Care Teams Countersinker Balance Screw Hole Relationship Specialty Start Date End Date Unknown, Provider, PCP - General 09/06/08
--- OUTSIDE RECORDS SUMMARY | 2024-02-03 21:16 | XMS_ITS | Encounter Summary ---
Author Organization [facility] [place] [address] Care Team Providers Care Customer Relations Advisor Name Role Phone Unavailable Primary Care Provider Unavailabl e Reason for Visit * Reason Onset Date Comments Appointment 04/04/2019 Surgical Schedul ing Encounter Details Date Type Department Care Team (Late st Contact Info) Description 04/04/2019 Telephone Ophthalmology at [facility] [place] [phone] Yinka Rosales MD [facility] [place] [address] Appointment (Surgical Scheduling) Social History Tobacco Use Types Packs/Day Years [...] encounter Miscellaneous Notes * Telephone Encounter - Genie Kwong - 04/04/2019 1:13 PM EST LM for patient to call back to schedule surgery. documented in this encounter Plan of Treatment Not on file documented as of this encounter Visit Diagnoses Not on filedocumented in this encounter
--- OUTSIDE RECORDS SUMMARY | 2024-02-03 21:16 | XMS_ITS | Encounter Summary ---
Author Organization [facility] Address [facility] [place] [address] Care Team Providers Care Lead Nurse Name Role Phone None Primary Care Provider Unavailabl e Encounter Details Date Type Department Care Team (Latest Contact Info) Description 07/11/2020 2:44 PM EST - 07/11/2020 11:59 PM EST Hospital Encounter XRay at [address] [place] [address] Joshua Ledesma MD Coronary artery disease of [place] heart with stable angina pectoris, unspecified vessel or lesion type Discharge Disposition: Home Social History Tobacco Use [...] 2 times daily as needed for Itching. chlorhexidine (HIBICLENS) 4 % Liquid Apply topically daily as needed. Shower from head to toe with Chlorhexidine the night before surgery . 120 mL 07/11/2020 07/28/2020 docosahexaenoic acid/epa (FISH OIL ORAL) Take 1,000 mg by mouth daily. 07/28/2020 UNKNOWN TO PATIENT noe has 6-8 oz in his coffee daily 07/28/2020 [id number] #[id number] (Urinozinc Prostate Formula Pls) 100 mg Tablet Take by mouth. 07/28/2020 metoprolol succinate XL (Toprol-XL) 25 mg Tablet Sustained Release 24 hr 06/13/2020 07/28/2020 nitroGLYcerin (Nitrostat) 0.4 mg Tablet, Sublingual 06/01/2020 acetaminophen (Tylenol) 325 mg Tablet Take 650 mg by mouth daily. 07/28/2020 lisinopril (PRINIVIL;ZESTRIL) 10 mg Tablet Take 10 mg by mouth daily. 07/28/2020 documented as of this encounter Plan of Treatment Not on file documented as of this encounter Procedures Procedure Name Priority Date/Time Associated Diagnosis Comments XR CHEST PA AND LATERAL Routine 07/11/2020 2:52 PM EST Coronary artery disease of [place] heart with stable angina pectoris, unspecified vessel [...] ? Electronically signed by: Martha Casanova MD, [facility] ([phone]), at 07/11/2020 2:58 PM Narrative 07/11/2020 2:58 [...] below. Electronically signed by: Martha Casanova MD, [facility]([phone]), at 07/11/2020 2:58 PM Joshua Ledesma MD IMG DX ORDERABLES documented in this encounter Visit Diagnoses Diagnosis Coronary artery disease of [place] heart with stable angina pectoris, unspecified vessel or lesion type documented in this encounter Care Teams Lead Nurse Relationship Specialty Start Date End Date None None PCP - General 06/13/19 07/22/20 documented as of this encounter
--- OUTSIDE RECORDS SUMMARY | 2024-02-03 21:16 | XMS_ITS | Encounter Summary ---
[place] [address] Care Team Providers Care Stone And Plate Preparer Apprentice Name Role Phone Unavailable Primary Care Provider Unavailabl e Encounter Details Date Type Department Care Team (Late st Contact Info) Description 04/16/2010 1:15 PM EST Office Visit Dermatology [address] [place] [address] [address] [place] [address] Som Scott MD [address] [place] [address] RD, [facility] [place], [place] [id number] Social History Tobacco Use Types Packs/Day Years [...]
--- OUTSIDE RECORDS SUMMARY | 2024-02-03 21:16 | XMS_ITS | Encounter Summary ---
Author Organization [facility] [place] [address] Care Team Providers Care Potato Chip Cooker Machine Name Role Phone Mayank Mohamud DO Primary Care Provider [phone] Reason for Visit * Auth/Cert Specialty Diagnoses [...] Expiration Date Visits Re quested Visits Authorized [id number] 1 1 Encounter Details Date Type Department Care Team (Late st Contact Info) Description 2020 7:30 AM EST - 2020 12:40 PM EST [place] [address] Joshua Ledesma MD @CABG, USING ARTERIAL GRAFT;SINGLE ARTERIAL GRAFT (WRVU 33.75) Social History Tobacco Use Types Packs/Day Years [...] Sign Reading Time Taken Comments Blood Pressure 130/83 2020 6:48 AM EST Pulse 80 2020 12:00 PM EST Temperature 35.3 ??C (95.5 ??F) 2020 12:[address] Respiratory Rate 14 2020 12:00 PM EST Oxygen Saturation 100% 2020 12:00 PM EST Inhaled Oxygen Concentration - - Weight 98.7 kg (217 lb 9.6 oz) 2020 6:48 A M EST Height 182.9 cm (6') 2020 6:48 AM EST Body Mass Index 30.02 2020 6:48 AM EST documented in this encounter Discharge Summaries * Azra Montgomery, FINANCIAL AID MANAGER - 07/28/2020 10:02 AM EST Inpatient - Discharge Summary Patient Name: Lizandro Heath Patient Age: 75 y.o. Birthdate: 1945 Language: Kiswahili Race: White Ethnicity: Not nor Admit Date: [...] wks with EKG. Inpatient Provider Contact Information: [facility] Section of Cardiac Surgery [facility] [address] FAX [phone] Discharge Diagnoses (Hospital Problems) Primary Diagnoses: CAD [...] murmur since age 14had echo done in [facility], 06/2020 ??? High blood pressure controlled with medication ??? Hypertension ??? Vertigo Past Surgical History: Procedure Laterality Date ??? PRO CABG, ARTERIAL, SINGLE N/A 2020 @CABG, USING ARTERIAL GRAFT;SINGLE ARTERIAL GRAFT (WRVU 33.75) performed by Joshua Ledesma MD at [facility] OR ??? PRO CABG, ARTERY-VEIN, THREE N/A 2020 @CABG; 3 VENOUS GRAFTS & ARTERIAL GRAFT (WRVU 10.49) performed by Joshua Ledesma MD at [facility] OR ??? PRO ENDOSCOPY W/VIDEO-ASST VEIN HARVEST, CABG Right 2020 ENDOSCOPIC HARVEST VEIN(S) FOR CABG (WRVU 0.31) performed by Joshua Ledesma MD at [facility] MAIN OR ??? PRO VITRECTOMY PARS PLANA REMOVE PRERETINAL MEMBRANE Right 06/13/2019 VITRECTOMY, W/ MEMBRANE STRIPPING (WRVU 16.33) performed by Yinka Rosales MD at [facility] OR ??? RETINOPATHY SURGERY Left 04/01/2019 Laser [...] coffee daily 07/20/2020 at Unknown time ??? ev-zq-gsuxob #[id number] (Urinozinc Prostate Formula Pls) 100 mg Tablet [...] (See Comments) Trouble swallowing and rash ??? Hqfyipt-Qga-Tla Reductase Inhibitors ??? Tegaderm [Transparent Dressings] Skin irritation History of Presentation: Lizandro Heath is a 75 y.o. year old male with symptoms of villatoro and angina that have been progressive. Major Procedures/Operations: 07/23/20: CABGx4 (REDDING to LAD, SVG to diag and om, svg to rca.) Hospital Course: CAD s/p CABGx4 Lizandro Heath was admitted to [facility] on 2020 via the Same Day [...] Post-Operative Atrial Fibrillation After CABG (PACES) PI: MD Lizandro Campoverde Sr has consented to participate in the NIH-sponsored PACeS study. This study randomizes patients 1:1 to receive oral anticoagulation with background antiplatelet therapy or antiplatelet therapy alone following new- onset post-op A-fib. Lizandro Heath has been randomized to NO ORAL ANTICOAGULATION. It is important that patients remain on their assigned anticoagulation/antiplatelet strategy for 90 days. Please contact the Heart and Vascular Research team at [phone] if you have any questions about the trial or wish to discuss the anticoagulation/antiplatelet management. Please visit www.clinicaltrials.gov and use the identifier [id number] to learn more about this study. Vital [...] Formula Pls 100 mg Tab Generic drug: nk-yp-bznsjf #[id number] Instructions Given to Patient at Discharge: General [...] Joshua Ledesma and/or the Cardiac Surgery Physician Able Bodied Seaman Team may be reached at . Weight: [...] Dr. Joshua Sanchez. You may use a [place] Track or treadmill but avoid any pulling [...] friends, go to a movie, go to jewish, etc. Heavy activities: No hunting, skiing, jogging, [...] should resume a low fat, low cholesterol, Japanese Heart Association Diet. Driving: No driving until [...] EKG before your appointment. Cardiac Rehabilitation: Lizandro Cruz Ivana was seen regarding participation in the outpatient Phase 2 Cardiac Rehabilitation at [facility]. The patient agrees to a referral to this program. 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 A referral will be sent at discharge and the patient should be contacted by the Program within 1- 2 weeks from discharge. Future Appointments and Orders Future Appointments and Orders Future Appointments Provider Department Dept Phone 08/21/2020 10:30 AM [facility] DX ROOM 2 XRay at [facility] Arrive at: Jigsaw Operator Area 3T [phone] Please go to Jigsaw Operator Area 3T ([place] Location). 08/21/2020 11:20 AM Joshua Ledesma MD Cardiac Surgery at [facility] Arrive at: Jigsaw Operator Area 4A [phone] 12/18/2020 8:15 AM Yinka Rosales MD; DILATION AND TEST, DM; TECHDRAKE Ophthalmology at [facility] Arrive at: Jigsaw Operator Area 4B [phone] Future Orders Complete By Expires EKG 12 Lead [17524 CPT(R)] 08/24/2020 10/24/2020 Process Instructions: Scheduling Instructions: POST OP VISIT EKG Questions: Which location will this be performed?: [place] Is a rhythm strip needed?: No XR Chest PA & Lateral (Generic) [11488 36466 Custom] 08/24/2020 10/24/2020 Process Instructions: Scheduling Instructions: Comments: Questions: Where will study be performed?: [facility] Radiology Portable exam?: No Reason for exam and clinical history: 1 month f/u s/p CABG Clinical information / minor questions: Stat read required?: Date of injury if applicable: Requested Time: Referral to Cardiac Rehab [CHL783 Custom] As directed Process Instructions: If no progress note charted, please enter Clinical details in comments. Scheduling Instructions: Questions: My question or request is: s/p CABG. Cardiac rehab at [facility]. Referral to Home Health - at DISCHARGE [IIO5526 CPT(R)] As directed Process Instructions: Scheduling Instructions: Comments: DOCUMENTATION FOR VNA SERVICES (INCLUDING THOSE PATIENTS WITH MEDICARE COVERAGE REQUIRING HOME VNA SERVICES AND/OR HOSPICE SERVICES) PATIENT'S LOCATION: Lizandro Cruz Ivana [address] [facility] [address] (home) No relevant phone numbers on file. Stroboscope Operator's Name: patient and MICHAEL Feliciano In discussion with the attending physician, it is certified that this patient is under their care and that they, or a Nurse Practitioner, or Physician Able Bodied Seaman who is working directly with them, hada [...] for services as follows: HOME HEALTH AGENCY: [facility]. PHONE: [phone] FAX: [phone] RN orders: Cardiopulmonary assessment, incisional assessment, assess [...] issues please call the Cardiac SurgeryOffice at [phone] FOR MEDICARE ONLY: (please delete this section [...] noted. Questions: Agency name and contact information: [facility] Patient location post discharge: home What services are requested: Registered Nurse Physical Therapy Start date: Responsible MD post discharge contact info: PCP Walker standard [EQ135 Custom] As directed Process Instructions: Scheduling Instructions: Comments: Lizandro Heath [address] [facility] [address] (home) No relevant phone numbers on file. Diagnosis:post op CABG with Unsteady gait Significant weakness, ataxia or gait abnormality Patient's: Hgt: 6 Wgt: 222 lbs VENDOR: [facility] Located @ [place], [place] Ordering: Front wheel walker Deliver to pt's hospital room #: 457A Questions: Vendor Name/Contact information: [facility] Arrangements for VNA/home care: As above. VN RN OR PCP TO PLEASE REMOVE CHEST TUBE SUTURES ON OR AFTER 08/02/2020 Signed: AZRA MONTGOMERY APRN [facility] Section of Cardiac Surgery [facility] [address] FAX [phone] Date: 07/28/2020 CC: DO Jerri Barone John E, MD [facility] [place] [address] documented in this encounter Discharge Instructions * Patient Instructions* Azra Montgomery APRN - 07/28/2020 10:05 AM EST Cardiac Surgery [...] Joshua Ledesma and/or the Cardiac Surgery Physician Able Bodied Seaman Team may be reached at . ?? [...] Dr. Joshua Sanchez. You may use a [place] Track or treadmill but avoid any pulling [...] friends, go to a movie, go to jewish, etc. ?? Heavy activities: No hunting, skiing, [...] should resume a low fat, low cholesterol, Japanese Heart Association Diet. ?? Driving: No driving [...] Patient to follow up with PCP, Mayank Mohamud, , in 1-2 weeks - please call to confirm and/orschedule your appointment. ?? You have an appointment with your Cardiac Surgeon, Dr. Joshua Ledesma, in ~4 weeks (on 08/21/2020) with chest x-ray, and EKG before your appointment. ?? Cardiac Rehabilitation: Lizandro Heath??was seen regarding participation in the outpatient Phase 2 Cardiac Rehabilitation at [facility]. The patient agrees to a referral to this program.? 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 AZRA MONTGOMERY, FINANCIAL AID MANAGER 07/27/2020 Between the hours of 1800 - 0600 and on the weekends please page [phone]. * Marilou Bates RN - 07/27/2020 10:55 AM EST CARE MANAGEMENT FINAL DISCHARGE NOTE Chart reviewed, care reviewed with primary team and at interdisciplinary rounds. Patient is medically ready for discharge 07/28/20. Needs for Transition of Care Plan for discharge is: Patient/Family Anticipated Services at Transition: home health care Agency Referrals: [facility]. 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 All are in agreement with plan. Due to current public health concerns, I have verbally reviewed Medicare Discharge Rights with patient. Patient verbalizes understanding of right to appeal this discharge if feeling not medically ready. Offered a copy of this letter. Marilou Bates, RN, MSN, um specialist Office of Care Management Pager: [phone] Work * Dionne Cerrato PTA - 07/27/2020 9:18 AM EST Physical Therapy Note Treatment Number PT: 2 Patient profile: Lizandro Cruz Sr Hanks??is a 75 y.o.??male??with CAD??who is 1 Day Post-Op??CABGx4. PMH of??HTN, HLD, former smoker, cataracts, RBBB, anxiety. Interval History: Per last cardiac surgery note on 07/26/2020 afib to SR yesterday afternoon DELOR[place] overnight Social History: Pt lives with his s.o. in a split level home with 10 stairs to enter with rail. 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 Pt reports his dtr and [...] reach RN aware following visit. Assessment: Lizandro Heath was seen today for physical therapy treatment [...] plan as stated. Time IN / OUT: 5299-3793 Total Minutes, Physical Therapy: 19(TEF 1) Dionne Norris PETR Cerrato Pager: [phone] Physical Therapy Inpatient Rehabilitation Department * Aide Doherty M - 07/27/2020 3:54 AM EST OUTCOME EVALUATION [...] Rate from SpO2: [71 bpm-102 bpm] 07/25 07 - 07/26 07 In: 475 [P.O.:475] Out: 3155 [Urine:3155] Admit [...] attending surgeon on rounds this morning. AZRA MONTGOMERY APRN 07/26/2020 Between the hours of 1800 - 0600 and on the weekends please page [phone]. * Azra Montgomery APRN - 07/25/2020 9:20 AM EST Cardiac Surgery [...] GI: reg diet, protonix, RBOs : d/c Hermilo Maria Del Carmen: k prn, lasix 20 iv bid Heme: ASA 81, Plavix 75 ID: periop abx complete, HOWARD Endo: nondiabetic Dispo: ICCU Full code Discussed with attending surgeon on rounds this morning. AZRA MONTGOMERY, FINANCIAL AID MANAGER 07/25/2020 Between the hours of 1800 - 0600 and on the weekends please page [phone]. * Lorrie Shook, PT - 07/24/2020 12:45 PM EST Physical Therapy Evaluation Patient profile: Lizandro Heath is a 75 y.o. male with CAD who is 1 Day Post-Op CABGx4. PMH of HTN, HLD, former smoker, cataracts, RBBB, anxiety. ?? 24h Events: From OR on levo and nitro Extubated 1530 Levo weaned off, nitro remained on at 30 [place] removed, last CI 2.4 PAP 20/8 CVP 4 Patient with the following active problems: Past Medical History: Diagnosis Date ??? Cataract ??? Claudication bilat leg aching after walking about 1/2 mile, has sensation of not knowing where his feet are ??? Coronary artery disease 06/15/2020 ??? Heart valve disease murmur since age 14had echo done in [facility], 06/2020 ??? High blood pressure controlled with medication ??? Hypertension ??? Vertigo Past Surgical History: Procedure Laterality Date ??? PRO CABG, ARTERIAL, SINGLE N/A 2020 @CABG, USING ARTERIAL GRAFT;SINGLE ARTERIAL GRAFT (WRVU 33.75) performed by Joshua Ledesma MD at [facility] OR ??? PRO CABG, ARTERY-VEIN, THREE N/A 2020 @CABG; 3 VENOUS GRAFTS & ARTERIAL GRAFT (WRVU 10.49) performed by Joshua Ledesma MD at [facility] OR ??? PRO ENDOSCOPY W/VIDEO-ASST VEIN HARVEST, CABG Right 2020 ENDOSCOPIC HARVEST VEIN(S) FOR CABG (WRVU 0.31) performed by Joshua Ledesma MD at [facility] OR ??? PRO VITRECTOMY PARS PLANA REMOVE PRERETINAL MEMBRANE Right 06/13/2019 VITRECTOMY, W/ MEMBRANE STRIPPING (WRVU 16.33) performed by Yinka Rosales MD at [facility] MAIN OR ??? RETINOPATHY SURGERY Left 04/01/2019 Laser for retinal tear - DM ??? VITRECTOMY, W/ MEMBRANE STRIPPING Right 06/13/2019 PPV MP per DM Social History: Pt lives with his s.o. in a split level home with 10 stairs to enter with rail. 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 Pt reports his dtr and [...] before surgery.?? Objective: Pt seen in the [facility] for initial evaluation, post operative protocol exs [...] 1; cues Gait: Ambulated 350+ feet from [facility] to room 457 with rolling walker; [...] outlinedin this evaluation. LORRIE SHOOK, PT Pager: [phone] Physical Therapy Inpatient Rehabilitation Department Time IN / OUT: 6101-4743 Total time: 24 mins (eval) * Marilou Bates RN - 07/24/2020 12:27 PM EST The patient has been provided a list of Home Health Agencies/DME vendors which serve their preferred geographic area. A letter describing our affiliations was reviewed with them and they were educated about their right to choose where referrals are placed. Provided patient with [facility] Star Quality Rating for Home care hand out. Patient requests referral to [facility] [employer]. PHONE: [phone] FAX: [phone] Expected date of discharge: 07/27/20. Referral routed to the Medical Equipment Repairer for matching with agency/vendor and to provide any required information. Marilou Bates RN, MSN Horse Breeder - Cardiology Office of Care Management Pager: [phone] Work * Jorje Mcintosh PA - 07/24/2020 9:28 AM EST Cardiac Surgery Progress Note Lizandro Heath is a 75 y.o. male with CAD who is 1 Day Post-Op CABGx4. PMH of HTN, HLD, former smoker, cataracts, RBBB, anxiety. 24h Events: From OR on levo and nitro Extubated 1530 Levo weaned off, nitro remained on at 30 [place] removed, last CI 2.4 PAP 20/8 CVP 4 S: Chest is sore but not too bad. Tolerating sips and chips. No nausea/vomiting. Denies shortness of breath, abdominal pain, numbness/tingling, weakness. O: Temp: [35.2 ??C (95.4 ??F)-36.7 ??C (98.1 ??F)] Heart Rate: [68-91] Resp: [12-27] BP: (129)/(87) SpO2: [91 %-100 %] Heart Rate from SpO2: [70 bpm-92 bpm] Drips: Nitro at 30 03/08 0701 - 03 0700 In: 5797.5 [I.V.:4513.5] Out: 3959 [Urine:2265] [...] 0600 and on the weekends please page [phone]. * Jose Davison RT - 2020 11:55 [...] eyes Added automatically from request for surgery [id number] ??? Screening for cardiovascular condition Added automatically from request for surgery [id number] ??? Coronary artery disease Added automatically from request for surgery [id number] Past Medical History: Past Medical History: Diagnosis Date ??? Cataract ??? Claudication bilat leg aching after walking about 1/2 mile, has sensation of not knowing where his feet are ??? Coronary artery disease 06/15/2020 ??? Heart valve disease murmur since age 14had echo done in [facility], 06/2020 ??? High blood pressure controlled with medication ??? Hypertension ??? Vertigo Past Surgical History: Past Surgical History: Procedure Laterality Date ??? PRO VITRECTOMY PARS PLANA REMOVE PRERETINAL MEMBRANE Right 06/13/2019 VITRECTOMY, W/ MEMBRANE STRIPPING (WRVU 16.33) performed by Yinka Rosales MD at [facility] MAIN OR ??? RETINOPATHY SURGERY [...] 6-8 oz in his coffee daily ??? fj-dc-ikjuqm #[id number] (Urinozinc Prostate Formula Pls) 100 mg Tablet [...] eyes Added automatically from request for surgery [id number] ??? Screening for cardiovascular condition Added automatically from request for surgery [id number] ??? Coronary artery disease Added automatically from request for surgery [id number] Past Medical History: Past Medical History: Diagnosis Date ??? Cataract ??? Claudication bilat leg aching after walking about 1/2 mile, has sensation of not knowing where his feet are ??? Coronary artery disease 06/15/2020 ??? Heart valve disease murmur since age 14had echo done in [facility], 06/2020 ??? High blood pressure controlled with medication ??? Hypertension ??? Vertigo Past Surgical History: Past Surgical History: Procedure Laterality Date ??? PRO VITRECTOMY PARS PLANA REMOVE PRERETINAL MEMBRANE Right 06/13/2019 VITRECTOMY, W/ MEMBRANE STRIPPING (WRVU 16.33) performed by Yinka Rosales MD at [facility] MAIN OR ??? RETINOPATHY SURGERY [...] 6-8 oz in his coffee daily ??? wj-qb-kjtyto #[id number] (Urinozinc Prostate Formula Pls) 100 mg Tablet [...] field to be used PRN by MD Callie. 1mg Epinephrine diluted in 100ml NS delivered [...] Verma RN - 07/26/2020 10:18 AM EST [facility]ATION Lizandro Heath was seen today regarding participation in the outpatient Phase 2 Cardiac Rehabilitation at [facility]. The patient agrees to a referral to this program. 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 High blood pressure controlled [...] daughter/son would be surrogate decision maker per [place] surrogate decision making law. (Only good for 90 days) Any patient receiving care at [facility] must abide by [place] law. The hierarchy for surrogate decision making [...] (i) The agent with financial power of patent attorney or a conservator appointed in accordance with RSA 464-A. (j) The guardian of the patient???s estate. 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 Living Arrangements: house. Home Environment: Unable to assess at this time. Current DME: daughter states they have made sure he has a lift chair, raised toilet seat and showerchair for post surgery. DME Needed at DC: None Home Address Listed as: [address] [address] Social & Family Supports: Extended Emergency Contact [...] Listed Primary Care Provider: Mayank Mohamud DO [phone] Patient/Caregiver Goals of Treatment: Discharge home Potential Needs for Transition of Care: Patient/Family Anticipated Services at Transition: home health care Agency Referrals: None. Will need to provide Choice to patient Transportation: Transportation Anticipated: family or friend will provide Anticipated Barriers to Discharge/Special Considerations: None noted or presented to at this time. Assessment: Patient is admitted [...] of care planning. Marilou Bates RN, MSN, um specialist Office of Care Management Pager: [phone] Work * Op Note - Joshua Ledesma MD - 2020 8:14 AM EST 07/24/2020 Lizandro Heath 1945 [id number] Preoperative Diagnosis: Coronary artery disease Stable Angina Postoperative Diagnosis: Coronary artery diseaseStable Angina Procedure: CABG times 4: REDDING to LAD, SVG to diag and om, svg to rca. Endoscopic vein harvest Surgeon: Joshua Ledesma M.D. Able Bodied Seaman: phil gray Anesthesia: General endotracheal anesthesia Drains: [...] applied. The patient was transported to the CV on levo. All counts were correct. * OR Attestation - Joshua Ledesma MD - 2020 4:13 AM EST Attestation: Case Date: 2020 I performed this procedure without the involvement of a resident. Joshua Ledesma MD 07/24/2020 * Brief Op Note - Joshua Ledesma MD - 2020 4:12 AM EST Brief Operative Note Patient Name: Lizandro Heath : [id number] MR#: [id number] Case Date: 2020 Surgeon: Surgeon(s) and Role: * Joshua Ledesma MD - Primary * Belle Elise PA - Physician Able Bodied Seaman * Cyndi Corona PA - Physician Able Bodied Seaman Preoperative diagnosis: cad Postoperative diagnosis: CAD Procedure(s) [...] Routine 8:05 AM EST Cabg, Artery-Vein, Three ([id number]) 2020 7:18 AM EST CAD Endoscopy W/Video-Asst Vein [place], Cabg ([id number]) 2020 7:18 AM EST CAD Cabg, Arterial, Single ([id number]) 2020 7:18 AM EST CAD PREPARE RBC [...] who have questions please contact the health healthcare administrative assistant that requested your imaging first. ? Narrative 08/21/2020 11:44 AM EDT EXAMINATION: XR [...] patients who have questions please contactthe health healthcare administrative assistant that requested your imaging first. Joshua Ledesma MD IMG DX ORDERABLES * EKG 12 Lead (08/14/2020 11:38 AM EDT) Ventricular rate 57 BPM MUSE SYSTEM Atrial Rate 57 BPM MUSE SYSTEM P-R Interval 228 ms MUSE SYSTEM QRS Duration 156 ms MUSE SYSTEM Q-T Interval 454 ms MUSE SYSTEM QTC Calculated (Bezet) 441 ms MUSE SYSTEM Calculated P Eden 45 degrees MUSE SYSTEM Calculated R [place] -44 degrees MUSE SYSTEM Calculated T [place] 25 degrees MUSE SYSTEM INTERPRETATION Sinus bradycardia with 1st degree A-V block Left axis deviation Right bundle branch block Abnormal ECG When compared with ECG of 23-JUL-2020 12:01, No significant change was found Confirmed by MD Waldo, Wellington Vergara ([id number]) on 08/14/2020 3:28:14 PM MUSE SYSTEM 08/14/2020 11:3 8 AM EDT 08/14/2020 3:28 PM EDT Joshua Ledesma MD ECG ORDERABLES Performing Organization Address City/[facility]/ZIP Co de Phone Number MUSE SYSTEM * Potassium (07/28/2020 6:06 AM EST) Potassium 3.7 3.5 - 5.0 mmol/L [facility] Comment: Please note: ??Patients [...] MD CHEMISTRY ORDERABLE S Performing Organization Address City/[facility]/ZIP Co de Phone Number [facility] [place] [address] * Potassium (07/27/2020 3:31 AM EST) Potassium 3.5 3.5 - 5.0 mmol/L [facility] Comment: Please note: ??Patients [...] Lab Joshua Ledesma MD CHEMISTRY ORDERABLE S [facility] [place] [address] * XR Chest PA & Lateral (Generic) [...] this report, please contact the number below. Joshua Ledesma MD IMG DX ORDERABLES * (ABNORMAL) Differential, Automated (07/26/2020 3:54 AM EST) Neutrophil % 73.0 % [facility] Neutrophil Absolute 5.85 1.70 - 6.10 x10(3)/mc L [facility] Lymph % 12.1 % [facility] Lymphocytes Abs 1.0 0.9 - 3.2 x10(3)/mc L [facility] Monocyte % 12.5 % [facility] Monocyte Abs 1.0(H) 0.3 - 0.9 x10(3)/mc L [facility] Eos % 1.5 % [facility] Eosinophils Abs 0.1 0.0 - 0.4 x10(3)/mc L [facility] Basophil % 0.2 % [facility] Baso Absolute 0.0 0.0 - 0.1 x10(3)/mc L [facility] Immature Gran % 0.70 % [facility] Comment: Immature granulocytes(IG's)percentage and absolute count will include metamyelocytes, myelocytes, and promyelocytes. Blood smears from CBCs yielding IG's will be scanned manually for concordance. If this scan disagrees with the automated IG or if promyelocytes are noted, a manual differential will be performed. Immature Gran Absolute 0.06(H) 0.00 - 0.04 x10(3)/mc L [facility] Blood specimen (specimen) 07/26/2020 3:54 AM EST 07/26/2020 4:04 AM EST Narrative Resulting Agency Comment Spec In Lab Jorje ROME HEMATOLOGY ORDERABLE S [facility] [place] [address] * (ABNORMAL) Hemogram (07/26/2020 3:54 AM EST) White Blood Cell 8.0 4.0 - 9.5 x10(3)/mc L [facility] Red Blood Cell 3.14(L) 4.58 - 5.54 x10(6)/mc L [facility] Hemoglobin 10.0(L) 13.7 - 16.5 gm/dL [facility] Hematocrit 29.7(L) 40.5 - 48.5 % [facility] Mean Cell Volume 94.6(H) 82.9 - 93.1 fL [facility] Mean Cell Hemoglobin 31.8 27.5 - 32.1 pg [facility] Mean Cell Hemoglobin Concentration 33.7 32.0 - 35.7 gm/dL [facility] Platelet 169 145 - 357 x10(3)/mc L [facility] RDW Standard Deviation 47.3(H) 36.0 - 45.0 [facility] RDW coefficient of variation 13.7 11.4 - 13.8 % [facility] Mean Platelet Volume 9.3 7.6 - 12.9 [facility] NRBC% auto 0.0 % [facility] NRBC Absolute 0.000 0.000 - 0.000 x10(3)/mc L [facility] Blood specimen (specimen) 07/26/2020 3:54 AM EST 07/26/2020 4:04 AM EST Narrative Resulting Agency Comment Spec In Lab Jorje ROME HEMATOLOGY ORDERABLE S [facility] [place] [address] * (ABNORMAL) Basic Metabolic Panel (non-fasting) (07/26/2020 3:54 AM EST) Glucose 103 65 - 199 mg/dL [facility] Comment:Diabetes: >=200 mg/d L plus symptoms Blood Urea Nitrogen 18 10 - 20 mg/dL [facility] Creatinine 0.89 0.80 - 1.50 mg/dL [facility] Sodium 136 135 - 145 mmol/L [facility] Potassium 3.3(L) 3.5 - 5.0 mmol/L [facility] Comment: Please note: ??Patients with WBC >100,000 may have falsely elevated Potassium levels. ??For accurate Potassium quantification in these patients send serum separator tube (gold top) for subsequent determinations. ??Contact the Clinical Chemistry Laboratory if there are any questions. Chloride 102 98 - 107 mmol/L [facility] Carbon Dioxide 26 22 - 31 mmol/L [facility] Anion Gap 8 5 - 15 mmol/L [facility] Calcium 8.5 8.5 - 10.5 mg/dL [facility] Comment:result rechecked-KS Est Glomerular Filtration Rate 85 >=60 mL/min/1. 73 m?? [facility] Comment: This patient? s [...] MD CHEMISTRY ORDERABLE S Performing Organization Address [facility] Co de Phone Number [facility] [place] [address] * Potassium (07/25/2020 3:56 AM EST) Potassium 4.3 3.5 - 5.0 mmol/L [facility] Comment: Please note: ??Patients [...] MD CHEMISTRY ORDERABLE S Performing Organization Address [facility] Co de Phone Number [facility] [place] [address] * POCT Glucose (07/24/2020 5:06 PM EST) Glucose, POC 96 65 - 199 mg/dL [facility] Comment: Supplemental ranges: <140 mg/dL before meals <180 mg/dL all other times of the day Blood specimen (specimen) 07/24/2020 5:06 PM EST 07/24/2020 5:06 PM EST Joshua Ledesma MD POINT OF CARE TEST ORDERABLES Performing Organization Address [facility] Co de Phone Number [facility] [place] [address] * POCT Glucose (07/24/2020 8:31 AM EST) Pathologist [facility] Glucose, POC 121 65 - 199 mg/dL [facility] Comment: Supplemental ranges: <140 mg/dL before meals <180 mg/dL all other times of the day Blood specimen (specimen) 07/24/2020 8:31 AM EST 07/24/2020 8:31 AM EST Joshua Ledesma MD POINT OF CARE TEST ORDERABLES [facility] [place] [address] * (ABNORMAL) Differential, Automated (07/24/2020 4:27 AM EST) [facility] Neutrophil % 76.0 % [facility] Neutrophil Absolute 7.00(H) 1.70 - 6.10 x10(3)/mc L [facility] Lymph % 8.8 % [facility] Lymphocytes Abs 0.8(L) 0.9 - 3.2 x10(3)/mc L [facility] Monocyte % 14.6 % [facility] Monocyte Abs 1.4(H) 0.3 - 0.9 x10(3)/mc L [facility] Eos % 0.0 % [facility] Eosinophils Abs 0.0 0.0 - 0.4 x10(3)/mc L [facility] Basophil % 0.1 % [facility] Baso Absolute 0.0 0.0 - 0.1 x10(3)/mc L [facility] Immature Gran % 0.50 % [facility] Comment: Immature granulocytes(IG's)percentage and absolute count will include metamyelocytes, myelocytes, and promyelocytes. Blood smears from CBCs yielding IG's will be scanned manually for concordance. If this scan disagrees with the automated IG or if promyelocytes are noted, a manual differential will be performed. Immature Gran Absolute 0.05(H) 0.00 - 0.04 x10(3)/ L [facility] Blood specimen (specimen) 07/24/2020 4:27 AM EST 07/24/2020 4:37 AM EST Narrative Resulting Agency Comment Spec In Lab Cyndi ROME HEMATOLOGY RAÚL BUSCH Performing Organization Address City/State/[facility] Co de Phone Number [facility] [place] [address] * (ABNORMAL) Hemogram (07/24/2020 4:27 AM EST) White Blood Cell 9.2 4.0 - 9.5 x10(3)/[facility] Red Blood Cell 3.33(L) 4.58 - 5.54 x10(6)/[facility] Hemoglobin 10.5(L) 13.7 - 16.5 gm/dL [facility] Hematocrit 30.8(L) 40.5 - 48.5 % [facility] Mean Cell Volume 92.5 82.9 - 93.1 fL [facility] Mean Cell Hemoglobin 31.5 27.5 - 32.1 pg [facility] Mean Cell Hemoglobin Concentration 34.1 32.0 - 35.7 gm/dL [facility] Platelet 173 145 - 357 x10(3)/[facility] RDW Standard Deviation 45.6(H) 36.0 - 45.0 [facility] RDW coefficient of variation 13.4 11.4 - 13.8 % [facility] Mean Platelet Volume 9.4 7.6 - 12.9 [facility] NRBC% auto 0.0 % [facility] NRBC Absolute 0.000 0.000 - 0.000 x10(3)/ L [facility] Blood specimen (specimen) 07/24/2020 4:27 AM EST 07/24/2020 4:37 AM EST Narrative Resulting Agency Comment Spec In Lab Cyndi ROME HEMATOLOGY RAÚL BUSCH [facility] [place] [address] * (ABNORMAL) Basic Metabolic Panel (non-fasting) (07/24/2020 4:27 AM EST) Glucose 130 65 - 199 mg/dL [facility] Comment:Diabetes: >=200 mg/d L plus symptoms Blood Urea Nitrogen 15 10 - 20 mg/dL [facility] Creatinine 0.74(L) 0.80 - 1.50 mg/dL [facility] Sodium 136 135 - 145 mmol/L [facility] Potassium 4.5 3.5 - 5.0 mmol/L [facility] Comment: Please note: ??Patients with WBC >100,000 may have falsely elevated Potassium levels. ??For accurate Potassium quantification in these patients send serum separator tube (gold top) for subsequent determinations. ??Contact the Clinical Chemistry Laboratory if there are any questions. Chloride 108(H) 98 - 107 mmol/L [facility] Carbon Dioxide 20(L) 22 - 31 mmol/L [facility] Anion Gap 8 5 - 15 mmol/L [facility] Calcium 7.7(L) 8.5 - 10.5 mg/dL [facility] Est Glomerular Filtration Rate 92 >=60 mL/min/1. 73 m?? [facility] Comment: This patient? s [...] MD CHEMISTRY ORDERABLE S Performing Organization Address [facility] Co de Phone Number [facility] [place] [address] * (ABNORMAL) Troponin (07/24/2020 4:27 AM EST) Troponin-T 0.50(H) 0.00 - 0.00 ng/mL [facility] Comment: The 99th percentile for Troponin T is less than 0.01 ng/mL, any detectable cTnT concentration using this assay should be considered elevated. According to the third universal definition of myocardial infarction the following criteria with a clinical presentation consistent with acute myocardial ischemia meets the diagnosis for a myocardial infarction (RI). Detection of a rise and/or fall of cTnT, with at least one value greater than the 99th percentile (> or = 0.01) and with at least one of the following ?? Symptoms of ischemia ?? New or presumed new significant [id number] wave (ST-T) changes or new left bundle [...] additional sample may be indicated. Reference: Third [place] Definition of Myocardial Infarction. Journal of the [employer] 2012;60:1581-98 Blood specimen (specimen) 07/24/2020 4:27 AM EST 07/24/2020 4:37 AM EST Narrative Resulting Agency Comment Spec In Lab Joshua Ledesma MD CHEMISTRY ORDERABLE S Performing Organization Address [facility]/ZIP Co de Phone Number [facility] [place] [address] * POCT Glucose (07/24/2020 4:08 AM EST) Glucose, POC 127 65 - 199 mg/dL [facility] Comment: Supplemental ranges: <140 mg/dL before meals <180 mg/dL all other times of the day Blood specimen (specimen) 07/24/2020 4:08 AM EST 07/24/2020 4:08 AM EST Joshua Ledesma MD POINT OF CARE TEST ORDERABLES [facility] [place] [address] * POCT Glucose (2020 11:59 PM EST) Glucose, POC 121 65 - 199 mg/dL [facility] Comment: Supplemental ranges: <140 mg/dL before meals <180 mg/dL all other times of the day Blood specimen (specimen) 2020 11:59 PM EST 2020 11:59 PM EST Joshua Ledesma MD POINT OF CARE TEST ORDERABLES [facility] [place] [address] * POCT Glucose (2020 7:57 PM EST) Glucose, POC 171 65 - 199 mg/dL [facility] Comment: Supplemental ranges: <140 mg/dL before meals <180 mg/dL all other times of the day Blood specimen (specimen) 2020 7:57 PM EST 2020 7:57 PM EST Joshua Ledesma MD POINT OF CARE TEST ORDERABLES [facility] [place] [address] * POCT Glucose (2020 4:53 PM EST) Glucose, POC 128 65 - 199 mg/dL [facility] Comment: Supplemental ranges: <140 mg/dL before meals <180 mg/dL all other times of the day Blood specimen (specimen) 2020 4:53 PM EST 2020 4:53 PM EST Joshua Ledesma MD POINT OF CARE TEST ORDERABLES [facility] [place] [address] * (ABNORMAL) BLOOD GAS 2 ARTERIAL (2020 3:26 PM EST) pH, Arterial 7.36 7.35 - 7.45 [facility] PCO2, Arterial 35 35 - 45 mmHg [facility] PO2, Arterial 111(H) 85 - 104 mmHg [facility] Bicarbonate, Arterial 19.4(L) 20.0 - 26.0 mmol/L [facility] Base Excess, Arterial -6.1(L) -3.0 - 3.0 mmol/L [facility] Hgb Blood Gas 12.6(L) 13.7 - 16.5 gm/dL [facility] Oxyhemoglobin, Arterial 96.4 94.0 - 97.0 % [facility] Carboxyhemoglob in, Arterial 0.3 % [facility] Comment: Nonsmokers: 0.5-1.5% COHB Smokers: Variable, but usually less than 10% Toxic: 20-30% COHB Lethal: Greater than 60% COHB Methemoglobin, Arterial 0.7 <=1.5 % [facility] Na Whole Blood 132(L) 135 - 145 mmol/L [facility] K Whole Blood 4.8 3.5 - 5.0 mmol/L [facility] Comment: Please note: Patients with WBC >100,000 may have falsely elevated Potassium levels. Contact the Clinical Chemistry Laboratory if there are any questions. ICa Whole Blood 1.10(L) 1.15 - 1.33 mmol/L [facility] Comment: Note: ??Total bilirubin higher than 20 mg/dL may lead to falsely low ionized calcium. CL Whole Blood 108(H) 98 - 107 mmol/L [facility] Gluc Whole Bld 156 65 - 199 mg/dL [facility] Comment:Diabetes: >=200 mg/d L plus symptoms. Lactate WB 1.9 0.5 - 2.2 mmol/L [facility] FIO2 Art 40 % [facility] PF Ratio Art 278 [facility] Blood specimen (specimen) 2020 3:26 PM EST 2020 3:26 PM EST Joshua Ledesma MD POINT OF CARE TEST ORDERABLES Performing Organization Address [facility]/ZIP Co de Phone Number [facility] [place] [address] * (ABNORMAL) Hemoglobin (2020 3:26 PM EST) Hemoglobin 11.4(L) 13.7 - 16.5 gm/dL [facility] Blood specimen (specimen) 2020 3:26 PM EST 2020 3:47 PM EST Narrative Resulting Agency Comment Spec In Lab Joshua Ledesma MD HEMATOLOGY ORDERABL ES Performing Organization Address City/[facility]/ZIP Co de Phone Number [facility] [place] [address] * (ABNORMAL) Potassium (2020 3:26 PM EST) Potassium 5.1(H) 3.5 - 5.0 mmol/L [facility] Comment: Please note: ??Patients [...] MD CHEMISTRY ORDERABLE S Performing Organization Address City/[facility]/ZIP Co de Phone Number [facility] [place] [address] * POCT Glucose (2020 3:25 PM EST) [facility] Glucose, POC 154 65 - 199 mg/dL [facility] Comment: Supplemental ranges: <140 mg/dL before meals <180 mg/dL all other times of the day Blood specimen (specimen) 2020 3:25 PM EST 2020 3:25 PM EST Joshua Ledesma MD POINT OF CARE TEST ORDERABLES [facility] [place] [address] * (ABNORMAL) Coox2 (2020 2:17 PM EST) pO2, Coox 33 mmHg [facility] Hgb Blood Gas 11.7(L) 13.7 - 16.5 gm/dL [facility] Oxyhemoglobin, Coox 63.5 % [facility] Carboxyhemoglo bin, Coox 0.3 % [facility] Comment: Nonsmokers: 0.5-1.5% COHB Smokers: Variable, but usually less than 10% Toxic: 20-30% COHB Lethal: Greater than 60% COHB Methemoglobin, Coox 0.8 <=1.5 % [facility] Source Coox Mixed Venous [facility] Blood specimen (specimen) 2020 2:17 PM EST 2020 2:17 PM EST Joshua Ledesma MD POINT OF CARE TEST ORDERABLES [facility] [place] [address] * POCT Glucose (2020 12:51 PM EST) Glucose, POC 138 65 - 199 mg/dL [facility] Comment: Supplemental ranges: <140 mg/dL before meals <180 mg/dL all other times of the day Blood specimen (specimen) 2020 12:51 PM EST 2020 12:51 PM EST Joshua Ledesma MD POINT OF CARE TEST ORDERABLES Performing Organization Address [facility] Co de Phone Number [facility] [place] [address] * (ABNORMAL) BLOOD GAS 2 ARTERIAL (2020 12:20 PM EST) [facility] pH, Arterial 7.35 7.35 - 7.45 [facility] PCO2, Arterial 36 35 - 45 mmHg [facility] PO2, Arterial 464(H) 85 - 104 mmHg [facility] Bicarbonate, Arterial 19.3(L) 20.0 - 26.0 mmol/L [facility] Base Excess, Arterial -6.4(L) -3.0 - 3.0 mmol/L [facility] Hgb Blood Gas 12.2(L) 13.7 - 16.5 gm/dL [facility] Oxyhemoglobin, Arterial 97.7(H) 94.0 - 97.0 % [facility] Carboxyhemoglob in, Arterial 0.3 % [facility] Comment: Nonsmokers: 0.5-1.5% COHB Smokers: Variable, but usually less than 10% Toxic: 20-30% COHB Lethal: Greater than 60% COHB Methemoglobin, Arterial 0.6 <=1.5 % [facility] Na Whole Blood 134(L) 135 - 145 mmol/L [facility] K Whole Blood 4.2 3.5 - 5.0 mmol/L [facility] Comment: Please note: Patients with WBC >100,000 may have falsely elevated Potassium levels. Contact the Clinical Chemistry Laboratory if there are any questions. ICa Whole Blood 1.06(L) 1.15 - 1.33 mmol/L [facility] Comment: Note: ??Total bilirubin higher than 20 mg/dL may lead to falsely low ionized calcium. CL Whole Blood 110(H) 98 - 107 mmol/L [facility] Gluc Whole Bld 146 65 - 199 mg/dL [facility] Comment:Diabetes: >=200 mg/d L plus symptoms. Lactate WB 2.1 0.5 - 2.2 mmol/L [facility] FIO2 Art 100 % [facility] PF Ratio Art 464 [facility] Blood specimen (specimen) 2020 12:20 PM EST 2020 12:20 PM EST Joshua Ledesma MD POINT OF CARE TEST ORDERABLES Performing Organization Address City/State/[facility] Co de Phone Number [facility] [place] [address] * XR Chest One View (2020 12:17 [...] please contact the number below. ? Narrative 2020 12:41 PM EST EXAMINATION: XR [...] this report, please contact the number below. Joshua Ledesma MD IMG DX ORDERABLES * EKG 12 Lead (2020 12:01 PM EST) Ventricular rate 77 BPM MUSE SYSTEM Atrial Rate 77 BPM MUSE SYSTEM P-R Interval 204 ms MUSE SYSTEM QRS Duration 150 ms MUSE SYSTEM Q-T Interval 442 ms MUSE SYSTEM QTC Calculated (Bezet) 500 ms MUSE SYSTEM Calculated P Eden 47 degrees MUSE SYSTEM Calculated R [place] -35 degrees MUSE SYSTEM Calculated T [place] 83 degrees MUSE SYSTEM INTERPRETATION Normal sinus [...] pH, Arterial 7.28(Criti mag) 7.35 - 7.45 [facility] PCO2, Arterial 40 35 - 45 mmHg [facility] PO2, Arterial 121(H) 85 - 104 mmHg [facility] Bicarbonate, Arterial 18.5(L) 20.0 - 26.0 mmol/L [facility] Base Excess, Arterial -8.2(L) -3.0 - 3.0 mmol/L [facility] Hgb Blood Gas 9.5(L) 13.7 - 16.5 gm/dL [facility] Oxyhemoglobin, Arterial 97.0 94.0 - 97.0 % [facility] Carboxyhemoglob in, Arterial 0.3 % [facility] Comment: Nonsmokers: 0.5-1.5% COHB Smokers: Variable, but usually less than 10% Toxic: 20-30% COHB Lethal: Greater than 60% COHB Methemoglobin, Arterial 0.3 <=1.5 % [facility] Na Whole Blood 132(L) 135 - 145 mmol/L [facility] K Whole Blood 4.0 3.5 - 5.0 mmol/L [facility] Comment: Please note: Patients with WBC >100,000 may have falsely elevated Potassium levels. Contact the Clinical Chemistry Laboratory if there are any questions. ICa Whole Blood 1.01(L) 1.15 - 1.33 mmol/L [facility] Comment: Note: ??Total bilirubin higher than 20 mg/dL may lead to falsely low ionized calcium. CL Whole Blood 111(H) 98 - 107 mmol/L [facility] Gluc Whole Bld 168 65 - 199 mg/dL [facility] Comment:Diabetes: >=200 mg/d L plus symptoms. Lactate WB 2.1 0.5 - 2.2 mmol/L [facility] Blood specimen (specimen) 2020 10:56 AM EST 2020 10:56 AM EST Joshua Ledesma MD POINT OF CARE TEST ORDERABLES [facility] [place] [address] * (ABNORMAL) Thrombin time (2020 10:54 AM EST) Thrombin Time 21(H) 10 - 17 sec [facility] Comment: OR Result called by ?? BROWLJ OR Results read back by: ? Leonides Marrero at 2020 11:24:11 A prolongation in the [...] MD HEMATOLOGY ORDERABL ES Performing Organization Address [facility] Co de Phone Number [facility] [place] [address] * (ABNORMAL) Fibrinogen (2020 10:54 AM EST) Fibrinogen 190(L) 200 - 393 mg/dL [facility] Comment: OR Result called by ?? BROWLJ OR Results read back by: ? Leonides Marrero at 2020 11:24:11 A fibrinogen level >100 mg/dL is adequate for hemostasis in most patients without underlying bleeding disorders. Blood specimen (specimen) 2020 10:54 AM EST 2020 11:05 AM EST Narrative Resulting Agency Comment Spec In Lab Joshua Ledesma MD HEMATOLOGY ORDERABL ES Performing Organization Address [facility] de Phone Number [facility] [place] [address] * APTT (2020 10:54 AM EST) Partial Thromboplastin Time 28 25 - 37 sec [facility] Comment: OR Result called by ?? BROWLJ OR Results read back by: ? Leonides Marrero at 2020 11:24:11 The PTT is NOT appropriate for heparin monitoring. Use the Anti-Xa level for heparin monitoring (HEP UFH) or LMWH monitoring (HEP LMW). A PTT less than 37 seconds generally indicates adequate hemostasis. Blood specimen (specimen) 2020 10:54 AM EST 2020 11:05 AM EST Narrative Resulting Agency Comment Spec In Lab Joshua Ledesma MD HEMATOLOGY ORDERABL ES Performing Organization Address [facility]/State/ZIP Co de Phone Number [facility] [place] [address] * (ABNORMAL) Prothrombin Time (2020 10:54 AM EST) [facility] Prothrombin Time 14.2(H) 9.4 - 12.5 sec [facility] Comment: OR Result called by ?? BROWLJ OR Results read back by: ? Leonides Marrero at 2020 11:24:11 International Normalization Ratio 1.2 [facility] Comment: OR Result called [...] Lab Joshua Ledesma MD HEMATOLOGY ORDERABL ES [facility] [place] [address] * (ABNORMAL) Hemogram (2020 10:54 AM EST) [facility] White Blood Cell 14.4(H) 4.0 - 9.5 x10(3)/mc L [facility] Red Blood Cell 3.10(L) 4.58 - 5.54 x10(6)/mc L [facility] Hemoglobin 9.8(L) 13.7 - 16.5 gm/dL [facility] Hematocrit 29.8(L) 40.5 - 48.5 % [facility] Comment: This result has been called to TERE CHAIDEZ by DELFINA STEPHEN on 07 23 2020 at 1114, and has been read back. Mean Cell Volume 96.1(H) 82.9 - 93.1 fL [facility] Mean Cell Hemoglobin 31.6 27.5 - 32.1 pg [facility] Mean Cell Hemoglobin Concentration 32.9 32.0 - 35.7 gm/dL [facility] Platelet 207 145 - 357 x10(3)/mc L [facility] RDW Standard Deviation 46.5(H) 36.0 - 45.0 fL [facility] RDW coefficient of variation 13.2 11.4 - 13.8 % [facility] Mean Platelet Volume 9.2 7.6 - 12.9 fL [facility] NRBC% auto 0.0 % [facility] NRBC Absolute 0.000 0.000 - 0.000 x10(3)/mc L [facility] Blood specimen (specimen) 2020 10:54 AM EST 2020 11:05 AM EST Narrative Resulting Agency Comment Spec In Lab Joshua Ledesma MD HEMATOLOGY ORDERABL ES Performing Organization Address City/State/[facility] Co de Phone Number [facility] [place] [address] * (ABNORMAL) BLOOD GAS 2 ARTERIAL (2020 10:04 AM EST) pH, Arterial 7.36 7.35 - 7.45 [facility] PCO2, Arterial 41 35 - 45 mmHg [facility] PO2, Arterial 478(H) 85 - 104 mmHg [facility] Bicarbonate, Arterial 22.9 20.0 - 26.0 mmol/L [facility] Base Excess, Arterial -2.6 -3.0 - 3.0 mmol/L [facility] Hgb Blood Gas 10.1(L) 13.7 - 16.5 gm/dL [facility] Oxyhemoglobin, Arterial 99.0(H) 94.0 - 97.0 % [facility] Carboxyhemoglob in, Arterial 0.3 % [facility] Comment: Nonsmokers: 0.5-1.5% COHB Smokers: Variable, but usually less than 10% Toxic: 20-30% COHB Lethal: Greater than 60% COHB Methemoglobin, Arterial 0.3 <=1.5 % [facility] Na Whole Blood 127(L) 135 - 145 mmol/L [facility] K Whole Blood 6.3(Critic al) 3.5 - 5.0 mmol/L [facility] Comment: Please note: Patients with WBC >100,000 may have falsely elevated Potassium levels. Contact the Clinical Chemistry Laboratory if there are any questions. ICa Whole Blood 0.93(L) 1.15 - 1.33 mmol/L [facility] Comment: Note: ??Total bilirubin higher than 20 mg/dL may lead to falsely low ionized calcium. CL Whole Blood 102 98 - 107 mmol/L [facility] Gluc Whole Bld 226(H) 65 - 199 mg/dL [facility] Comment:Diabetes: >=200 mg/d L plus symptoms. Lactate WB 2.3(H) 0.5 - 2.2 mmol/L [facility] Blood specimen (specimen) 2020 10:04 AM EST 2020 10:04 AM EST Joshua Ledesma MD POINT OF CARE TEST ORDERABLES [facility] [place] [address] * Platelet count (2020 10:00 AM EST) Platelet 243 145 - 357 x10(3)/mc L [facility] Immature Plt % 1.5 0.0 - 7.4 % [facility] Comment: Limitation of the Immature Platelet Fraction (IPF)-May be less reliable when the platelet count is less than 10v599/uL due to statistical imprecision. The IPF value [...] in a decreased state of production. References: [employer] The Clinical Value of the Immature Platelet Fraction (IPF) in Cell Recovery Document Number 10-1143 10/2010 [employer] The Role of the Immature Platelet Fraction (IPF) in the Differential Diagnosis of Thrombocytopenia, Document [id number] V05 P009/28 Blood specimen (specimen) 2020 10:00 AM EST 2020 10:07 AM EST Narrative Resulting Agency Comment Spec In Lab Joshua Ledesma MD HEMATOLOGY ORDERABL ES Performing Organization Address City/[facility]/ZIP Co de Phone Number [facility] [place] [address] * (ABNORMAL) Hemoglobin (2020 10:00 AM EST) Hemoglobin 9.5(L) 13.7 - 16.5 gm/dL [facility] Blood specimen (specimen) 2020 10:00 AM EST 2020 10:07 AM EST Narrative Resulting Agency Comment Spec In Lab Joshua Ledesma MD HEMATOLOGY ORDERABL ES Performing Organization Address City/[facility]/ZIP Co de Phone Number [facility] [place] [address] * (ABNORMAL) Fibrinogen (2020 10:00 AM EST) Fibrinogen 184(L) 200 - 393 mg/dL [facility] Comment: OR Result called by ?? BROWLJ OR Results read back by: ? Natalee Sagastume at 2020 10:26:38 A fibrinogen level >100 mg/dL is adequate for hemostasis in most patients without underlying bleeding disorders. Blood specimen (specimen) 2020 10:00 AM EST 2020 10:07 AM EST Narrative Resulting Agency Comment Spec In Lab Joshua Ledesma MD HEMATOLOGY ORDERABL ES Performing Organization Address [facility] Co de Phone Number [facility] [place] [address] * (ABNORMAL) Hematocrit (2020 10:00 AM EST) [facility] Hematocrit 28.7(L) 40.5 - 48.5 % [facility] Comment: This result has been called to NATALEE SAGASTUME by DELFINA STEPHEN on 07 23 2020 at 1012, and has been read back. Blood specimen (specimen) 2020 10:00 AM EST 2020 10:07 AM EST Narrative Resulting Agency Comment Spec In Lab Joshua Ledesma MD HEMATOLOGY ORDERABL ES Performing Organization Address [facility] de Phone Number [facility] [place] [address] * (ABNORMAL) BLOOD GAS 2 ARTERIAL (2020 9:30 AM EST) pH, Arterial 7.32(L) 7.35 - 7.45 [facility] PCO2, Arterial 46(H) 35 - 45 mmHg [facility] PO2, Arterial 472(H) 85 - 104 mmHg [facility] Bicarbonate, Arterial 23.3 20.0 - 26.0 mmol/L [facility] Base Excess, Arterial -2.7 -3.0 - 3.0 mmol/L [facility] Hgb Blood Gas 9.9(L) 13.7 - 16.5 gm/dL [facility] Oxyhemoglobin, Arterial 98.9(H) 94.0 - 97.0 % [facility] Carboxyhemoglob in, Arterial 0.3 % [facility] Comment: Nonsmokers: 0.5-1.5% COHB Smokers: Variable, but usually less than 10% Toxic: 20-30% COHB Lethal: Greater than 60% COHB Methemoglobin, Arterial 0.3 <=1.5 % [facility] Na Whole Blood 128(L) 135 - 145 mmol/L [facility] K Whole Blood 6.2(Critic al) 3.5 - 5.0 mmol/L [facility] Comment: Please note: Patients with WBC >100,000 may have falsely elevated Potassium levels. Contact the Clinical Chemistry Laboratory if there are any questions. ICa Whole Blood 0.97(L) 1.15 - 1.33 mmol/L [facility] Comment: Note: ??Total bilirubin higher than 20 mg/dL may lead to falsely low ionized calcium. CL Whole Blood 101 98 - 107 mmol/L [facility] Gluc Whole Bld 173 65 - 199 mg/dL [facility] Comment:Diabetes: >=200 mg/d L plus symptoms. Lactate WB 2.1 0.5 - 2.2 mmol/L [facility] Blood specimen (specimen) 2020 9:30 AM EST 2020 9:30 AM EST Joshua Ledesma MD POINT OF CARE TEST ORDERABLES [facility] [place] [address] * (ABNORMAL) BLOOD GAS 2 VENOUS (2020 9:10 AM EST) pH, Venous 7.22(Criti mag) 7.32 - 7.42 [facility] PCO2, Venous 53(H) 41 - 51 mmHg [facility] PO2, Venous 62(H) 25 - 40 mmHg [facility] Bicarbonate, Venous 21.1 mmol/L [facility] Base Excess, Venous -6.5 mmol/L [facility] Hgb Blood Gas 10.1(L) 13.7 - 16.5 gm/dL [facility] Oxyhemoglobin, Venous 87.3 % [facility] Carboxyhemoglob in, Venous 0.3 % [facility] Comment: Nonsmokers: 0.5-1.5% COHB Smokers: Variable, but usually less than 10% Toxic: 20-30% COHB Lethal: Greater than 60% COHB Methemoglobin, Venous 0.3 <=1.5 % [facility] Na Whole Blood 130(L) 135 - 145 mmol/L [facility] K Whole Blood 5.6(H) 3.5 - 5.0 mmol/L [facility] Comment: Please note: Patients with WBC >100,000 may have falsely elevated Potassium levels. Contact the Clinical Chemistry Laboratory if there are any questions. ICa Whole Blood 0.91(Criti mag) 1.15 - 1.33 mmol/L [facility] Comment: Note: ??Total bilirubin higher than 20 mg/dL may lead to falsely low ionized calcium. CL Whole Blood 102 98 - 107 mmol/L [facility] Gluc Whole Bld 163 65 - 199 mg/dL [facility] Comment:Diabetes: >=200 mg/d L plus symptoms Lactate WB 1.6 0.5 - 2.2 mmol/L [facility] Blood Gas Source Venous [facility] Blood specimen (specimen) 2020 9:10 AM EST 2020 9:10 AM EST Joshua Ledesma MD POINT OF CARE TEST ORDERABLES [facility] [place] [address] * (ABNORMAL) BLOOD GAS 2 ARTERIAL (2020 9:08 AM EST) pH, Arterial 7.27(Criti mag) 7.35 - 7.45 [facility] PCO2, Arterial 44 35 - 45 mmHg [facility] PO2, Arterial 431(H) 85 - 104 mmHg [facility] Bicarbonate, Arterial 19.6(L) 20.0 - 26.0 mmol/L [facility] Base Excess, Arterial -7.3(L) -3.0 - 3.0 mmol/L [facility] Hgb Blood Gas 10.3(L) 13.7 - 16.5 gm/dL [facility] Oxyhemoglobin, Arterial 98.9(H) 94.0 - 97.0 % [facility] Carboxyhemoglob in, Arterial 0.3 % [facility] Comment: Nonsmokers: 0.5-1.5% COHB Smokers: Variable, but usually less than 10% Toxic: 20-30% COHB Lethal: Greater than 60% COHB Methemoglobin, Arterial 0.3 <=1.5 % [facility] Na Whole Blood 130(L) 135 - 145 mmol/L [facility] K Whole Blood 5.6(H) 3.5 - 5.0 mmol/L [facility] Comment: Please note: Patients with WBC >100,000 may have falsely elevated Potassium levels. Contact the Clinical Chemistry Laboratory if there are any questions. ICa Whole Blood 0.90(Criti mag) 1.15 - 1.33 mmol/L [facility] Comment: Note: ??Total bilirubin higher than 20 mg/dL may lead to falsely low ionized calcium. CL Whole Blood 102 98 - 107 mmol/L [facility] Gluc Whole Bld 170 65 - 199 mg/dL [facility] Comment:Diabetes: >=200 mg/d L plus symptoms. Lactate WB 1.6 0.5 - 2.2 mmol/L [facility] Blood specimen (specimen) 2020 9:08 AM EST 2020 9:08 AM EST Joshua Ledesma MD POINT OF CARE TEST ORDERABLES [facility] [place] [address] * (ABNORMAL) BLOOD GAS 2 ARTERIAL (2020 8:05 AM EST) pH, Arterial 7.38 7.35 - 7.45 [facility] PCO2, Arterial 31(L) 35 - 45 mmHg [facility] PO2, Arterial 264(H) 85 - 104 mmHg [facility] Bicarbonate, Arterial 17.9(L) 20.0 - 26.0 mmol/L [facility] Base Excess, Arterial -7.2(L) -3.0 - 3.0 mmol/L [facility] Hgb Blood Gas 13.5(L) 13.7 - 16.5 gm/dL [facility] Oxyhemoglobin, Arterial 98.8(H) 94.0 - 97.0 % [facility] Carboxyhemoglob in, Arterial 0.4 % [facility] Comment: Nonsmokers: 0.5-1.5% COHB Smokers: Variable, but usually less than 10% Toxic: 20-30% COHB Lethal: Greater than 60% COHB Methemoglobin, Arterial 0.3 <=1.5 % [facility] Na Whole Blood 135 135 - 145 mmol/L [facility] K Whole Blood 4.1 3.5 - 5.0 mmol/L [facility] Comment: Please note: Patients with WBC >100,000 may have falsely elevated Potassium levels. Contact the Clinical Chemistry Laboratory if there are any questions. ICa Whole Blood 1.16 1.15 - 1.33 mmol/L [facility] Comment: Note: ??Total bilirubin higher than 20 mg/dL may lead to falsely low ionized calcium. CL Whole Blood 106 98 - 107 mmol/L [facility] Gluc Whole Bld 89 65 - 199 mg/dL [facility] Comment:Diabetes: >=200 mg/d L plus symptoms. Lactate WB 1.8 0.5 - 2.2 mmol/L [facility] Blood specimen (specimen) 2020 8:05 AM EST 2020 8:05 AM EST Joshua Ledesma MD POINT OF CARE TEST ORDERABLES Performing Organization Address [facility] de Phone Number [facility] [place] [address] * Prepare RBC (2020 6:10 AM EST) Dispensed? Yes [facility] Blood specimen (specimen) 2020 6:10 AM EST 2020 6:09 AM EST Joshua Ledesma MD BLOOD BANK PRODUCT ORDERABLES Performing Organization Address [facility] [place] [address] documented in this encounter Visit Diagnoses Not on filedocumented in this encounter Admitting Diagnoses Diagnosis CAD (coronary artery disease) Coronary atherosclerosis of unspecified type of vessel, clark's point or graft documented in this encounter Administered [...] Routine Given 07/28/2020 11:41 AM EST 1,000 mg Given 07/28/2020 5:03 AM EST 1,000 mg Given 07/27/2020 11:32 PM EST 1,000 mg AMIOdarone (Cordarone; Pacerone) tablet 200 mg 200 mg, Oral, 2 TIMES DAILY, First dose (after last modification) on Thu07/28/20 at 0900, Until Discontinued, Routine Given 07/28/2020 9:09 AM EST 200 mg aspirin chewable tablet 81 mg 81 mg, Oral, DAILY, First dose on Thu07/23/20 at 1245, Until Discontinued, Routine Given 07/28/2020 9:09 AM EST 81 mg Given 07/27/2020 8:27 AM EST 81 mg Given 07/26/2020 8:13 AM EST 81 mg calcium chloride 10% (100 mg/mL) injection ONCE PRN, Starting on Thu07/23/20 at 1016, Until Thu07/23/20 at 1138, Intra-Operative (Intra-Procedure), Routine Given 2020 10:16 AM EST 1 g cardioplegic solution (Plegisol) induction solution CONTINUOUS PRN, Starting on Thu07/23/20 at 0921, Until Thu07/23/20 at 0921, Intra-Operative (Intra-Procedure) New Bag 2020 9:21 AM EST 271 mLs cardioplegic solution (Plegisol) maintenance solution CONTINUOUS PRN, Starting on Thu07/23/20 at 1018, Until Thu07/23/20 at 1018, Intra-Operative (Intra-Procedure) New Bag 2020 10:18 AM EST 430 mLs cardioplegic solution (Plegisol) reperfusion solution CONTINUOUS PRN, Starting on Thu07/23/20 at 1019, Until Thu07/23/20 at 1019, Intra-Operative (Intra-Procedure) New Bag 2020 10:19 AM EST 150 mLs electrolyte (pH 7.4) (NORMOSOL-R; PLASMALYTE-A) injection CONTINUOUS PRN, Starting on Thu07/23/20 at 0724, Until Thu07/23/20 at 0724, Intra-Operative (Intra-Procedure) New Bag 2020 7:24 AM EST 1,350 mLs ezetimibe (Zetia) tablet 10 mg 10 mg, Oral, DAILY, First dose on Thu07/25/20 at 0900, Until Discontinued, Routine Given 07/28/2020 9:09 AM EST 10 mg Given 07/27/2020 8:27 AM EST 10 mg Given 07/26/2020 8:14 AM EST 10 mg furosemide (Lasix) (10 mg/mL) injection 20 mg 20 mg, Intravenous, 2 TIMES DAILY, First dose on Thu07/25/20 at 0945, Until Discontinued Given 07/28/2020 9:11 AM EST 2 0 mg Given 07/27/2020 4:39 PM EST 20 mg Given 07/27/2020 8:26 AM EST 20 mg heparin (porcine) (1,000 units/mL) injection ONCE PRN, Starting on Thu07/23/20 at 0724, Until Thu07/23/20 at 1138, Intra-Operative (Intra-Procedure), Routine Given 2020 10:08 AM EST 3,000 Units Given 2020 9:30 AM EST 5,000 Units Given 2020 7:24 AM EST 5,000 Units hydrOXYzine (Atarax) tablet 25 mg 25 mg, [...] Given 07/26/2020 5:23 AM EST 30 mg lidocaine (pf) (Xylocaine) (20 mg/mL) 2% injection syringe ONCE PRN, Starting on Thu07/23/20 at 1016, Until Thu07/23/20 at 1138, Intra-Operative (Intra-Procedure), Routine Given 2020 10:16 AM EST 200 mg magnesium hydroxide (Milk of Magnesia) (240 mg/mL) oral liquid 10 mL 10 mL, Oral, DAILY, First dose on Thu07/25/20 at 0900, Until Discontinued, Post-op day 2. Do not use with renal insufficiency., Routine Given 07/28/2020 9:08 AM EST 10 mLs Given 07/27/2020 8:27 AM EST 10 mLs Given 07/26/2020 8:13 AM EST 10 mLs magnesium sulfate (4 mEq/mL) (50 %) injection ONCE PRN, Starting on Thu07/23/20 at 1016, Until Thu07/23/20 at 1138, Intra-Operative (Intra-Procedure), Routine Given 2020 10:16 AM EST 2 g mannitoL (50 grams and over) 100 g/500 mL (20%) infusion CONTINUOUS PRN, Starting on Thu07/23/20 at 0922, Until Thu07/23/20 at 0922, Intra-Operative (Intra-Procedure) New Bag 2020 9:22 AM EST 50 g metoprolol succinate XL (Toprol-XL) tablet 50 mg 50 mg, Oral, 2 TIMES DAILY, First dose (after last modification) on 07/28/20 at 1000, Until Discontinued, DO NOT CRUSH OR OPEN, Routine Given 07/28/2020 9:17 AM EST 50 mg oxyCODONE (Roxicodone) tablet 5-10 mg 5-10 mg, [...] 07/24/2020 3:49 AM EST 10 mg pantoprazole EC (Protonix) tablet 40 mg 40 mg, Oral, DAILY, First dose on Thu07/23/20 at 1245, Until Discontinued, DO NOT CRUSH OR OPEN If unable to take PO, may give IV Given 07/28/2020 9:09 AM EST 40 mg Given 07/27/2020 8:27 AM EST 40 mg Given 07/26/2020 8:14 AM EST 40 mg senna-docusate (Pericolace) 8.6-50 mg per tablet 2 tablet 2 tablet, Oral, DAILY, First dose on Thu07/24/20 at 2100, Until Discontinued, Post-op day 1, Routine Given 07/27/2020 8:14 PM EST 2 tablets Given 07/26/2020 9:09 PM EST 2 tablets Given 07/24/2020 8:57 PM EST 2 tablets sodium bicarbonate 8.4 % (1 meq/ml) IV solution ONCE PRN, Starting on Thu07/23/20 at 0915, Until Thu07/23/20 at 1138, Intra-Operative (Intra-Procedure), Routine Given 2020 9:15 AM EST 50 mEq sodium chloride 0.9 % (flush) flush 5 mL 5 mL, Intravenous, EVERY 8 HOURS, First dose on Thu07/24/20 at 1000, Until Discontinued, Routine Given 07/28/2020 9:11 AM EST 5 mLs Given 07/27/2020 6:00 PM EST 5 mLs Given 07/26/2020 5:31 PM EST 5 mLs vancomycin (Vancocin) injection ONCE PRN, Starting on Thu07/23/20 at 1111, Until Thu07/23/20 at 1138, Intra-Operative (Intra-Procedure), Routine Given 2020 11:11 AM EST 1 g 19- Surgical Site verapamiL (Isoptin) (2.5 mg/mL) injection ONCE PRN, Starting on Thu07/23/20 at 0900, Until Thu07/23/20 at 1138, Administer over 2 Minutes, Intra-Operative (Intra-Procedure) Given 2020 9:00 AM EST 5 mg 19- Surgical Site documented in this encounter Active and Recently [...] Sarah Villagran RN)1128 (Given - Provider: Denisha Carias, CODY)1726 (Given - Provider: Denisha Carias, CODY)2318 (Given - Provider: Aide Doherty) 0528 (Given [...] on Thu07/26/20 at 0900, Until Discontinued, Routine 08 (Given - Provider: Denisha Carias RN)210 (Given - Provider: Aide Doherty) 08 (Given - Provider: Denisha Carias RN) AMIOdarone (Cordarone; Pacerone) tablet 200 mg 200 mg, Oral, 2 TIMES DAILY, First dose (after last modification) on Thu07/28/20 at 0900, Until Discontinued, Routine 09 (Given - Provider: Denisha Carias RN) AMIOdarone (Cordarone; Pacerone) tablet 400 mg (COMPLETED) 400 mg, Oral, ONCE, 1 dose, On Thu07/27/20 at 1630, Routine 1639 (Given - Provider: Denisha Carias RN) AMIOdarone [...] on Thu07/23/20 at 1245, Until Discontinued, Routine 08 (Given - Provider: Denisha Carias [...] dose on Thu07/25/20 at 0945, Until Discontinued 08 (Given - [...] 05 (Given - Provider: Sarah Villagran RN) 0528 (Given - Provider: Aide Doherty) 0503 (Given - Provider: Osmin Rodríguez, CODY) magnesium [...] Discontinued, DO NOT CRUSH OR OPEN, Routine 935 (Given - Provider: Denisha Carias RN)2012 (Given - Provider: Osmin Rodríguez, CODY) metoprolol succinate XL (Toprol-XL) tablet 50 mg 50 mg, Oral, 2 TIMES DAILY, First dose (after last modification) on Thu07/28/20 at 1000, Until Discontinued, DO NOT CRUSH OR OPEN, Routine 0917 (Given - Provider: Denisha Carias RN) metoprolol tartrate (Lopressor) tablet 12.5 mg (CANCELED) 12.5 mg, Oral, EVERY 8 HOURS SCHEDULED, First dose (after last modification) on Thu07/25/20 at 0300, Until Discontinued, Hold for HR<60, SBP<90., Routine 0523 (Given - Provider: Sarah Villagran, CODY) metoprolol tartrate (Lopressor) tablet 25 mg (CANCELED) 25 mg, Oral, EVERY 8 HOURS SCHEDULED, First dose (after last modification) on Thu07/26/20 at 1400, Until Discontinued, Hold for HR<60, SBP<90., Routine 1358 (Given - Provider: Denisha Carias RN)2109 (Given - Provider: Aide Doherty) 0341 (Given [...] 2100, Until Discontinued, Post-op day 1, Routine 2109 (Given - Provider: Aide Doherty) 2014 (Given - Provider: Osmin Rodríguez, CODY) sodium chloride 0.9 % (flush) flush 5 mL 5 mL, Intravenous, EVERY 8 HOURS, First dose on Thu07/24/20 at 1000, Until Discontinued, Routine 0200 (Not Given - Provider: Sarah Villagran RN - Reason: See comment)1000 (Given - Provider: Denisha Carias RN)1731 (Given - Provider: Denisha Carias RN) 0200 (Not Given - Provider: Aide [...] PRN, Starting on Thu07/25/20 at 1757, Until 07/28/20 at 1517, Itching, Routine ondansetron (pf) (Zofran) (2 mg/mL) injection 4 mg 4 mg, Intravenous, EVERY 8 HOURS PRN, Starting on Thu07/23/20 at 1152, Until 07/28/20 at 1517, Nausea [...] 6 hours upon arrival to Unit. Give NV if unable to take PO, Routine Group [...] Routine documented in this encounter Care Teams Potato Chip Cooker Machine Relationship Specialty Start Date End Date Mayank Mohamud DO [address] [place] [address] PCP - General Family Medicine 07/23/20 documented as of this encounter
--- OUTSIDE RECORDS SUMMARY | 2024-02-03 21:16 | XMS_ITS | Encounter Summary ---
[place] [address] Care Team Providers Care House Detective Name Role Phone None Primary Care Provider Unavailabl e Reason for Visit * Auth/Cert Specialty Diagnoses / Procedures Referred By Niko t Referred To Contact Diagnoses CAD (coronary artery disease) cad . Procedures PRO CABG, ARTERIAL, SINGLE PRO ENDOSCOPY W/VIDEO-ASST VEIN HARVEST, CABG PRO CABG, ARTERY-VEIN, FOUR @CABG, USING ARTERIAL GRAFT;SINGLE ARTERIAL GRAFT (WRVU 33.75) ENDOSCOPIC HARVEST VEIN(S) FOR CABG (WRVU 0.31) @CABG; 4 VENOUS GRAFTS & ARTERIAL GRAFT (WRVU 12.59) Referral ID Status Reason Start Date Expiration Date Visits Re quested Visits Authorized [id number] 1 1 Encounter Details Date Type Department Care Team (Late st Contact Info) Description 07/20/2020 9:45 [place] [address] COVID-19 ruled out Social History Tobacco Use Types Packs/Day Years [...] Procedure Name Priority Date/Time Associated Diagnosis Comments COVID-19 PCR Routine 07/20/2020 10:40 AM EST COVID-19 ruled out documented in this encounter Results * COVID-19 PCR (07/20/2020 10:40 AM EST) SARS-CoV-2 RNA Not Detected Not Detected [facility] Comment: This result should be interpreted in combination with the clinical observations, patient history and epidemiological information in making a final diagnosis. For testing of asymptomatic individuals, assay performance characteristics and clinical utility have not been evaluated. Testing for SARS-CoV-2 (Severe acute respiratory syndrome coronavirus 2, formerly known as 2019 novel coronavirus or 2019-nCoV) to aid in the diagnosis of COVID-19 is performed using the [employer] m SARS-CoV-2 Assay as authorized by the FDA Emergency Use Authorization (EUA). This EUA assay is intended for In-vitro Diagnostic (IVD) use with respiratory specimens such as nasopharyngeal swabs collected from individuals during the acute phase of infection. This assay is performed based on the instructions for use provided by [employer] and additional guidance provided by CDC and FDA. Testing is performed in the [facility] within the Department of Pathology and Laboratory Medicine at [facility], certified under the Clinical Laboratory Improvement Amendments of 1988 (CLIA), 42 U.S.C. 263a, to perform high complexity tests. Assay performance has been verified according to clinical laboratory regulatory requirements for use with specimens collected from individuals suspected of COVID-19. Test results are provided above. A result of ? Not Detected? indicates that the viral RNA target is not present above the limit of detection, but does not preclude SARS-CoV-2 infection. False negative results may occur if a specimen is improperly collected, transported or handled; if amplification inhibitors are present; or if inadequate numbers of viral particles are present in the specimen. When a diagnostic test is negative, the possibility of a false negative result should be considered in the context of a patient? s recent exposures and the presence of clinical signs and symptoms consistent with COVID-19. A result of ? Detected? indicates that RNA from SARS-CoV-2 was detected and the patient is infected. As required or requested by public health authorities, positive specimens may be sent for additional testing. Positive and negative predictive values for this test are highly dependent on disease prevalence. A result of ? Invalid? indicates that neither the viral RNA targets nor the internal control target was detected. An invalid result suggests the presence of inhibitors. Recollection and re-testing is recommended in the case of an invalid result. CDC COVID-19 criteria for testing on human specimens and clinical management guidance information are available at the CDC Coronavirus Disease 2019 (COVID-19) webpage under ? Information for Healthcare Professionals? (https://www.cdc.gov/coronavirus/2019-ncov/hcp/index.html) Additional information about this and other EUA tests can be found in provider and patient fact sheets at the following FDA website: https://www.fda.gov/medical-devices/tmezctpbxdy-qxxmowm-6932-eiabx-28-knhtlqwzh- use-a xmgwmskhmgefe-arbjmxc-xwthhac/cjvlu-pazhfmiycoa-qesq SARS-CoV-2 RNA Source SOFTWARE APPLICATION TESTER Swab [facility] Nasopharyngeal swab (specimen) 07/20/2020 10:40 AM EST 07/20/2020 10:40 AM EST Comment:Symptoms->Asymptomat ic Narrative Resulting Agency Comment Spec In Lab Joshua Ledesma MD MOLECULAR ORDERABLE S [facility] [place] [address] documented in this encounter Visit Diagnoses Diagnosis COVID-19 ruled out documented in this encounter Care Teams House Detective Relationship Specialty Start Date End Date None None PCP - General 06/13/19 07/22/20 documented as of this encounter
--- OUTSIDE RECORDS SUMMARY | 2024-02-03 21:16 | XMS_ITS | Encounter Summary ---
Author Organization [facility] Address [facility] [place] [address] Care Team Providers Care Assistant Merchandise Manager Name Role Phone Unavailable Primary Care Provider Unavailabl e Reason for Visit * Reason Comments Procedure Encounter Details Date Type Department Care Team (Latest Contact Info) Description 04/01/2019 9:30 AM EST Procedure visit Ophthalmology at [facility] [place] [address] Yinka Rosales [place] [address] Retinal tear of left eye Social History [...] * Patient Instructions* Yinka Rosales MD - 04/01/2019 9:30 AM EST The doctor recommended laser retinopexy. What should I expect? Before the Laser The doctor will use topical anesthetics with drops and/or injections to numb up the eye. During the laser The laser takes 5-15 minutes. The patients frequently feel some discomfort that is generally well tolerated. If you feel that you cannot tolerate it please tell the doctor and the settings will be adjusted. If you still feel pain the treatment can be stopped. A small minority of the patients feel light-headed during the laser. If you feel so please let usknow and we will stop it. If you're diabetic please make sure you eat at your usual times prior to the laser. Immediately after the laser The vision is very blurry for 1-2 minutes but goes back to baseline. Some patients feel foreign body sensation and mild pain for ~24 hours and in these cases application of over the counter artificial tears is recommended. Over the counter medications (e.g. Tylenol or ibuprophen) might also help For several days after the laser The eye might look red and swollen. Use of artificial tears sometimes helps. Activity restrictions: none documented in this encounter Plan of Treatment Not on file documented as of this encounter Procedures Procedure Name Priority Date/Time Associated Diagnosis Comments REPAIR RETINAL BREAK(S)-LASER - OS - LEFT EYE Routine 04/01/2019 9:41 AM EST Retinal tear of left eye documented in this encounter Results * Repair Retinal Break(S)-Laser - OS - Left Eye (04/01/2019 9:41 AM EST) Anatomical Region Laterality Modality Other Narrative 04/01/2019 9:41 AM EST Pre-Op Patient understands the risks and benefits of the treatment as outlined on the consent. Anesthesia Subconjunctival anesthesia was used. Laser Information The type of laser was argon. Color was green. The duration in seconds was 0.1. Laser power was 300.0. Total spots was 213. Post-op The patient tolerated the procedure well. There were no complications. The patient received written and verbal post procedure care education. Yinka Rosales MD OPHTHALMOLOGY SERVICES ORDERABLES documented in this encounter Visit Diagnoses Diagnosis Retinal tear of left eye documented in this encounter
--- OUTSIDE RECORDS SUMMARY | 2024-02-03 21:16 | XMS_ITS | Encounter Summary ---
Author Organization [facility] Address [facility] [place] [address] Care Team Providers Care Card Player Name Role Phone None Primary Care Provider Unavailabl e Encounter Details Date Type Department Care Team (Latest Contact Info) Description 06/13/2019 1:32 PM EST - 06/13/2019 5:03 PM EST Hospital Encounter Main Operating [facility] [place] [phone] Yinka Rosales MD [facility] [place] [address] Discharge Disposition: Home Social History Tobacco Use [...] Sign Reading Time Taken Comments Blood Pressure 136/80 06/13/2019 4:45 PM EST Pulse 75 06/13/2019 4:45 PM EST Temperature 37 ??C (98.6 ??F) 06/13/2019 4:12 PM EST Respiratory Rate 16 06/13/2019 4:45 PM EST Oxygen Saturation 97% 06/13/2019 4:45 PM EST Inhaled Oxygen Concentration - - [...] sensitivity and vision loss please call the [facility] telephone center ([phone]) immediately and speak to the clinical laboratory manager orthopedic nurse practitioner. PAIN May use over the counter pain [...] Rosales MD - 06/13/2019 2:51 PM EST [facility] Operative Note Patient Name: Lizandro Heath : [id number] MR#: [id number] Case Date: 06/13/2019 Surgeon: Surgeon(s) and Role: [...] brought to the operative suite at the [facility] where a time-out was done to confirm [...] Comments Vitrectomy Pars Plana Remove Preretinal Membrane (37584) 06/13/2019 3:08 PM EST Epiretinal membrane, right documented in this encounter Visit Diagnoses Not [...] Given 06/13/2019 2:15 PM EST 1 drop lactated ringers infusion 1,000 mL, at 100 [...] Day of Surgery (Day of Procedure), Routine moxifloxacin (VIGAMOX) 0.5 % ophthalmic solution 1 drop 1 drop, Right Eye, EVERY 5 MIN, 3 doses, First dose on Thu06/13/19 at 1415, Last dose on Thu06/13/19 at 1425, Day of Surgery (Day of Procedure), Routine Given 06/13/2019 2:25 PM EST 1 drop Given 06/13/2019 2:20 PM EST 1 drop Given 06/13/2019 2:15 PM EST 1 drop PHENYLephrine (MYDFRIN) 2.5 % ophthalmic solution 1 drop 1 drop, Right Eye, EVERY 5 MIN, 3 doses, First dose on Thu06/13/19 at 1415, Last dose on Thu06/13/19 at 1425, Day of Surgery (Day of Procedure), Routine Given 06/13/2019 2:25 PM EST 1 drop Given 06/13/2019 2:20 PM EST 1 drop Given 06/13/2019 2:15 PM EST 1 drop prednisoLONE acetate (PRED FORTE) 1 % ophthalmic [...] Day of Surgery (Day of Procedure), Routine documented in this encounter Active and Recently [...] Day of Surgery (Day of Procedure) 1415 (New Bag - Prov ider: Tanika Mendez RN) PRN Medication Order [...] 1539 (Given - Provid er: Yinka Rosales MD) [...] 153 (Given - Provid er: Yinka Rosales MD [...] Until Thu06/13/19 at 1903, Intra-Operative (Intra-Procedure), Routine 1541 (Given - Provid er: Yinka Rosales MD - Comment: post op) kngjdsxf-zoiyxyhfu-xeayqyidapn ne (DEXACINE) 3.5 mg/g-10,000 unit/g-0.1 % ophthalmic [...] prep) documented in this encounter Care Teams Card Player Relationship Specialty Start Date End Date None None PCP - General 06/13/19 07/22/20 documented as of this encounter
--- OUTSIDE RECORDS SUMMARY | 2024-02-03 21:16 | XMS_ITS | Encounter Summary ---
Author Organization [facility] Address [facility] [place] [address] Care Team Providers Care Fudge Candy Maker Name Role Phone None Primary Care Provider Unavailabl e Reason for Visit * Reason Comments Cataract Encounter Details Date Type Department Care Team (Late st Contact Info) Description 06/25/2020 8:00 AM EST Office [place] [address] Ru Pina MD [facility] [place] [address] Combined forms of age-related cataract of both eyes; Epiretinal membrane, right (s/p PPV-MP 06/13/19); Retinal tear of left eye; Hyperopia of both eyes with astigmatism and presbyopia Social History Tobacco Use Types Packs/Day Years [...] as of this encounter Progress Notes * Ru Pina MD - 06/25/2020 8:00 AM EST Assessment/Plan: Lizandro Cruz Sr Ivana is a 74 y.o. male with the following ophthalmic issues: 1. Cataracts OU 2. 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 S/P retinopexy for RT OS 4. Hyperopia/astig/presby 5. Angina - sounds like it may be unstable angina, scheduled for workup in coming weeks. 6. Ibuprofen allergy (rash, diff swallowing) - will not use ketorolac Discussed cataract surgery, process, recovery, Risks/Benefits/Alternatives, and the option of waiting. AAO cataract surgery pamphlet given to patient. Reviewed the chance of WORSE vision, damage to the eye, need for further treatment or surgery, possible need for strong glasses, imbalance between eyes, other problems possible. Lens options and refractive targets reviewed. Reiterated that refractive target is an estimate; we do not have full control over what the end result is. Questions answered. Lizandro Heath expresses understanding, requests cataract surgery OD, possibly with OS to follow. Informed consent form reviewed and signed. Lizandro Heath was informed of the opportunity to retain a copy of the Consent Form. Discussed option of presbyopic IOL to try to minimize need for glasses (not being used at [facility], butavailable elsewhere). Lizandro Heath declines presbyopic IOL and requests single vision IOL. Amount of astigmatism mild: no toric IOL anticipated Dominant eye: OS Refractive target: distance documented in this encounter Plan of Treatment Not on file documented as of this encounter Procedures Procedure Name Priority Date/Time Associated Diagnosis Comments DUOBDEM-VEEZX-SDO CALC BY LASER INTERFEROMETRY - OU - BOTH EYES Routine 06/25/2020 9:37 AM EST Combined forms of age-related cataract of both eyes documented in this encounter Results * FKVTPHY-VUYOF-SDK Calc By Laser Interferometry - OU - Both Eyes (06/25/2020 9:37 AM EST) Anatomical Region Laterality Modality Other Narrative 06/25/2020 9:37 AM EST Patient Hx Past Medical Hx ??Pt. ??has a past medical history of Cataract, Coronary artery disease (06/15/2020), and Hypertension. Past Ophth Surg Hx ??Ophth surgical history includes: left retina procedures other, 04/01/2019 (Laser for retinal tear - DM) and right retina procedures other, 06/13/2019 (PPV MP per DM). Eye Meds ??Vitamin B Complex-Vitamin C-Folic Acid, acetaminophen, aspirin EC, hydrOXYzine, lisinopriL, metoprolol succinate XL, nitroGLYcerin, and vitamin A IOL Biometry - Initial (source: LENSTAR) OD OS Date Performed 06/25/2020 ??9:20 AM ? Target Refraction 0 0 ?? Axial Length 24.24 (mm) 24.45 (mm) ?? Anterior Chamber Depth 3.14 (mm) 3.3 (mm) ?? Horizontal White to White 12.76 (mm) 12.65 (mm) ?? Formula Used ? K's 40.75, 40.87@011, 179 / 41.25, 41.32@101, 089 41.00, 40.87@019, 40 / 41.75, 41.46@109, 130 ? Add'l Comments/Discrepancies/Concerns: Good scans POM reviewed. Lenstar: Good quality scans K's: ?? 0.45 D cyl OD, 0.59 D cyl OS See paper POM form for IOL calculations. Ru Pina MD OPHTHALMOLOGY SERVIC ES ORDERABLES documented in this encounter Visit Diagnoses Diagnosis Combined forms of age-related cataract of both eyes Other and combined forms of senile cataract Epiretinal membrane, right (s/p PPV-MP 06/13/19) Retinal tear of left eye Hyperopia of both eyes with astigmatism and presbyopia documented in this encounter Care Teams Fudge Candy Maker Relationship Specialty Start Date End Date None None PCP - General 06/13/19 07/22/20 documented as of this encounter
--- OUTSIDE RECORDS SUMMARY | 2024-02-03 21:16 | XMS_ITS | Encounter Summary ---
Author Organization [facility] [place] [address] Care Team Providers Care High Heel Builder Name Role Phone None Primary Care Provider Unavailabl e Reason for Visit * Reason Onset Date Comments Appointment 12/15/2019 Encounter Details Date Type Department Care Team (Late st Contact Info) Description 12/15/2019 Telephone Ophthalmology at [facility] [place] [place] [phone] Yinka Rosales MD [facility] [place] [address] Appointment Social History Tobacco Use Types Packs/Day Years [...] encounter Miscellaneous Notes * Telephone Encounter - Zahira Wade - 12/15/2019 1:45 PM EDT Scheduled * Telephone Encounter - Anamaria Narvaez - 12/15/2019 11:18 AM EDT LM with spouse to have patient call back to schedule Return for Follow up for cat-eval next available, follow up retina 1 year for dfe, oct ou documented in this encounter Plan of Treatment Not on file documented as of this encounter Visit Diagnoses Not on filedocumented in this encounter Care Teams High Heel Builder Relationship Specialty Start Date End Date None None PCP - General 06/13/19 07/22/20 documented as of this encounter
--- OUTSIDE RECORDS SUMMARY | 2024-02-03 21:16 | XMS_ITS | Encounter Summary ---
Author Organization [facility] Address [facility] [place] [address] Care Team Providers Care College Basketball Coach Name Role Phone None Primary Care Provider Unavailabl e Encounter Details Date Type Department Care Team (Late st Contact Info) Description 08/12/2019 Telephone Ophthalmology at [facility] [place] [phone] Yinka Rosales MD [facility] [place] [address] Social History Tobacco Use Types Packs/Day Years [...] encounter Miscellaneous Notes * Telephone Encounter - Lorrie Carter - 08/16/2019 3:10 PM EDT Per DM, the restrictions are lifted. * Telephone Encounter - Lorrie Carter - 08/12/2019 4:21 PM EDT Called to move appt out 4 months per DM review, but was wondering about his 20 pound weight limit. He didn't know if that go be done with as he needs to split some wood. documented in this encounter Plan of Treatment Not on file documented as of this encounter Visit Diagnoses Not on filedocumented in this encounter Care Teams College Basketball Coach Relationship Specialty Start Date End Date None None PCP - General 06/13/19 07/22/20 documented as of this encounter
--- OUTSIDE RECORDS SUMMARY | 2024-02-03 21:16 | XMS_ITS | Encounter Summary ---
Author Organization [facility] Address [facility] [place] [address] Care Team Providers Care Health Administration Teacher Name Role Phone None Primary Care Provider Unavailabl e Reason for Visit * Reason Comments Epiretinal Membrane Encounter Details Date Type Department Care Team (Late st Contact Info) Description 12/13/2019 8:15 AM EDT Office Visit Ophthalmology at [facility] [place] [address] Yinka Rosales MD [facility] [place] [address] Epiretinal membrane, right (s/p PPV-MP 06/13/19); Epiretinal membrane, right; Retinal tear of left eye Social History [...] Progress Notes * Yinka Rosales MD - 12/13/2019 8:15 AM EDT ASSESSMENT/PLAN: 1. Epiretinal membrane, right (s/p PPV-MP 06/13/19) 2. Epiretinal membrane, right 3. Retinal tear of left eye Visual Acuity Visual Acuity (Snellen - Linear) Right Left Dist cc 20/200 -1 20/30 -1 Dist ph cc NI 20/25 +2 Near cc 20/50-2 20/20-1 Correction: Glasses 1. ERM with lamellar hole OD S/p PPV-MP 06/13/2019 Today 12/13/2019 The OCT and DFE show improved macular contour. The VA is limited from the NS 2. Retinal Tear OS Today 12/13/2019 Stable with SD exam 3. Cataracts, both eyes -monitor Cat-eval next available Follow up retina in 1 year for DFE, OCT OU I, Catracho Singer, have performed the documentation for this encounter in the presence of, and acting as a scribe for Yinka Rosales MD. I performed the services which were documented by the scribe, and I agree with the accuracy of the documentation in this encounter. Yinka Rosales MD, PhD Extended Ophthalmoscopy Indication: 1. Epiretinal membrane, right (s/p PPV-MP 06/13/19) 2. Epiretinal membrane, right 3. Retinal tear of left eye Technique: A) Indirect ophthalmoscopy with scleral depression B) Slit lamp exam with 90D/78D lens Findings: Main Ophthalmology Exam External Exam Right Left External Normal Normal Slit Lamp Exam Right Left Lids/Lashes Normal Normal Conjunctiva/Sclera MARINA White and quiet Cornea Clear Clear Anterior Chamber Deep and quiet Deep and quiet Iris Round and reactive Round and reactive Lens 3+ NS 2+ NS Fundus Exam Right Left Vitreous no air bubble s/p PPV PVD Disc Normal Normal C/D Ratio 0.5 0.4 Macula s/p MP Normal Vessels Normal Normal Periphery Normal RT 6:00 documented in this encounter Plan of Treatment Not on file documented as of this encounter Procedures Procedure Name Priority Date/Time Associated Diagnosis Comments OCT RETINA - OU - BOTH EYES Routine 12/13/2019 8:47 AM EDT Epiretinal membrane, right documented in this encounter Results * OCT Retina - OU - Both Eyes (12/13/2019 8:47 AM EDT) Anatomical Region Laterality Modality Other Narrative 12/13/2019 8:47 AM EDT Right Eye Quality was good. Scan locations included subfoveal. Progression has improved. Findings include abnormal foveal contour, lamellar hole. Left Eye Quality was good. Scan locations included subfoveal. Progression has no prior data. Findings include normal observations. Yinka Rosales MD OPHTHALMOLOGY SERVICES ORDERABLES documented in this encounter Visit Diagnoses Diagnosis Epiretinal membrane, right (s/p PPV-MP 06/13/19) Retinal tear of left eye documented in this encounter Care Teams Health Administration Teacher Relationship Specialty Start Date End Date None None PCP - General 06/13/19 07/22/20 documented as of this encounter
--- OUTSIDE RECORDS SUMMARY | 2024-02-03 21:16 | XMS_ITS | Encounter Summary ---
Author Organization [facility] Address [facility] [place] [address] Care Team Providers Care Duty Manager Name Role Phone None Primary Care Provider Unavailabl e Encounter Details Date Type Department Care Team (Latest Contact Info) Description 07/09/2020 8:50 AM EST - 07/09/2020 5:09 PM EST Hospital Encounter Same Day Program at [place] [phone] Vianey Brower MD [facility] [address] [place] [id number] Screening for cardiovascular condition; Coronary artery disease, angina presence unspecified, unspecified vessel or lesion type, unspecified whether [place] or transplanted heart; Screening for cardiovascular condition Discharge Disposition: Home Social History Tobacco Use [...] Reading Time Taken Comments Blood Pressure 130/83 07/09/2020 4:15 PM EST Pulse 66 07/09/2020 3:40 PM EST Temperature 37.3 ??C (99.1 ??F) 07/09/2020 3:48 PM ES T Respiratory Rate 9 07/09/2020 2:35 PM EST Oxygen Saturation 97% 07/09/2020 4:15 PM EST Inhaled Oxygen Concentration - - [...] by your doctor, do not take any zsuo-mol-bauhuuf medicinesor herbal preparations without first discussing this with your doctor or pharmacist. There is the possibility of side effects and interactions when these are combined. Follow Up Care Who to call with questions or problems If there are any questions or problems that you think might be related to your cardiac cath or angioplasty, contact the supervisor forming and tempering buyer liaison by calling [facility] at . documented in this encounter Medications [...] 2 times daily as needed for Itching. [id number] #[id number] (Urinozinc Prostate Formula Pls) 100 mg Tablet [...] Procedure Note: Patient Name: Lizandro Heath : [id number] MR#: [id number] Case Date: 07/09/2020 Rubber Goods Assembler: Surgeon(s) and Role: * Vianey Brower MD - Primary * Jennifer Loza MD - Fellow Preoperative diagnosis: Screening for cardiovascular condition [Z13.6], Coronary artery disease, angina presence unspecified, unspecified vessel or lesion type, unspecified whether [place] or transplanted heart [I25.10] Postoperative diagnosis: 3 [...] unspecified vessel or lesion type, unspecified whether [place] or transplanted heart EKG 12-LEAD Routine 07/09/2020 10:45 AM EST Screening for cardiovascular condition Coronary artery disease, angina presence unspecified, unspecified vessel or lesion type, unspecified whether [place] or transplanted heart HC VENIPUNCTURE STAT 07/09/2020 9:04 AM EST HEMOGRAM STAT 07/09/2020 9:04 AM EST DIFFERENTIAL, AUTOMATED STAT 07/09/2020 9:04 AM EST HC CBC,PLT & AUTO DIFF STAT 9:04 AM EST documented in this encounter Results * CARDIAC CATHETERIZATION (07/09/2020 2:20 PM EST) Anatomical Region Laterality Modality Other Narrative 07/09/2020 3:09 PM EST ?[facility] ? Cardiac Catheterization/Intervention Report ? Patient Name: EricedinsonLizandro Sr. ? Procedure Date: 07/09/2020 ? A #: [id number] ? Primary Physician: Vianey Brower ? Case #: [id number] ? File Name: [id number] ? Catheterization Order Number: [id number] ? [facility] ? Final Report [place], [place] ? Patient Name: ? Lizandro Heath ?ID#: ?[id number] ? : ?1945 ? Procedure Date: ? [...] procedure was Elective. 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 [...] was present for the entire procedure. ?Dr. Vainey Brower M.D. was present during the moderate sedation ?intraservice time as documented by the sedation nurse. ??Case time = 00:34. ?Dr. Vianey Brower M.D. performed the coronary angiography and left heart ?catheterization. ? Vianey Brower M.D. ? Electronically Signed by: Justino FloresD. ? Report Finalized: 07/09/2020 ??15:03 ? Procedure Note Vianey Brower MD - 07/09/2020 [facility] Cardiac Catheterization/Intervention Report Patient Name: Lizandro Heath Sr Procedure Date: 07/09/2020 A #: [id number] Primary Physician: Vianey Brower Case #: [id number] File Name: [id number] Catheterization Order Number: [id number] [facility] FinalReport [place], [place] Patient Name: Lizandro Heath ID#:[id number] :1945 Procedure Date: July 09, 2020 Case #: [id number] Room: 5 Case Physician: Vianey Brower M.D. Start: 13:36 Fellow: Jennifer Loza M.D. Admission:07/09/2020 Referring Physician: Antonia Magana M.D. Procedures: * Coronary Angiography * Left Heart Catheterization History Lizandro Heath is a 74 year old man. He has hypertension and a family history of coronary artery disease. The patient's smokingstatus is Former. He also has hypercholesterolemia. Prior to the initiationof this procedure, the patient was designated as ASA Class III. [facility] 5: Mildly Frail. [...] diagnostic procedure was Elective. Theindication for the custodial laborer visit is worsening angina and suspected CAD. [...] (Bezet) 460 ms MUSE SYSTEM Calculated P Pitman 31 degrees MUSE SYSTEM Calculated R Pitman -20 degrees MUSE SYSTEM Calculated T Pitman 34 degrees MUSE SYSTEM INTERPRETATION Normal sinus rhythm with sinus arrhythmia Right bundle branch block Abnormal ECG No previous ECGs available Confirmed by MD GINA, FLETCHER ([id number]) on 07/09/2020 11:55:39 AM MUSE SYSTEM 07/09/2020 10:4 5 AM EST 07/09/2020 11:55 AM EST Vianey Brower MD ECG ORDERABLES MUSE SYSTEM * Differential, Automated (07/09/2020 9:04 AM EST) Neutrophil % 64.7 % [facility] Neutrophil Absolute 5.73 1.70 - 6.10 x10(3)/[facility] Lymph % 20.0 % [facility] Lymphocytes Abs 1.8 0.9 - 3.2 x10(3)/[facility] Monocyte % 9.9 % [facility] Monocyte Abs 0.9 0.3 - 0.9 x10(3)/[facility] Eos % 4.5 % [facility] Eosinophils Abs 0.4 0.0 - 0.4 x10(3)/[facility] Basophil % 0.6 % [facility] Baso Absolute 0.0 0.0 - 0.1 x10(3)/[facility] Immature Gran % 0.30 % [facility] Comment: Immature granulocytes(IG's)percentage and absolute count will include metamyelocytes, myelocytes, and promyelocytes. Blood smears from CBCs yielding IG's will be scanned manually for concordance. If this scan disagrees with the automated IG or if promyelocytes are noted, a manual differential will be performed. Immature Gran Absolute 0.03 0.00 - 0.04 x10(3)/[facility] Blood specimen (specimen) 07/09/2020 9:04 AM EST 07/09/2020 9:21 AM EST Narrative Resulting Agency Comment Spec In Lab [facility] ORDERABLE S [facility] [place] [address] * (ABNORMAL) Hemogram (07/09/2020 9:04 AM EST) White Blood Cell 8.9 4.0 - 9.5 x10(3)/mc L [facility] Red Blood Cell 4.53(L) 4.58 - 5.54 x10(6)/mc L [facility] Hemoglobin 14.1 13.7 - 16.5 gm/dL [facility] Hematocrit 43.5 40.5 - 48.5 % [facility] Mean Cell Volume 96.0(H) 82.9 - 93.1 fL [facility] Mean Cell Hemoglobin 31.1 27.5 - 32.1 pg [facility] Mean Cell Hemoglobin Concentration 32.4 32.0 - 35.7 gm/dL [facility] Platelet 317 145 - 357 x10(3)/mc L [facility] RDW Standard Deviation 46.1(H) 36.0 - 45.0 fL [facility] RDW coefficient of variation 12.9 11.4 - 13.8 % [facility] Mean Platelet Volume 9.1 7.6 - 12.9 fL [facility] NRBC% auto 0.0 % [facility] NRBC Absolute 0.000 0.000 - 0.000 x10(3)/mc L [facility] Blood specimen (specimen) 07/09/2020 9:04 AM EST 07/09/2020 9:21 AM EST Narrative Resulting Agency Comment Spec In Lab [facility] ORDERABLE S Performing Organization Address City/State/[facility] Co de Phone Number [facility] [place] [address] * BMP w/fasting Glucose (07/09/2020 9:04 AM EST) Glucose Fasting 94 65 - 99 mg/dL [facility] Comment: ?Fasting* Glucose Interpretive Criteria [...] of Diabetes Mellitus, Position Statement from the [place] [employer]. ??Diabetes Care, Volume 33, Supplement 1, May 2009 Blood Urea Nitrogen 15 10 - 20 mg/dL [facility] Creatinine 1.01 0.80 - 1.50 mg/dL [facility] Sodium 138 135 - 145 mmol/L [facility] Potassium 4.7 3.5 - 5.0 mmol/L [facility] Comment: Please note: ??Patients with WBC >100,000 may have falsely elevated Potassium levels. ??For accurate Potassium quantification in these patients send serum separator tube (gold top) for subsequent determinations. ??Contact the Clinical Chemistry Laboratory if there are any questions. Chloride 106 98 - 107 mmol/L [facility] Carbon Dioxide 23 22 - 31 mmol/L [facility] Anion Gap 9 5 - 15 mmol/L [facility] Calcium 9.0 8.5 - 10.5 mg/dL [facility] Est Glomerular Filtration Rate 74 >=60 mL/min/1. 73 m?? [facility] Comment: This patient? s estimated [...] In Lab Vianey Brower MD CHEMISTRY ORDERABLES [facility] [place] [address] documented in this encounter Visit Diagnoses Diagnosis Screening for cardiovascular condition Screening for other and unspecified cardiovascular conditions Coronary artery disease, angina presence unspecified, unspecified vessel or lesion type, unspecified whether [place] or transplanted heart Screening for cardiovascular condition Screening for other and unspecified cardiovascular conditions Coronary artery disease Coronary atherosclerosis of unspecified type of vessel, [place] or graft Screening for cardiovascular condition Screening for other and unspecified cardiovascular conditions Coronary artery disease, angina presence unspecified, unspecified vessel or lesion type, unspecified whether [place] or transplanted heart documented in this encounter Admitting Diagnoses Diagnosis Screening for cardiovascular condition Screening for other and unspecified cardiovascular conditions documented in this encounter Administered Medications Inactive Administered Medications - up to 3 most recent administrations Medication Order MAR Action Action Date Dose Rate Site fentaNYL (pf) (50 mcg/mL) multi-dose injection ONCE PRN, Starting on Thu07/09/20 at 1323, Until Thu07/09/20 at 1710, Intra-Operative (Intra-Procedure), Routine Given 07/09/2020 1:23 PM EST 25 mcg lidocaine (Xylocaine) 1% (10 mg/mL) injection 3 mg 3 mg (0.3 mL), Subcutaneous, ONCE PRN, 1 dose, Starting on Thu07/09/20 at 1046, Until Thu07/09/20 at 1710, with discomfort with PIV insertion, Cath (Day of Procedure), Routine sodium chloride 0.9 % (flush) flush 5 [...] Thu07/09/20 at 1710, Cath (Day of Procedure) documented in this encounter Active and Recently [...] Until Thu07/09/20 at 1413, Cath (Intra-Procedure), Routine 1402 (Given - Provid er: Wellington Mathew) iohexoL (Omnipaque) (350 mg/mL) injection solution (CANCELED) ONCE PRN, Starting on Thu07/09/20 at 1413, Until Thu07/09/20 at 1413, Cath (Intra-Procedure), Routine 1413 (Given - Provid er: Vianey Brower MD) [...] Until Thu07/09/20 at 1413, Cath (Intra-Procedure), Routine 1323 (Given - Provid er: Wellington Mathew) nitroGLYcerin [...] MD) documented in this encounter Care Teams Duty Manager Relationship Specialty Start Date End Date None None PCP - General 06/13/19 07/22/20 documented as of this encounter
--- OUTSIDE RECORDS SUMMARY | 2024-02-03 21:16 | XMS_ITS | Clinical Summary ---
Author Organization [facility] Address [address] [place] [address] Care Team Providers Care Precision Structural Metal Fitter Name Role Phone Unknown, Provider Primary Care Provider [phone] Social History Tobacco Use Types Packs/Day Years Used Date Smoking Tobacco: Never Assessed Sex and Gender Information Value Date Recorded Sex Assigned at Not on file Gender Identity Not on file Sexual Orientation Not on file Plan of Treatment Health Maintenance Due Date Last Done Comments Hepatitis C Screen 1945 RSV Immunization ( o r 60+ Years) (1 - 1-dose 60+ series) 2007 Fall Risk Screening 07/22/2012 COVID-19 Vaccine (2022-24 season) 2023 Care Teams Precision Structural Metal Fitter Relationship Specialty Start Date End Date Unknown, Provider, PCP - General 09/06/08
[2024-02-03 22:19] LABS: ALT 39 U/L (16-63); AST 31 U/L (15-37); Albumin 3.8 g/dL (3.4-5.0); Alkaline Phosphatase 77 U/L (46-116); Anion Gap 11.7 mmol/L (3-11); BUN 14 mg/dL (7-18); Bilirubin, Total 0.64 mg/dL (0.2-1.0); CO2 25.3 mmol/L (21.0-32.0); CREATININE 1.1 mg/dL (0.70-1.30); Calcium 8.9 mg/dL (8.5-10.1); Calculated LDL 120 mg/dL (<100); Chloride 104 mmol/L (98-107); Cholesterol 219 mg/dL (<200); Estimated GFR 69.57 (mL/min/1.73m2); Glucose 83 mg/dL (74-106); HDL Cholesterol 44 mg/dL (40-60); Potassium 4.2 mmol/L (3.5-5.1); Sodium 141 mmol/L (136-145); Total Protein 8.1 g/dL (6.4-8.2); Triglyceride 279 mg/dL (<150)
== END 2024-02-03 21:15 | disposition home or self-care (01) ==
LOC: LBN 21:14 → LBO 21:51
PROVIDERS: PCP Family Medicine; Visit Provider Family Medicine
DX: I10 Essential (primary) hypertension (principal); E78.5 Hyperlipidemia, unspecified; Z23 Encounter for immunization; I71.40 Abdominal aortic aneurysm, without rupture, unspecified; I25.10 Atherosclerotic heart disease of native coronary artery without angina pectoris
CPT/HCPCS: 80053; 80061

== ENCOUNTER 2024-02-12 00:56 | Outpatient (CLI) | payer MEDICARE, SELFPAY ==
--- NOTE | 2024-02-12 06:30 | DI.US_ITS ---
Exam(s) US AAA DIAGNOSTIC EXAM: US AAA DIAGNOSTIC CLINICAL HISTORY: Annual surveillance of aaa,I71.4 COMPARISON: US US AAA DIAGNOSTIC from 09/24/2022 FINDINGS: Abdominal Aorta: Proximal: 2.5 x 2.4 cm Mid: 2.6 x 2.5 cm Distal: 4.0 x 4.0 cm. This is show no significant change compared to the prior examinat ions. Iliac's: Right: 1.3 x 1.6 cm Left: 1.5 x 1.6 cm IMPRESSION: There is a stable distal abdominal aortic aneurysm. DATA REPOSITORY:
== END 2024-02-12 01:16 ==
LOC: DI 00:56
PROVIDERS: PCP Family Medicine; Visit Provider Family Medicine
DX: I71.40 Abdominal aortic aneurysm, without rupture, unspecified (principal)
CPT/HCPCS: 76775

== ENCOUNTER 2024-09-20 14:27 | Outpatient (CLI) | payer MEDICARE, SELFPAY ==
--- NOTE | 2024-09-20 14:15 | RT.EKG_ITS ---
APPROVED REPORT Exam: Resting ECG Reason for Exam: c/o's chest pain Patient Location: O HR:59 bpm ECG Measurements Heart Rate 59 AXIS NC 188 P 30 QRSd 164 QRS -45 QT 465 T 36 QTc 461 Conclusion Sinus rhythm...normal P axis, V-rate 50- 99 Probable left atrial enlargement...P >50mS, <-0.10mV V1 Right bundle branch block...QRSd>120, terminal axis(90,270) Baseline wander in lead(s) V3
== END 2024-09-20 14:28 | disposition home or self-care (01) ==
LOC: DI.KIM 14:28
PROVIDERS: PCP Family Medicine; Visit Provider Family Medicine
DX: R07.9 Chest pain, unspecified (principal); I45.10 Unspecified right bundle-branch block; I51.7 Cardiomegaly
CPT/HCPCS: 93010

== ENCOUNTER → 2024-09-22 13:05 | Outpatient (BNVA) | payer MEDICARE, SELFPAY | PROVIDERS: PCP Family Medicine; Referring Provider Family Medicine; Visit Provider Internal Medicine Cardiovascular Disease | DX: I10 Essential (primary) hypertension (principal); Z95.1 Presence of aortocoronary bypass graft; R01.1 Cardiac murmur, unspecified | CPT/HCPCS: 99214 ==

== ENCOUNTER 2024-10-03 02:25 | Outpatient (CLI) | payer MEDICARE, SELFPAY ==
--- NOTE | 2024-10-03 07:15 | DI.NM_ITS ---
APPROVED REPORT Exam: Pharmacologic Patient Location: Out-Patient Room/Bed: Stress Nurse: Beth Guerrero Ordering Provider:LISANDRA ESTRADA, Contact Number: [phone] BMI: 32.41 Baseline Rhythm: Sinus Bradycardia, RBBB Comment: 1st degree AV block Indications: known CAD, previous CABG, episodes of angina, Medical History Medical History: AAA, heart murmur, obesity, HLD, HTN, PVD, CAD, aortic stenosis Cardiac Medications: aspirin, ezetimibe, hydroxyzine, losartan, metoprolol succinate Allergies: NSAIDs, atorvastatin, crestor, amlodipine, benazapril, simvastatin Cardiac Risk Factors: family hx, HTN, HLD, PVD/CVD, former smoker, obesity Previous Cardiac Procedures: CABG x4 07/23/2020 Pretest Chest Pain Characteristics: No chest pain Exercise History: Sedentary Physical Disabilities: n/a Lung Sounds: Clear to auscultation Heart Sounds: Murmur Stress Test Details Test: Pharmacologic stress was paired with low level exercise. Reason for pharmacologic stress test: beta tree. Nuclear Acquisition: Rest Tc-99m/Stress Tc-99m 1 day Rest Isotope: Tc-99m Sestamibi. Dose: 11.0 Date: 10/03/2024 Injection Time: 1100 Stress Isotope: Tc-99m Sestamibi. Dose: 36.0 Date: 10/03/2024 Injection Time: 1255 HR Resting HR Supine: 53 bpm Max Heart Rate (APMHR): 143 bpm Resting HR Standin bpm Target HR (85% APMHR): 122 bpm Max HR Achieved: 121 bpm % of APMHR: 85 Recovery HR: 61 bpm BP Resting BP Supine: 162/80 mmHg Resting BP Standin/92 mmHg Max BP: 162/80 mmHg Recovery BP: 142/74 mmHg ECG Resting ECG: Sinus Bradycardia, RBBB, 1st degree AV block Ectopy: 1st degree AV block Stress ECG: Sinus Tachycardia, RBBB, 1st degree AV block ST Change: No significant ST segment changes noted Maximum ST Deviation: 0 mm Arrhythmia: none Recovery ECG: Sinus Rhythm, RBBB, 1st degree AV block Recovery ST Change: No significant ST segment changes noted Recovery Arrhythmia: rare PACs Clinical Stress Symptoms: Dyspnea Angina Score: None Rate Pressure Product: [id number] Stress ECG Conclusion 1. Resting electrocardiogram showed a right bundle branch block 2. Patient underwent testing using a combination of low-level exercise and pharmacologic stress with regadenoson 3. Peak heart rate achieved was 85% of maximal predicted for age 4. There was no electrocardiographic evidence of myocardial ischemia 5. There were no significant dysrhythmias 6. See MPI report Stress Test Summary STAGE HR BP SpO2 Symptoms NOTES Supine 53 162/80 97 Standing 59 158/92 1 min post Lexiscan injection 86 152/80 96 mild SOB 3 min post Lexiscan injection 67 140/78 98 6 min post Lexiscan injection 61 142/74 98 symptoms resolved MPI Conclusion There was no significant myocardial ischemia. There were no findings of prior myocardial infarction EF is 61% with normal wall motion
[2024-10-03] MEDS: Regadenoson 0.4 MG/5 ML SYR IVP (12:55)
== END 2024-10-03 02:45 ==
LOC: DI 02:26
PROVIDERS: PCP Family Medicine; Visit Provider Internal Medicine Cardiovascular Disease
DX: I25.10 Atherosclerotic heart disease of native coronary artery without angina pectoris (principal)
CPT/HCPCS: 78452; 93016; 93018; 93017; J2785

== ENCOUNTER 2024-10-07 00:46 | Outpatient (CLI) | payer MEDICARE, SELFPAY ==
--- NOTE | 2024-10-07 08:00 | DI.US_ITS ---
APPROVED REPORT EXAM: Comprehensive 2D, Doppler, and color-flow Echocardiogram Patient Location: Out-Patient Provider Service Representative: Emily Rodas RDCS (AE) Indications: Aortic Stenosis Other Information Study Quality: Adequate Conclusion Normal left ventricular wall thickness and chamber size. Ejection fraction is 55 to 60%. Wall motio n is normal Normal right ventricular size and function Both atria are normal in size Aortic valve is calcified and trileaflet with moderate stenosis. Peak gradient is 37, mean is 23 mmH g. Calculated aortic valve area is 1.1 cm??. There is no aortic regurgitation Mild mitral annular calcification. Trace to mild mitral regurgitation Mild tricuspid regurgitation. Estimated right ventricular systolic pressure is 26 mmHg Ascending aorta measures 3.83 cm Wall motion Left Ventricle The left ventricle is normal size. The left ventricular systolic function is normal. The left ventric ular ejection fraction is within the normal range. There is normal left ventricular wall thickness. T here is normal LV segmental wall motion. There is no ventricular septal defect visualized. LVEF is 57 %. Right Ventricle The right ventricle is normal size. The right ventricular systolic function is normal. Atria The left atrium size is normal. The right atrium size is normal. The interatrial septum is intact wit h no evidence for an atrial septal defect. Aortic Valve Aortic valve is calcified. Moderate aortic stenosis. Highest mean aortic valve gradient is 22.79mmHg. Peak aortic valve gradient is 37.23mmHg. Calculated CUCA by the continuity equation is 1.1cm2. No aor tic regurgitation is present. Mitral Valve Mild mitral annular calcification. No evidence of mitral valve stenosis. Trace to mild mitral regurgi tation. Tricuspid Valve The tricuspid valve is normal in structure. There is no tricuspid valve stenosis. Mild tricuspid reg urgitation. The RVSP is 26.4 mmHg. Pulmonic Valve The pulmonary valve is normal in structure. There is no pulmonic valvular stenosis. Mild pulmonic reg urgitation. Great Vessels The aortic root is normal in size. The ascending aorta is mildly dilated. Aortic arch is normal in ca liber. IVC is normal in size and collapses >50% with inspiration. Pericardium There is no pericardial effusion. 2D Dimensions IVSD d PLAX 1.05 cm M: 0.6-1.2 Ao Root d 2.92 cm M: 3.1 - 3.7 LVPW d PLAX 1.03 cm M: 0.6 - 1.2 Ao Asc Diam d 3.83 cm M: 2.6 - 3.4 LVID d PLAX 4.70 cm M: 4.2 - 5.8 LVDs 3.32 cm M: 2.5 - 4.0 LV EF Teichholz 55.6 % FS 28.92 % LV EDV (Teich) 100.8 mL LV ESV (Teich) 44.7 mL Auto EF LV EDV A4C 120.5 mL LV EDV A2C 166.9 mL LV EDV BP 142.2 mL LV ESV A4C 51.2 mL LV ESV A2C 71.6 mL LV ESV BP 61.7 mL LVEF(%) A4C 57.6 % LVEF(%) A2C 57.1 % LVEF(%) BP 56.6 % LV SV A4C 69.4 ml LV SV A2C 95.3 ml LV SV BP 80.5 ml LV CO A4C 3.2 L/min LV CO A2C 4.3 L/min LV CO BP 3.8 L/min HR A4C 46.32 BPM HR A2C 45.29 BPM LV EDV Index (BP) LA Volume LA Length A4C 5.8 cm LA Length A2C 5.9 cm LA Area A4C s 20.74 cm2 LA Area A2C s 22.52 cm2 LA Vol A4C A-L 62.90 mL LA Vol A2C A-L 73.45 mL LA Vol Biplane A-L 68.3 mL LA Vol/BSA A4C A-L LA Vol/BSA A2C A-L LA Vol/BSA BP A-L 29.7 mL/m2 LA Vol A4C MOD 57.7 mL LA Vol A2C MOD 69.6 mL LA Vol BP MOD 63.2 mL RA Volume RA Area A4C 16.0 cm2 RA ESV A4C (A-L) 41.9mL RA Vol/BSA A4C A-L RA Length A4C 5.2 cm RA ESV A4C (MOD) 40.0mL LV Diastology MV E' medial 0.061 (>0.07 m/s) MV E Vmax 0.68 (0.4-1.3 m/s) MV E/E' MED 11.13 (<14) MV A Vmax 0.65 (0.4-1.3 m/s) MV E' lateral 0.078 (>0.1 m/s) E/A Ratio 1.0 MV E/E' LAT 8.71 (<14) MV E' Average 0.070 m/s MV E/E'(average) 9.77 Aortic Valve AoV Vmax 3.05 m/s LVOT Vmax 1.16 m/s AoV Peak Grad 37.2 mmHg LVOT Peak Grad 5.4 mmHg AoV Area (Vmax) 1.19 cm2 LVOT VTI 0.253 m AoV VTI 0.720 m LVOT Mean Grad 3.1 mmHg AoV Mean Casey. 2.27 m/s LVOT SV 79.12 mL AoV Mean Grad 22.8 mmHg LVOT Diam s 1.95 cm AoV Area (VTI) 1.10 cm2 AV Regurg Peak Gr. 37.23 mmHg Velocity Ratio 0.38 Mitral Valve MV DT 244 (160-240 msec) MV Vmax TIPS 0.69 m/s MV Mean Grad 0.5 (<2mmHg) MV VTI 0.244 m Pulmonary Valve PV Vmax 0.90 (0.5-1.5 m/s) RVOT Vmax 0.62 m/s PV Peak Grad 3.3 mmHg RVOT Peak Gr. 1.6 mmHg PV Mean Casey 0.59 m/s RVOT VTI 0.153 m PV Mean Grad 1.7 mmHg RVOT Mean Gr. 0.9 mmHg Tricuspid Valve RA Pressure 3.00 mmHg TR Vmax 2.42 m/s TV S' 0.08 m/s TR Peak Grad 23.4 mmHg RVSP (TR) 26.4 mmHg
== END 2024-10-07 01:06 ==
LOC: DI 00:46
PROVIDERS: PCP Family Medicine; Visit Provider Internal Medicine Cardiovascular Disease
DX: I08.2 Rheumatic disorders of both aortic and tricuspid valves (principal)
CPT/HCPCS: 93306

== ENCOUNTER 2024-11-29 07:40 | Outpatient (REF) | payer MEDICARE, SELFPAY ==
--- NOTE | 2024-11-29 07:34 | SKI_PTH ---
PATIENT: Lizandro Heath LOC: [facility] U#:[id number] AGE/SX: 79/M ROOM: RE11/29/[address]: Louie Mosquera MD : 1945 BED: DIS: 11/29/2024 SPEC #: [id number] RECD: 11/29/24 17:10 STATUS: RALPH RESoco #: [id number] JELLY: 11/29/24 07:[address]: Louie Mosquera DEPT: Surgical Specimen RECD BY: Lazara Goncalves ENTERED: 11/29/24 17:11 SP TYPE: SKI OTHR DR: Mayank Mohamud DO Tissues: 1 - SKIN BIOPSY(SHAVE/PUNCH) Procedures: SKIN LEVEL 4 Comments: [id number]
== END 2024-11-29 07:41 | disposition home or self-care (01) ==
LOC: LBN 07:40
PROVIDERS: PCP Family Medicine; Visit Provider Otolaryngology
DX: C44.222 Squamous cell carcinoma of skin of right ear and external auricular canal (principal); L98.9 Disorder of the skin and subcutaneous tissue, unspecified
CPT/HCPCS: 88305

== ENCOUNTER → 2024-12-30 10:27 | Outpatient (BNVA) | payer MEDICARE, SELFPAY | PROVIDERS: PCP Family Medicine; Visit Provider Internal Medicine Cardiovascular Disease | DX: I35.0 Nonrheumatic aortic (valve) stenosis (principal); Z95.1 Presence of aortocoronary bypass graft | CPT/HCPCS: 99213 ==

== ENCOUNTER 2025-03-06 02:08 | Outpatient (CLI) | payer MEDICARE, SELFPAY ==
--- NOTE | 2025-03-06 06:45 | DI.US_ITS ---
Exam(s) US AAA DIAGNOSTIC EXAM: US AAA DIAGNOSTIC CLINICAL HISTORY: Annual surveillance of AAA,i71.4 COMPARISON: US US AAA DIAGNOSTIC from 09/24/2022 US US AAA DIAGNOSTIC from 02/12/2024 FINDINGS: Abdominal Aorta: Proximal: 2.8 x 2.8 cm Mid: 2.4 x 2.4 cm Distal: 4.0 x 4.3 cm Iliac's: Right: 1.4 x 1.4 cm Left: 1.5 x 1.5 cm Atherosclerotic calcification is present. IMPRESSION: There is a 4.0 x 4.3 cm distal abdominal aortic aneurysm. This compares to 4.0 x 4.0 on the prior examination. There has been slight increase in size. There is also been slight increase in size of the proximal abdominal aorta which now measures 2.8 x 2.8 cm compared to 2.5 x 2.4 cm on the prior examination. DATA REPOSITORY:
== END 2025-03-06 02:28 ==
LOC: DI 02:08
PROVIDERS: PCP Family Medicine; Visit Provider Family Medicine
DX: I71.40 Abdominal aortic aneurysm, without rupture, unspecified (principal)
CPT/HCPCS: 76775

== ENCOUNTER 2025-05-17 02:38 | Outpatient (CLI) | payer MEDICARE, SELFPAY ==
[2025-05-17 13:38] LABS: Cholesterol 180 mg/dL (<200); HDL Cholesterol 38 mg/dL (>or=40)
== END 2025-05-17 02:39 | disposition home or self-care (01) ==
LOC: LBO 02:38
PROVIDERS: PCP Family Medicine; Visit Provider Family Medicine
DX: E78.5 Hyperlipidemia, unspecified (principal)
CPT/HCPCS: 36415; 80061